=== PATIENT | female | born 1945 | race Caucasian/White ===

== ENCOUNTER 2016-04-01 09:59 | Outpatient (RCR) | payer MEDICARE ==
[~2016-04-01 09:59] MED LIST: ACHD5005 PO; ALBU17AE3 IH; ALLO300T2 PO; ALPR.5T; AMIT50TA3 PO; AMLO10TA82 PO; ANAS1TAB7 PO; ASP325T PO; ASP81TEC; ASP81TEC PO; ASPI-983 PO; ATOR40TA70 PO; Atorvastatin Calcium PO; BSP10T PO; CARV12.53 PO; CARV6.252 PO; CHOL5000 PO; CTLP20T PO; CYCL10TA9 PO; ESCI20TA38 PO; ESCT10T; FAMO-119 PO; FURO20TA4 PO; GLIM1TAB PO; HYDR-2858 PO; HYDR-3714 PO; KCL10CCR; KCL20TCR PO; LVT.1T PO; MELO7.5T; NRT10C; OXYC-309 PO; POTA-51 PO; PRAV40TA PO; PRD10T PO; PRV20T PO; RT-ALBUINH IH; SKELAXIN; TICA90TA PO; TRAM100T2 PO; TRIA1TAB42 PO
--- OUTSIDE RECORDS SUMMARY | 2016-04-01 10:02 | XMS REPORT | Continuity of Care Document ---
Author Author [facility] Organization [facility] Address Unknown Phone Unavailable Care Team Providers Care Data Warehouse Manager Name Role Phone Chidi Saul PCP [phone] Source Comments Some departments are not documenting in the electronic medical record. If you do not see the information that you expected, contact Release of Information in the Health Information Management department at [phone] for further assistance in locating additional records.[facility] Active Allergies and Adverse Reactions No Known Allergies Current Medications Prescription Sig. Disp. Refills Start End Date Status Date triamterene/hydrochloroth Take 1 Tab by mouth Active iazide (MAXZIDE) 75/50 mg daily. tablet ALBUTEROL IN Inhale by mouth as Active Needed. amLODIPine (NORVASC) 10 Take 10 mg by mouth Active mg tablet daily. aspirin 325 mg tablet Take 325 mg by mouth Active daily. busPIRone (BUSPAR) 10 mg Take 10 mg by mouth three Active tablet times daily. carvedilol (COREG) 12.5 Take 12.5 mg by mouth Active mg tablet twice daily with meals. CYCLOBENZAPRINE HCL Take by mouth. Active (CYCLOBENZAPRINE PO) citalopram (CELEXA) 10 mg Take 10 mg by mouth Active tablet daily. furosemide (LASIX) 20 mg Take 20 mg by mouth Active tablet daily. levothyroxine (SYNTHROID) Take 100 mcg by mouth Active 100 mcg tablet daily. oxyCODone/acetaminophen Take by mouth once. Active (PERCOCET) 2.5/325 mg tablet potassium chloride SR Take 10 mEq by mouth Active (K-DUR) 10 mEq tablet daily. ATORVASTATIN CALCIUM Take by mouth. Active (LIPITOR PO) ticagrelor (BRILINTA) 90 Take 90 mg by mouth twice Active mg daily. Active Problems Problem Noted Date 6Th nerve palsy 07/08/2013 Diplopia 07/08/2013 Pseudophakia of both eyes 07/08/2013 Dermatochalasis of eyelid 07/08/2013 Social History Tobacco Use Types Packs/Day Years Used Date Former Smoker Cigarettes 1 30 Quit: 04/27/2003 Alcohol Use Drinks/Week oz/Week Comments Yes 1 Standard 0.5 drinks or equivalent Last Filed Vital Signs Vital Sign Reading Time Taken Blood Pressure 131/69 10/18/2013 1:03 PM CDT Pulse 73 10/18/2013 1:03 PM CDT Temperature - - Respiratory Rate - - Height 1.499 m (4' 11") 10/18/2013 1:03 PM CDT Weight 100.699 kg (222 lb) 10/18/2013 1:03 PM CDT Body Mass Index 44.81 10/18/2013 1:03 PM CDT Oxygen Saturation - - Plan of Care Health Maintenance Due Date Last Done Comments Physical (Comprehensive) 1953 Exam Pertussis Vaccine 1957 Tetanus Vaccine 12/07/1963 Breast Cancer Screening 1986 Colorectal Cancer 1996 Screening Shingles Vaccine 2006 Osteoporosis Screening 12/07/2011 Prevnar/Pneumovax (#1) 12/07/2011 Influenza Vaccine 12/27/2015 Results from Last 3 Months Not on file
[2016-04-01 10:26] LABS: BASOPHILS % (AUTO) 0 % (0-10); EOSINOPHILS # (AUTO) 0.3 10^3/uL (0.0-0.3); EOSINOPHILS % (AUTO) 3 % (0-10); LYMPHOCYTES # (AUTO) 2.3 X 10^3 (1.0-4.0); LYMPHOCYTES % (AUTO) 24 % (12-44); MEAN CORPUSCULAR HEMOGLOBIN 28 PG (25-34); MEAN CORPUSCULAR HGB CONC 33 G/DL (32-36); MEAN CORPUSCULAR VOLUME 84 FL (80-99); MEAN PLATELET VOLUME 9.6 FL (7.4-10.4); MONOCYTES # (AUTO) 0.7 X 10^3 (0.0-1.0); MONOCYTES % (AUTO) 7 % (0-12); NEUTROPHILS # (AUTO) 6.3 X 10^3 (1.8-7.8); NEUTROPHILS % (AUTO) 66 % (42-75); PLATELET COUNT 301 10^3/uL (130-400); RED BLOOD COUNT 4.77 10^6/uL (4.35-5.85); RED CELL DISTRIBUTION WIDTH 15.1 % (10.0-14.5); WHITE BLOOD COUNT 9.5 10^3/uL (4.3-11.0)
[2016-04-01 10:58] LABS: ALBUMIN 3.9 G/DL (3.2-4.5); BILIRUBIN,TOTAL 0.6 MG/DL (0.1-1.0); CALCIUM 9.4 MG/DL (8.5-10.1); CREATININE SERUM 1.21 MG/DL (0.60-1.30); POTASSIUM 3.4 MMOL/L (3.6-5.0); TOTAL PROTEIN 7.1 G/DL (6.4-8.2)
== END 2016-06-30 | disposition home or self-care (01) ==
LOC: ONC 09:59
PROVIDERS: ATTEND Internal Medicine Hematology & Oncology
DX: C50.411 Malignant neoplasm of upper-outer quadrant of right female breast (principal); I25.10 Atherosclerotic heart disease of native coronary artery without angina pectoris; I10 Essential (primary) hypertension; E11.9 Type 2 diabetes mellitus without complications; E78.5 Hyperlipidemia, unspecified; F32.9 Major depressive disorder, single episode, unspecified; M19.90 Unspecified osteoarthritis, unspecified site; E66.01 Morbid (severe) obesity due to excess calories; Z68.44 Body mass index [BMI] 60.0-69.9, adult; Z79.899 Other long term (current) drug therapy
CPT/HCPCS: 36415; 80053; 85025; 99213

== ENCOUNTER 2016-07-01 09:55 | Outpatient (RCR) | payer MEDICARE ==
--- OUTSIDE RECORDS SUMMARY | 2016-07-01 10:00 | XMS REPORT | Continuity of Care Document ---
Author Author [facility] Organization [facility] Address Unknown Phone Unavailable Care Team Providers Care Automobile Club Membership Sales Agent Name Role Phone Chidi Saul PCP [phone] Source Comments Some departments are not documenting in the electronic medical record. If you do not see the information that you expected, contact Release of Information in the Health Information Management department at [phone] for further assistance in locating additional records.[facility] Active Allergies and Adverse Reactions No Known [...] mg daily. Active Problems Problem Noted Date 6th nerve palsy 07/08/2013 Diplopia 07/08/2013 Pseudophakia of [...]
[2016-07-01 11:11] LABS: BASOPHILS # (AUTO) 0.1 10^3/uL (0.0-0.1); BASOPHILS % (AUTO) 1 % (0-10); EOSINOPHILS # (AUTO) 0.4 10^3/uL (0.0-0.3); EOSINOPHILS % (AUTO) 4 % (0-10); LYMPHOCYTES # (AUTO) 2.2 X 10^3 (1.0-4.0); LYMPHOCYTES % (AUTO) 25 % (12-44); MEAN CORPUSCULAR HEMOGLOBIN 27 PG (25-34); MEAN CORPUSCULAR HGB CONC 32 G/DL (32-36); MEAN CORPUSCULAR VOLUME 84 FL (80-99); MEAN PLATELET VOLUME 9.5 FL (7.4-10.4); MONOCYTES # (AUTO) 0.8 X 10^3 (0.0-1.0); MONOCYTES % (AUTO) 9 % (0-12); NEUTROPHILS # (AUTO) 5.2 X 10^3 (1.8-7.8); NEUTROPHILS % (AUTO) 61 % (42-75); PLATELET COUNT 304 10^3/uL (130-400); RED BLOOD COUNT 4.94 10^6/uL (4.35-5.85); RED CELL DISTRIBUTION WIDTH 15.7 % (10.0-14.5); WHITE BLOOD COUNT 8.6 10^3/uL (4.3-11.0)
[2016-07-01 12:24] LABS: BILIRUBIN,TOTAL 0.5 MG/DL (0.1-1.0); CALCIUM 9.6 MG/DL (8.5-10.1); CREATININE SERUM 1.17 MG/DL (0.60-1.30); POTASSIUM 3.4 MMOL/L (3.6-5.0); TOTAL PROTEIN 7.5 G/DL (6.4-8.2)
[2016-07-01 12:49] LABS: THYROID STIMULATING HORMONE 1.55 UIU/ML (0.35-4.94)
[2016-07-10] MEDS ORDERED: ceFAZolin 2 GM/50 ML NS 50 ML IV ONE (06:24)
== END 2016-09-29 | disposition home or self-care (01) ==
LOC: ONC 09:55
PROVIDERS: ATTEND Internal Medicine Hematology & Oncology
DX: C50.411 Malignant neoplasm of upper-outer quadrant of right female breast (principal); I25.10 Atherosclerotic heart disease of native coronary artery without angina pectoris; I10 Essential (primary) hypertension; E11.9 Type 2 diabetes mellitus without complications; E78.5 Hyperlipidemia, unspecified; F32.9 Major depressive disorder, single episode, unspecified; M19.90 Unspecified osteoarthritis, unspecified site; E66.01 Morbid (severe) obesity due to excess calories; Z68.42 Body mass index [BMI] 45.0-49.9, adult; Z79.811 Long term (current) use of aromatase inhibitors; Z79.899 Other long term (current) drug therapy
CPT/HCPCS: 36415; 80053; 84439; 84443; 85025; 99213

== ENCOUNTER 2016-07-09 09:33 | Outpatient (CLI) | payer MEDICARE ==
[~2016-07-09] VITALS: Ht 149.9 cm; Wt 103.7 kg
--- OUTSIDE RECORDS SUMMARY | 2016-07-09 09:40 | XMS REPORT | Continuity of Care Document ---
Author Author [facility] Organization [facility] Address Unknown Phone Unavailable Care Team Providers Care Wind Turbine Service Technician Name Role Phone Chidi Saul PCP [phone] Source Comments Some departments are not documenting in the electronic medical record. If you do not see the information that you expected, contact Release of Information in the Health Information Management department at [phone] for further assistance in locating additional records.[facility] Active Allergies and Adverse Reactions No [...]
[2016-07-09 09:51] VITALS: BP 141/76
== END 2016-07-09 10:25 | disposition home or self-care (01) ==
LOC: PREOP 09:33
PROVIDERS: ATTEND Surgery
DX: Z01.818 Encounter for other preprocedural examination (principal); Z11.2 Encounter for screening for other bacterial diseases; N63 Unspecified lump in breast
CPT/HCPCS: 87081

== ENCOUNTER 2016-07-10 06:05 | Day surgery (SDC) | payer MEDICARE ==
[~2016-07-10] VITALS: Ht 149.9 cm; Wt 103.7 kg
[2016-07-10 06:20] VITALS: BP 156/83
[2016-07-10] MEDS: LACTATED RINGERS 1,000 ML IV PRN ×2 (06:20→08:54)
--- OUTSIDE RECORDS SUMMARY | 2016-07-10 06:36 | XMS REPORT | Continuity of Care Document ---
Author Author [facility] Organization [facility] Address Unknown Phone Unavailable Care Team Providers Care Superintendent Service Name Role Phone Chidi Saul PCP [phone] Source Comments Some departments are not documenting in the electronic medical record. If you do not see the information that you expected, contact Release of Information in the Health Information Management department at [phone] for further assistance in locating additional records.[facility] Active Allergies and Adverse Reactions No Known [...]
--- OUTSIDE RECORDS SUMMARY | 2016-07-10 06:37 | XMS REPORT | Continuity of Care Document ---
Author Author [facility] Organization [facility] Address Unknown Phone Unavailable Care Team Providers Care Aircraft Machinist Name Role Phone Chidi Saul PCP [phone] Source Comments Some departments are not documenting in the electronic medical record. If you do not see the information that you expected, contact Release of Information in the Health Information Management department at [phone] for further assistance in locating additional records.[facility] Active Allergies and Adverse Reactions No [...]
[2016-07-10] MEDS ORDERED: SEVOFLURANE (ULTANE) 15 ML INHAL SOLN ONE ×4 (06:51→09:06)
[2016-07-10] MEDS ORDERED: MIDAZOLAM 2 MG/2 ML (VERSED) VIAL ONE (06:51)
[2016-07-10] MEDS ORDERED: ONDANSETRON 4 MG/2 ML (SDV) Z0FRAN ONE (06:51)
[2016-07-10] MEDS ORDERED: fentaNYL INJECTION 100 MCG/2 ML AMP ONE (06:51)
[2016-07-10] MEDS ORDERED: proPOfol 200 MG/20 ML (DIPRIVAN) VIAL IV ONE (06:51)
[2016-07-10] MEDS ORDERED: LIDOCAINE PF 2% 10 ML (XYLOCAINE) AMP ONE (06:51)
[2016-07-10] MEDS ORDERED: FAMOTIDINE 20MG/2ML IV (PEPCID) IV ONE (07:00)
[2016-07-10] MEDS ORDERED: ceFAZolin 2 GM/NS 50 ML IV ONE (07:15)
[2016-07-10] MEDS ORDERED: BUPIVACAINE 0.5% 30 ML (SENSORCAINE) VIAL ONE (07:16)
[2016-07-10] MEDS ORDERED: LIDOCAINE 1% INJ 20 ML (XYLOCAINE) VIAL ONE (07:16)
--- NOTE | 2016-07-10 07:44 | Progress Note-Pre Operative ---
Pre-Operative Progress Note H&P Reviewed The H&P was reviewed, patient examined and no changes noted. Date H&P Reviewed: Jul 10, 2016 Time H&P Reviewed: 07:43 Pre-Operative Diagnosis: right breast mass, skin lesion right shoulder/left thigh, skin tags L neck KAMALJIT MARROQUIN DO Jul 10, 2016 7:44 am
[2016-07-10] MEDS ORDERED: NEO/POLY/BAC (NEOSPORIN) OINT 15 GM TUBE ONE (09:00)
[2016-07-10] MEDS ORDERED: LACTATED RINGERS 1,000 ML IV ONE (09:06)
--- NOTE | 2016-07-10 09:09 | Progress Note-Post Operative ---
Post-Operative Progess Note Pre-Operative Diagnosis right breast mass, skin lesion right shoulder/left thigh, skin tags L neck Post-Operative Diagnosis same Post-Op Procedure Note Date of Procedure: Jul 10, 2016 Name of Procedure: excision right breast mass 3x6x4 cm, right shoulder skin lesion 3x1cm left thigh 2x0.8 cm and excision skin tags left neck x 8 Procedure Note/Findings see note Anesthesia Type general Estimated blood loss (mL): minimal Specimen(s) collected right breast mass, skin lesions KAMALJIT MARROQUIN DO Jul 10, 2016 9:08 am
--- NOTE | 2016-07-10 09:13 | Discharge Inst-Simple/Standard ---
Discharge Inst-Standard Discharge Medications New, Converted or Re-Newed RX: RX on Chart Patient Instructions/Follow Up Plan of Care/Instructions/FU: 10-14 days Mick Activity as Tolerated: No Discharge Diet: Regular Diet Other Inst to Patient Follow up Appt: Make appointment for 10-14 days ( suture removal) Instructions: No lifting greater than 10 pounds. No strenuous activity. May shower in 24 hours, no tub bath or soaking. Use incentive spirometer at home as directed. No Smoking Skin/Wound Care: May remove bandages in 24 hours. You need to leave the white strips over incision on they will fall off on their own. Symptoms to Report: Appetite Changes, Extremity Discoloration, Numbness/Tingling, Swelling Increased , Bleeding Excessive, Eyesight Changes, Pain Increased, Urine Color Change, Constipation(Persistent), Fever over 101 degree F, Pain/Pressure in chest, Urinating Difficulty, Cough Up/Vomit Blood, Heart Beat Irreg/Pounding, Pain/ Pressure in jaw, Vaginal Bleeding Increase, Cramps in feet or legs, Lightheadedness, Pain/Pressure in shoulder, Diarrhea(Persistent), Memory Changes Suddenly, Questions/Concerns, Weight gain consecutive days, Dizziness/ Fainting, Nausea/Vomiting, Shortness of Breath, Weight gain over 2 pounds If questions or concerns contact your physician Or seek help at emergency department. KAMALJIT MARROQUIN DO Jul 10, 2016 9:12 am
[2016-07-10] MEDS ORDERED: ONDANSETRON 4 MG/2 ML (SDV) Z0FRAN IVP PRN (09:30)
[2016-07-10] MEDS ORDERED: MEPERIDINE (DEMEROL) INJ 50 MG/ML IVP PRN (09:30)
[2016-07-10] MEDS ORDERED: morphine INJ 10 MG/ML 1ML (SYR OR VIAL) IVP PRN (09:30)
[2016-07-10 10:15] VITALS: BP 115/58
[2016-07-10 10:45] VITALS: BP 113/65
--- NOTE | 2016-07-10 12:18 | OPERATIVE REPORT ---
PROCEDURE PHYSICIAN: KAMALJIT MARROQUIN DATE OF PROCEDURE: 07/10/2016 PREOPERATIVE DIAGNOSIS: 1. Right breast mass. 2. Skin lesion right shoulder, left thigh, skin tag left neck. POSTOPERATIVE DIAGNOSIS: 1. Right breast mass. 2. Skin lesion right shoulder, left thigh, skin tag left neck. PROCEDURE: Excision right breast mass 3 x 6 x 4 cm, right shoulder skin lesion 3 x 1 cm, left thigh 2 x 0.8 cm. Excision of skin tag left neck x 8. ANESTHESIA: General. ESTIMATED BLOOD LOSS: Minimal. COMPLICATIONS: None. INDICATIONS: The patient is a 70-year-old female who had previous mastectomy. She has a palpable mass within the incision line on the lateral aspect. She also has multiples skin lesions that cause her a little bit of discomfort that she wishes to have removed. She understands risks and benefits of procedure and wished to proceed with procedure. Consent was signed on the chart. PROCEDURE: The patient was taken to the operative suite. She was prepped in sterile fashion. A surgical pause was performed. Over the palpable mass incision was made and dissection was taken down around the palpable mass. The mass was approximately 1.5 cm in diameter in diameter. In doing so there was a cystic area that was punctured and began to be dissected around as well. It was more of a clear serous fluid that was present. Cautery dissection was used to dissect around this, which then opened up where this was into the previous mastectomy scar. It appears to be epithelialized. This was retracted all the way medial. The epithelialized tissue was removed but no other palpable abnormality is noted. The overall area removed was 3 x 6 x 4 cm of skin, subcutaneous tissue, which was dissected down to the pectoralis muscle. A layered closure was performed. The deep tissues were reapproximated using 3-0 Vicryl. The subcutaneous tissues were then approximated using 3-0 Vicryl and the skin was then closed using 4-0 Vicryl in a running subcuticular fashion. 0.5% Marcaine 1% lidocaine 50:50 ratio was used to anesthetize the area. Sterile bandage was applied. The right shoulder then had local anesthetic infiltrated with new instruments. An elliptical incision measuring 3 x 1 cm was made around the lesion and cautery was used to remove the skin and subcutaneous tissues. This was then closed using 3-0 nylon in a simple interrupted fashion. The patient had multiple skin tags on the left neck which were prepped and draped and these were amputated with a number 15 blade scalpel at the base and cautery was used to achieve hemostasis. After these were performed the area was then washed and dried and triple antibiotic ointment was placed over them. The left thigh had a local anesthetic infiltrated into the area. An elliptical incision measuring 2 x 0.8 cm was used to make around the skin lesions. Another 15 blade scalpel was used to remove skin and subcutaneous tissues. 3-0 nylon was placed in a simple running fashion to close the wound. The area was washed and dried. Sterile bandage was applied. The patient tolerated the procedures well without complication. She was taken to recovery in stable condition. Job ID: [id number] Dictated Date: 07/10/2016 09:18:09 Air Crew Supervisor Date: 07/10/2016 12:01:20 / kimberly HDZ
== END 2016-07-10 11:00 | disposition home or self-care (01) ==
LOC: SDC 06:05
PROVIDERS: ATTEND Surgery
DX: N60.01 Solitary cyst of right breast (principal); L82.1 Other seborrheic keratosis; B07.9 Viral wart, unspecified; L91.8 Other hypertrophic disorders of the skin; E11.9 Type 2 diabetes mellitus without complications
CPT/HCPCS: 82962; 88304; 88305

== ENCOUNTER 2016-10-03 10:55 | Outpatient (RCR) | payer MEDICARE ==
[2016-10-15] MEDS ORDERED: CHOL500061 PO (10:13)
[2016-10-22] MEDS ORDERED: OXYC-197 PO (09:49)
[2016-10-22] MEDS ORDERED: CHOL5000 PO (13:27)
[2016-10-22] MEDS ORDERED: HYDR-3816 PO (13:27)
[2016-10-22] MEDS ORDERED: POTA20TA15 PO (13:38)
[2016-11-29] MEDS ORDERED: CEPH-507 PO (17:15)
== END 2016-12-22 10:07 | disposition home or self-care (01) ==
LOC: ONC 10:55
PROVIDERS: ATTEND Internal Medicine Hematology & Oncology
DX: C50.411 Malignant neoplasm of upper-outer quadrant of right female breast (principal); I25.10 Atherosclerotic heart disease of native coronary artery without angina pectoris; I10 Essential (primary) hypertension; E11.9 Type 2 diabetes mellitus without complications; E78.5 Hyperlipidemia, unspecified; F32.9 Major depressive disorder, single episode, unspecified; M19.90 Unspecified osteoarthritis, unspecified site; E66.01 Morbid (severe) obesity due to excess calories; Z68.42 Body mass index [BMI] 45.0-49.9, adult; Z79.811 Long term (current) use of aromatase inhibitors; Z79.899 Other long term (current) drug therapy
CPT/HCPCS: 99213

== ENCOUNTER 2016-10-15 09:57 | Outpatient (CLI) | payer MEDICARE ==
--- NOTE | 2016-10-14 14:23 | HISTORY AND PHYSICAL ---
DATE OF SERVICE: This is will be for inpatient admission on 10/22/2016 REASON FOR ADMISSION: Right total knee arthroplasty. HISTORY OF PRESENT ILLNESS: The patient is a 70-year-old female with the complaints of progressively worsening right knee pain. She reports functional impairment. She reports progressive pain and decreased activity because of the knee. She ambulates with the cane. Due to progressive symptoms, she is elected to proceed with total knee arthroplasty. Radiographs reveal complete loss of medial and patellofemoral joint spaces with osteophyte formation noted throughout all three compartments. REVIEW OF SYSTEMS: No chest pain, no shortness of breath, no dysuria. PAST MEDICAL HISTORY: Kidney disease, coronary artery disease, hyperthyroidism, hypertension and breast cancer. PAST SURGICAL HISTORY: Coronary stent placement, hysterectomy, left total knee arthroplasty and right mastectomy. FAMILY HISTORY: Cardiovascular disease. PRIMARY CARE PROVIDER: [facility]. MEDICATIONS: Celexa, ProAir, furosemide, cyclobenzaprine, glimepiride, potassium, amlodipine, levothyroxine, hydrocodone, triamterene, hydrochlorothiazide, carvedilol, anastrozole, Lipitor, aspirin, vitamin D. . ALLERGIES: ALLOPURINOL. SOCIAL HISTORY: The patient is a former smoker, denies alcohol use. PHYSICAL EXAMINATION: GENERAL: The patient is well-developed, well-nourished, in no acute distress. HEENT: Normocephalic, atraumatic. Pupils are equal, round and reactive to light. Oropharynx is clear. NECK: Supple. No lymphadenopathy. LUNGS: Clear to auscultation bilaterally. HEART: Regular rate and rhythm. ABDOMEN: Soft, nontender, nondistended. EXTREMITIES: Right knee demonstrates varus alignment. No skin lesions are noted. She has intact sensation throughout. Negative straight legs. She ambulates with an antalgic gait. There is no gross varus to valgus laxity. Negative anterior and posterior drawer. Range of motion is 0/4/125. IMPRESSION: Severe left knee osteoarthritis, unresponsive to conservative measures. Severe right knee primary osteoarthritis PLAN: Right total knee arthroplasty. The risks, benefits, options, ramifications and recovery have been discussed at length with the patient. She understands and wishes to proceed. Job ID: [id number] DocumentID: [id number] Dictated Date: 10/14/2016 09:31:16 Veneer Production Machine Operator Date: 10/14/2016 10:43:45 Dictated By: COBY CRESPO MD
[~2016-10-15] VITALS: Ht 149.9 cm; Wt 105.8 kg
[2016-10-15] MEDS ORDERED: CHOL500061 PO (10:13)
[2016-10-15 10:19] VITALS: BP 120/65
[2016-10-15 10:57] LABS: BASOPHILS # (AUTO) 0.1 10^3/uL (0.0-0.1); BASOPHILS % (AUTO) 1 % (0-10); EOSINOPHILS # (AUTO) 0.5 10^3/uL (0.0-0.3); EOSINOPHILS % (AUTO) 6 % (0-10); LYMPHOCYTES # (AUTO) 2.2 X 10^3 (1.0-4.0); LYMPHOCYTES % (AUTO) 25 % (12-44); MEAN CORPUSCULAR HEMOGLOBIN 27 PG (25-34); MEAN CORPUSCULAR HGB CONC 32 G/DL (32-36); MEAN CORPUSCULAR VOLUME 83 FL (80-99); MEAN PLATELET VOLUME 10.2 FL (7.4-10.4); MONOCYTES # (AUTO) 0.8 X 10^3 (0.0-1.0); MONOCYTES % (AUTO) 9 % (0-12); NEUTROPHILS # (AUTO) 5.3 X 10^3 (1.8-7.8); NEUTROPHILS % (AUTO) 60 % (42-75); PLATELET COUNT 275 10^3/uL (130-400); RED BLOOD COUNT 5.13 10^6/uL (4.35-5.85)
[2016-10-15 11:01] LABS: BILIRUBIN,URINE NEGATIVE (NEGATIVE); KETONES,URINE NEGATIVE (NEGATIVE); LEUKOCYTE ESTERASE ,URINE 1+ (NEGATIVE); NITRITE,URINE NEGATIVE (NEGATIVE); PH,URINE 6.5 (5-9); PROTEIN,URINE NEGATIVE (NEGATIVE); UROBILINOGEN,URINE NORMAL (NORMAL)
[2016-10-15 11:12] LABS: INR 1.1 (0.8-1.4); PROTHROMBIN TIME PATIENT 14.1 SEC (12.2-14.7)
--- NOTE | 2016-10-15 11:16 | Diagnostic Imaging Report ---
PA and lateral views of the chest. INDICATION: Mild COPD. FINDINGS: The lungs are hyperinflated with no focal infiltrate. There is cardiomegaly. No overt failure. No effusion or pneumothorax. Mediastinum and lilliana appear unremarkable. IMPRESSION: COPD. Cardiomegaly. Dictated by: Dictated on workstation # [id number]
[2016-10-15 11:21] LABS: ALBUMIN 4.1 GM/DL (3.2-4.5); BILIRUBIN,TOTAL 0.6 MG/DL (0.1-1.0); CALCIUM 9.6 MG/DL (8.5-10.1); CREATININE SERUM 1.13 MG/DL (0.60-1.30); ICTERUS 0.5 (-100-1.9); POTASSIUM 3.4 MMOL/L (3.6-5.0); TOTAL PROTEIN 7.5 GM/DL (6.4-8.2)
[2016-10-15 11:22] LABS: SQUAMOUS EPITHELIAL CELL,UR RARE /HPF; WBC,URINE RARE /HPF
[2016-10-15 12:27] LABS: ERYTHROCYTE SEDIMENTATION RATE 23 MM/HR (0-30)
== END 2016-10-15 14:03 | disposition home or self-care (01) ==
LOC: PREOP 09:57
PROVIDERS: ATTEND Orthopaedic Surgery
DX: Z01.810 Encounter for preprocedural cardiovascular examination (principal); Z01.811 Encounter for preprocedural respiratory examination; Z01.812 Encounter for preprocedural laboratory examination; Z11.2 Encounter for screening for other bacterial diseases; M17.11 Unilateral primary osteoarthritis, right knee; R53.83 Other fatigue
CPT/HCPCS: 36415; 71020; 80053; 81000; 85025; 85610; 85652; 86850; 86900; 86901; 87081; 93005

== ENCOUNTER 2016-10-22 05:57 | Inpatient (IN) | payer MEDICARE ==
--- NOTE | 2016-10-17 02:11 | HISTORY AND PHYSICAL ---
DATE OF SERVICE: 10/22/2016 This is will be for inpatient admission on 10/22/2016 REASON FOR ADMISSION: Right total knee arthroplasty. HISTORY OF PRESENT ILLNESS: The patient is a 70-year-old female with the complaints of progressively worsening right knee pain. She reports functional impairment. She reports progressive pain and decreased activity because of the knee. She ambulates with the cane. Due to progressive symptoms, she is elected to proceed with total knee arthroplasty. Radiographs reveal complete loss of medial and patellofemoral joint spaces with osteophyte formation noted throughout all three compartments. REVIEW OF SYSTEMS: No chest pain, no shortness of breath, no dysuria. PAST MEDICAL HISTORY: Kidney disease, coronary artery disease, hyperthyroidism, hypertension and breast cancer. PAST SURGICAL HISTORY: Coronary stent placement, hysterectomy, left total knee arthroplasty and right mastectomy. FAMILY HISTORY: Cardiovascular disease. PRIMARY CARE PROVIDER: [facility]. MEDICATIONS: Celexa, ProAir, furosemide, cyclobenzaprine, glimepiride, potassium, amlodipine, levothyroxine, hydrocodone, triamterene, hydrochlorothiazide, carvedilol, anastrozole, Lipitor, aspirin, vitamin D. . ALLERGIES: ALLOPURINOL. SOCIAL HISTORY: The patient is a former smoker, denies alcohol use. PHYSICAL EXAMINATION: GENERAL: The patient is well-developed, well-nourished, in no acute distress. HEENT: Normocephalic, atraumatic. Pupils are equal, round and reactive to light. Oropharynx is clear. NECK: Supple. No lymphadenopathy. LUNGS: Clear to auscultation bilaterally. HEART: Regular rate and rhythm. ABDOMEN: Soft, nontender, nondistended. EXTREMITIES: Right knee demonstrates varus alignment. No skin lesions are noted. She has intact sensation throughout. Negative straight legs. She ambulates with an antalgic gait. There is no gross varus to valgus laxity. Negative anterior and posterior drawer. Range of motion is 0/4/125. IMPRESSION: Severe left knee osteoarthritis, unresponsive to conservative measures. Severe right knee primary osteoarthritis PLAN: Right total knee arthroplasty. The risks, benefits, options, ramifications and recovery have been discussed at length with the patient. She understands and wishes to proceed. Job ID: [id number] DocumentID: [id number] Dictated Date: 10/14/2016 09:31:16 Poultry Dressing Worker Date: 10/14/2016 10:43:45 Dictated By: COBY CRESPO MD <Dictated by COBY CRESPO MD> <Electronically signed by COBY CRESPO MD> 10/15/16 0545
[~2016-10-22] VITALS: Ht 149.9 cm; Wt 105.8 kg
[~2016-10-22 05:57] MED LIST changes: +CHOL500061 PO
--- OUTSIDE RECORDS SUMMARY | 2016-10-22 06:03 | XMS REPORT ---
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 Problem Abnormal mammogram R92.8 Active Problem Abnormal urinalysis R82.90 Active Problem Gout M10.9 Active Problem CAD (coronary artery disease) I25.10 Active Problem Pure hypercholesterolemia E78.0 Active Problem Anxiety F41.9 Active Problem Hypercholesteremia 272.0 Active Problem Breast mass in female N63 Active Problem Chronic kidney disease (CKD) stage G3a/A2, moderately decreased glomerular filtration rate (GFR) between 45-59 mL/min/1.73 square meter and albuminuria creatinine ratio between 30-299 mg/g N18.3 Active Assessment Abnormal urinalysis R82.90 Active Problem Hypothyroid E03.9 Active Medications No Known Medications Results No Known Results Summary Purpose eClinicalWorks Submission
--- OUTSIDE RECORDS SUMMARY | 2016-10-22 06:03 | XMS REPORT | Continuity of Care Document ---
Author Author [facility] Organization [facility] Address Unknown Phone Unavailable Care Team Providers Care Party Plan Sales Host/Hostess Name Role Phone Chidi Saul PCP [phone] Source Comments Some departments are not documenting in the electronic medical record. If you do not see the information that you expected, contact Release of Information in the Health Information Management department at [phone] for further assistance in locating additional records.[facility] Active Allergies and Adverse Reactions No [...] Health Maintenance Due Date Last Done Comments Hepatitis C Screening 1945 Physical (Comprehensive) 1953 Exam Pertussis Vaccine 1957 Tetanus Vaccine 12/07/1963 Breast Cancer Screening 1986 Colorectal Cancer 1996 Screening Shingles Vaccine 2006 Osteoporosis Screening 12/07/2011 Prevnar/Pneumovax (#1) 12/07/2011 Influenza Vaccine 12/26/2016 Results from Last 3 Months Not on file
--- OUTSIDE RECORDS SUMMARY | 2016-10-22 06:03 | XMS REPORT ---
Author ORVILLE [facility] [employer] Address Unknown Phone Unavailable Care Team Providers Care Reel Slitter Name Role Phone ORVILLE RAMIREZ Unavailable Allergies, Adverse Reactions, Alerts Substance Reaction Event Type N.K.D.A. Info Not Available Non Drug Allergy Problems Problem Type Condition Code Onset Dates Condition Status Assessment Gout M10.9 Active Problem Breast mass in female N63 Active Problem Hypercholesteremia 272.0 Active Problem CAD (coronary artery disease) I25.10 Active Problem Sleep apnea, obstructive G47.33 Active Problem Gout M10.9 Active Problem Hypothyroid E03.9 Active Problem Chronic kidney disease (CKD) stage G3a/A2, moderately decreased glomerular filtration rate (GFR) between 45-59 mL/min/1.73 square meter and albuminuria creatinine ratio between 30-299 mg/g N18.3 Active Problem Diabetes E11.9 Active Problem Pain of lower leg M79.669 Active Assessment Hypercholesteremia 272.0 Active Assessment Diabetes E11.9 Active Assessment Hypothyroid E03.9 Active Assessment Chronic kidney disease (CKD) stage G3a/A2, moderately decreased glomerular filtration rate (GFR) between 45-59 mL/min/1.73 square meter and albuminuria creatinine ratio between 30-299 mg/g N18.3 Active Medications Medication Code System Code Instructions Start Date End Date Status Dosage Allopurinol [facility] [address]-16 300 MG Orally Once a day Jan 30, 2015Apr 1 tablet amlodipine [facility] [address]-38 10 mg Apr 24, 2014 1 tablet by Oral route 1 time per day Lipitor [facility] [address]-74 20 mg September 05, 2013 take 1 tablet (20 mg ) by oral route once daily levothyroxine [facility] 0 100 mcg Apr 24, 2014 1 tablet by Oral route 1 time per day Hydrocodone-Acetaminophen [facility] [address]-91 5-325 MG Orally 3 times a day Jan 24, 2015 Feb 23, 2015 1 tablet as needed Triamterene-HCTZ [facility] [address]-99 75-50 MG Orally Once a day 1 tablet in the morning Coreg [facility] [address]-77 12.5 mg Apr 24, 2014 1 tablet by Oral route 2 times per day Lasix [facility] [address]-46 20 MG Orally Once a day 1 tablet Aspirin Adult Low Strength [facility] [address]-11 81 MG Orally Once a day 1 tablet Albuterol Sulfate [facility] [address]-41 90 mcg/actuation Mar 15, 2013 2 puffs by Inhalation route every 4-6 hours as needed PRN cough or wheezing Celexa [facility] [address]-46 20 MG Orally Once a day 1 tablet Cyclobenzaprine HCl [facility] 58738715690 10 MG TAKE ONE TABLET BY MOUTH THREE TIMES DAILY NEEDED MUSCLE SPASM Potassium Chloride Pricilla ER [facility] [address]-06 20 MEQ Orally Three times a day 1 tablet Lancets [facility] 0 - Dec 29, 2013 1 time per day ONE TOUCH DELICA LANCETS Procedures Procedure Coding System Code Date GLYCATED HEMOGLOBIN TEST CPT-4 97923 Feb 12, 2015 VENIPUNCT, ROUTINE* CPT-4 95713 Feb 12, 2015 LAB NOT BILL[facility] CPT-4 NOBLL Feb 12, 2015 Office Visit, Est Pt., Level 3 CPT-4 32956 Feb 12, 2015 [facility] VISIT ESTABLISHED PATIENT CPT-4 G0467 Feb 12, 2015 Vital Signs Date/Time: Feb 12, 2015 Temperature 98.7 F Weight 224.1 lbs Height 59 in BMI 45.26 Index Blood Pressure Diastolic 82 mmHg Blood Pressure Systolic 124 mmHg Cardiac Monitoring Heart Rate 70 bpm Results No Known Results Summary Purpose eClinicalWorks Submission
--- OUTSIDE RECORDS SUMMARY | 2016-10-22 06:03 | XMS REPORT ---
Author PATRICIA Brambila [facility] eClinicalWorks Address Unknown Phone Unavailable Care Team Providers Care Job Setter Name Role Phone PATRICIA LIMON CP Unavailable Allergies, Adverse Reactions, Alerts Substance Reaction Event Type N.K.D.A. Info Not Available Non Drug Allergy Problems Problem Type Condition Code Onset Dates Condition Status Assessment Joint pain 719.40 Active Problem Hypercholesteremia 272.0 Active Assessment Kidney disease, chronic, stage III (GFR 30-59 ml/min) 585.3 Active Problem Sleep apnea, obstructive G47.33 Active Problem Diabetes E11.9 Active Problem CAD (coronary artery disease) I25.10 Active Problem Chronic kidney disease (CKD) stage G3a/A2, moderately decreased glomerular filtration rate (GFR) between 45-59 mL/min/1.73 square meter and albuminuria creatinine ratio between 30-299 mg/g N18.3 Active Problem Breast mass in female N63 Active Problem Pain of lower leg M79.669 Active Problem Hypothyroid E03.9 Active Medications Medication Code System Code Instructions Start Date End Date Status Dosage levothyroxine ND 0 100 mcg Apr 24, 2014 1 tablet by Oral route 1 time per day amlodipine [facility] [address]-29 10 mg Apr 24, 2014 1 tablet by Oral route 1 time per day Triamterene-HCTZ [facility] [address]-70 75-50 MG Orally Once a day 1 tablet in the morning Potassium Chloride Pricilla ER [facility] [address]-06 20 MEQ Orally Three times a day 1 tablet Hydrocodone-Acetaminophen [facility] [address]-68 5-325 MG Orally 3 times a day Jan 24, 2015 Feb 23, 2015 1 tablet as needed Coreg [facility] [address]-08 12.5 mg Apr 24, 2014 1 tablet by Oral route 2 times per day Lipitor [facility] [address]-18 20 mg September 05, 2013 take 1 tablet (20 mg ) by oral route once daily Cyclobenzaprine HCl [facility] 97002389547 10 MG TAKE ONE TABLET BY MOUTH THREE TIMES DAILY NEEDED MUSCLE SPASM Lasix [facility] [address]-50 20 MG Orally Once a day 1 tablet Aspirin Adult Low Strength [facility] [address]-85 81 MG Orally Once a day 1 tablet Albuterol Sulfate [facility] [address]-45 90 mcg/actuation Mar 15, 2013 2 puffs by Inhalation route every 4-6 hours as needed PRN cough or wheezing Lancets [facility] 0 - Dec 29, 2013 1 time per day ONE TOUCH DELICA LANCETS Procedures Procedure Coding System Code Date X-RAY EXAM OF FOOT CPT-4 91150 Jan 24, 2015 [facility] VISIT ESTABLISHED PATIENT CPT-4 G0467 Jan 24, 2015 [facility] C[facility] NOBLL Jan 24, 2015 VENIPUNCT, ROUTINE* CPT-4 73717 Jan 24, 2015 Office Visit, Est Pt., Level 4 CPT-4 18756 Jan 24, 2015 Vital Signs Date/Time: Jan 24, 2015 Temperature 98.1 F Weight 226.2 lbs Height 59 in BMI 45.68 Index Blood Pressure Diastolic 80 mmHg Blood Pressure Systolic 120 mmHg Cardiac Monitoring Heart Rate 90 bpm Results Name Result Date Reference Range Unit Abnormality Flag ROUTINE VENIPUNCTURE URIC ACID, SERUM Summary Purpose eClinicalWorks Submission
--- OUTSIDE RECORDS SUMMARY | 2016-10-22 06:03 | XMS REPORT ---
Author Author PATRICIA LIMON [facility] eClinicalWorks Address Unknown Phone Unavailable Care Team Providers Care Phlebotomy Lab Assistant Name Role Phone PATRICIA LIMON CP Unavailable Allergies No Known Allergies Problems [...] ratio between 30-299 mg/g N18.3 Active Assessment Unspecified lump in breast N63 Active Problem Hypothyroid E03.9 Active Medications No Known Medications Results No Known Results Summary Purpose eClinicalWorks Submission
--- OUTSIDE RECORDS SUMMARY | 2016-10-22 06:03 | XMS REPORT ---
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 Problem Abnormal finding on mammography R92.8 Active Problem Anxiety F41.9 Active Problem Gout M10.9 Active Problem Abnormal mammogram R92.8 Active Problem Pure hypercholesterolemia E78.0 Active Problem Breast mass in female N63 Active Problem Chronic kidney disease (CKD) stage G3a/A2, moderately decreased glomerular filtration rate (GFR) between 45-59 mL/min/1.73 square meter and albuminuria creatinine ratio between 30-299 mg/g N18.3 Active Problem Hypothyroid E03.9 Active Problem Hypercholesteremia 272.0 Active Problem Pain of lower leg M79.669 Active Medications Medication Code System Code Instructions Start Date End Date Status Dosage Hydrocodone-Acetaminophen [facility] [address]-37 5-325 MG Orally every 6 hrs May 31, 2015 1 tablet as needed Results No Known Results Summary Purpose eClinicalWorks Submission
--- OUTSIDE RECORDS SUMMARY | 2016-10-22 06:03 | XMS REPORT ---
Author Author PATRICIA LIMON [facility] eClinicalWorks Address Unknown Phone Unavailable Care Team Providers Care Director Sales Support Name Role Phone PATRICIA LIMON Unavailable Allergies [...] Pain of lower leg M79.669 Active Medications No Known Medications Results No Known Results Summary Purpose eClinicalWorks Submission
--- OUTSIDE RECORDS SUMMARY | 2016-10-22 06:04 | XMS REPORT ---
Author Author PATRICIA LIMON [facility] eClinicalWorks Address Unknown Phone Unavailable Care Team Providers Care Book Editor Name Role Phone PATRICIA LIMON CP Unavailable [...]
--- OUTSIDE RECORDS SUMMARY | 2016-10-22 06:04 | XMS REPORT ---
Author PATRICIA Brambila [facility] eClinicalWorks Address Unknown Phone Unavailable Care Team Providers Care Property Preservation Specialist Name Role Phone PATRICIA LIMON Unavailable Allergies [...] Start Date End Date Status Dosage Hydrocodone-Acetaminophen [facility] [address]-78 5-325 MG Orally every 6 hrs May 31, 2015 1 tablet as needed Results No Known Results Summary Purpose eClinicalWorks Submission
--- OUTSIDE RECORDS SUMMARY | 2016-10-22 06:04 | XMS REPORT ---
Author ORVILLE Saini [facility] eClinicalWorks Address Unknown Phone Unavailable Care Team Providers Care Ergonomics Technician Name Role Phone ORVILLE RAMIREZ CP Unavailable Allergies No Known Allergies Problems Problem Type Condition Code Onset Dates Condition Status Problem Breast mass in female N63 Active [...]
--- OUTSIDE RECORDS SUMMARY | 2016-10-22 06:04 | XMS REPORT ---
Author PATRICIA Brambila [facility] eClinicalWorks Address Unknown Phone Unavailable Care Team Providers Care Stunt Driver Name Role Phone PATRICIA LIMON Unavailable Allergies, Adverse Reactions, Alerts Substance Reaction Event Type N.K.D.A. 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 Problem Hypercholesteremia 272.0 Active Problem Breast mass in female N63 Active Assessment Gout M10.9 Active Problem Chronic kidney disease (CKD) stage G3a/A2, moderately decreased glomerular filtration rate (GFR) between 45-59 mL/min/1.73 square meter and albuminuria creatinine ratio between 30-299 mg/g N18.3 Active Medications Medication Code System Code Instructions Start Date End Date Status Dosage Citalopram Hydrobromide [facility] [address]-84 20 MG Orally Once a day Feb 14, 2015 1 tablet BusPIRone HCl [facility] [address]-59 10 MG Orally Twice a day Feb 14, 2015 1 tablet Cyclobenzaprine HCl [facility] 67552433236 10 MG TAKE ONE TABLET BY MOUTH THREE TIMES DAILY NEEDED MUSCLE SPASM Albuterol Sulfate [facility] [address]-99 90 mcg/actuation Mar 15, 2013 2 puffs by Inhalation route every 4-6 hours as needed PRN cough or wheezing PredniSONE NDC 0 10 MG Orally Twice a day 1 tablet with food or milk Lancets [facility] 0 - Dec 29, 2013 1 time per day ONE TOUCH DELICA LANCETS Levothyroxine Sodium [facility] [address]-14 100 MCG Orally Once a day Feb 14, 2015 1 tablet Pepcid [facility] [address]-86 20 MG Orally Once a day 1 tablet at bedtime Triamterene-HCTZ [facility] [address]-10 75-50 MG Orally Once a day 1 tablet in the morning PredniSONE [facility] [address]-00 20 MG Orally Twice a day Feb 26, 2015Feb 1 tablet with food or milk Lipitor [facility] [address]-72 40 MG Orally Once a day Feb 15, 2015 1 tablet Potassium Chloride Pricilla ER [facility] [address]-11 20 MEQ Orally Three times a day 1 tablet Coreg [facility] [address]-60 12.5 mg Apr 24, 2014 1 tablet by Oral route 2 times per day Lasix [facility] [address]-87 20 MG Orally Once a day 1 tablet Aspirin Adult Low Strength [facility] [address]-60 81 MG Orally Once a day 1 tablet amlodipine [facility] [address]-31 10 mg Apr 24, 2014 1 tablet by Oral route 1 time per day Procedures Procedure Coding System Code Date Office Visit, Est Pt., Level 4 CPT-4 20780 Feb 26, 2015 [facility] VISIT ESTABLISHED PATIENT CPT-4 G0467 Feb 26, 2015 Vital Signs Date/Time: Feb 26, 2015 Temperature 97.8 F Weight 228 lbs Height 59 in BMI 46.05 Index Blood Pressure Diastolic 74 mmHg Blood Pressure Systolic 150 mmHg Cardiac Monitoring Heart Rate 104 bpm Results No Known Results Summary Purpose eClinicalWorks Submission
--- OUTSIDE RECORDS SUMMARY | 2016-10-22 06:05 | XMS REPORT ---
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 Assessment Pain of lower leg M79.669 Active Problem Sleep apnea, obstructive G47.33 Active Assessment Malignant neoplasm of female breast, unspecified laterality, unspecified site of breast C50.919 Active Problem CAD (coronary artery disease) I25.10 Active Assessment Anxiety F41.9 Active Problem Gout M10.9 Active Problem Pure hypercholesterolemia E78.0 Active Problem Anxiety F41.9 Active Problem 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 Assessment Chronic kidney disease (CKD) stage G3a/A2, moderately decreased glomerular filtration rate (GFR) between 45-59 mL/min/1.73 square meter and albuminuria creatinine ratio between 30-299 mg/g N18.3 Active Assessment Breast mass in female N63 Active Problem Malignant neoplasm of female breast, unspecified laterality, unspecified site of breast C50.919 Active Assessment Pure hypercholesterolemia E78.0 Active Problem 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 Problem Abnormal mammogram R92.8 Active Problem Abnormal finding on mammography R92.8 Active Problem Abnormal urinalysis R82.90 Active Problem Hypercholesteremia 272.0 Active Problem Breast mass in female N63 Active Assessment Hypothyroid E03.9 Active Assessment CAD (coronary artery disease) I25.10 Active Problem Pain of lower leg M79.669 Active Problem Diabetes E11.9 Active Problem Chronic kidney disease (CKD) stage G3a/A2, moderately decreased glomerular filtration rate (GFR) between 45-59 mL/min/1.73 square meter and albuminuria creatinine ratio between 30-299 mg/g N18.3 Active Problem Hypothyroid E03.9 Active Medications Medication Code System Code Instructions Start Date End Date Status Dosage amlodipine [facility] [address]-53 10 mg Apr 24, 2014 1 tablet by Oral route 1 time per day Citalopram Hydrobromide [facility] 49741347900 20 MG TAKE 1 TABLET EVERY DAY Triamterene-HCTZ [facility] [address]-91 75-50 MG Orally Once a day 1 tablet in the morning Albuterol Sulfate [facility] [address]-33 90 mcg/actuation Mar 15, 2013 2 puffs by Inhalation route every 4-6 hours as needed PRN cough or wheezing Hydrocodone-Acetaminophen [facility] [address]-98 7.5-325 MG Orally every 6 hrs Mar 06, 2016 1 tablet as needed Potassium Chloride Pricilla ER [facility] 07526809153 20 MEQ TAKE 1 TABLET THREE TIMES DAILY Levothyroxine Sodium [facility] 96840227404 100 MCG TAKE 1 TABLET ONE TIME DAILY (APPOINTMENT REQUIRED PRIOR TO REFILL) BusPIRone HCl [facility] [address]-00 10 MG Orally Twice a day Feb 14, 2015 1 tablet Furosemide [facility] [address]-56 20 MG Orally 2 times a day May 31, 2015 1 tablet Lancets [facility] 0 - Dec 29, 2013 1 time per day ONE TOUCH DELICA LANCETS Glimepiride [facility] 05407923289 1 MG TAKE 1 TABLET WITH BREAKFAST OR THE FIRST MAIN MEAL OF THE DAY Lipitor [facility] 41145246160 40 MG TAKE 1 TABLET ONE TIME DAILY Cyclobenzaprine HCl [facility] [address]-10 10 MG Orally Three times a day 1 tablet Coreg [facility] [address]-03 12.5 mg Apr 24, 2014 1 tablet by Oral route 2 times per day Procedures Procedure Coding System Code Date Office Visit, Est Pt., Level 4 CPT-4 30454 Mar 06, 2016 FLUZONE HIGH DOSE 65 AND UP 2015 CPT-4 76522 Mar 06, 2016 [facility] VISIT ESTABLISHED PATIENT CPT-4 G0467 Mar 06, 2016 SINGLE IMMUNIZATION ADMIN CPT-4 35391 Mar 06, 2016 Vital Signs Date/Time: Mar 06, 2016 Cardiac Monitoring Heart Rate 76 bpm Weight 231.9 lbs Height 59 in BMI 46.83 Index Blood Pressure Diastolic 70 mmHg Blood Pressure Systolic 136 mmHg Results No Known Results Immunizations Vaccine Administration Date FLUZONE HIGH DOSE 65 AND UP 2015Mar 06, 2016 Summary Purpose eClinicalWorks Submission
--- OUTSIDE RECORDS SUMMARY | 2016-10-22 06:05 | XMS REPORT ---
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 Problem Malignant neoplasm of female breast, unspecified laterality, unspecified site of breast C50.919 Active Problem 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 Problem [...] ratio between 30-299 mg/g N18.3 Active Problem Sleep apnea, obstructive G47.33 Active Problem Hypothyroid E03.9 Active Problem CAD (coronary artery disease) I25.10 Active Medications No Known Medications Procedures Procedure Coding System Code Date VENIPUNCT, ROUTINE* CPT-4 41633 Mar 17, 2016 LAB NOT BILLED BY [facility] CPT-4 NOBLL Mar 17, 2016 Results Name Result Date Reference Range Unit Abnormality Flag CBC ----Lymphs 27 93738390 % ----Neutrophils 60 13612119 % ----Baso (Absolute) 0.0 [id number] 0.0-0.2 x10E3/uL ----Hemoglobin 12.9 20160317 11.1-15.9 g/dL ----Eos (Absolute) 0.3 55262899 0.0-0.4 x10E3/uL ----Hematocrit 39.8 35409855 34.0-46.6 % ----Monocytes(Absolute) 0.7 02855434 0.1-0.9 x10E3/uL ----MCV 84 95149767 79-97 fL ----Lymphs (Absolute) 2.6 47175694 0.7-3.1 x10E3/uL ----MCH 27.2 81498636 26.6-33.0 pg ----Neutrophils (Absolute) 5.9 78019901 1.4-7.0 x10E3/uL ----MCHC 32.4 21001541 31.5-35.7 g/dL ----Immature Granulocytes 1 71751126 % ----Basos 0 70201471 % ----RDW 15.1 60170974 12.3-15.4 % ----Immature Grans (Abs) 0.1 49148466 0.0-0.1 x10E3/uL ----WBC 9.7 71060353 3.4-10.8 x10E3/uL ----Platelets 266 97466381 150-379 x10E3/uL ----Eos 4 36251700 % ----RBC 4.75 79689660 3.77-5.28 x10E6/uL ----Monocytes 8 61867077 % LIPID PANEL ----LDL Cholesterol Calc 72 20160317 0-99 mg/dL ----VLDL Cholesterol Pantera 20 20160317 5-40 mg/dL ----Cholesterol, Total 154 20160317 100-199 mg/dL ----HDL Cholesterol 62 28423737 >39 mg/dL ----Triglycerides 99 94598568 0-149 mg/dL ROUTINE VENIPUNCTURE TSH ----TSH 3.180 68474900 0.450-4.500 uIU/mL CMP ----Potassium, Serum 3.7 20160317 3.5-5.2 mmol/L ----Sodium, Serum 138 20160317 136-144 mmol/L ----BUN/Creatinine Ratio 21 20160317 ----eGFR If Africn Am 59 20160317 >59 mL/min/1.73 L ----eGFR If NonAfricn Am 51 20160317 >59 mL/min/1.73 L ----Creatinine, Serum 1.10 20160317 0.57-1.00 mg/dL H ----BUN 23 20160317 8-27 mg/dL ----Glucose, Serum 138 20160317 65-99 mg/dL H ----AST (SGOT) 17 20160317 0-40 IU/L ----Globulin, Total 2.6 20160317 1.5-4.5 g/dL ----ALT (SGPT) 14 20160317 0-32 IU/L ----A/G Ratio 1.5 20160317 1.1-2.5 ----Bilirubin, Total 0.4 20160317 0.0-1.2 mg/dL ----Alkaline Phosphatase, S 101 20160317 39-117 IU/L ----Carbon Dioxide, Total 27 20160317 18-29 mmol/L ----Calcium, Serum 9.4 20160317 8.7-10.3 mg/dL ----Protein, Total, Serum 6.6 20160317 6.0-8.5 g/dL ----Albumin, Serum 4.0 20160317 3.6-4.8 g/dL ----Chloride, Serum 92 20160317 97-106 mmol/L L Summary Purpose eClinicalWorks Submission
--- OUTSIDE RECORDS SUMMARY | 2016-10-22 06:11 | XMS REPORT ---
Author Author ORVILLE RAMIREZ [facility] eClinicalWorks Address Unknown Phone Unavailable Care Team Providers Care Ferryboat Ticket Taker Name Role Phone ORVILLE RAMIREZ CP Unavailable Allergies No Known Allergies Problems Problem Type Condition Code Onset Dates Condition Status Problem Breast mass in female N63 Active Problem Hypothyroid E03.9 Active Problem Chronic kidney disease (CKD) stage G3a/A2, moderately decreased glomerular filtration rate (GFR) between 45-59 mL/min/1.73 square meter and albuminuria creatinine ratio between 30-299 mg/g N18.3 Active Assessment Pure hypercholesterolemia E78.0 Active Problem Hypercholesteremia 272.0 Active Problem Anxiety F41.9 Active Problem Gout M10.9 Active Problem Pure hypercholesterolemia E78.0 Active Problem Diabetes E11.9 Active Problem Pain of lower leg M79.669 Active Problem CAD (coronary artery disease) I25.10 Active Problem Sleep apnea, obstructive G47.33 Active Medications Medication Code System Code Instructions Start Date End Date Status Dosage Lipitor [facility] [address]-09 40 MG Orally Once a day Feb 15, 2015 1 tablet Results No Known Results Summary Purpose eClinicalWorks Submission
--- OUTSIDE RECORDS SUMMARY | 2016-10-22 06:11 | XMS REPORT | Continuity of Care Document ---
Author Author [facility] Address Unknown Phone Unavailable Allergies Active Description Code Type Severity Reaction Onset Reported/Identified Relationship to Patient Clinical Status Yes No Known Drug Allergies [id number] Drug Allergy Unknown N/ A 10/13/2007 Yes pravastatin Drug Allergy 10/25/2008 Yes allopurinol [id number] Drug Allergy Unknown N/A 07/10/2016 Yes allopurinol [id number] Drug Allergy Moderate RASH 10/15/2016 Medications Problems Date Dx Coded Attending Type Code Diagnosis Diagnosed By 12/21/2007 QUINONES DO, SUNG K 414.01 CAD 12/21/2007 414.01 CAD 12/21/2007 QUINONES DO, SUNG K 414.01 CAD 12/21/2007 QUINONES DO, SUNG K 414.01 CAD 12/21/2007 QUINONES DO, SUNG K 414.01 CAD 12/21/2007 QUINONES DO, SUNG K 414.01 CAD 12/21/2007 414.01 CAD 12/21/2007 414.01 CAD 12/21/2007 414.01 CAD 12/21/2007 QUINONES DO, SUNG K 414.01 CAD 12/21/2007 QUINONES DO, SUNG K 414.01 CAD 12/21/2007 QUINONES DO, SUNG K 414.01 CAD 12/21/2007 QUINONES DO, SUNG K 414.01 CAD 12/21/2007 QUINONES DO, SUNG K 414.01 CAD 12/21/2007 QUINONES DO, SUNG K 414.01 CAD 12/21/2007 QUINONES DO, SUNG K 414.01 CAD 12/21/2007 QUINONES DO, SUNG K 414.01 CAD 12/21/2007 QUINONES DO, SUNG K 414.01 CAD 12/21/2007 QUINONES DO, SUNG K 414.01 CAD 01/18/2008 QUINONES DO, SUNG K 782.3 soft tissue swelling (non-joint) [Sx] 01/18/2008 QUINONES DO, SUNG K 790.29 PREDIABETES 01/18/2008 QUINONES DO, SUNG K V72.31 PARKS RECREATION DIRECTOR EXAM, ROUTINE 01/18/2008 782.3 soft tissue swelling (non-joint) [Sx] 01/18/2008 790.29 PREDIABETES 01/18/2008 V72.31 PARKS RECREATION DIRECTOR EXAM, ROUTINE 01/18/2008 QUINONES ISABELLA CRYSTALA K 782.3 soft tissue swelling (non-joint) [Sx] 01/18/2008 ISABELLA QUINONES DOA K 790.29 PREDIABETES 01/18/2008 ISABELLA QUINONES DOA K V72.31 PARKS RECREATION DIRECTOR EXAM, ROUTINE 01/18/2008 ISABELLA QUINONES DOA K 782.3 Soft Tissue Swelling (non-joint) [sx] 01/18/2008 ISABELLA QUINONES DOA K 790.29 PREDIABETES 01/18/2008 ISABELLA QUINONES DOA K V72.31 Director Utilization Management Exam, Routine 01/18/2008 QUINONES ISABELLA CRYSTALA K 782.3 Soft Tissue Swelling (non-joint) [sx] 01/18/2008 ISABELLA QUINONES DOA K 790.29 PREDIABETES 01/18/2008 ISABELLA QUINONES DOA K V72.31 Director Utilization Management Exam, Routine 01/18/2008 ISABELLA QUINONES DOA K 782.3 Soft Tissue Swelling (non-joint) [sx] 01/18/2008 ISABELLA QUINONES DOA K 790.29 PREDIABETES 01/18/2008 ISABELLA QUINONES DOA K V72.31 Director Utilization Management Exam, Routine 01/18/2008 782.3 Soft Tissue Swelling (non-joint) [sx] 01/18/2008 790.29 PREDIABETES 01/18/2008 V72.31 Director Utilization Management Exam, Routine 01/18/2008 782.3 Soft Tissue Swelling (non-joint) [sx] 01/18/2008 790.29 PREDIABETES 01/18/2008 V72.31 Director Utilization Management Exam, Routine 01/18/2008 782.3 Soft Tissue Swelling (non-joint) [sx] 01/18/2008 790.29 PREDIABETES 01/18/2008 V72.31 Director Utilization Management Exam, Routine 01/18/2008 QUINONES ISABELLA CRYSTALA K 782.3 Soft Tissue Swelling (non-joint) [sx] 01/18/2008 SUNG QUINONES DO K 790.29 PREDIABETES 01/18/2008 QUINONES DO, SUNG K V72.31 Director Utilization Management Exam, Routine 01/18/2008 QUINONES DO, SUNG K 782.3 Soft Tissue Swelling (non-joint) [sx] 01/18/2008 QUINONES DO, SUNG K 790.29 PREDIABETES 01/18/2008 QUINONES DO, SUNG K V72.31 Director Utilization Management Exam, Routine 01/18/2008 QUINONES DO SUNG K 782.3 Soft Tissue Swelling (non-joint) [sx] 01/18/2008 QUINONES DO, SUNG K 790.29 PREDIABETES 01/18/2008 QUINONES DO, SUNG K V72.31 Director Utilization Management Exam, Routine 01/18/2008 QUINONES DO, SUNG K 782.3 Soft Tissue Swelling (non-joint) [sx] 01/18/2008 QUINONES DO, SUNG K 790.29 PREDIABETES 01/18/2008 QUINONES DO, SUNG K V72.31 Director Utilization Management Exam, Routine 01/18/2008 QUINONES DO, SUNG K 782.3 Soft Tissue Swelling (non-joint) [sx] 01/18/2008 QUINONES DO, SUNG K 790.29 PREDIABETES 01/18/2008 QUINONES DO, SUNG K V72.31 Director Utilization Management Exam, Routine 01/18/2008 QUINONES DO, SUNG K 782.3 Soft Tissue Swelling (non-joint) [sx] 01/18/2008 QUINONES DO, SUNG K 790.29 PREDIABETES 01/18/2008 QUINONES DO, SUNG K V72.31 Director Utilization Management Exam, Routine 01/18/2008 QUINONES DO SUNG K 782.3 Soft Tissue Swelling (non-joint) [sx] 01/18/2008 QUINONES DO, SUNG K 790.29 PREDIABETES 01/18/2008 QUINONES DO, SUNG K V72.31 Director Utilization Management Exam, Routine 01/18/2008 QUINONES DO, SUNG K 782.3 Soft Tissue Swelling (non-joint) [sx] 01/18/2008 QUINONES DO, SUNG K 790.29 PREDIABETES 01/18/2008 QUINONES DO, SUNG K V72.31 Director Utilization Management Exam, Routine 01/18/2008 QUINONES DO SUNG K 782.3 Soft Tissue Swelling (non-joint) [sx] 01/18/2008 QUINONES DO, SUNG K 790.29 PREDIABETES 01/18/2008 QUINONES DO, SUNG K V72.31 Director Utilization Management Exam, Routine 01/18/2008 QUINONES DO, SUNG K 782.3 Soft Tissue Swelling (non-joint) [sx] 01/18/2008 QUINONES DO, SUNG K 790.29 PREDIABETES 01/18/2008 QUINONES DO, SUNG K V72.31 Director Utilization Management Exam, Routine 04/17/2008 QUINONES DO, SUNG K 270.7 Hyperglycemia 04/17/2008 QUINONES DO, SUNG K 401.1 HYPERTENSION, BENIGN ESSENTIAL 04/17/2008 270.7 Hyperglycemia 04/17/2008 401.1 HYPERTENSION, BENIGN ESSENTIAL 04/17/2008 QUINONES DO, SUNG K 270.7 Hyperglycemia 04/17/2008 QUINONES DO, SUNG K 401.1 HYPERTENSION, BENIGN ESSENTIAL 04/17/2008 QUINONES DO, SUNG K 270.7 Hyperglycemia 04/17/2008 QUINONES DO, SUNG K 401.1 HYPERTENSION, BENIGN ESSENTIAL 04/17/2008 QUINONES DO, SUNG K 270.7 Hyperglycemia 04/17/2008 QUINONES DO, SUNG K 401.1 HYPERTENSION, BENIGN ESSENTIAL 04/17/2008 QUINONES DO, SUNG K 270.7 Hyperglycemia 04/17/2008 QUINONES DO, SUNG K 401.1 HYPERTENSION, BENIGN ESSENTIAL 04/17/2008 270.7 Hyperglycemia 04/17/2008 401.1 HYPERTENSION, BENIGN ESSENTIAL 04/17/2008 270.7 Hyperglycemia 04/17/2008 401.1 HYPERTENSION, BENIGN ESSENTIAL 04/17/2008 270.7 Hyperglycemia 04/17/2008 401.1 HYPERTENSION, BENIGN ESSENTIAL 04/17/2008 QUINONES DO, SUNG K 270.7 Hyperglycemia 04/17/2008 QUINONES DO, SUNG K 401.1 HYPERTENSION, BENIGN ESSENTIAL 04/17/2008 QUINONES DO, SUNG K 270.7 Hyperglycemia 04/17/2008 QUINONES DO, SUNG K 401.1 HYPERTENSION, BENIGN ESSENTIAL 04/17/2008 QUINONES DO, SUNG K 270.7 Hyperglycemia 04/17/2008 QUINONES DO, SUNG K 401.1 HYPERTENSION, BENIGN ESSENTIAL 04/17/2008 QUINONES DO, SUNG K 270.7 Hyperglycemia 04/17/2008 QUINONES DO, SUNG K 401.1 HYPERTENSION, BENIGN ESSENTIAL 04/17/2008 QUINONES DO, SUNG K 270.7 Hyperglycemia 04/17/2008 QUINONES DO, SUNG K 401.1 HYPERTENSION, BENIGN ESSENTIAL 04/17/2008 QUINONES DO, SUNG K 270.7 Hyperglycemia 04/17/2008 QUINONES DO, SUNG K 401.1 HYPERTENSION, BENIGN ESSENTIAL 04/17/2008 QUINONES DO, SUNG K 270.7 Hyperglycemia 04/17/2008 QUINONES DO, SUNG K 401.1 HYPERTENSION, BENIGN ESSENTIAL 04/17/2008 QUINONES DO, SUNG K 270.7 Hyperglycemia 04/17/2008 QUINONES DO, SUNG K 401.1 HYPERTENSION, BENIGN ESSENTIAL 04/17/2008 QUINONES DO, SUNG K 270.7 Hyperglycemia 04/17/2008 QUINONES DO, SUNG K 401.1 HYPERTENSION, BENIGN ESSENTIAL 04/17/2008 QUINONES DO, SUNG K 270.7 Hyperglycemia 04/17/2008 QUINONES DO, SUNG K 401.1 HYPERTENSION, BENIGN ESSENTIAL 05/03/2008 QUINONES DO, SUNG K 110.5 Tinea Corporis 05/03/2008 110.5 Tinea Corporis 05/03/2008 QUINONES DO, SUNG K 110.5 Tinea Corporis 05/03/2008 QUINONES DO, SUNG K 110.5 Tinea Corporis 05/03/2008 QUINONES DO, SUNG K 110.5 Tinea Corporis 05/03/2008 QUINONES DO, SUNG K 110.5 Tinea Corporis 05/03/2008 110.5 Tinea Corporis 05/03/2008 110.5 Tinea Corporis 05/03/2008 110.5 Tinea Corporis 05/03/2008 QUINONES DO, SUNG K 110.5 Tinea Corporis 05/03/2008 QUINONES DO, SUNG K 110.5 Tinea Corporis 05/03/2008 QUINONES DO, SUNG K 110.5 Tinea Corporis 05/03/2008 QUINONES DO, SUNG K 110.5 Tinea Corporis 05/03/2008 QUINONES DO, SUNG K 110.5 Tinea Corporis 05/03/2008 QUINONES DO, SUNG K 110.5 Tinea Corporis 05/03/2008 QUINONES DO, SUNG K 110.5 Tinea Corporis 05/03/2008 QUINONES DO, SUNG K 110.5 Tinea Corporis 05/03/2008 QUINONES DO, SUNG K 110.5 Tinea Corporis 05/03/2008 QUINONES DO, SUNG K 110.5 Tinea Corporis 05/19/2008 QUINONES DO, SUNG K 709.9 Dermatology - Non-infectious 05/19/2008 709.9 Dermatology - Non-infectious 05/19/2008 QUINONES DO, SUNG K 709.9 Dermatology - Non-infectious 05/19/2008 QUINONES DO, SUNG K 709.9 Dermatology - Non-infectious 05/19/2008 QUINONES DO, SUNG K 709.9 Dermatology - Non-infectious 05/19/2008 QUINONES DO, SUNG K 709.9 Dermatology - Non-infectious 05/19/2008 709.9 Dermatology - Non-infectious 05/19/2008 709.9 Dermatology - Non-infectious 05/19/2008 709.9 Dermatology - Non-infectious 05/19/2008 QUINONES DO, SUNG K 709.9 Dermatology - Non-infectious 05/19/2008 QUINONES DO, SUNG K 709.9 Dermatology - Non-infectious 05/19/2008 QUINONES DO, SUNG K 709.9 Dermatology - Non-infectious 05/19/2008 QUINONES DO, SUNG K 709.9 Dermatology - Non-infectious 05/19/2008 QUINONES DO, SUNG K 709.9 Dermatology - Non-infectious 05/19/2008 QUINONES DO, SUNG K 709.9 Dermatology - Non-infectious 05/19/2008 QUINONES DO, SUNG K 709.9 Dermatology - Non-infectious 05/19/2008 QUINONES DO, SUNG K 709.9 Dermatology - Non-infectious 05/19/2008 QUINONES DO, SUNG K 709.9 Dermatology - Non-infectious 05/19/2008 QUINONES DO, SUNG K 709.9 Dermatology - Non-infectious 06/23/2008 QUINONES DO SUNG K 691.8 OTHER ATOPIC DERMATITIS AND RELATED CONDITIONS 06/23/2008 QUINONES DO, SUNG K 719.46 PAIN IN JOINT INVOLVING LOWER LEG 06/23/2008 691.8 OTHER ATOPIC DERMATITIS AND RELATED CONDITIONS 06/23/2008 719.46 PAIN IN JOINT INVOLVING LOWER LEG 06/23/2008 QUINONES DO, SUNG K 691.8 OTHER ATOPIC DERMATITIS AND RELATED CONDITIONS 06/23/2008 QUINONES DO, SUNG K 719.46 PAIN IN JOINT INVOLVING LOWER LEG 06/23/2008 QUINONES DO, SUNG K 691.8 Other Atopic Dermatitis And Related Conditions 06/23/2008 QUINONES DO SUNG K 719.46 Pain In Joint Involving Lower Leg 06/23/2008 QUINONES DO, SUNG K 691.8 Other Atopic Dermatitis And Related Conditions 06/23/2008 QUINONES DO, SUNG K 719.46 Pain In Joint Involving Lower Leg 06/23/2008 QUINONES DO, SUNG K 691.8 Other Atopic Dermatitis And Related Conditions 06/23/2008 QUINONES DO, SUNG K 719.46 Pain In Joint Involving Lower Leg 06/23/2008 691.8 Other Atopic Dermatitis And Related Conditions 06/23/2008 719.46 Pain In Joint Involving Lower Leg 06/23/2008 691.8 Other Atopic Dermatitis And Related Conditions 06/23/2008 719.46 Pain In Joint Involving Lower Leg 06/23/2008 691.8 Other Atopic Dermatitis And Related Conditions 06/23/2008 719.46 Pain In Joint Involving Lower Leg 06/23/2008 QUINONES DO, SUNG K 691.8 Other Atopic Dermatitis And Related Conditions 06/23/2008 QUINONES DO, SUNG K 719.46 Pain In Joint Involving Lower Leg 06/23/2008 QUINONES DO, SUNG K 691.8 Other Atopic Dermatitis And Related Conditions 06/23/2008 QUINONES DO, SUNG K 719.46 Pain In Joint Involving Lower Leg 06/23/2008 QUINONES DO, SUNG K 691.8 Other Atopic Dermatitis And Related Conditions 06/23/2008 QUINONES DO, SUNG K 719.46 Pain In Joint Involving Lower Leg 06/23/2008 QUINONES DO, SUNG K 691.8 Other Atopic Dermatitis And Related Conditions 06/23/2008 QUINONES DO, SUNG K 719.46 Pain In Joint Involving Lower Leg 06/23/2008 QUINONES DO, SUNG K 691.8 Other Atopic Dermatitis And Related Conditions 06/23/2008 QUINONES DO, SUNG K 719.46 Pain In Joint Involving Lower Leg 06/23/2008 QUINONES DO, SUNG K 691.8 Other Atopic Dermatitis And Related Conditions 06/23/2008 QUINONES DO, SUNG K 719.46 Pain In Joint Involving Lower Leg 06/23/2008 QUINONES DO, SUNG K 691.8 Other Atopic Dermatitis And Related Conditions 06/23/2008 QUINONES DO, SUNG K 719.46 Pain In Joint Involving Lower Leg 06/23/2008 QUINONES DO, SUNG K 691.8 Other Atopic Dermatitis And Related Conditions 06/23/2008 QUINONES DO, SUNG K 719.46 Pain In Joint Involving Lower Leg 06/23/2008 QUINONES DO, SUNG K 691.8 Other Atopic Dermatitis And Related Conditions 06/23/2008 QUINONES DO, SUNG K 719.46 Pain In Joint Involving Lower Leg 06/23/2008 QUINONES DO, SUNG K 691.8 Other Atopic Dermatitis And Related Conditions 06/23/2008 QUINONES DO, SUNG K 719.46 Pain In Joint Involving Lower Leg 10/12/2008 QUINONES DO, SUNG K 715.90 OSTEOARTHRITIS 10/12/2008 QUINONES DO, SUNG K 717.7 CHONDROMALACIA OF PATELLA 10/12/2008 QUINONES DO, SUNG K 739.3 NONALLOPATHIC LESIONS OF LUMBAR REGION NOT ELSEWHERE CLASSIFIED 10/12/2008 QUINONES DO, SUNG K 739.4 NONALLOPATHIC LESIONS OF SACRAL REGION NOT ELSEWHERE CLASSIFIED 10/12/2008 715.90 OSTEOARTHRITIS 10/12/2008 717.7 CHONDROMALACIA OF PATELLA 10/12/2008 739.3 NONALLOPATHIC LESIONS OF LUMBAR REGION NOT ELSEWHERE CLASSIFIED 10/12/2008 739.4 NONALLOPATHIC LESIONS OF SACRAL REGION NOT ELSEWHERE CLASSIFIED 10/12/2008 QUINONES DO, SUNG K 715.90 OSTEOARTHRITIS 10/12/2008 QUINONES DO, SUNG K 717.7 CHONDROMALACIA OF PATELLA 10/12/2008 QUINONES DO, SUNG K 739.3 NONALLOPATHIC LESIONS OF LUMBAR REGION NOT ELSEWHERE CLASSIFIED 10/12/2008 QUINONES DO, SUNG K 739.4 NONALLOPATHIC LESIONS OF SACRAL REGION NOT ELSEWHERE CLASSIFIED 10/12/2008 QUINONES DO, SUNG K 715.90 OSTEOARTHRITIS 10/12/2008 QUINONES DO, SUNG K 717.7 CHONDROMALACIA OF PATELLA 10/12/2008 QUINONES DO, SUNG K 739.3 Nonallopathic Lesions Of Lumbar Region Not Elsewhere Classified 10/12/2008 QUINONES DO, SUNG K 739.4 Nonallopathic Lesions Of Sacral Region Not Elsewhere Classified 10/12/2008 QUINONES DO, SUNG K 715.90 OSTEOARTHRITIS 10/12/2008 QUINONES DO, SUNG K 717.7 CHONDROMALACIA OF PATELLA 10/12/2008 QUINONES DO, SUNG K 739.3 Nonallopathic Lesions Of Lumbar Region Not Elsewhere Classified 10/12/2008 QUINONES DO, SUNG K 739.4 Nonallopathic Lesions Of Sacral Region Not Elsewhere Classified 10/12/2008 QUINONES DO, SUNG K 715.90 OSTEOARTHRITIS 10/12/2008 QUINONES DO, SUNG K 717.7 CHONDROMALACIA OF PATELLA 10/12/2008 QUINONES DO, SUNG K 739.3 Nonallopathic Lesions Of Lumbar Region Not Elsewhere Classified 10/12/2008 QUINONES DO, SUNG K 739.4 Nonallopathic Lesions Of Sacral Region Not Elsewhere Classified 10/12/2008 715.90 OSTEOARTHRITIS 10/12/2008 717.7 CHONDROMALACIA OF PATELLA 10/12/2008 739.3 Nonallopathic Lesions Of Lumbar Region Not Elsewhere Classified 10/12/2008 739.4 Nonallopathic Lesions Of Sacral Region Not Elsewhere Classified 10/12/2008 715.90 OSTEOARTHRITIS 10/12/2008 717.7 CHONDROMALACIA OF PATELLA 10/12/2008 739.3 Nonallopathic Lesions Of Lumbar Region Not Elsewhere Classified 10/12/2008 739.4 Nonallopathic Lesions Of Sacral Region Not Elsewhere Classified 10/12/2008 715.90 OSTEOARTHRITIS 10/12/2008 717.7 CHONDROMALACIA OF PATELLA 10/12/2008 739.3 Nonallopathic Lesions Of Lumbar Region Not Elsewhere Classified 10/12/2008 739.4 Nonallopathic Lesions Of Sacral Region Not Elsewhere Classified 10/12/2008 QUINONES DO, SUNG K 715.90 OSTEOARTHRITIS 10/12/2008 QUINONES DO, SUNG K 717.7 CHONDROMALACIA OF PATELLA 10/12/2008 QUINONES DO, SUNG K 739.3 Nonallopathic Lesions Of Lumbar Region Not Elsewhere Classified 10/12/2008 QUINONES DO, SUNG K 739.4 Nonallopathic Lesions Of Sacral Region Not Elsewhere Classified 10/12/2008 QUINONES DO, SUNG K 715.90 OSTEOARTHRITIS 10/12/2008 QUINONES DO, SUNG K 717.7 CHONDROMALACIA OF PATELLA 10/12/2008 QUINONES DO, SUNG K 739.3 Nonallopathic Lesions Of Lumbar Region Not Elsewhere Classified 10/12/2008 QUINONES DO, SUNG K 739.4 Nonallopathic Lesions Of Sacral Region Not Elsewhere Classified 10/12/2008 QUINONES DO, SUNG K 715.90 OSTEOARTHRITIS 10/12/2008 QUINONES DO, SUNG K 717.7 CHONDROMALACIA OF PATELLA 10/12/2008 QUINONES DO, SUNG K 739.3 Nonallopathic Lesions Of Lumbar Region Not Elsewhere Classified 10/12/2008 QUINONES DO, SUNG K 739.4 Nonallopathic Lesions Of Sacral Region Not Elsewhere Classified 10/12/2008 QUINONES DO, SUNG K 715.90 OSTEOARTHRITIS 10/12/2008 QUINONES DO, SUNG K 717.7 CHONDROMALACIA OF PATELLA 10/12/2008 QUINONES DO, SUNG K 739.3 Nonallopathic Lesions Of Lumbar Region Not Elsewhere Classified 10/12/2008 QUINONES DO, SUNG K 739.4 Nonallopathic Lesions Of Sacral Region Not Elsewhere Classified 10/12/2008 QUINONES DO, SUNG K 715.90 OSTEOARTHRITIS 10/12/2008 QUINONES DO, SUNG K 717.7 CHONDROMALACIA OF PATELLA 10/12/2008 QUINONES DO, SUNG K 739.3 Nonallopathic Lesions Of Lumbar Region Not Elsewhere Classified 10/12/2008 QUINONES DO, SUNG K 739.4 Nonallopathic Lesions Of Sacral Region Not Elsewhere Classified 10/12/2008 QUINONES DO, SUNG K 715.90 OSTEOARTHRITIS 10/12/2008 QUINONES DO, SUNG K 717.7 CHONDROMALACIA OF PATELLA 10/12/2008 QUINONES DO, SUNG K 739.3 Nonallopathic Lesions Of Lumbar Region Not Elsewhere Classified 10/12/2008 QUINONES DO, SUNG K 739.4 Nonallopathic Lesions Of Sacral Region Not Elsewhere Classified 10/12/2008 QUINONES DO, SUNG K 715.90 OSTEOARTHRITIS 10/12/2008 QUINONES DO, SUNG K 717.7 CHONDROMALACIA OF PATELLA 10/12/2008 QUINONES DO, SUNG K 739.3 Nonallopathic Lesions Of Lumbar Region Not Elsewhere Classified 10/12/2008 QUINONES DO, SUNG K 739.4 Nonallopathic Lesions Of Sacral Region Not Elsewhere Classified 10/12/2008 QUINONES DO, SUNG K 715.90 OSTEOARTHRITIS 10/12/2008 QUINONES DO, SUNG K 717.7 CHONDROMALACIA OF PATELLA 10/12/2008 QUINONES DO, SUNG K 739.3 Nonallopathic Lesions Of Lumbar Region Not Elsewhere Classified 10/12/2008 QUINONES DO, SUNG K 739.4 Nonallopathic Lesions Of Sacral Region Not Elsewhere Classified 10/12/2008 QUINONES DO, SUNG K 715.90 OSTEOARTHRITIS 10/12/2008 QUINONES DO, SUNG K 717.7 CHONDROMALACIA OF PATELLA 10/12/2008 QUINONES DO, SUNG K 739.3 Nonallopathic Lesions Of Lumbar Region Not Elsewhere Classified 10/12/2008 QUINONES DO, SNUG K 739.4 Nonallopathic Lesions Of Sacral Region Not Elsewhere Classified 10/12/2008 QUINONES DO, SUNG K 715.90 OSTEOARTHRITIS 10/12/2008 QUINONES DO, SUNG K 717.7 CHONDROMALACIA OF PATELLA 10/12/2008 QUINONES DO, SUNG K 739.3 Nonallopathic Lesions Of Lumbar Region Not Elsewhere Classified 10/12/2008 QUINONES DO, SUNG K 739.4 Nonallopathic Lesions Of Sacral Region Not Elsewhere Classified 10/25/2008 QUINONES DO, SUNG K 724.2 LUMBAGO 10/25/2008 724.2 LUMBAGO 10/25/2008 QUINONES DO, SUNG K 724.2 LUMBAGO 10/25/2008 QUINONES DO, SUNG K 724.2 Lumbago 10/25/2008 QUINONES DO, SUNG K 724.2 Lumbago 10/25/2008 QUINONES DO, SUNG K 724.2 Lumbago 10/25/2008 724.2 Lumbago 10/25/2008 724.2 Lumbago 10/25/2008 724.2 Lumbago 10/25/2008 QUINONES DO, SUNG K 724.2 Lumbago 10/25/2008 QUINONES DO, SUNG K 724.2 Lumbago 10/25/2008 QUINONES DO, SUNG K 724.2 Lumbago 10/25/2008 QUINONES DO, SUNG K 724.2 Lumbago 10/25/2008 QUINONES DO, SUNG K 724.2 Lumbago 10/25/2008 QUINONES DO, SUNG K 724.2 Lumbago 10/25/2008 QUINONES DO, SUNG K 724.2 Lumbago 10/25/2008 QUINONES DO, SUNG K 724.2 Lumbago 10/25/2008 QUINONES DO, SUNG K 724.2 Lumbago 10/25/2008 QUINONES DO, SUNG K 724.2 Lumbago 11/12/2009 QUINONES DO, SUNG K 242.90 HYPERTHYROIDISM NOS 11/12/2009 242.90 HYPERTHYROIDISM NOS 11/12/2009 QUINONES DO, SUNG K 242.90 HYPERTHYROIDISM NOS 11/12/2009 QUINONES DO, SUNG K 242.90 Hyperthyroidism Nos 11/12/2009 QUINONES DO, SUNG K 242.90 Hyperthyroidism Nos 11/12/2009 QUINONES DO, SUNG K 242.90 Hyperthyroidism Nos 11/12/2009 242.90 Hyperthyroidism Nos 11/12/2009 242.90 Hyperthyroidism Nos 11/12/2009 242.90 Hyperthyroidism Nos 11/12/2009 QUINONES DO, SUNG K 242.90 Hyperthyroidism Nos 11/12/2009 QUINONES DO, SUNG K 242.90 Hyperthyroidism Nos 11/12/2009 QUINONES DO, SUNG K 242.90 Hyperthyroidism Nos 11/12/2009 QUINONES DO, SUNG K 242.90 Hyperthyroidism Nos 11/12/2009 QUINONES DO, SUNG K 242.90 Hyperthyroidism Nos 11/12/2009 QUINONES DO, SUNG K 242.90 Hyperthyroidism Nos 11/12/2009 QUINONES DO, SUNG K 242.90 Hyperthyroidism Nos 11/12/2009 QUINONES DO, SUNG K 242.90 Hyperthyroidism Nos 11/12/2009 QUINONES DO, SUNG K 242.90 Hyperthyroidism Nos 11/12/2009 QUINONES DO, SUNG K 242.90 Hyperthyroidism Nos 08/13/2010 QIUNONES DO, SUNG K 593.9 RENAL INSUFFICIENCY 08/13/2010 593.9 RENAL INSUFFICIENCY 08/13/2010 QUINONES DO, SUNG K 593.9 RENAL INSUFFICIENCY 08/13/2010 QUINONES DO, SUNG K 593.9 Renal Insufficiency 08/13/2010 QUINONES DO, SUNG K 593.9 Renal Insufficiency 08/13/2010 QUINONES DO, SUNG K 593.9 Renal Insufficiency 08/13/2010 593.9 Renal Insufficiency 08/13/2010 593.9 Renal Insufficiency 08/13/2010 593.9 Renal Insufficiency 08/13/2010 QUINONES DO, SUNG K 593.9 Renal Insufficiency 08/13/2010 QUINONES DO, SUNG K 593.9 Renal Insufficiency 08/13/2010 QUINONES DO, SUNG K 593.9 Renal Insufficiency 08/13/2010 QUINONES DO, SUNG K 593.9 Renal Insufficiency 08/13/2010 QUINONES DO, SUNG K 593.9 Renal Insufficiency 08/13/2010 QUINONES DO, SUNG K 593.9 Renal Insufficiency 08/13/2010 QUINONES DO, SUNG K 593.9 Renal Insufficiency 08/13/2010 QUINONES DO, SUNG K 593.9 Renal Insufficiency 08/13/2010 QUINONES DO, SUNG K 593.9 Renal Insufficiency 08/13/2010 QUINONES DO, SUNG K 593.9 Renal Insufficiency 11/15/2010 Ot 327.23 OBSTRUCTIVE SLEEP APNEA (ADULT) (PEDIATR 11/15/2010 Ot 401.9 HYPERTENSION NOS 11/26/2010 QUINONES DO, SUNG K 585.9 KIDNEY DISEASE CHRONIC 11/26/2010 585.9 KIDNEY DISEASE CHRONIC 11/26/2010 QUINONES DO, SUNG K 585.9 KIDNEY DISEASE CHRONIC 11/26/2010 QUINONES DO, SUNG K 585.9 Kidney Disease Chronic 11/26/2010 QUINONES DO, SUNG K 585.9 Kidney Disease Chronic 11/26/2010 QUINONES DO, SUNG K 585.9 Kidney Disease Chronic 11/26/2010 585.9 Kidney Disease Chronic 11/26/2010 585.9 Kidney Disease Chronic 11/26/2010 585.9 Kidney Disease Chronic 11/26/2010 QUINONES DO, SUNG K 585.9 Kidney Disease Chronic 11/26/2010 QUINONES DO, SUNG K 585.9 Kidney Disease Chronic 11/26/2010 QUINONES DO, SUNG K 585.9 Kidney Disease Chronic 11/26/2010 QUINONES DO, SUNG K 585.9 Kidney Disease Chronic 11/26/2010 QUINONES DO, SUNG K 585.9 Kidney Disease Chronic 11/26/2010 QUINONES DO, SUNG K 585.9 Kidney Disease Chronic 11/26/2010 QUINONES DO, SUNG K 585.9 Kidney Disease Chronic 11/26/2010 QUINONES DO, SUNG K 585.9 Kidney Disease Chronic 11/26/2010 QUINONES DO, SUNG K 585.9 Kidney Disease Chronic 11/26/2010 QUINONES DO, SUNG K 585.9 Kidney Disease Chronic 12/20/2010 QUINONES DO, SUNG K 300.00 anxiety 12/20/2010 300.00 anxiety 12/20/2010 QUINONES DO, SUNG K 300.00 anxiety 12/20/2010 QUINONES DO, SUNG K 300.00 anxiety 12/20/2010 QUINONES DO, SUNG K 300.00 anxiety 12/20/2010 QUINONES DO, SUNG K 300.00 anxiety 12/20/2010 300.00 anxiety 12/20/2010 300.00 anxiety 12/20/2010 300.00 anxiety 12/20/2010 QUINONES DO, SUNG K 300.00 anxiety 12/20/2010 QUINONES DO, SUNG K 300.00 anxiety 12/20/2010 QUINONES DO, SUNG K 300.00 anxiety 12/20/2010 QUINONES DO, SUNG K 300.00 anxiety 12/20/2010 QUINONES DO, SUNG K 300.00 anxiety 12/20/2010 QUINONES DO, SUNG K 300.00 anxiety 12/20/2010 QUINONES DO, SUNG K 300.00 anxiety 12/20/2010 QUINONES DO, SUNG K 300.00 anxiety 12/20/2010 QUINONES DO, SUNG K 300.00 anxiety 12/20/2010 QUINONES DO, SUNG K 300.00 anxiety 04/15/2011 QUINONES DO, SUNG K 311 DEPRESSION 04/15/2011 QUINONES DO, SUNG K 723.1 CERVICALGIA 04/15/2011 QUINONES DO, SUNG K V58.69 taking high-risk medication 04/15/2011 311 DEPRESSION 04/15/2011 723.1 CERVICALGIA 04/15/2011 V58.69 taking high-risk medication 04/15/2011 QUINONES DO, SUNG K 311 DEPRESSION 04/15/2011 QUINONES DO, SUNG K 723.1 CERVICALGIA 04/15/2011 QUINONES DO, SUNG K V58.69 taking high-risk medication 04/15/2011 QUINONES DO, SUGN K 311 DEPRESSION 04/15/2011 QUINONES DO, SUNG K 723.1 CERVICALGIA 04/15/2011 QUINONES DO, SUNG K V58.69 taking high-risk medication 04/15/2011 QUINONES DO, SUNG K 311 DEPRESSION 04/15/2011 QUINONES DO, SUNG K 723.1 CERVICALGIA 04/15/2011 QUINONES DO, SUNG K V58.69 taking high-risk medication 04/15/2011 QUINONES DO, SUNG K 311 DEPRESSION 04/15/2011 QUINONES DO, SUNG K 723.1 CERVICALGIA 04/15/2011 QUINONES DO, SUNG K V58.69 taking high-risk medication 04/15/2011 311 DEPRESSION 04/15/2011 723.1 CERVICALGIA 04/15/2011 V58.69 taking high-risk medication 04/15/2011 311 DEPRESSION 04/15/2011 723.1 CERVICALGIA 04/15/2011 V58.69 taking high-risk medication 04/15/2011 311 DEPRESSION 04/15/2011 723.1 CERVICALGIA 04/15/2011 V58.69 taking high-risk medication 04/15/2011 QUINONES DO, SUNG K 311 DEPRESSION 04/15/2011 QUINONES DO, SUNG K 723.1 CERVICALGIA 04/15/2011 QUINONES DO, SUNG K V58.69 taking high-risk medication 04/15/2011 QUINONES DO, SUNG K 311 DEPRESSION 04/15/2011 QUINONES DO, SUNG K 723.1 CERVICALGIA 04/15/2011 QUINONES DO, SUNG K V58.69 taking high-risk medication 04/15/2011 QUINONES DO, SUNG K 311 DEPRESSION 04/15/2011 QUINONES DO, SUNG K 723.1 CERVICALGIA 04/15/2011 QUINONES DO, SUNG K V58.69 taking high-risk medication 04/15/2011 QUINONES DO, SUNG K 311 DEPRESSION 04/15/2011 QUINONES DO, SUNG K 723.1 CERVICALGIA 04/15/2011 QUINONES DO, SUNG K V58.69 taking high-risk medication 04/15/2011 QUINONES DO, SUNG K 311 DEPRESSION 04/15/2011 QUINONES DO, SUNG K 723.1 CERVICALGIA 04/15/2011 QUINONES DO, SUNG K V58.69 taking high-risk medication 04/15/2011 QUINONES DO, SUNG K 311 DEPRESSION 04/15/2011 QUINONES DO, SUNG K 723.1 CERVICALGIA 04/15/2011 QUINONES DO, SUNG K V58.69 taking high-risk medication 04/15/2011 QUINONES DO, SUNG K 311 DEPRESSION 04/15/2011 QUINONES DO, SUNG K 723.1 CERVICALGIA 04/15/2011 QUINONES DO, SUNG K V58.69 taking high-risk medication 04/15/2011 QUINONES DO, SUNG K 311 DEPRESSION 04/15/2011 QUINONES DO, SUNG K 723.1 CERVICALGIA 04/15/2011 QUINONES DO, SUNG K V58.69 taking high-risk medication 04/15/2011 QUINONES DO, SUNG K 311 DEPRESSION 04/15/2011 QUINONES DO, SUNG K 723.1 CERVICALGIA 04/15/2011 QUINONES DO, SUNG K V58.69 taking high-risk medication 04/15/2011 QUINONES DO, SUNG K 311 DEPRESSION 04/15/2011 QUINONES DO, SUNG K 723.1 CERVICALGIA 04/15/2011 QUINONES DO, SUNG K V58.69 taking high-risk medication 06/04/2011 SUNG QUINONES DO K NODX No Diagnosis 06/04/2011 NODX No Diagnosis 06/04/2011 QUINONES SUNG CRYSTAL K NODX No Diagnosis 06/04/2011 QUINONES DOSUNG K NODX No Diagnosis 06/04/2011 QUINONES SUNG CRYSTAL K NODX No Diagnosis 06/04/2011 QUINONES DOSUNG K NODX No Diagnosis 06/04/2011 NODX No Diagnosis 06/04/2011 NODX No Diagnosis 06/04/2011 NODX No Diagnosis 06/04/2011 QUINONES DOSUNG K NODX No Diagnosis 06/04/2011 QUINONES DO, SUNG K NODX No Diagnosis 06/04/2011 QUINONES DO, SNUG K NODX No Diagnosis 06/04/2011 QUINONES DOSUNG K NODX No Diagnosis 06/04/2011 QUINONES SUNG CRYSTAL K NODX No Diagnosis 06/04/2011 QUINONES SUNG CRYSTAL K NODX No Diagnosis 06/04/2011 QUINONES DOSUNG K NODX No Diagnosis 06/04/2011 QUINONES DOSUNG K NODX No Diagnosis 06/04/2011 QUINONES DOSUNG K NODX No Diagnosis 06/04/2011 QUINONES SUNG CRYSTAL K NODX No Diagnosis 06/05/2011 Ot 715.90 OSTEOARTHROS NOS-UNSPEC 06/05/2011 Ot 717.7 CHONDROMALACIA PATELLAE 06/05/2011 Ot 719.46 JOINT PAIN-L/LEG 06/05/2011 Ot V57.1 PHYSICAL THERAPY NEC 06/23/2011 SUNG QUINONES DO 268.9 VITAMIN D DEFICIENCY 06/23/2011 SUNG QUINONES DO 585.3 CHRONIC KIDNEY DISEASE STAGE III (MODERATE) 06/23/2011 SUNG QUINONES DO 588.0 RENAL OSTEODYSTROPHY 06/23/2011 SUNG QUINONES DO V81.1 HYPERTENSION SCREENING 06/23/2011 268.9 VITAMIN D DEFICIENCY 06/23/2011 585.3 CHRONIC KIDNEY DISEASE STAGE III (MODERATE) 06/23/2011 588.0 RENAL OSTEODYSTROPHY 06/23/2011 V81.1 HYPERTENSION SCREENING 06/23/2011 SUNG QUINONES DO 268.9 VITAMIN D DEFICIENCY 06/23/2011 QUINONES DO, SUNG K 585.3 CHRONIC KIDNEY DISEASE STAGE III (MODERATE) 06/23/2011 QUINONES DO, SUNG K 588.0 RENAL OSTEODYSTROPHY 06/23/2011 QUINONES DO, SUNG K V81.1 HYPERTENSION SCREENING 06/23/2011 QUINONES DO, SUNG K 268.9 VITAMIN D DEFICIENCY 06/23/2011 QUINONES DO, SUNG K 585.3 CHRONIC KIDNEY DISEASE STAGE III (MODERATE) 06/23/2011 QUINONES DO, SUNG K 588.0 RENAL OSTEODYSTROPHY 06/23/2011 QUINONES DO, SUNG K V81.1 Hypertension Screening 06/23/2011 QUINONES DO, SUNG K 268.9 VITAMIN D DEFICIENCY 06/23/2011 QUINONES DO, SUNG K 585.3 CHRONIC KIDNEY DISEASE STAGE III (MODERATE) 06/23/2011 QUINONES DO, SUNG K 588.0 RENAL OSTEODYSTROPHY 06/23/2011 QUINONES DO, SUNG K V81.1 Hypertension Screening 06/23/2011 QUINONES DO, SUNG K 268.9 VITAMIN D DEFICIENCY 06/23/2011 QUINONES DO, SUNG K 585.3 CHRONIC KIDNEY DISEASE STAGE III (MODERATE) 06/23/2011 QUINONES DO, SUNG K 588.0 RENAL OSTEODYSTROPHY 06/23/2011 QUINONES DO, SUNG K V81.1 Hypertension Screening 06/23/2011 268.9 VITAMIN D DEFICIENCY 06/23/2011 585.3 CHRONIC KIDNEY DISEASE STAGE III (MODERATE) 06/23/2011 588.0 RENAL OSTEODYSTROPHY 06/23/2011 V81.1 Hypertension Screening 06/23/2011 268.9 VITAMIN D DEFICIENCY 06/23/2011 585.3 CHRONIC KIDNEY DISEASE STAGE III (MODERATE) 06/23/2011 588.0 RENAL OSTEODYSTROPHY 06/23/2011 V81.1 Hypertension Screening 06/23/2011 268.9 VITAMIN D DEFICIENCY 06/23/2011 585.3 CHRONIC KIDNEY DISEASE STAGE III (MODERATE) 06/23/2011 588.0 RENAL OSTEODYSTROPHY 06/23/2011 V81.1 Hypertension Screening 06/23/2011 QUINONES DO, SUNG K 268.9 VITAMIN D DEFICIENCY 06/23/2011 QUINONES DO, SUNG K 585.3 CHRONIC KIDNEY DISEASE STAGE III (MODERATE) 06/23/2011 QUINONES DO, SUNG K 588.0 RENAL OSTEODYSTROPHY 06/23/2011 QUINONES DO, SUNG K V81.1 Hypertension Screening 06/23/2011 QUINONES DO, SUNG K 268.9 VITAMIN D DEFICIENCY 06/23/2011 QUINONES DO, SUNG K 585.3 CHRONIC KIDNEY DISEASE STAGE III (MODERATE) 06/23/2011 QUINONES DO, SUNG K 588.0 RENAL OSTEODYSTROPHY 06/23/2011 QUINONES DO, SUNG K V81.1 Hypertension Screening 06/23/2011 QUINONES DO, SUNG K 268.9 VITAMIN D DEFICIENCY 06/23/2011 QUINONES DO, SUNG K 585.3 CHRONIC KIDNEY DISEASE STAGE III (MODERATE) 06/23/2011 QUINONES DO, SUNG K 588.0 RENAL OSTEODYSTROPHY 06/23/2011 QUINONES DO, SUNG K V81.1 Hypertension Screening 06/23/2011 QUINONES DO, SUNG K 268.9 VITAMIN D DEFICIENCY 06/23/2011 QUINONES DO, SUNG K 585.3 CHRONIC KIDNEY DISEASE STAGE III (MODERATE) 06/23/2011 QUINONES DO, SUNG K 588.0 RENAL OSTEODYSTROPHY 06/23/2011 QUINONES DO, SUNG K V81.1 Hypertension Screening 06/23/2011 QUINONES DO, SUNG K 268.9 VITAMIN D DEFICIENCY 06/23/2011 QUINONES DO, SUNG K 585.3 CHRONIC KIDNEY DISEASE STAGE III (MODERATE) 06/23/2011 QUINONES DO, SUNG K 588.0 RENAL OSTEODYSTROPHY 06/23/2011 QUINONES DO, SUNG K V81.1 Hypertension Screening 06/23/2011 QUINONES DO, SUNG K 268.9 VITAMIN D DEFICIENCY 06/23/2011 QUINONES DO, SUNG K 585.3 CHRONIC KIDNEY DISEASE STAGE III (MODERATE) 06/23/2011 QUINONES DO, SUNG K 588.0 RENAL OSTEODYSTROPHY 06/23/2011 QUINONES DO, SUNG K V81.1 Hypertension Screening 06/23/2011 QUINONES DO, SUNG K 268.9 VITAMIN D DEFICIENCY 06/23/2011 QUINONES DO, SUNG K 585.3 CHRONIC KIDNEY DISEASE STAGE III (MODERATE) 06/23/2011 QUINONES DO, SUNG K 588.0 RENAL OSTEODYSTROPHY 06/23/2011 QUINONES DO, SUNG K V81.1 Hypertension Screening 06/23/2011 QUINONES DO, SUNG K 268.9 VITAMIN D DEFICIENCY 06/23/2011 QUINONES DO, SUNG K 585.3 CHRONIC KIDNEY DISEASE STAGE III (MODERATE) 06/23/2011 QUINONES DO, SUNG K 588.0 RENAL OSTEODYSTROPHY 06/23/2011 QUINONES DO, SUNG K V81.1 Hypertension Screening 06/23/2011 QUINONES DO, SUNG K 268.9 VITAMIN D DEFICIENCY 06/23/2011 QUINONES DO, SUNG K 585.3 CHRONIC KIDNEY DISEASE STAGE III (MODERATE) 06/23/2011 QUINONES DO, SUNG K 588.0 RENAL OSTEODYSTROPHY 06/23/2011 QUINONES DO, SUNG K V81.1 Hypertension Screening 06/23/2011 QUINONES DO, SUNG K 268.9 VITAMIN D DEFICIENCY 06/23/2011 QUINONES DO, SUNG K 585.3 CHRONIC KIDNEY DISEASE STAGE III (MODERATE) 06/23/2011 QUINONES DO, SUNG K 588.0 RENAL OSTEODYSTROPHY 06/23/2011 QUINONES DO, SUNG K V81.1 Hypertension Screening 07/15/2011 QUINONES DO, SUNG K 349.9 UNSPECIFIED DISORDERS OF NERVOUS SYSTEM 07/15/2011 QUINONES DO, SUNG K 388.30 TINNITUS UNSPECIFIED 07/15/2011 QUINONES DO, SUNG K V70.0 ROUTINE GENERAL MEDICAL EXAMINATION AT A HEALTH CARE FACILITY 07/15/2011 349.9 UNSPECIFIED DISORDERS OF NERVOUS SYSTEM 07/15/2011 388.30 TINNITUS UNSPECIFIED 07/15/2011 V70.0 ROUTINE GENERAL MEDICAL EXAMINATION AT A HEALTH CARE FACILITY 07/15/2011 QUINONES DO, SUNG K 349.9 UNSPECIFIED DISORDERS OF NERVOUS SYSTEM 07/15/2011 QUINONES DO, SUNG K 388.30 TINNITUS UNSPECIFIED 07/15/2011 QUINONES DO, SUNG K V70.0 ROUTINE GENERAL MEDICAL EXAMINATION AT A HEALTH CARE FACILITY 07/15/2011 QUINONES DO, SUNG K 349.9 UNSPECIFIED DISORDERS OF NERVOUS SYSTEM 07/15/2011 QUINONES DO, SUNG K 388.30 Tinnitus Unspecified 07/15/2011 QUINONES DO, SUNG K V70.0 ROUTINE GENERAL MEDICAL EXAMINATION AT A HEALTH CARE FACILITY 07/15/2011 QUINONES DO, SUNG K 349.9 UNSPECIFIED DISORDERS OF NERVOUS SYSTEM 07/15/2011 QUINONES DO, SUNG K 388.30 Tinnitus Unspecified 07/15/2011 QUINONES DO, SUNG K V70.0 ROUTINE GENERAL MEDICAL EXAMINATION AT A HEALTH CARE FACILITY 07/15/2011 QUINONES DO SUNG K 349.9 UNSPECIFIED DISORDERS OF NERVOUS SYSTEM 07/15/2011 QUINONES DO SUNG K 388.30 Tinnitus Unspecified 07/15/2011 QUINONES DO, SUNG K V70.0 ROUTINE GENERAL MEDICAL EXAMINATION AT A HEALTH CARE FACILITY 07/15/2011 349.9 UNSPECIFIED DISORDERS OF NERVOUS SYSTEM 07/15/2011 388.30 Tinnitus Unspecified 07/15/2011 V70.0 ROUTINE GENERAL MEDICAL EXAMINATION AT A HEALTH CARE FACILITY 07/15/2011 349.9 UNSPECIFIED DISORDERS OF NERVOUS SYSTEM 07/15/2011 388.30 Tinnitus Unspecified 07/15/2011 V70.0 ROUTINE GENERAL MEDICAL EXAMINATION AT A HEALTH CARE FACILITY 07/15/2011 349.9 UNSPECIFIED DISORDERS OF NERVOUS SYSTEM 07/15/2011 388.30 Tinnitus Unspecified 07/15/2011 V70.0 ROUTINE GENERAL MEDICAL EXAMINATION AT A HEALTH CARE FACILITY 07/15/2011 QUINONES DO SUNG K 349.9 UNSPECIFIED DISORDERS OF NERVOUS SYSTEM 07/15/2011 QUINONES DO SUNG K 388.30 Tinnitus Unspecified 07/15/2011 QUINONES DO, SUNG K V70.0 ROUTINE GENERAL MEDICAL EXAMINATION AT A HEALTH CARE FACILITY 07/15/2011 QUINONES DO SUNG K 349.9 UNSPECIFIED DISORDERS OF NERVOUS SYSTEM 07/15/2011 QUINONES DO, SUNG K 388.30 Tinnitus Unspecified 07/15/2011 QUINONES DO, SUNG K V70.0 ROUTINE GENERAL MEDICAL EXAMINATION AT A HEALTH CARE FACILITY 07/15/2011 QUINONES DO SUNG K 349.9 UNSPECIFIED DISORDERS OF NERVOUS SYSTEM 07/15/2011 QUINONES DO SUNG K 388.30 Tinnitus Unspecified 07/15/2011 QUINONES DO, SUNG K V70.0 ROUTINE GENERAL MEDICAL EXAMINATION AT A HEALTH CARE FACILITY 07/15/2011 QUINONES DO SUNG K 349.9 UNSPECIFIED DISORDERS OF NERVOUS SYSTEM 07/15/2011 QUINONES DO, SUNG K 388.30 Tinnitus Unspecified 07/15/2011 QUINONES DO, SUNG K V70.0 ROUTINE GENERAL MEDICAL EXAMINATION AT A HEALTH CARE FACILITY 07/15/2011 QUINONES DO SUNG K 349.9 UNSPECIFIED DISORDERS OF NERVOUS SYSTEM 07/15/2011 QUINONES DO SUNG K 388.30 Tinnitus Unspecified 07/15/2011 QUINONES DO, SUNG K V70.0 ROUTINE GENERAL MEDICAL EXAMINATION AT A HEALTH CARE FACILITY 07/15/2011 QUINONSE DO, SUNG K 349.9 UNSPECIFIED DISORDERS OF NERVOUS SYSTEM 07/15/2011 QUINONES DO, SUNG K 388.30 Tinnitus Unspecified 07/15/2011 QUINONES DO, SUNG K V70.0 ROUTINE GENERAL MEDICAL EXAMINATION AT A HEALTH CARE FACILITY 07/15/2011 QUINONES DO, SUNG K 349.9 UNSPECIFIED DISORDERS OF NERVOUS SYSTEM 07/15/2011 QUINONES DO, SUNG K 388.30 Tinnitus Unspecified 07/15/2011 QUINONES DO, SUNG K V70.0 ROUTINE GENERAL MEDICAL EXAMINATION AT A HEALTH CARE FACILITY 07/15/2011 QUINONES DO, SUNG K 349.9 UNSPECIFIED DISORDERS OF NERVOUS SYSTEM 07/15/2011 QUINONES DO, SUNG K 388.30 Tinnitus Unspecified 07/15/2011 QUINONES DO, SUNG K V70.0 ROUTINE GENERAL MEDICAL EXAMINATION AT A HEALTH CARE FACILITY 07/15/2011 QUINONES DO, SUNG K 349.9 UNSPECIFIED DISORDERS OF NERVOUS SYSTEM 07/15/2011 QUINONES DO, SUNG K 388.30 Tinnitus Unspecified 07/15/2011 QUINONES DO, SUNG K V70.0 ROUTINE GENERAL MEDICAL EXAMINATION AT A HEALTH CARE FACILITY 07/15/2011 QUINONES DO, SUNG K 349.9 UNSPECIFIED DISORDERS OF NERVOUS SYSTEM 07/15/2011 QUINONES DO, SUNG K 388.30 Tinnitus Unspecified 07/15/2011 QUINONES DO, SUNG K V70.0 ROUTINE GENERAL MEDICAL EXAMINATION AT A HEALTH CARE FACILITY 09/13/2011 QUINONES DO, SUNG K 244.9 HYPOTHYROIDISM 09/13/2011 244.9 HYPOTHYROIDISM 09/13/2011 QUINONES DO, SUNG K 244.9 HYPOTHYROIDISM 09/13/2011 QUINONES DO, SUNG K 244.9 HYPOTHYROIDISM 09/13/2011 QUINONES DO, SUNG K 244.9 HYPOTHYROIDISM 09/13/2011 QUINONES DO, SUNG K 244.9 HYPOTHYROIDISM 09/13/2011 244.9 HYPOTHYROIDISM 09/13/2011 244.9 HYPOTHYROIDISM 09/13/2011 244.9 HYPOTHYROIDISM 09/13/2011 QUINONES DO, SUNG K 244.9 HYPOTHYROIDISM 09/13/2011 QUINONES DO, SUNG K 244.9 HYPOTHYROIDISM 09/13/2011 QUINONES DO, SUNG K 244.9 HYPOTHYROIDISM 09/13/2011 QUINONES DO, SUNG K 244.9 HYPOTHYROIDISM 09/13/2011 QUINONES DO, SUNG K 244.9 HYPOTHYROIDISM 09/13/2011 QUINONES DO, SUNG K 244.9 HYPOTHYROIDISM 09/13/2011 QUINONES DO, SUNG K 244.9 HYPOTHYROIDISM 09/13/2011 QUINONES DO, SUNG K 244.9 HYPOTHYROIDISM 09/13/2011 QUINONES DO, SUNG K 244.9 HYPOTHYROIDISM 09/13/2011 QUINONES DO, SUNG K 244.9 HYPOTHYROIDISM 04/14/2012 QUINONES DO, SUNG K 272.4 HYPERLIPIDEMIA 04/14/2012 QUINONES DO, SUNG K 401.9 HYPERTENSION, UNSPECIFIED ESSENTIAL 04/14/2012 QUINONES DO, SUNG K 272.4 HYPERLIPIDEMIA 04/14/2012 QUINONES DO, SUNG K 401.9 Hypertension, Unspecified Essential 04/14/2012 QUINONES DO, SUNG K 272.4 HYPERLIPIDEMIA 04/14/2012 QUINONES DO, SUNG K 401.9 Hypertension, Unspecified Essential 04/14/2012 QUINONES DO, SUNG K 272.4 HYPERLIPIDEMIA 04/14/2012 QUINONES DO, SUNG K 401.9 Hypertension, Unspecified Essential 04/14/2012 272.4 HYPERLIPIDEMIA 04/14/2012 401.9 Hypertension, Unspecified Essential 04/14/2012 272.4 HYPERLIPIDEMIA 04/14/2012 401.9 Hypertension, Unspecified Essential 04/14/2012 272.4 HYPERLIPIDEMIA 04/14/2012 401.9 Hypertension, Unspecified Essential 04/14/2012 QUINONES DO, SUNG K 272.4 HYPERLIPIDEMIA 04/14/2012 QUINONES DO, SUNG K 401.9 Hypertension, Unspecified Essential 04/14/2012 QUINONES DO, SUNG K 272.4 HYPERLIPIDEMIA 04/14/2012 QUINONES DO, SUNG K 401.9 Hypertension, Unspecified Essential 04/14/2012 QUINONES DO, SUNG K 272.4 HYPERLIPIDEMIA 04/14/2012 QUINONES DO, SUNG K 401.9 Hypertension, Unspecified Essential 04/14/2012 QUINONES DO, SUNG K 272.4 HYPERLIPIDEMIA 04/14/2012 QUINONES DO, SUNG K 401.9 Hypertension, Unspecified Essential 04/14/2012 QUINONES DO, SUNG K 272.4 HYPERLIPIDEMIA 04/14/2012 QUINONES DO, USNG K 401.9 Hypertension, Unspecified Essential 04/14/2012 QUINONES DO, SUNG K 272.4 HYPERLIPIDEMIA 04/14/2012 QUINONES DO, SUNG K 401.9 Hypertension, Unspecified Essential 04/14/2012 QUINONES DO, SUNG K 272.4 HYPERLIPIDEMIA 04/14/2012 QUINONES DO, SUNG K 401.9 Hypertension, Unspecified Essential 04/14/2012 QUINONES DO, SUNG K 272.4 HYPERLIPIDEMIA 04/14/2012 QUINONES DO, SUNG K 401.9 Hypertension, Unspecified Essential 04/14/2012 QUINONES DO, SUNG K 272.4 HYPERLIPIDEMIA 04/14/2012 QUINONES DO, SUNG K 401.9 Hypertension, Unspecified Essential 04/14/2012 QUINONES DO, SUNG K 272.4 HYPERLIPIDEMIA 04/14/2012 QUINONES DO, SUNG K 401.9 Hypertension, Unspecified Essential 05/18/2012 QUINONES DO, SUNG K 786.05 SHORTNESS OF BREATH 05/18/2012 QUINONES DO, SUNG K 786.50 CHEST PAIN 05/18/2012 QUINONES DO, SUNG K 786.05 Shortness Of Breath 05/18/2012 QUINONES DO, SUNG K 786.50 Chest Pain 05/18/2012 QUINONES DO, SUNG K 786.05 Shortness Of Breath 05/18/2012 QUINONES DO, SUNG K 786.50 Chest Pain 05/18/2012 786.05 Shortness Of Breath 05/18/2012 786.50 Chest Pain 05/18/2012 786.05 Shortness Of Breath 05/18/2012 786.50 Chest Pain 05/18/2012 786.05 Shortness Of Breath 05/18/2012 786.50 Chest Pain 05/18/2012 QUINONES DO, SUNG K 786.05 Shortness Of Breath 05/18/2012 QUINONES DO, SUNG K 786.50 Chest Pain 05/18/2012 QUINONES DO, SUNG K 786.05 Shortness Of Breath 05/18/2012 QUINONES DO, SUNG K 786.50 Chest Pain 05/18/2012 QUINONES DO, SUNG K 786.05 Shortness Of Breath 05/18/2012 QUINONES DO, SUNG K 786.50 Chest Pain 05/18/2012 QUINONES DO, SUNG K 786.05 Shortness Of Breath 05/18/2012 QUINONES DO, SUNG K 786.50 Chest Pain 05/18/2012 QUINONES DO, SUNG K 786.05 Shortness Of Breath 05/18/2012 QUINONES DO, SUNG K 786.50 Chest Pain 05/18/2012 QUINONES DO, SUNG K 786.05 Shortness Of Breath 05/18/2012 QUINONES DO, SUNG K 786.50 Chest Pain 05/18/2012 QUINONES DO, SUNG K 786.05 Shortness Of Breath 05/18/2012 QUINONES DO, SUNG K 786.50 Chest Pain 05/18/2012 QUINONES DO, SUNG K 786.05 Shortness Of Breath 05/18/2012 QUINONES DO, SUNG K 786.50 Chest Pain 05/18/2012 QUINONES DO, SUNG K 786.05 Shortness Of Breath 05/18/2012 QUINONES DO, SUNG K 786.50 Chest Pain 05/18/2012 QUINONES DO, SUNG K 786.05 Shortness Of Breath 05/18/2012 QUINONES DO, SUNG K 786.50 Chest Pain 05/27/2012 QUINONES DO, SUNG K 782.3 EDEMA 05/27/2012 QUINONES DO, SUNG K 782.3 EDEMA 05/27/2012 782.3 EDEMA 05/27/2012 782.3 EDEMA 05/27/2012 782.3 EDEMA 05/27/2012 QUINONES DO, SUNG K 782.3 EDEMA 05/27/2012 QUINONES DO, SUNG K 782.3 EDEMA 05/27/2012 QUINONES DO, SUNG K 782.3 EDEMA 05/27/2012 QUINONES DO, SUNG K 782.3 EDEMA 05/27/2012 QUINONES DO, SUNG K 782.3 EDEMA 05/27/2012 QUINONES DO, SUNG K 782.3 EDEMA 05/27/2012 QUINONES DO, SUNG K 782.3 EDEMA 05/27/2012 QUINONES DO, SUNG K 782.3 EDEMA 05/27/2012 QUINONES DO, SUNG K 782.3 EDEMA 05/27/2012 QUINONES DO, SUNG K 782.3 EDEMA 08/03/2012 Ot 244.9 HYPOTHYROIDISM NOS 08/03/2012 Ot 276.8 HYPOPOTASSEMIA 08/03/2012 Ot 278.00 OBESITY, NOS 08/03/2012 Ot 311 DEPRESSIVE DISORDER NEC 08/03/2012 Ot 327.23 OBSTRUCTIVE SLEEP APNEA (ADULT) (PEDIATR 08/03/2012 Ot 403.90 HYPTNSV CHR KID DIS, UNSPEC, W CHR KD ST 08/03/2012 Ot 414.01 CORONARY ATHEROSCLEROSIS OF [place] CORON 08/03/2012 Ot 486 PNEUMONIA, ORGANISM NOS 08/03/2012 Ot 496 CHR AIRWAY OBSTRUCT NEC 08/03/2012 Ot 585.9 CHRONIC KIDNEY DISEASE, UNSPECIFIED 08/03/2012 Ot 593.9 RENAL URETERAL DIS NOS 08/03/2012 Ot 715.36 LOC OSTEOARTH NOS-L/LEG 08/03/2012 Ot 799.02 HYPOXEMIA 08/03/2012 Ot V03.82 PROPHYLACTIC VACC AGAINST STREPTOCOCCUS 08/03/2012 Ot V15.82 HISTORY OF TOBACCO USE 08/03/2012 Ot V85.42 BODY MASS INDEX 45.0-49.9, ADULT 08/10/2012 276.8 HYPOPOTASSEMIA 08/10/2012 719.45 PAIN IN JOINT INVOLVING PELVIC REGION AND THIGH 08/10/2012 276.8 HYPOPOTASSEMIA 08/10/2012 719.45 PAIN IN JOINT INVOLVING PELVIC REGION AND THIGH 08/10/2012 276.8 HYPOPOTASSEMIA 08/10/2012 719.45 PAIN IN JOINT INVOLVING PELVIC REGION AND THIGH 08/10/2012 QUINONES DO, SUNG K 276.8 HYPOPOTASSEMIA 08/10/2012 QUINONES DO, SUGN K 719.45 PAIN IN JOINT INVOLVING PELVIC REGION AND THIGH 08/10/2012 QUINONES DO, SUNG K 276.8 HYPOPOTASSEMIA 08/10/2012 QUINONES DO, SUNG K 719.45 PAIN IN JOINT INVOLVING PELVIC REGION AND THIGH 08/10/2012 QUINONES DO, SUNG K 276.8 HYPOPOTASSEMIA 08/10/2012 QUINONES DO, SUNG K 719.45 PAIN IN JOINT INVOLVING PELVIC REGION AND THIGH 08/10/2012 QUINONES DO, SUNG K 276.8 HYPOPOTASSEMIA 08/10/2012 QUINONES DO, SUNG K 719.45 PAIN IN JOINT INVOLVING PELVIC REGION AND THIGH 08/10/2012 QUINONES DO, SUNG K 276.8 HYPOPOTASSEMIA 08/10/2012 QUINONES DO, SUNG K 719.45 PAIN IN JOINT INVOLVING PELVIC REGION AND THIGH 08/10/2012 QUINONES DO, SUNG K 276.8 HYPOPOTASSEMIA 08/10/2012 QUINONES DO, SUNG K 719.45 PAIN IN JOINT INVOLVING PELVIC REGION AND THIGH 08/10/2012 QUINONES DO, SUNG K 276.8 HYPOPOTASSEMIA 08/10/2012 QUINONES DO, SUNG K 719.45 PAIN IN JOINT INVOLVING PELVIC REGION AND THIGH 08/10/2012 QUINONES DO, SUNG K 276.8 HYPOPOTASSEMIA 08/10/2012 QUINONES DO, SUNG K 719.45 PAIN IN JOINT INVOLVING PELVIC REGION AND THIGH 08/10/2012 QUINONES DO, SUNG K 276.8 HYPOPOTASSEMIA 08/10/2012 QUINONES DO, SUNG K 719.45 PAIN IN JOINT INVOLVING PELVIC REGION AND THIGH 08/10/2012 QUINONES DO, SUNG K 276.8 HYPOPOTASSEMIA 08/10/2012 QUINONES DO, SUNG K 719.45 PAIN IN JOINT INVOLVING PELVIC REGION AND THIGH 03/15/2013 QUINONES DO, SUNG K 692.9 CONTACT DERMATITIS AND OTHER ECZ[place] UNSPECIFIED CAUSE 03/15/2013 QUINONES DO, SUNG K 692.9 CONTACT DERMATITIS AND OTHER ECZEMA UNSPECIFIED CAUSE 03/15/2013 QUINONES DO, SUNG K 692.9 CONTACT DERMATITIS AND OTHER ECZEMA UNSPECIFIED CAUSE 03/15/2013 QUINONES DO, SUNG K 692.9 CONTACT DERMATITIS AND OTHER ECZEMA UNSPECIFIED CAUSE 03/15/2013 QUINONES DO, SUNG K 692.9 CONTACT DERMATITIS AND OTHER ECZ[place] UNSPECIFIED CAUSE 03/15/2013 QUINONES DO, SUNG K 692.9 CONTACT DERMATITIS AND OTHER ECZ[place] UNSPECIFIED CAUSE 03/15/2013 QUINONES DO, SUNG K 692.9 CONTACT DERMATITIS AND OTHER ECZ[place] UNSPECIFIED CAUSE 03/15/2013 QUINONES DO, SUNG K 692.9 CONTACT DERMATITIS AND OTHER ECZ[place] UNSPECIFIED CAUSE 03/15/2013 QUINONES DO, SUNG K 692.9 CONTACT DERMATITIS AND OTHER ECZ[place] UNSPECIFIED CAUSE 09/01/2013 BETHANY BALLARD MD Ot 272.4 HYPERLIPIDEMIA NEC/NOS 09/01/2013 BETHANY BALLARD MD Ot 278.00 OBESITY, NOS 09/01/2013 BETHANY BALLARD MD Ot 403.90 HYPTNSV CHR KID DIS, UNSPEC, W CHR KD ST 09/01/2013 BETHANY BALLARD MD Ot 411.1 INTERMED CORONARY SYND 09/01/2013 BETHANY BALLARD MD Ot 414.01 CORONARY ATHEROSCLEROSIS OF [place] CORON 09/01/2013 BETHANY BALLARD MD Ot 585.3 CHRONIC KIDNEY DISEASE, STAGE III (MODER 09/01/2013 BETHANY BALLARD MD Ot 786.09 RESPIRATORY ABNORM NEC 09/01/2013 BETHANY BALLARD MD Ot V15.82 HISTORY OF TOBACCO USE 09/01/2013 BETHANY BALLARD MD Ot V45.82 PERCUTANEOUS TRANSLUM CORON ANGIOPLASTY 09/01/2013 BETHANY BALLARD MD, Ot V58.69 OT MED,LT,CURRENT USE 09/01/2013 ELIO PALOMINO, BETHANY Garcia Ot V85.42 BODY MASS INDEX 45.0-49.9, ADULT 09/05/2013 QUINONES DOISABELLAA K 327.23 OBSTRUCTIVE SLEEP APNEA (ADULT) (PEDIATRIC) 09/05/2013 QUINONES DO SUNG K 709.9 UNSPECIFIED DISORDER OF SKIN AND SUBCUTANEOUS TISSUE 09/05/2013 QUINONES DO SUNG K 327.23 OBSTRUCTIVE SLEEP APNEA (ADULT) (PEDIATRIC) 09/05/2013 QUINONES DO SUNG K 709.9 UNSPECIFIED DISORDER OF SKIN AND SUBCUTANEOUS TISSUE 09/05/2013 QUINONES DO SUNG K 327.23 OBSTRUCTIVE SLEEP APNEA (ADULT) (PEDIATRIC) 09/05/2013 QUINONES DO SUNG K 709.9 UNSPECIFIED DISORDER OF SKIN AND SUBCUTANEOUS TISSUE 09/05/2013 QUINONES DO SUNG K 327.23 OBSTRUCTIVE SLEEP APNEA (ADULT) (PEDIATRIC) 09/05/2013 QUINONES DO SUNG K 709.9 UNSPECIFIED DISORDER OF SKIN AND SUBCUTANEOUS TISSUE 09/05/2013 QUINONES DO SUNG K 327.23 OBSTRUCTIVE SLEEP APNEA (ADULT) (PEDIATRIC) 09/05/2013 QUINONES DO SUNG K 709.9 UNSPECIFIED DISORDER OF SKIN AND SUBCUTANEOUS TISSUE 09/05/2013 QUINONES DO SUNG K 327.23 OBSTRUCTIVE SLEEP APNEA (ADULT) (PEDIATRIC) 09/05/2013 QUINONES DO SUNG K 709.9 UNSPECIFIED DISORDER OF SKIN AND SUBCUTANEOUS TISSUE 12/09/2013 ISABELLA QUINONES DOA K 719.46 PAIN- KNEE 12/09/2013 ISABELLA QUINONES DOA K 719.46 PAIN- KNEE 12/09/2013 QUINONES ISABELLA CRYSTALA K 719.46 PAIN- KNEE 12/09/2013 QUINONES DO SUNG K 719.46 PAIN- KNEE 12/15/2013 ELIO PALOMINO, BETHANY Garcia Ot V45.82 PERCUTANEOUS TRANSLUM CORON ANGIOPLASTY 12/15/2013 ELIO PALOMINO, BETHANY Garcia Ot V57.89 REHABILITATION PROC NEC 05/30/2014 SUNG QUINONES DO V76.19 OTHER SCREENING BREAST EXAMINATION 11/23/2014 ORVILLE RAMIREZ APRN Ot 627.4 11/23/2014 ORVILLE RAMIREZ APRN Ot V76.12 12/04/2014 ORVILLE RAMIREZ PNEUMATIC PRESS HAND Ot 611.72 02/19/2015 Ot 397.0 02/19/2015 Ot 414.00 02/19/2015 Ot 424.0 02/19/2015 Ot 403.90 02/19/2015 Ot 585.3 02/19/2015 Ot 388.30 02/19/2015 Ot 780.4 02/19/2015 Ot 397.0 02/19/2015 Ot 401.9 02/19/2015 Ot 414.00 02/19/2015 Ot 424.0 02/19/2015 Ot 401.9 02/19/2015 Ot 414.00 02/19/2015 Ot 715.36 02/19/2015 Ot V72.63 02/19/2015 Ot V72.83 02/19/2015 Ot V74.8 02/19/2015 COBY CRESPO MD Ot 729.2 02/19/2015 RICH POST OD Ot 368.2 02/19/2015 ELIO PALOMINO, BETHANY Garcia Ot 272.4 02/19/2015 ELIO PALOMINO, BETHANY Garcia Ot 278.00 02/19/2015 ELIO PALOMINO, BETHANY Garcia Ot 397.0 02/19/2015 ELIO PALOMINO, BETHANY Garcia Ot 401.9 02/19/2015 ELIO PALOMINO, BETHANY Garcia Ot 414.00 02/19/2015 ELIO PALOMINO, BETHANY Garcia Ot 424.1 02/19/2015 BETHANY BALLARD MD Ot 272.4 02/19/2015 ELIO PALOMINO, BETHANY Garcia Ot 278.00 02/19/2015 ELIO PALOMINO, BETHANY Garcia Ot 401.9 02/19/2015 ELIO PALOMINO, BETHANY Garcia Ot 414.00 02/19/2015 BETHANY BALLARD MD Ot 433.10 02/19/2015 ELIO PALOMINO, BETHANY Garcia Ot V85.42 02/19/2015 MARTA JOHANSEN MD Ot 368.9 02/19/2015 Ot V45.82 02/19/2015 Ot V57.89 02/19/2015 BETHANY BALLARD MD Ot E78.5 02/19/2015 BETHANY BALLARD MD Ot I10 02/19/2015 BETHANY BALLARD MD Ot I25.9 02/19/2015 BETHANY BALLARD MD Ot I65.29 02/19/2015 ORVILLE RAMIREZ APRN Ot 627.4 02/19/2015 ORVILLE RAMIREZ PNEUMATIC PRESS HAND Ot V76.12 02/19/2015 ORVILLE RAMIREZ PNEUMATIC PRESS HAND Ot 611.72 02/21/2015 BETHANY BALLARD MD Ot E11.9 TYPE 2 DIABETES MELLITUS WITHOUT COMPLIC 02/21/2015 BETHANY BALLARD MD Ot E78.5 HYPERLIPIDEMIA, UNSPECIFIED 02/21/2015 BETHANY BALLARD MD Ot I12.9 HYPERTENSIVE CHRONIC KIDNEY DISEASE W ST 02/21/2015 BETHANY BALLARD MD Ot I25.10 ATHSCL HEART DISEASE OF [place] CORONARY 02/21/2015 BETHANY BALLARD MD Ot N18.3 CHRONIC KIDNEY DISEASE, STAGE 3 (MODERAT 02/21/2015 BETHANY BALLARD MD Ot R06.09 OTHER FORMS OF DYSPNEA 02/21/2015 BETHANY BALLARD MD Ot R94.39 ABNORMAL RESULT OF OTHER CARDIOVASCULAR 02/21/2015 BETHANY BALLARD MD Ot Z79.899 OTHER EQUITY DIRECTOR (CURRENT) DRUG THERAPY 02/21/2015 BETHANY BALLARD MD Ot Z87.891 PERSONAL HISTORY OF NICOTINE DEPENDENCE 02/21/2015 BETHANY BALLARD MD Ot Z98.61 CORONARY ANGIOPLASTY STATUS 02/23/2015 Ot 397.0 02/23/2015 Ot 414.00 02/23/2015 Ot 424.0 02/23/2015 Ot 403.90 02/23/2015 Ot 585.3 02/23/2015 Ot 388.30 02/23/2015 Ot 780.4 02/23/2015 Ot 397.0 02/23/2015 Ot 401.9 02/23/2015 Ot 414.00 02/23/2015 Ot 424.0 02/23/2015 Ot 401.9 02/23/2015 Ot 414.00 02/23/2015 Ot 715.36 02/23/2015 Ot V72.63 02/23/2015 Ot V72.83 02/23/2015 Ot V74.8 02/23/2015 COBY CRESPO MD Ot 729.2 02/23/2015 RICH POST OD Ot 368.2 02/23/2015 BETHANY BALLARD MD Ot 272.4 02/23/2015 BETHANY BALLARD MD Ot 278.00 02/23/2015 ELIO PALOMINO, BETHANY Garcia Ot 397.0 02/23/2015 ELIO PALOMINO, BETHANY J Ot 401.9 02/23/2015 ELIO PALOMINO, BETHANY J Ot 414.00 02/23/2015 ELIO PALOMINO, BETHANY J Ot 424.1 02/23/2015 ELIO PALOMINO, BETHANY Garcia Ot 272.4 02/23/2015 ELIO PALOMINO, BETHANY Garcia Ot 278.00 02/23/2015 ELIO PALOMINO, BETHANY J Ot 401.9 02/23/2015 ELIO PALOMINO, BETHANY J Ot 414.00 02/23/2015 ELIO PALOMINO, BETHANY Garcia Ot 433.10 02/23/2015 ELIO PALOMINO, BETHANY Garcia Ot V85.42 02/23/2015 MARTA JOHANSEN MD Ot 368.9 02/23/2015 Ot V45.82 02/23/2015 Ot V57.89 02/23/2015 BETHANY BALLARD MD Ot E78.5 02/23/2015 BETHANY BALLARD MD Ot I10 02/23/2015 BETHANY BALLARD MD Ot I25.9 02/23/2015 BETHANY ABLLARD MD Ot I65.29 02/23/2015 ORVILLE RAMIREZ PNEUMATIC PRESS HAND Ot 627.4 02/23/2015 ORVILLE RAMIREZ PNEUMATIC PRESS HAND Ot V76.12 02/23/2015 ORVILLE RAMIREZ PNEUMATIC PRESS HAND Ot 611.72 02/23/2015 BETHANY BALLARD MD Ot E78.5 02/23/2015 BETHANY BALLARD MD Ot I10 02/23/2015 BETHANY BALLARD MD Ot I25.10 02/23/2015 BETHANY BALLARD MD Ot I65.29 02/23/2015 MIGUEL ÁNGEL WELLER Ot N63 02/23/2015 GHULAM SHAH MD Ot L27.0 GEN SKIN ERUPTION DUE TO DRUGS AND MEDS 02/23/2015 GHULAM SHAH MD Ot L29.9 PRURITUS, UNSPECIFIED 02/27/2015 BETHANY BALLARD MD Ot E78.5 02/27/2015 BETHANY BALLARD MD Ot I10 02/27/2015 BETHANY BALLARD MD Ot I25.10 02/27/2015 ELIO PALOMINO, BETHANY Garcia Ot I65.29 02/28/2015 ELIO PALOMINO, BETHANY Garcia Ot E78.5 02/28/2015 ELIO PALOMINO, BETHANY Garcia Ot I10 02/28/2015 ELIO PALOMINO, BETHANY Garcia Ot I25.9 02/28/2015 ELIO PALOMINO, BETHANY Garcia Ot I65.29 03/09/2015 MIGUEL ÁNGEL WELLER Ot N63 03/19/2015 ELIO PALOMINO, BETHANY Garcia Ot E78.5 03/19/2015 ELIO PALOMINO, BETHANY Garcia Ot I10 03/19/2015 ELIO PALOMINO, BETHANY Garcia Ot I25.10 03/19/2015 ELIO PALOMINO, BETHANY Garcia Ot I65.29 03/26/2015 ORVILLE RAMIREZ APRN Ot R92.8 03/31/2015 MARI WALTER DO Ot G47.33 OBSTRUCTIVE SLEEP APNEA (ADULT) (PEDIATR 03/31/2015 MARI WALTER DO Ot G47.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 04/06/2015 MARI WALTER DO Ot E66.9 04/06/2015 MARI WALTER DO Ot G47.33 04/06/2015 MARI WALTER DO Ot I10 04/06/2015 MARI WALTER DO Ot I25.10 04/06/2015 MARI WALTER DO Ot I27.0 04/06/2015 MARI WALTER DO Ot I51.9 04/06/2015 MARI WALTER DO Ot J44.9 04/06/2015 MARI WALTER DO Ot R06.09 04/19/2015 CHIKA VALDEZ APRN Ot G47.33 OBSTRUCTIVE SLEEP APNEA (ADULT) ( PEDIATR 04/19/2015 CHIKA VALDEZ APRN Ot G47.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 05/01/2015 CHIKA VALDEZ APRN Ot E66.9 05/01/2015 CHIKA VALDEZ APRN Ot G47.33 05/01/2015 CHIKA VALDEZ APRN Ot J44.9 05/01/2015 CHIKA VALDEZ APRN Ot R06.09 05/08/2015 CHIKA VALDEZ PNEUMATIC PRESS HAND Ot E66.9 05/08/2015 COURTNEYMOHAMUD MALDONADOINE E PNEUMATIC PRESS HAND Ot G47.33 05/08/2015 COURTNEYMOHAMUD MALDONADOINE E PNEUMATIC PRESS HAND Ot J44.9 05/08/2015 COURTNEYMOHAMUD MALDONADOINE E PNEUMATIC PRESS HAND Ot R06.09 05/08/2015 COURTNEYMOHAMUD MALDONADOINE E PNEUMATIC PRESS HAND Ot E66.9 05/08/2015 MOHAMUD VALDEZINE E PNEUMATIC PRESS HAND Ot G47.33 05/08/2015 MOHAMUD VALDEZINE E PNEUMATIC PRESS HAND Ot J44.9 05/08/2015 CHIKA VALDEZ PNEUMATIC PRESS HAND Ot R06.09 05/08/2015 JOSE ANGEL DO, MARI M Ot E66.9 05/08/2015 JOSE ANGEL DO, MARI M Ot G47.33 05/08/2015 JOSE ANGEL DO, MARI M Ot I10 05/08/2015 JOSE ANGEL DO, MARI M Ot I25.10 05/08/2015 JOSE ANGEL DO, MARI M Ot I27.0 05/08/2015 JOSE ANGEL DO, MARI M Ot I51.9 05/08/2015 JOSE ANGEL DO, MARI M Ot J44.9 05/08/2015 JOSE ANGEL DO, MARI M Ot R06.09 05/08/2015 ORVILLE RAMIREZ PNEUMATIC PRESS HAND Ot R92.8 05/08/2015 JOSE ANGEL DO, MARI M Ot E66.9 05/08/2015 JOSE ANGEL DO, MARI M Ot G47.33 05/08/2015 JOSE ANGEL DO, MARI M Ot I10 05/08/2015 JOSE ANGEL DO, MARI M Ot I25.10 05/08/2015 JOSE ANGEL DO, MARI M Ot I27.0 05/08/2015 JOSE ANGEL DO, MARI M Ot I51.9 05/08/2015 JOSE ANGEL DO, MARI M Ot J44.9 05/08/2015 JOSE ANGEL DO, MARI M Ot R06.09 05/08/2015 ELIO PALOMINO, BETHANY Garcia Ot E78.5 05/08/2015 ELIO PALOMINO, BETHANY Garcia Ot I10 05/08/2015 ELIO PALOMINO, BETHANY Garcia Ot I25.10 05/08/2015 ELIO PALOMINO, BETHANY Garcia Ot I65.29 05/08/2015 ELIO PALOMINO, BETHANY Garcia Ot E78.5 05/08/2015 ELIO PALOMINO, BETHANY Garcia Ot I10 05/08/2015 ELIO PALOMINO, BETHANY Garcia Ot I25.10 05/08/2015 ELIO PALOMINO, BETHANY Garcia Ot I65.29 05/08/2015 MIGUEL ÁNGEL WELELR BRUSH POLISHER Ot N63 05/08/2015 ELIO PALOMINO, BETHANY Garcia Ot E78.5 05/08/2015 ELIO PALOMINO, BETHANY Garcia Ot I10 05/08/2015 ELIO PALOMINO, BETHANY Garcia Ot I25.9 05/08/2015 ELIO PALOMINO, BETHANY Garcia Ot I65.29 05/08/2015 MIGUEL ÁNGEL WELLERP Ot N63 05/08/2015 ELIO PALOMINO, BETHANY Garcia Ot E78.5 05/08/2015 ELIO PALOMINO, BETHANY Garcia Ot I10 05/08/2015 ELIO PALOMINO, BETHANY Garcia Ot I25.9 05/08/2015 ELIO PALOMINO, BETHANY Garcia Ot I65.29 06/21/2015 CHIKA VALDEZ APRN Ot E66.9 06/21/2015 CHIKA VALDEZ APRN Ot G47.33 06/21/2015 CHIKA VALDEZ APRN Ot J44.9 06/21/2015 CHIKA VALDEZ APRN Ot R06.09 07/29/2015 CHIKA VALDEZ PNEUMATIC PRESS HAND Ot E66.9 OBESITY, UNSPECIFIED 07/29/2015 CHIKA VALDEZ APRN Ot G47.33 OBSTRUCTIVE SLEEP APNEA (ADULT) ( PEDIATR 07/29/2015 CHIKA VALDEZ APRN Ot J44.9 CHRONIC OBSTRUCTIVE PULMONARY DISEASE , U 07/29/2015 CHIKA VALDEZ APRN Ot R06.09 OTHER FORMS OF DYSPNEA 07/31/2015 CHIKA VALDEZ APRN Ot E66.9 07/31/2015 CHIKA VALDEZ PNEUMATIC PRESS HAND Ot G47.33 07/31/2015 CHIKA VALDEZ PNEUMATIC PRESS HAND Ot J44.9 07/31/2015 CHIKA VALDEZ APRN Ot R06.09 08/02/2015 Ot 403.90 08/02/2015 Ot 585.3 08/02/2015 Ot 388.30 08/02/2015 Ot 780.4 08/02/2015 Ot 397.0 08/02/2015 Ot 401.9 08/02/2015 Ot 414.00 08/02/2015 Ot 424.0 08/02/2015 Ot 401.9 08/02/2015 Ot 414.00 08/02/2015 Ot 715.36 08/02/2015 Ot V72.63 08/02/2015 Ot V72.83 08/02/2015 Ot V74.8 08/02/2015 CHERIE PALOMINO, COBY Corona Ot 729.2 08/02/2015 RICH POST OD Ot 368.2 08/02/2015 ELIO PALOMINO, BETHANY Garcia Ot 272.4 08/02/2015 ELIO PALOMINO, BETHANY Garcia Ot 278.00 08/02/2015 ELIO PALOMINO, BETHANY J Ot 397.0 08/02/2015 ELIO PALOMINO, BETHANY J Ot 401.9 08/02/2015 ELIO PALOMINO, BETHANY J Ot 414.00 08/02/2015 ELIO PALOMINO, BETHANY Garcia Ot 424.1 08/02/2015 ELIO PALOMINO, BETHANY Garcia Ot 272.4 08/02/2015 ELIO PALOMINO, BETHANY Garcia Ot 278.00 08/02/2015 ELIO PALOMINO, BETHANY Garcia Ot 401.9 08/02/2015 ELIO PALOMINO, BETHANY Garcia Ot 414.00 08/02/2015 ELIO PALOMINO, BETHANY Garcia Ot 433.10 08/02/2015 ELIO PALOMINO, BETHANY Garcia Ot V85.42 08/02/2015 MARTA JOHANSEN MD Ot 368.9 08/02/2015 Ot V45.82 08/02/2015 Ot V57.89 08/02/2015 ELIO PALOMINO, BETHANY Garcia Ot E78.5 08/02/2015 ELIO PALOMINO, BETHANY Garcia Ot I10 08/02/2015 ELIO PALOMINO, BETHANY Garcia Ot I25.9 08/02/2015 ELIO PALOMINO, BETHANY Garcia Ot I65.29 08/02/2015 ORVILLE RAMIREZ PNEUMATIC PRESS HAND Ot 627.4 08/02/2015 ORVILLE RAMIREZ PNEUMATIC PRESS HAND Ot V76.12 08/02/2015 ORVILLE RAMIREZ PNEUMATIC PRESS HAND Ot 611.72 08/02/2015 ELIO PALOMINO, BETHANY Garcia Ot E78.5 08/02/2015 ELIO PALOMINO, BETHANY Garcia Ot I10 08/02/2015 ELIO PALOMINO, BETHANY Garcia Ot I25.10 08/02/2015 ELIO PALOMINO, BETHANY Garcia Ot I65.29 08/02/2015 NITHINMIGUEL ÁNGEL ALIZA Ot N63 08/02/2015 ORVILLE RAMIREZ APRN Ot R92.8 08/02/2015 JOSE ANGEL CRYSTAL MARI Arteaga Ot E66.9 08/02/2015 JOSE ANGEL CRYSTAL MARI Arteaga Ot G47.33 08/02/2015 JOSE ANGEL DOMARI Ot I10 08/02/2015 JOSE ANGEL MARI CRYSTAL Ot I25.10 08/02/2015 JOSE ANGEL CRYSTALMARI Ot I27.0 08/02/2015 JOSE ANGEL MARI Arteaga Ot I51.9 08/02/2015 JOSE ANGEL CRYSTAL MARI Arteaga Ot J44.9 08/02/2015 JOSE ANGEL CRYSTAL MARI Arteaga Ot R06.09 08/02/2015 JOSE ANGEL CRYSTAL MARI Arteaga Ot E66.9 08/02/2015 JOSE ANGEL CRYSTAL MARI Arteaga Ot G47.33 08/02/2015 JOSE ANGEL CRYSTALMARI Ot I10 08/02/2015 JOSE ANGEL CRYSTAL MARI Arteaga Ot I25.10 08/02/2015 JOSE ANGEL CRYSTAL MARI Arteaga Ot I27.0 08/02/2015 JOSE ANGEL CRYSTAL MARI Arteaga Ot I51.9 08/02/2015 JOSE ANGEL CRYSTAL MARI Arteaga Ot J44.9 08/02/2015 JOSE ANGEL CRYSTAL MARI Arteaga Ot R06.09 08/02/2015 CHIKA VALDEZ PNEUMATIC PRESS HAND Ot E66.9 08/02/2015 CHIKA VALDEZ PNEUMATIC PRESS HAND Ot G47.33 08/02/2015 CHIKA VALDEZ PNEUMATIC PRESS HAND Ot J44.9 08/02/2015 CHIKA VALDEZ PNEUMATIC PRESS HAND Ot R06.09 08/02/2015 CHIKA VALDEZ PNEUMATIC PRESS HAND Ot E66.9 08/02/2015 CHIKA VALDEZ PNEUMATIC PRESS HAND Ot G47.33 08/02/2015 CHIKA VALDEZ PNEUMATIC PRESS HAND Ot J44.9 08/02/2015 CHIKA VALDEZ PNEUMATIC PRESS HAND Ot R06.09 08/03/2015 CHIKA VALDEZ APRN Ot E66.9 08/03/2015 CHIKA VALDEZ APRN Ot G47.33 08/03/2015 CHIKA VALDEZ APRN Ot J44.9 08/03/2015 CHIKA VALDEZ APRN Ot R06.09 08/13/2015 Ot V45.82 PERCUTANEOUS TRANSLUM CORON ANGIOPLASTY 08/13/2015 Ot V57.89 REHABILITATION PROC NEC 08/13/2015 SYDNI CLOUD MD Ot E87.6 HYPOKALEMIA 08/13/2015 SYDNI CLOUD MD Ot R60.0 LOCALIZED EDEMA 08/13/2015 SYDNI CLOUD MD Ot Z87.891 PERSONAL HISTORY OF NICOTINE DEPENDENCE 09/03/2015 ASHLY PATRICIA A BRUSH POLISHER Ot N63 UNSPECIFIED LUMP IN BREAST 09/04/2015 CASTILLO LIMONE A BRUSH POLISHER Ot N63 UNSPECIFIED LUMP IN BREAST 09/05/2015 ASHLY PATRICIA A BRUSH POLISHER Ot N63 UNSPECIFIED LUMP IN BREAST 09/12/2015 ASHLY PATRICIA A BRUSH POLISHER Ot N63 UNSPECIFIED LUMP IN BREAST 09/13/2015 LIMON, PATRICIA A BRUSH POLISHER Ot N63 UNSPECIFIED LUMP IN BREAST 09/13/2015 LIMON, PATRICIA A BRUSH POLISHER Ot N63 UNSPECIFIED LUMP IN BREAST 10/02/2015 LIMON, PATRICIA A BRUSH POLISHER Ot N63 UNSPECIFIED LUMP IN BREAST 10/12/2015 LIMON, PATRICIA A BRUSH POLISHER Ot N63 UNSPECIFIED LUMP IN BREAST 10/31/2015 CHIKA VALDEZ APRN Ot E66.9 OBESITY, UNSPECIFIED 10/31/2015 CHIKA VALDEZ APRN Ot G47.33 OBSTRUCTIVE SLEEP APNEA (ADULT) ( PEDIATR 10/31/2015 CHIKA VALDEZ APRN Ot J44.9 CHRONIC OBSTRUCTIVE PULMONARY DISEASE , U 10/31/2015 CHIKA VALDEZ APRN Ot R06.09 OTHER FORMS OF DYSPNEA 02/07/2016 Ot V45.82 PERCUTANEOUS TRANSLUM CORON ANGIOPLASTY 02/07/2016 Ot V57.89 REHABILITATION PROC NEC 02/07/2016 CHIKA VALDEZ APRN Ot E66.9 OBESITY, UNSPECIFIED 02/07/2016 CHIKA VALDEZ APRN Ot G47.33 OBSTRUCTIVE SLEEP APNEA (ADULT) ( PEDIATR 02/07/2016 CHIKA VALDEZ APRN Ot J44.9 CHRONIC OBSTRUCTIVE PULMONARY DISEASE , U 02/07/2016 CHIKA VALDEZ APRN Ot R06.09 OTHER FORMS OF DYSPNEA 02/07/2016 ROMAN MARROQUIN DOTT D Ot Z01.818 ENCOUNTER FOR OTHER PREPROCEDURAL EXAMIN 02/07/2016 KAMALJIT MARROQUIN DO D Ot Z12.11 ENCOUNTER FOR SCREENING FOR MALIGNANT NE 02/08/2016 ROMAN MARROQUIN DOTT D Ot Z01.818 ENCOUNTER FOR OTHER PREPROCEDURAL EXAMIN 02/08/2016 ROMAN MARROQUIN DOTT D Ot Z12.11 ENCOUNTER FOR SCREENING FOR MALIGNANT NE 02/11/2016 KAMALJIT MARROQUIN DO D Ot E11.9 TYPE 2 DIABETES MELLITUS WITHOUT COMPLIC 02/11/2016 LOPEZ CRYSTAL KAMALJIT D Ot E78.5 HYPERLIPIDEMIA, UNSPECIFIED 02/11/2016 LOPEZ CRYSTAL KAMALJIT D Ot I10 ESSENTIAL (PRIMARY) HYPERTENSION 02/11/2016 ROMAN MARROQUIN DOTT D Ot Z12.11 ENCOUNTER FOR SCREENING FOR MALIGNANT NE 02/11/2016 LOPEZ CRYSTAL KAMALJIT D Ot Z85.3 PERSONAL HISTORY OF MALIGNANT NEOPLASM O 02/12/2016 KAMALJIT MARROQUIN DO Ot E11.9 TYPE 2 DIABETES MELLITUS WITHOUT COMPLIC 02/12/2016 ROMAN MARROQUIN DOTT D Ot E78.5 HYPERLIPIDEMIA, UNSPECIFIED 02/12/2016 LOPEZ CRYSTAL KAMALJIT D Ot I10 ESSENTIAL (PRIMARY) HYPERTENSION 02/12/2016 ROMAN MARROQUIN DOTT D Ot Z12.11 ENCOUNTER FOR SCREENING FOR MALIGNANT NE 02/12/2016 LOPEZ CRYSTAL KAMALJIT D Ot Z85.3 PERSONAL HISTORY OF MALIGNANT NEOPLASM O 02/13/2016 LOPEZ CRYSTAL KAMALJIT D Ot E11.9 TYPE 2 DIABETES MELLITUS WITHOUT COMPLIC 02/13/2016 LOPEZ CRYSTAL KAMALJIT D Ot E78.5 HYPERLIPIDEMIA, UNSPECIFIED 02/13/2016 LOPEZ CRYSTAL KAMALJIT D Ot I10 ESSENTIAL (PRIMARY) HYPERTENSION 02/13/2016 LOPEZ CRYSTAL KAMALJIT D Ot Z12.11 ENCOUNTER FOR SCREENING FOR MALIGNANT NE 02/13/2016 KAMALJIT MARROQUIN DO D Ot Z85.3 PERSONAL HISTORY OF MALIGNANT NEOPLASM O 02/17/2016 KAMALJIT MARROQUIN DO Ot E11.9 TYPE 2 DIABETES MELLITUS WITHOUT COMPLIC 02/17/2016 KAMALJIT MARROQUIN DO Ot E78.5 HYPERLIPIDEMIA, UNSPECIFIED 02/17/2016 MARROQUINKAMALJIT SZYMANSKI DO Ot I10 ESSENTIAL (PRIMARY) HYPERTENSION 02/17/2016 KAMALJIT MARROQUIN DO Ot Z12.11 ENCOUNTER FOR SCREENING FOR MALIGNANT NE 02/17/2016 KAMALJIT MARROQUIN DO Ot Z85.3 PERSONAL HISTORY OF MALIGNANT NEOPLASM O 02/18/2016 VIVI PALOMINO, MARLY Zamora Ot C50.411 MALIG NEOPLM OF UPPER-OUTER QUADRANT OF 02/18/2016 MARLY TRINIDAD MD Ot E11.9 TYPE 2 DIABETES MELLITUS WITHOUT COMPLIC 02/18/2016 MARLY TRINIDAD MD Ot E66.01 MORBID (SEVERE) OBESITY DUE TO EXCESS CA 02/18/2016 MARLY TRINIDAD MD Ot E78.5 HYPERLIPIDEMIA, UNSPECIFIED 02/18/2016 MARLY TRINIDAD MD Ot F32.9 MAJOR DEPRESSIVE DISORDER, SINGLE EPISOD 02/18/2016 MARLY TRINIDAD MD Ot I10 ESSENTIAL (PRIMARY) HYPERTENSION 02/18/2016 MARLY TRINIDAD MD Ot I25.10 ATHSCL HEART DISEASE OF [place] CORONARY 02/18/2016 VIVI PALOMINO, MARLY Zamora Ot M19.90 UNSPECIFIED OSTEOARTHRITIS, UNSPECIFIED 02/18/2016 MARLY TRINIDAD MD Ot Z68.44 BODY MASS INDEX (BMI) 60.0-69.9, ADULT 02/18/2016 MARLY TRINIDAD MD Ot Z79.899 OTHER USP (CURRENT) DRUG THERAPY 02/18/2016 Ot 388.30 TINNITUS NOS 02/18/2016 Ot 780.4 DIZZINESS AND GIDDINESS 02/18/2016 Ot 397.0 TRICUSPID VALVE DISEASE 02/18/2016 Ot 401.9 HYPERTENSION NOS 02/18/2016 Ot 414.00 CORON ATHEROSCLER NOS TYPE VESSEL, NATIV 02/18/2016 Ot 424.0 MITRAL VALVE DISORDER 02/18/2016 Ot 401.9 HYPERTENSION NOS 02/18/2016 Ot 414.00 CORON ATHEROSCLER NOS TYPE VESSEL, NATIV 02/18/2016 Ot 715.36 LOC OSTEOARTH NOS-L/LEG 02/18/2016 Ot V72.63 PRE-PROCEDURAL LABORATORY EXAMINATION 02/18/2016 Ot V72.83 EXAM PRE-OPERATIVE NEC 02/18/2016 Ot V74.8 SCREEN-BACTERIAL DIS NEC 02/18/2016 CHERIE PALOMINO, COBY Corona Ot 729.2 NEURALGIA/NEURITIS NOS 02/18/2016 RICH POST OD Ot 368.2 DIPLOPIA 02/18/2016 BETHANY BALLARD MD Ot 272.4 HYPERLIPIDEMIA NEC/NOS 02/18/2016 BETHANY BALLARD MD Ot 278.00 OBESITY, NOS 02/18/2016 BETHANY BALLARD MD Ot 397.0 TRICUSPID VALVE DISEASE 02/18/2016 BETHANY BALLARD MD Ot 401.9 HYPERTENSION NOS 02/18/2016 BETHANY BALLARD MD Ot 414.00 CORON ATHEROSCLER NOS TYPE VESSEL, NATIV 02/18/2016 BETHANY BALLARD MD Ot 424.1 AORTIC VALVE DISORDER 02/18/2016 BETHANY BALLARD MD Ot 272.4 HYPERLIPIDEMIA NEC/NOS 02/18/2016 BETHANY BALLARD MD Ot 278.00 OBESITY, NOS 02/18/2016 BETHANY BALLARD MD Ot 401.9 HYPERTENSION NOS 02/18/2016 BETHANY BALLARD MD Ot 414.00 CORON ATHEROSCLER NOS TYPE VESSEL, NATIV 02/18/2016 BETHANY BALLARD MD Ot 433.10 CAROTID ARTERY OCCLUSION W O CEREBRAL IN 02/18/2016 BETHANY BALLARD MD Ot V85.42 BODY MASS INDEX 45.0-49.9, ADULT 02/18/2016 HAILY PALOMINO, MARTA J Ot 368.9 VISUAL DISTURBANCE NOS 02/18/2016 Ot V45.82 PERCUTANEOUS TRANSLUM CORON ANGIOPLASTY 02/18/2016 Ot V57.89 REHABILITATION PROC NEC 02/18/2016 BETHANY BALLARD MD Ot E78.5 HYPERLIPIDEMIA, UNSPECIFIED 02/18/2016 BETHANY BALLARD MD Ot I10 ESSENTIAL (PRIMARY) HYPERTENSION 02/18/2016 BETHAYN BALLARD MD Ot I25.9 CHRONIC ISCHEMIC HEART DISEASE, UNSPECIF 02/18/2016 BETHANY BALLARD MD Ot I65.29 OCCLUSION AND STENOSIS OF UNSPECIFIED CA 02/18/2016 ORVILLE RAMIREZ APRN Ot 627.4 SYMPT STATES ASSOC W ARTIFIC MENOPAUSE 02/18/2016 ORVILLE RAMIREZ APRN Ot V76.12 OTH SCREEN MAMMO-MALIGN NEOPLASM OF [place] 02/18/2016 ORVILLE RAMIREZ APRN Ot 611.72 LUMP OR MASS IN BREAST 02/18/2016 BETHANY BALLARD MD Ot E78.5 HYPERLIPIDEMIA, UNSPECIFIED 02/18/2016 BETHANY BALLARD MD Ot I10 ESSENTIAL (PRIMARY) HYPERTENSION 02/18/2016 BETHANY BALLARD MD Ot I25.10 ATHSCL HEART DISEASE OF [place] CORONARY 02/18/2016 BETHANY BALLARD MD Ot I65.29 OCCLUSION AND STENOSIS OF UNSPECIFIED CA 02/18/2016 MIGUEL ÁNGEL WELLER BRUSH POLISHER Ot N63 UNSPECIFIED LUMP IN BREAST 02/18/2016 ORVILLE RAMIREZ PNEUMATIC PRESS HAND Ot R92.8 OTH ABN AND INCONCLUSIVE FINDINGS ON DX 02/18/2016 MARI WALTER DO Ot E66.9 OBESITY, UNSPECIFIED 02/18/2016 MARI WALTER DO Ot G47.33 OBSTRUCTIVE SLEEP APNEA (ADULT) (PEDIATR 02/18/2016 MARI WALTER DO Ot I10 ESSENTIAL (PRIMARY) HYPERTENSION 02/18/2016 MARI WALTER DO Ot I25.10 ATHSCL HEART DISEASE OF [place] CORONARY 02/18/2016 MARI WALTER DO Ot I27.0 PRIMARY PULMONARY HYPERTENSION 02/18/2016 MARI WALTER DO Ot I51.9 HEART DISEASE, UNSPECIFIED 02/18/2016 MARI WALTER DO Ot J44.9 CHRONIC OBSTRUCTIVE PULMONARY DISEASE, U 02/18/2016 MARI WALTER DO Ot R06.09 OTHER FORMS OF DYSPNEA 02/18/2016 MARI WALTER DO Ot E66.9 OBESITY, UNSPECIFIED 02/18/2016 MARI WALTER DO Ot G47.33 OBSTRUCTIVE SLEEP APNEA (ADULT) (PEDIATR 02/18/2016 MARI WALTER DO Ot I10 ESSENTIAL (PRIMARY) HYPERTENSION 02/18/2016 MARI WALTER DO Ot I25.10 ATHSCL HEART DISEASE OF [place] CORONARY 02/18/2016 MARI WALTER DO Ot I27.0 PRIMARY PULMONARY HYPERTENSION 02/18/2016 MARI WALTER DO Ot I51.9 HEART DISEASE, UNSPECIFIED 02/18/2016 MARI WALTER DO Ot J44.9 CHRONIC OBSTRUCTIVE PULMONARY DISEASE, U 02/18/2016 MARI WALTER DO Ot R06.09 OTHER FORMS OF DYSPNEA 02/18/2016 PATRICIA LIMON BRUSH POLISHER Ot N63 UNSPECIFIED LUMP IN BREAST 02/18/2016 PATRICIA LIMON A BRUSH POLISHER Ot N63 UNSPECIFIED LUMP IN BREAST 02/18/2016 PATRICIA LIMON BRUSH POLISHER Ot N63 UNSPECIFIED LUMP IN BREAST 02/18/2016 CHIKA VALDEZ APRN Ot E66.9 OBESITY, UNSPECIFIED 02/18/2016 CHIKA VALDEZ PNEUMATIC PRESS HAND Ot G47.33 OBSTRUCTIVE SLEEP APNEA (ADULT) ( PEDIATR 02/18/2016 CHIKA VALDEZ APRN Ot J44.9 CHRONIC OBSTRUCTIVE PULMONARY DISEASE , U 02/18/2016 CHIKA VALDEZ APRN Ot R06.09 OTHER FORMS OF DYSPNEA 02/18/2016 VIVI PALOMINO, MARLY Zamora Ot C50.411 MALIG NEOPLM OF UPPER-OUTER QUADRANT OF 02/18/2016 MARLY TRINIDAD MD Ot E11.9 TYPE 2 DIABETES MELLITUS WITHOUT COMPLIC 02/18/2016 MARLY TRINIDAD MD Ot E66.01 MORBID (SEVERE) OBESITY DUE TO EXCESS CA 02/18/2016 MARLY TRINIDAD MD Ot E78.5 HYPERLIPIDEMIA, UNSPECIFIED 02/18/2016 MARLY TRINIDAD MD Ot F32.9 MAJOR DEPRESSIVE DISORDER, SINGLE EPISOD 02/18/2016 MARLY TRINIDAD MD Ot I10 ESSENTIAL (PRIMARY) HYPERTENSION 02/18/2016 MARLY TRINIDAD MD Ot I25.10 ATHSCL HEART DISEASE OF [place] CORONARY 02/18/2016 MARLY TRINIDAD MD Ot M19.90 UNSPECIFIED OSTEOARTHRITIS, UNSPECIFIED 02/18/2016 MARLY TRINIDAD MD Ot Z68.44 BODY MASS INDEX (BMI) 60.0-69.9, ADULT 02/18/2016 MARLY TRINIDAD MD Ot Z79.899 OTHER EQUITY DIRECTOR (CURRENT) DRUG THERAPY 02/18/2016 Ot 388.30 TINNITUS NOS 02/18/2016 Ot 780.4 DIZZINESS AND GIDDINESS 02/18/2016 Ot 397.0 TRICUSPID VALVE DISEASE 02/18/2016 Ot 401.9 HYPERTENSION NOS 02/18/2016 Ot 414.00 CORON ATHEROSCLER NOS TYPE VESSEL, NATIV 02/18/2016 Ot 424.0 MITRAL VALVE DISORDER 02/18/2016 Ot 401.9 HYPERTENSION NOS 02/18/2016 Ot 414.00 CORON ATHEROSCLER NOS TYPE VESSEL, NATIV 02/18/2016 Ot 715.36 LOC OSTEOARTH NOS-L/LEG 02/18/2016 Ot V72.63 PRE-PROCEDURAL LABORATORY EXAMINATION 02/18/2016 Ot V72.83 EXAM PRE-OPERATIVE NEC 02/18/2016 Ot V74.8 SCREEN-BACTERIAL DIS NEC 02/18/2016 CHERIE PALOMINO, COBY Corona Ot 729.2 NEURALGIA/NEURITIS NOS 02/18/2016 RICH POST OD Ot 368.2 DIPLOPIA 02/18/2016 BETHANY BALLARD MD Ot 272.4 HYPERLIPIDEMIA NEC/NOS 02/18/2016 BETHANY BALLARD MD Ot 278.00 OBESITY, NOS 02/18/2016 BETHANY BALLARD MD Ot 397.0 TRICUSPID VALVE DISEASE 02/18/2016 BETHANY BALLARD MD Ot 401.9 HYPERTENSION NOS 02/18/2016 BETHANY BALLARD MD Ot 414.00 CORON ATHEROSCLER NOS TYPE VESSEL, NATIV 02/18/2016 BETHANY BALLARD MD Ot 424.1 AORTIC VALVE DISORDER 02/18/2016 BETHANY BALLARD MD Ot 272.4 HYPERLIPIDEMIA NEC/NOS 02/18/2016 BETHANY BALLARD MD Ot 278.00 OBESITY, NOS 02/18/2016 BETHANY BALLARD MD Ot 401.9 HYPERTENSION NOS 02/18/2016 BETHANY BALLARD MD Ot 414.00 CORON ATHEROSCLER NOS TYPE VESSEL, NATIV 02/18/2016 BETHANY BALLARD MD Ot 433.10 CAROTID ARTERY OCCLUSION W O CEREBRAL IN 02/18/2016 BETHANY BALLARD MD Ot V85.42 BODY MASS INDEX 45.0-49.9, ADULT 02/18/2016 MARTA JOHANSEN MD Ot 368.9 VISUAL DISTURBANCE NOS 02/18/2016 Ot V45.82 PERCUTANEOUS TRANSLUM CORON ANGIOPLASTY 02/18/2016 Ot V57.89 REHABILITATION PROC NEC 02/18/2016 BETHANY BALLARD MD Ot E78.5 HYPERLIPIDEMIA, UNSPECIFIED 02/18/2016 BETHANY BALLARD MD Ot I10 ESSENTIAL (PRIMARY) HYPERTENSION 02/18/2016 BETHANY BALLARD MD Ot I25.9 CHRONIC ISCHEMIC HEART DISEASE, UNSPECIF 02/18/2016 BETHANY BALLARD MD Ot I65.29 OCCLUSION AND STENOSIS OF UNSPECIFIED CA 02/18/2016 ORVILLE RAMIREZ PNEUMATIC PRESS HAND Ot 627.4 SYMPT STATES ASSOC W ARTIFIC MENOPAUSE 02/18/2016 ORVILLE RAMIREZ PNEUMATIC PRESS HAND Ot V76.12 OTH SCREEN MAMMO-MALIGN NEOPLASM OF [place] 02/18/2016 ORVILLE RAMIREZ PNEUMATIC PRESS HAND Ot 611.72 LUMP OR MASS IN BREAST 02/18/2016 ELIO PALOMINO, BETHANY Garcia Ot E78.5 HYPERLIPIDEMIA, UNSPECIFIED 02/18/2016 BETHANY BALLARD MD Ot I10 ESSENTIAL (PRIMARY) HYPERTENSION 02/18/2016 BETHANY BALLARD MD Ot I25.10 ATHSCL HEART DISEASE OF [place] CORONARY 02/18/2016 BETHANY BALLARD MD Ot I65.29 OCCLUSION AND STENOSIS OF UNSPECIFIED CA 02/18/2016 MIGUEL ÁNGEL WELLER BRUSH POLISHER Ot N63 UNSPECIFIED LUMP IN BREAST 02/18/2016 ORVILLE RAMIREZ PNEUMATIC PRESS HAND Ot R92.8 OTH ABN AND INCONCLUSIVE FINDINGS ON DX 02/18/2016 MARI WALTER DO Ot E66.9 OBESITY, UNSPECIFIED 02/18/2016 MARI WALTER DO Ot G47.33 OBSTRUCTIVE SLEEP APNEA (ADULT) (PEDIATR 02/18/2016 MARI WALTER DO Ot I10 ESSENTIAL (PRIMARY) HYPERTENSION 02/18/2016 MARI WALTER DO Ot I25.10 ATHSCL HEART DISEASE OF [place] CORONARY 02/18/2016 MARI WALTER DO Ot I27.0 PRIMARY PULMONARY HYPERTENSION 02/18/2016 MARI WALTER DO Ot I51.9 HEART DISEASE, UNSPECIFIED 02/18/2016 MARI WALTER DO Ot J44.9 CHRONIC OBSTRUCTIVE PULMONARY DISEASE, U 02/18/2016 MARI WALTER DO Ot R06.09 OTHER FORMS OF DYSPNEA 02/18/2016 MARI WALTER DO Ot E66.9 OBESITY, UNSPECIFIED 02/18/2016 MARI WALTER DO Ot G47.33 OBSTRUCTIVE SLEEP APNEA (ADULT) (PEDIATR 02/18/2016 MARI WALTER DO Ot I10 ESSENTIAL (PRIMARY) HYPERTENSION 02/18/2016 MARI WALTER DO Ot I25.10 ATHSCL HEART DISEASE OF [place] CORONARY 02/18/2016 MARI WALTER DO, Ot I27.0 PRIMARY PULMONARY HYPERTENSION 02/18/2016 MARI WALTER DO Ot I51.9 HEART DISEASE, UNSPECIFIED 02/18/2016 MARI WALTER DO Ot J44.9 CHRONIC OBSTRUCTIVE PULMONARY DISEASE, U 02/18/2016 MARI WALTER DO Ot R06.09 OTHER FORMS OF DYSPNEA 02/18/2016 LIMONPATRICIA Gurpreet BRUSH POLISHER Ot N63 UNSPECIFIED LUMP IN BREAST 02/18/2016 LIMONCASTILLOE A BRUSH POLISHER Ot N63 UNSPECIFIED LU[place] IN BREAST 02/18/2016 LIMONCASTILLOE Gurpreet BRUSH POLISHER Ot N63 UNSPECIFIED [place] IN BREAST 02/18/2016 CHIKA VALDEZ APRN Ot E66.9 OBESITY, UNSPECIFIED 02/18/2016 CHIKA VALDEZ APRN Ot G47.33 OBSTRUCTIVE SLEEP APNEA (ADULT) ( PEDIATR 02/18/2016 CHIKA VALDEZ APRN Ot J44.9 CHRONIC OBSTRUCTIVE PULMONARY DISEASE , U 02/18/2016 CHIKA VALDEZ APRN Ot R06.09 OTHER FORMS OF DYSPNEA 02/18/2016 MARLY TRINIDAD MD Ot C50.411 MALIG NEOPLM OF UPPER-OUTER QUADRANT OF 02/18/2016 MARLY TRINIDAD MD Ot E11.9 TYPE 2 DIABETES MELLITUS WITHOUT COMPLIC 02/18/2016 MARLY TRINIDAD MD Ot E66.01 MORBID (SEVERE) OBESITY DUE TO EXCESS CA 02/18/2016 MARLY TRINIDAD MD Ot E78.5 HYPERLIPIDEMIA, UNSPECIFIED 02/18/2016 MARLY TRINIDAD MD Ot F32.9 MAJOR DEPRESSIVE DISORDER, SINGLE EPISOD 02/18/2016 MARLY TRINIDAD MD Ot I10 ESSENTIAL (PRIMARY) HYPERTENSION 02/18/2016 MARLY TRINIDAD MD Ot I25.10 ATHSCL HEART DISEASE OF [place] CORONARY 02/18/2016 MARLY TRINIDAD MD Ot M19.90 UNSPECIFIED OSTEOARTHRITIS, UNSPECIFIED 02/18/2016 MALRY TRINIDAD MD Ot Z68.44 BODY MASS INDEX (BMI) 60.0-69.9, ADULT 02/18/2016 MARLY TRINIDAD MD Ot Z79.899 OTHER USP (CURRENT) DRUG THERAPY 02/18/2016 MARI WALTER DO Ot E66.9 OBESITY, UNSPECIFIED 02/18/2016 MARI WALTER DO Ot G47.33 OBSTRUCTIVE SLEEP APNEA (ADULT) (PEDIATR 02/18/2016 MARI WALTER DO Ot I10 ESSENTIAL (PRIMARY) HYPERTENSION 02/18/2016 MARI WALTER DO Ot I25.10 ATHSCL HEART DISEASE OF [place] CORONARY 02/18/2016 MARI WALTER DO Ot I27.0 PRIMARY PULMONARY HYPERTENSION 02/18/2016 MARI WALTER DO Ot I51.9 HEART DISEASE, UNSPECIFIED 02/18/2016 MARI WALTER DO Ot J44.9 CHRONIC OBSTRUCTIVE PULMONARY DISEASE, U 02/18/2016 MARI WALTER DO Ot R06.09 OTHER FORMS OF DYSPNEA 02/18/2016 ORVILLE RAMIREZ PNEUMATIC PRESS HAND Ot R92.8 OTH ABN AND INCONCLUSIVE FINDINGS ON DX 02/18/2016 BETHANY BALLARD MD Ot E78.5 HYPERLIPIDEMIA, UNSPECIFIED 02/18/2016 BETHANY BALLARD MD Ot I10 ESSENTIAL (PRIMARY) HYPERTENSION 02/18/2016 BETHANY BALLARD MD Ot I25.10 ATHSCL HEART DISEASE OF [place] CORONARY 02/18/2016 BETHANY BALLARD MD Ot I65.29 OCCLUSION AND STENOSIS OF UNSPECIFIED CA 02/18/2016 MIGUEL ÁNGEL WELLER BRUSH POLISHER Ot N63 UNSPECIFIED LUMP IN BREAST 02/18/2016 BETHANY BALLARD MD Ot E78.5 HYPERLIPIDEMIA, UNSPECIFIED 02/18/2016 BETHANY BALLARD MD Ot I10 ESSENTIAL (PRIMARY) HYPERTENSION 02/18/2016 BETHANY BALLARD MD Ot I25.9 CHRONIC ISCHEMIC HEART DISEASE, UNSPECIF 02/18/2016 EBTHANY BALLARD MD Ot I65.29 OCCLUSION AND STENOSIS OF UNSPECIFIED CA 02/18/2016 ORVILLE RAMIREZ PNEUMATIC PRESS HAND Ot 611.72 LUMP OR MASS IN BREAST 02/18/2016 BETHANY BALLARD MD Ot 272.4 HYPERLIPIDEMIA NEC/NOS 02/18/2016 BETHANY BALLARD MD Ot 278.00 OBESITY, NOS 02/18/2016 BETHANY BALLARD MD Ot 401.9 HYPERTENSION NOS 02/18/2016 BETHANY BALLARD MD Ot 414.00 CORON ATHEROSCLER NOS TYPE VESSEL, NATIV 02/18/2016 BETHANY BALLARD MD Ot 433.10 CAROTID ARTERY OCCLUSION W O CEREBRAL IN 02/18/2016 BETHANY BALLARD MD Ot V85.42 BODY MASS INDEX 45.0-49.9, ADULT 02/18/2016 BETHANY BALLARD MD Ot 272.4 HYPERLIPIDEMIA NEC/NOS 02/18/2016 BETHANY BALLARD MD Ot 278.00 OBESITY, NOS 02/18/2016 BETHANY BALLARD MD Ot 397.0 TRICUSPID VALVE DISEASE 02/18/2016 BETHANY BALLARD MD Ot 401.9 HYPERTENSION NOS 02/18/2016 BETHANY BALLARD MD Ot 414.00 CORON ATHEROSCLER NOS TYPE VESSEL, NATIV 02/18/2016 BETHANY BALLARD MD Ot 424.1 AORTIC VALVE DISORDER 02/18/2016 MARTA JOHANSEN MD Ot 368.9 VISUAL DISTURBANCE NOS 02/18/2016 RICH POST OD Ot 368.2 DIPLOPIA 02/18/2016 CHERIE PALOMINO, COBY Corona Ot 729.2 NEURALGIA/NEURITIS NOS 02/18/2016 Ot 715.36 LOC OSTEOARTH NOS-L/LEG 02/18/2016 Ot V72.63 PRE-PROCEDURAL LABORATORY EXAMINATION 02/18/2016 Ot V72.83 EXAM PRE-OPERATIVE NEC 02/18/2016 Ot V74.8 SCREEN-BACTERIAL DIS NEC 03/14/2016 Ot 388.30 TINNITUS NOS 03/14/2016 Ot 780.4 DIZZINESS AND GIDDINESS 03/14/2016 Ot 397.0 TRICUSPID VALVE DISEASE 03/14/2016 Ot 401.9 HYPERTENSION NOS 03/14/2016 Ot 414.00 CORON ATHEROSCLER NOS TYPE VESSEL, NATIV 03/14/2016 Ot 424.0 MITRAL VALVE DISORDER 03/14/2016 Ot 401.9 HYPERTENSION NOS 03/14/2016 Ot 414.00 CORON ATHEROSCLER NOS TYPE VESSEL, NATIV 03/14/2016 Ot 715.36 LOC OSTEOARTH NOS-L/LEG 03/14/2016 Ot V72.63 PRE-PROCEDURAL LABORATORY EXAMINATION 03/14/2016 Ot V72.83 EXAM PRE-OPERATIVE NEC 03/14/2016 Ot V74.8 SCREEN-BACTERIAL DIS NEC 03/14/2016 COBY CRESPO MD Ot 729.2 NEURALGIA/NEURITIS NOS 03/14/2016 RICH POST OD Ot 368.2 DIPLOPIA 03/14/2016 BETHANY BALLARD MD Ot 272.4 HYPERLIPIDEMIA NEC/NOS 03/14/2016 BETHANY BALLARD MD Ot 278.00 OBESITY, NOS 03/14/2016 BETHANY BALLARD MD Ot 397.0 TRICUSPID VALVE DISEASE 03/14/2016 BETHANY BALLARD MD Ot 401.9 HYPERTENSION NOS 03/14/2016 BETHANY BALLARD MD Ot 414.00 CORON ATHEROSCLER NOS TYPE VESSEL, NATIV 03/14/2016 BETHANY BALLARD MD Ot 424.1 AORTIC VALVE DISORDER 03/14/2016 BETHANY BALLARD MD Ot 272.4 HYPERLIPIDEMIA NEC/NOS 03/14/2016 BETHANY BALLARD MD Ot 278.00 OBESITY, NOS 03/14/2016 BETHANY BALLARD MD Ot 401.9 HYPERTENSION NOS 03/14/2016 BETHANY BALLARD MD Ot 414.00 CORON ATHEROSCLER NOS TYPE VESSEL, NATIV 03/14/2016 BETHANY BALLARD MD Ot 433.10 CAROTID ARTERY OCCLUSION W O CEREBRAL IN 03/14/2016 BETHANY BALLARD MD Ot V85.42 BODY MASS INDEX 45.0-49.9, ADULT 03/14/2016 MARTA JOHANSEN MD Ot 368.9 VISUAL DISTURBANCE NOS 03/14/2016 Ot V45.82 PERCUTANEOUS TRANSLUM CORON ANGIOPLASTY 03/14/2016 Ot V57.89 REHABILITATION PROC NEC 03/14/2016 BETHANY BALLARD MD Ot E78.5 HYPERLIPIDEMIA, UNSPECIFIED 03/14/2016 BETHANY BALLARD MD Ot I10 ESSENTIAL (PRIMARY) HYPERTENSION 03/14/2016 BETHANY BALLARD MD Ot I25.9 CHRONIC ISCHEMIC HEART DISEASE, UNSPECIF 03/14/2016 BETHANY BALLARD MD Ot I65.29 OCCLUSION AND STENOSIS OF UNSPECIFIED CA 03/14/2016 ORVILLE RAMIREZ PNEUMATIC PRESS HAND Ot 627.4 SYMPT STATES ASSOC W ARTIFIC MENOPAUSE 03/14/2016 ORVILLE RAMIREZ PNEUMATIC PRESS HAND Ot V76.12 OTH SCREEN MAMMO-MALIGN NEOPLASM OF [place] 03/14/2016 ORVILLE RAMIREZ PNEUMATIC PRESS HAND Ot 611.72 LUMP OR MASS IN BREAST 03/14/2016 BETHANY BALLARD MD Ot E78.5 HYPERLIPIDEMIA, UNSPECIFIED 03/14/2016 BETHANY BALLARD MD Ot I10 ESSENTIAL (PRIMARY) HYPERTENSION 03/14/2016 ELIO PALOMINO, BETHANY Garcia Ot I25.10 ATHSCL HEART DISEASE OF [place] CORONARY 03/14/2016 ELIO PALOMINO, BETHANY Garcia Ot I65.29 OCCLUSION AND STENOSIS OF UNSPECIFIED CA 03/14/2016 MIGUEL ÁNGEL WELLER BRUSH POLISHER Ot N63 UNSPECIFIED LUMP IN BREAST 03/14/2016 ORVILLE RAMIREZ PNEUMATIC PRESS HAND Ot R92.8 OTH ABN AND INCONCLUSIVE FINDINGS ON DX 03/14/2016 MARI WALTER DO Ot E66.9 OBESITY, UNSPECIFIED 03/14/2016 MARI WALTER DO Ot G47.33 OBSTRUCTIVE SLEEP APNEA (ADULT) (PEDIATR 03/14/2016 MARI WALTER DO Ot I10 ESSENTIAL (PRIMARY) HYPERTENSION 03/14/2016 MARI WALTER DO Ot I25.10 ATHSCL HEART DISEASE OF [place] CORONARY 03/14/2016 MARI WALTER DO Ot I27.0 PRIMARY PULMONARY HYPERTENSION 03/14/2016 MARI WALTER DO Ot I51.9 HEART DISEASE, UNSPECIFIED 03/14/2016 MARI WALTER DO Ot J44.9 CHRONIC OBSTRUCTIVE PULMONARY DISEASE, U 03/14/2016 MARI WALTER DO Ot R06.09 OTHER FORMS OF DYSPNEA 03/14/2016 MARI WALTER DO Ot E66.9 OBESITY, UNSPECIFIED 03/14/2016 MARI WALTER DO Ot G47.33 OBSTRUCTIVE SLEEP APNEA (ADULT) (PEDIATR 03/14/2016 MARI WALTER DO Ot I10 ESSENTIAL (PRIMARY) HYPERTENSION 03/14/2016 MARI WALTER DO Ot I25.10 ATHSCL HEART DISEASE OF [place] CORONARY 03/14/2016 MARI WALTER DO Ot I27.0 PRIMARY PULMONARY HYPERTENSION 03/14/2016 MARI WALTER DO Ot I51.9 HEART DISEASE, UNSPECIFIED 03/14/2016 MARI WALTER DO Ot J44.9 CHRONIC OBSTRUCTIVE PULMONARY DISEASE, U 03/14/2016 KAITLIN WALTER DOSON M Ot R06.09 OTHER FORMS OF DYSPNEA 03/14/2016 PATRICIA LIMON BRUSH POLISHER Ot N63 UNSPECIFIED LUMP IN BREAST 03/14/2016 LIMON, PATRICIA A BRUSH POLISHER Ot N63 UNSPECIFIED LUMP IN BREAST 03/14/2016 PATRICIA LIMON A BRUSH POLISHER Ot N63 UNSPECIFIED LUMP IN BREAST 03/14/2016 CHIKA VALDEZ APRN Ot E66.9 OBESITY, UNSPECIFIED 03/14/2016 CHIKA VALDEZ PNEUMATIC PRESS HAND Ot G47.33 OBSTRUCTIVE SLEEP APNEA (ADULT) ( PEDIATR 03/14/2016 CHIKA VALDEZ APRN Ot J44.9 CHRONIC OBSTRUCTIVE PULMONARY DISEASE , U 03/14/2016 CHIKA VALDEZ APRN Ot R06.09 OTHER FORMS OF DYSPNEA 03/14/2016 MARLY TRINIDAD MD Ot C50.411 MALIG NEOPLM OF UPPER-OUTER QUADRANT OF 03/14/2016 MARLY TRINIDAD MD Ot E11.9 TYPE 2 DIABETES MELLITUS WITHOUT COMPLIC 03/14/2016 MARLY TRINIDAD MD Ot E66.01 MORBID (SEVERE) OBESITY DUE TO EXCESS CA 03/14/2016 MARLY TRINIDAD MD Ot E78.5 HYPERLIPIDEMIA, UNSPECIFIED 03/14/2016 MARLY TRINIDAD MD Ot F32.9 MAJOR DEPRESSIVE DISORDER, SINGLE EPISOD 03/14/2016 MARLY TRINIDAD MD Ot I10 ESSENTIAL (PRIMARY) HYPERTENSION 03/14/2016 MARLY TRINIDAD MD Ot I25.10 ATHSCL HEART DISEASE OF [place] CORONARY 03/14/2016 MARLY TRINIDAD MD Ot M19.90 UNSPECIFIED OSTEOARTHRITIS, UNSPECIFIED 03/14/2016 MARLY TRINIDAD MD Ot Z68.44 BODY MASS INDEX (BMI) 60.0-69.9, ADULT 03/14/2016 MARLY TRINIDAD MD Ot Z79.899 OTHER EQUITY DIRECTOR (CURRENT) DRUG THERAPY 03/17/2016 BETHANY BALLARD MD Ot E78.2 MIXED HYPERLIPIDEMIA 03/17/2016 BETHANY BALLARD MD Ot I10 ESSENTIAL (PRIMARY) HYPERTENSION 03/17/2016 BETHANY BALLARD MD Ot I25.10 ATHSCL HEART DISEASE OF [place] CORONARY 03/17/2016 BETHANY BALLARD MD Ot I65.23 OCCLUSION AND STENOSIS OF BILATERAL OTERO 03/17/2016 BETHANY BALLARD MD Ot R06.09 OTHER FORMS OF DYSPNEA 03/31/2016 MARLY TRINIDAD MD Ot C50.411 MALIG NEOPLM OF UPPER-OUTER QUADRANT OF 03/31/2016 MARLY TRINIDAD MD Ot E11.9 TYPE 2 DIABETES MELLITUS WITHOUT COMPLIC 03/31/2016 MARLY TRINIDAD MD Ot E66.01 MORBID (SEVERE) OBESITY DUE TO EXCESS CA 03/31/2016 MARLY TRINIDAD MD, Ot E78.5 HYPERLIPIDEMIA, UNSPECIFIED 03/31/2016 MARLY TRINIDAD MD Ot F32.9 MAJOR DEPRESSIVE DISORDER, SINGLE EPISOD 03/31/2016 MARLY TRINIDAD MD Ot I10 ESSENTIAL (PRIMARY) HYPERTENSION 03/31/2016 MARLY TRINIDAD MD Ot I25.10 ATHSCL HEART DISEASE OF [place] CORONARY 03/31/2016 MARLY TRINIDAD MD Ot M19.90 UNSPECIFIED OSTEOARTHRITIS, UNSPECIFIED 03/31/2016 MARLY TRINIDAD MD Ot Z68.44 BODY MASS INDEX (BMI) 60.0-69.9, ADULT 03/31/2016 MARLY TRINIDAD MD Ot Z79.899 OTHER EQUITY DIRECTOR (CURRENT) DRUG THERAPY 04/01/2016 MARLY TRINIDAD MD Ot C50.411 MALIG NEOPLM OF UPPER-OUTER QUADRANT OF 04/01/2016 MARLY TRINIDAD MD Ot E11.9 TYPE 2 DIABETES MELLITUS WITHOUT COMPLIC 04/01/2016 MARLY TRINIDAD MD, Ot E66.01 MORBID (SEVERE) OBESITY DUE TO EXCESS CA 04/01/2016 MARLY TRINIDAD MD Ot E78.5 HYPERLIPIDEMIA, UNSPECIFIED 04/01/2016 MARLY TRINIDAD MD, Ot F32.9 MAJOR DEPRESSIVE DISORDER, SINGLE EPISOD 04/01/2016 MARLY TRINIDAD MD Ot I10 ESSENTIAL (PRIMARY) HYPERTENSION 04/01/2016 MARLY TRINIDAD MD Ot I25.10 ATHSCL HEART DISEASE OF [place] CORONARY 04/01/2016 MARLY TRINIDAD MD, Ot M19.90 UNSPECIFIED OSTEOARTHRITIS, UNSPECIFIED 04/01/2016 MARLY TRINIDAD MD, Ot Z68.44 BODY MASS INDEX (BMI) 60.0-69.9, ADULT 04/01/2016 MARLY TRINIDAD MD Ot Z79.899 OTHER USP (CURRENT) DRUG THERAPY 04/02/2016 MARLY TRINIDAD MD Ot C50.411 MALIG NEOPLM OF UPPER-OUTER QUADRANT OF 04/02/2016 MARLY TRINIDAD MD Ot E11.9 TYPE 2 DIABETES MELLITUS WITHOUT COMPLIC 04/02/2016 MARLY TRINIDAD MD Ot E66.01 MORBID (SEVERE) OBESITY DUE TO EXCESS CA 04/02/2016 MARLY TRINIDAD MD Ot E78.5 HYPERLIPIDEMIA, UNSPECIFIED 04/02/2016 MARLY TRINIDAD MD Ot F32.9 MAJOR DEPRESSIVE DISORDER, SINGLE EPISOD 04/02/2016 MARLY TRINIDAD MD Ot I10 ESSENTIAL (PRIMARY) HYPERTENSION 04/02/2016 MARLY TRINIDAD MD Ot I25.10 ATHSCL HEART DISEASE OF [place] CORONARY 04/02/2016 MARLY TRINIDAD MD Ot M19.90 UNSPECIFIED OSTEOARTHRITIS, UNSPECIFIED 04/02/2016 MARLY TRINIDAD MD Ot Z68.44 BODY MASS INDEX (BMI) 60.0-69.9, ADULT 04/02/2016 MARLY TRINIDAD MD Ot Z79.899 OTHER USP (CURRENT) DRUG THERAPY 04/09/2016 BETHANY BALLARD MD Ot E78.2 MIXED HYPERLIPIDEMIA 04/09/2016 BETHANY BALLARD MD Ot I10 ESSENTIAL (PRIMARY) HYPERTENSION 04/09/2016 BETHANY BALLARD MD Ot I25.10 ATHSCL HEART DISEASE OF [place] CORONARY 04/09/2016 BETHANY BALLARD MD Ot I65.23 OCCLUSION AND STENOSIS OF BILATERAL OTERO 04/09/2016 BETHANY BALLARD MD Ot R06.09 OTHER FORMS OF DYSPNEA 05/20/2016 MARLY TRINIDAD MD Ot C50.411 MALIG NEOPLM OF UPPER-OUTER QUADRANT OF 05/20/2016 MARLY TRINIDAD MD Ot E11.9 TYPE 2 DIABETES MELLITUS WITHOUT COMPLIC 05/20/2016 MARLY TRINIDAD MD Ot E66.01 MORBID (SEVERE) OBESITY DUE TO EXCESS CA 05/20/2016 MARLY TRINIDAD MD Ot E78.5 HYPERLIPIDEMIA, UNSPECIFIED 05/20/2016 MARLY TRINIDAD MD Ot F32.9 MAJOR DEPRESSIVE DISORDER, SINGLE EPISOD 05/20/2016 MARLY TRINIDAD MD Ot I10 ESSENTIAL (PRIMARY) HYPERTENSION 05/20/2016 MARLY TRINIDAD MD Ot I25.10 ATHSCL HEART DISEASE OF [place] CORONARY 05/20/2016 MARLY TRINIDAD MD Ot M19.90 UNSPECIFIED OSTEOARTHRITIS, UNSPECIFIED 05/20/2016 MARLY TRINIDAD MD Ot Z68.44 BODY MASS INDEX (BMI) 60.0-69.9, ADULT 05/20/2016 MARLY TRINIDAD MD Ot Z79.899 OTHER EQUITY DIRECTOR (CURRENT) DRUG THERAPY 06/30/2016 MARLY TRINIDAD MD Ot C50.411 MALIG NEOPLM OF UPPER-OUTER QUADRANT OF 06/30/2016 MARLY TRINIDAD MD Ot E11.9 TYPE 2 DIABETES MELLITUS WITHOUT COMPLIC 06/30/2016 MARLY TRINIDAD MD Ot E66.01 MORBID (SEVERE) OBESITY DUE TO EXCESS CA 06/30/2016 MARLY TRINIDAD MD Ot E78.5 HYPERLIPIDEMIA, UNSPECIFIED 06/30/2016 MARLY TRINIDAD MD Ot F32.9 MAJOR DEPRESSIVE DISORDER, SINGLE EPISOD 06/30/2016 MARLY TRINIDAD MD Ot I10 ESSENTIAL (PRIMARY) HYPERTENSION 06/30/2016 MARLY TRINIDAD MD Ot I25.10 ATHSCL HEART DISEASE OF [place] CORONARY 06/30/2016 MARLY TRINIDAD MD Ot M19.90 UNSPECIFIED OSTEOARTHRITIS, UNSPECIFIED 06/30/2016 MARLY TRINIDAD MD Ot Z68.44 BODY MASS INDEX (BMI) 60.0-69.9, ADULT 06/30/2016 MARLY TRINIDAD MD Ot Z79.899 OTHER EQUITY DIRECTOR (CURRENT) DRUG THERAPY 07/01/2016 MARLY TRINIDAD MD Ot C50.411 MALIG NEOPLM OF UPPER-OUTER QUADRANT OF 07/01/2016 MARLY TRINIDAD MD Ot E11.9 TYPE 2 DIABETES MELLITUS WITHOUT COMPLIC 07/01/2016 MARLY TRINIDAD MD Ot E66.01 MORBID (SEVERE) OBESITY DUE TO EXCESS CA 07/01/2016 MARLY TRINIDAD MD Ot E78.5 HYPERLIPIDEMIA, UNSPECIFIED 07/01/2016 MARLY TRINIDAD MD Ot F32.9 MAJOR DEPRESSIVE DISORDER, SINGLE EPISOD 07/01/2016 MARLY TRINIDAD MD Ot I10 ESSENTIAL (PRIMARY) HYPERTENSION 07/01/2016 MARLY TRINIDAD MD Ot I25.10 ATHSCL HEART DISEASE OF [place] CORONARY 07/01/2016 MARLY TRINIDAD MD Ot M19.90 UNSPECIFIED OSTEOARTHRITIS, UNSPECIFIED 07/01/2016 MARLY TRINIDAD MD Ot Z68.44 BODY MASS INDEX (BMI) 60.0-69.9, ADULT 07/01/2016 MARLY TRINIDAD MD Ot Z79.899 OTHER EQUITY DIRECTOR (CURRENT) DRUG THERAPY 07/02/2016 MARLY TRINIDAD MD Ot C50.411 MALIG NEOPLM OF UPPER-OUTER QUADRANT OF 07/02/2016 MARLY TRINIDAD MD Ot E11.9 TYPE 2 DIABETES MELLITUS WITHOUT COMPLIC 07/02/2016 MARLY TRINIDAD MD Ot E66.01 MORBID (SEVERE) OBESITY DUE TO EXCESS CA 07/02/2016 MARLY TRINIDAD MD Ot E78.5 HYPERLIPIDEMIA, UNSPECIFIED 07/02/2016 MARLY TRINIDAD MD Ot F32.9 MAJOR DEPRESSIVE DISORDER, SINGLE EPISOD 07/02/2016 MARLY TRINIDAD MD Ot I10 ESSENTIAL (PRIMARY) HYPERTENSION 07/02/2016 MARLY TRINIDAD MD Ot I25.10 ATHSCL HEART DISEASE OF [place] CORONARY 07/02/2016 MARLY TRINIDAD MD Ot M19.90 UNSPECIFIED OSTEOARTHRITIS, UNSPECIFIED 07/02/2016 MARLY TRINIDAD MD Ot Z68.44 BODY MASS INDEX (BMI) 60.0-69.9, ADULT 07/02/2016 MARLY TRINIDAD MD, Ot Z79.899 OTHER USP (CURRENT) DRUG THERAPY 07/09/2016 Ot V45.82 PERCUTANEOUS TRANSLUM CORON ANGIOPLASTY 07/09/2016 Ot V57.89 REHABILITATION PROC NEC 07/09/2016 CHIKA VALDEZ APRN Ot E66.9 OBESITY, UNSPECIFIED 07/09/2016 CHIKA VALDEZ APRN Ot G47.33 OBSTRUCTIVE SLEEP APNEA (ADULT) ( PEDIATR 07/09/2016 CHIKA VALDEZ APRN Ot J44.9 CHRONIC OBSTRUCTIVE PULMONARY DISEASE , U 07/09/2016 CHIKA VALDEZ APRN Ot R06.09 OTHER FORMS OF DYSPNEA 07/10/2016 KAMALJIT MARROQUIN DO Ot B07.9 VIRAL WART, UNSPECIFIED 07/10/2016 KAMALJIT MARROQUIN DO Ot E11.9 TYPE 2 DIABETES MELLITUS WITHOUT COMPLIC 07/10/2016 KAMALJIT MARROQUIN DO Ot L82.1 OTHER SEBORRHEIC KERATOSIS 07/10/2016 KAMALJIT MARROQUIN DO Ot L91.8 OTHER HYPERTROPHIC DISORDERS OF THE SKIN 07/10/2016 KAMALJIT MARROQUIN DO Ot N60.01 SOLITARY CYST OF RIGHT BREAST 07/14/2016 KAMALJIT MARROQUIN DO Ot B07.9 VIRAL WART, UNSPECIFIED 07/14/2016 KAMALJIT MARROQUIN DO Ot E11.9 TYPE 2 DIABETES MELLITUS WITHOUT COMPLIC 07/14/2016 KAMALJIT MARROQUIN DO Ot L82.1 OTHER SEBORRHEIC KERATOSIS 07/14/2016 KAMALJIT MARROQUIN DO Ot L91.8 OTHER HYPERTROPHIC DISORDERS OF THE SKIN 07/14/2016 KAMALJIT MARROQUIN DO Ot N60.01 SOLITARY CYST OF RIGHT BREAST 07/15/2016 KAMALJIT MARROQUIN DO Ot N63 UNSPECIFIED LUMP IN BREAST 07/15/2016 KAMALJIT MARROQUIN DO Ot Z01.818 ENCOUNTER FOR OTHER PREPROCEDURAL EXAMIN 07/15/2016 KAMALJIT MARROQUIN DO, Ot Z11.2 ENCOUNTER FOR SCREENING FOR OTHER BACTER 09/29/2016 MARLY TRINIDAD MD, Ot C50.411 MALIG NEOPLM OF UPPER-OUTER QUADRANT OF 09/29/2016 MARLY TRINIDAD MD Ot E11.9 TYPE 2 DIABETES MELLITUS WITHOUT COMPLIC 09/29/2016 MARLY TRINIDAD MD, Ot E66.01 MORBID (SEVERE) OBESITY DUE TO EXCESS CA 09/29/2016 MARLY TRINIDAD MD, Ot E78.5 HYPERLIPIDEMIA, UNSPECIFIED 09/29/2016 MARLY TRINIDAD MD, Ot F32.9 MAJOR DEPRESSIVE DISORDER, SINGLE EPISOD 09/29/2016 MARLY TRINIDAD MD Ot I10 ESSENTIAL (PRIMARY) HYPERTENSION 09/29/2016 MARLY TRINIDAD MD, Ot I25.10 ATHSCL HEART DISEASE OF [place] CORONARY 09/29/2016 MARLY TRINIDAD MD, Ot M19.90 UNSPECIFIED OSTEOARTHRITIS, UNSPECIFIED 09/29/2016 MARLY TRINIDAD MD, Ot Z68.42 BODY MASS INDEX (BMI) 45.0-49.9, ADULT 09/29/2016 MARLY TRINIDAD MD, Ot Z79.811 EQUITY DIRECTOR (CURRENT) USE OF AROMATASE INH 09/29/2016 MARLY TRINIDAD MD, Ot Z79.899 OTHER EQUITY DIRECTOR (CURRENT) DRUG THERAPY 09/30/2016 MARLY TRINIDAD MD, Ot C50.411 MALIG NEOPLM OF UPPER-OUTER QUADRANT OF 09/30/2016 MARLY TRINIDAD MD, Ot E11.9 TYPE 2 DIABETES MELLITUS WITHOUT COMPLIC 09/30/2016 MARLY TRINIDAD MD, Ot E66.01 MORBID (SEVERE) OBESITY DUE TO EXCESS CA 09/30/2016 MARLY TRINIDAD MD, Ot E78.5 HYPERLIPIDEMIA, UNSPECIFIED 09/30/2016 MARLY TRINIDAD MD, Ot F32.9 MAJOR DEPRESSIVE DISORDER, SINGLE EPISOD 09/30/2016 MARLY TRINIDAD MD Ot I10 ESSENTIAL (PRIMARY) HYPERTENSION 09/30/2016 MARLY TRINIDAD MD, Ot I25.10 ATHSCL HEART DISEASE OF [place] CORONARY 09/30/2016 MARLY TRINIDAD MD, Ot M19.90 UNSPECIFIED OSTEOARTHRITIS, UNSPECIFIED 09/30/2016 MARLY TRINIDAD MD Ot Z68.42 BODY MASS INDEX (BMI) 45.0-49.9, ADULT 09/30/2016 MARLY TRINIDAD MD, Ot Z79.811 USP (CURRENT) USE OF AROMATASE INH 09/30/2016 MARLY TRINIDAD MD, Ot Z79.899 OTHER USP (CURRENT) DRUG THERAPY 10/02/2016 MARLY TRINIDAD MD, Ot C50.411 MALIG NEOPLM OF UPPER-OUTER QUADRANT OF 10/02/2016 MARLY TRINIDAD MD Ot E11.9 TYPE 2 DIABETES MELLITUS WITHOUT COMPLIC 10/02/2016 MRALY TRINIDAD MD Ot E66.01 MORBID (SEVERE) OBESITY DUE TO EXCESS CA 10/02/2016 MARLY TRINIDAD MD, Ot E78.5 HYPERLIPIDEMIA, UNSPECIFIED 10/02/2016 MARLY TRINIDAD MD, Ot F32.9 MAJOR DEPRESSIVE DISORDER, SINGLE EPISOD 10/02/2016 MARLY TRINIDAD MD Ot I10 ESSENTIAL (PRIMARY) HYPERTENSION 10/02/2016 MARLY TRINIDAD MD, Ot I25.10 ATHSCL HEART DISEASE OF [place] CORONARY 10/02/2016 MARLY TRINIDAD MD, Ot M19.90 UNSPECIFIED OSTEOARTHRITIS, UNSPECIFIED 10/02/2016 MARLY TRINIDAD MD, Ot Z68.42 BODY MASS INDEX (BMI) 45.0-49.9, ADULT 10/02/2016 MARLY TRINIDAD MD, Ot Z79.811 EQUITY DIRECTOR (CURRENT) USE OF AROMATASE INH 10/02/2016 MARLY TRINIDAD MD, Ot Z79.899 OTHER EQUITY DIRECTOR (CURRENT) DRUG THERAPY 10/06/2016 MARLY TRINIDAD MD, Ot C50.411 MALIG NEOPLM OF UPPER-OUTER QUADRANT OF 10/06/2016 MARLY TRINIDAD MD Ot E11.9 TYPE 2 DIABETES MELLITUS WITHOUT COMPLIC 10/06/2016 MARLY TRINIDAD MD Ot E66.01 MORBID (SEVERE) OBESITY DUE TO EXCESS CA 10/06/2016 MARLY TRINIDAD MD, Ot E78.5 HYPERLIPIDEMIA, UNSPECIFIED 10/06/2016 MARLY TRINIDAD MD, Ot F32.9 MAJOR DEPRESSIVE DISORDER, SINGLE EPISOD 10/06/2016 MARLY TRINIDAD MD Ot I10 ESSENTIAL (PRIMARY) HYPERTENSION 10/06/2016 MARLY TRINIDAD MD Ot I25.10 ATHSCL HEART DISEASE OF [place] CORONARY 10/06/2016 MARLY TRINIDAD MD Ot M19.90 UNSPECIFIED OSTEOARTHRITIS, UNSPECIFIED 10/06/2016 MARLY TRINIDAD MD Ot Z68.42 BODY MASS INDEX (BMI) 45.0-49.9, ADULT 10/06/2016 MARLY TRINIDAD MD Ot Z79.811 USP (CURRENT) USE OF AROMATASE INH 10/06/2016 MARLY TRINIDAD MD Ot Z79.899 OTHER EQUITY DIRECTOR (CURRENT) DRUG THERAPY 10/13/2016 MARLY TRINIDAD MD Ot Z12.31 ENCNTR SCREEN MAMMOGRAM FOR MALIGNANT NE 10/15/2016 Ot V45.82 PERCUTANEOUS TRANSLUM CORON ANGIOPLASTY 10/15/2016 Ot V57.89 REHABILITATION PROC NEC 10/15/2016 CHIKA VALDEZ APRN Ot E66.9 OBESITY, UNSPECIFIED 10/15/2016 CHIKA VALDEZ APRN Ot G47.33 OBSTRUCTIVE SLEEP APNEA (ADULT) ( PEDIATR 10/15/2016 CHIKA VALDEZ APRN Ot J44.9 CHRONIC OBSTRUCTIVE PULMONARY DISEASE , U 10/15/2016 CHIKA VALDEZ APRN Ot R06.09 OTHER FORMS OF DYSPNEA 10/15/2016 MARLY TRINIDAD MD Ot Z12.31 ENCNTR SCREEN MAMMOGRAM FOR MALIGNANT NE 10/15/2016 CHERIE PALOMINO, COBY Corona Ot Z01.812 ENCOUNTER FOR PREPROCEDURAL LABORATORY E Procedures Code [place] [address] OSTEOPATHIC MANIPULATION 05/15/2009 42957 URINE DRUG SCREEN (IN-HOUSE) 03/23/2012 01830 URINE DRUG SCREEN (IN-HOUSE) 03/23/2012 47458 JOINT INJECTION- LARGE JOINT (SPECIFY MEDCIN DESCRIPTION) 03/25/2012 BLOOD PRESSURE CHECK 03/26/2012 17402 ROUTINE VENIPUNCTURE 04/14/2012 90986 CMP 04/14/2012 34593 LIPID PANEL 04/14 [id number] GFR CALC (RESULT ONLY) 04/14/2012 BLOOD PRESSURE CHECK 04/15/2012 43329 TSH 04/15/2012 29373 T4 04/15/2012 36552 EKG, TRACING (IN-HOUSE) 05/18/2012 38351 A1C (IN-HOUSE) 74207 ROUTINE VENIPUNCTURE 06/14/2012 67918 PTH (intact) 47115 MAGNESIUM 2012 01150 CBC 06/14/2012 6386966 GFR CALC (RESULT ONLY) 06/14/2012 45279 RENAL PROFILE 88296 VITAMIN D 25-HYDROXY (D2,D3, TOTAL) 06/14/2012 PRO/CRE URINE PROTEIN TO CREATNINE RATIO 06/14/2012 7503069 CALCIUM (RESULT ONLY) 06/14/2012 3644816 PTH INTACT KELLY (RESULT ONLY) 06/14/2012 81.54 TOTAL KNEE REPLACEMENT 07/28/2012 55316 ROUTINE VENIPUNCTURE 08/10/2012 48458 CMP 08/10/2012 7831696 GFR CALC (RESULT ONLY) 08/10/2012 64524 TSH 08/11/2012 PHYSI VINNY CHRISTIAN 08/19/2012 37864 ROUTINE VENIPUNCTURE 01/07/2013 54980 CBC 01/07/2013 86631 RENAL PROFILE [id number] GFR CALC (RESULT ONLY) 01/07/2013 5467160 CALCIUM (RESULT ONLY) 01/07/2013 9350952 PTH INTACT KELLY (RESULT ONLY) 01/07/2013 PRO/CRE URINE PROTEIN TO CREATNINE RATIO 01/07/2013 72746 VITAMIN D 25-HYDROXY (D2,D3, TOTAL) 01/07/2013 01013 PTH (intact) (ORDER ONLY) 01/09/2013 25013 ROUTINE VENIPUNCTURE 03/15/2013 10983 MAMMOGRAM, SCREENING 03/15/2013 94673 URINE DRUG SCREEN (IN-HOUSE) 03/15/2013 6688435 GFR CALC (RESULT ONLY) 03/15/2013 39710 CMP 03/15/2013 74209 TSH 03/15/2013 71421 ROUTINE VENIPUNCTURE 08/11/2013 85716 A1C (IN-HOUSE) 76350 CBC 08/11/2013 3926515 GFR CALC (RESULT ONLY) 08/11/2013 12340 CMP 08/11/2013 83501 LIPID PANEL 08/11 PRO/CRE URINE PROTEIN TO CREATNINE RATIO 08/11/2013 40338 TSH 08/11/2013 37826 A1C (IN-HOUSE) 89352 ROUTINE VENIPUNCTURE 12/09/2013 00590 JOINT INJECTION- LARGE JOINT (SPECIFY MEDCIN DESCRIPTION) 12/09/2013 09081 CMP 12/09/2013 02163 TSH 12/09/2013 86463 ROUTINE VENIPUNCTURE 03/28/2014 08696 A1C (IN-HOUSE) 64731 CMP 03/28/2014 37304 LIPID PANEL 03/28 80245 UA W/MICROSCOPY 03/28/2014 80888 VITAMIN D 25-HYDROXY (D2,D3, TOTAL) 03/28/2014 00413 MAGNESIUM 2013 55548 PTH (intact) (ORDER ONLY) 03/28/2014 73156 TSH 03/28/2014 67437 CBC 03/28/2014 PRO/CRE URINE PROTEIN TO CREATNINE RATIO 03/28/2014 Nephrolog [facility] 04/04/2014 Results Test Result Range Capillary blood glucose measurement by glucometer (mass/volume) - 02/11/16 07: 26 Capillary blood glucose measurement by glucometer (mass/volume) 152 mg/dL 70-110 Methicillin resistant Staphylococcus aureus (MRSA) screening culture - 10:20 Methicillin resistant Staphylococcus aureus (MRSA) screening culture NEG NRG Capillary blood glucose measurement by glucometer (mass/volume) - 07/10/16 06: 13 Capillary blood glucose measurement by glucometer (mass/volume) 137 mg/dL 70-110 Complete urinalysis with reflex to culture - 10/15/16 10:30 Urine color determination YELLOW NRG Urine clarity determination CLEAR NRG Urine pH measurement by test strip 6.5 5 -9 Specific gravity of urine by test strip 1.010 1.016-1.022 Urine protein assay by test strip, semi-quantitative NEGATIVE NEGATIVE Urine glucose detection by automated test strip NEGATIVE NEGATIVE Erythrocytes detection in urine sediment by light microscopy NEGATIVE NEGATIVE Urine ketones detection by automated test strip NEGATIVE NEGATIVE Urine nitrite detection by test strip NEGATIVE NEGATIVE Urine total bilirubin detection by test strip NEGATIVE NEGATIVE Urine urobilinogen measurement by automated test strip (mass/volume) NORMAL NORMAL Urine leukocyte esterase detection by dipstick 1+ NEGATIVE Automated urine sediment erythrocyte count by microscopy (number/high power field) NONE NRG Automated urine sediment leukocyte count by microscopy (number/high power field ) RARE NRG Bacteria detection in urine sediment by light microscopy TRACE NRG Squamous epithelial cells detection in urine sediment by light microscopy RARE NRG Crystals detection in urine sediment by light microscopy NONE NRG Casts detection in urine sediment by light microscopy NONE NRG Mucus detection in urine sediment by light microscopy NEGATIVE NRG Complete urinalysis with reflex to culture NO NRG Complete blood count (CBC) with automated white blood cell (WBC) differential - 10/15/16 10:45 Blood leukocytes automated count (number/volume) 9.0 10*3/ uL 4.3-11.0 Blood erythrocytes automated count (number/volume) 5.13 10*6 /uL 4.35-5.85 Venous blood hemoglobin measurement (mass/volume) 13.7 g/dL 11.5-16.0 Blood hematocrit (volume fraction) 43 % 35-52 Automated erythrocyte mean corpuscular volume 83 [foz_us] 80-99 Automated erythrocyte mean corpuscular hemoglobin (mass per erythrocyte) 27 pg 25-34 Automated erythrocyte mean corpuscular hemoglobin concentration measurement ( mass/volume) 32 g/dL 32-36 Automated erythrocyte distribution width ratio 15.0 % 10.0-14.5 Automated blood platelet count (count/volume) 275 10*3/uL 130-400 Automated blood platelet mean volume measurement 10.2 [foz_ us] 7.4-10.4 Automated blood neutrophils/100 leukocytes 60 % 42-75 Automated blood lymphocytes/100 leukocytes 25 % 12-44 Blood monocytes/100 leukocytes 9 % 0-12 Automated blood eosinophils/100 leukocytes 6 % 0-10 Automated blood basophils/100 leukocytes 1 % 0-10 Blood neutrophils automated count (number/volume) 5.3 10*3 1.8-7.8 Blood lymphocytes automated count (number/volume) 2.2 10*3 1.0-4.0 Blood monocytes automated count (number/volume) 0.8 10*3 0.0-1.0 Automated eosinophil count 0.5 10*3/uL 0.0-0.3 Automated blood basophil count (count/volume) 0.1 10*3/uL 0.0-0.1 PT panel in platelet poor plasma by coagulation assay - 10/15/16 10:45 Prothrombin time (PT) in platelet poor plasma by coagulation assay 14.1 s 12.2-14.7 INR in platelet poor plasma or blood by coagulation assay 1.1 0.8-1.4 Comprehensive metabolic panel - 10/15/16 10:45 Serum or plasma sodium measurement (moles/volume) 140 mmol/ L 135-145 Serum or plasma potassium measurement (moles/volume) 3.4 mmol/L 3.6-5.0 Serum or plasma chloride measurement (moles/volume) 99 mmol/ L 98-107 Carbon dioxide 30 mmol/L 21-32 Serum or plasma anion gap determination (moles/volume) 11 mmol/L 5-14 Serum or plasma urea nitrogen measurement (mass/volume) 24 mg/dL 7-18 Serum or plasma creatinine measurement (mass/volume) 1.13 mg /dL 0.60-1.30 Serum or plasma urea nitrogen/creatinine mass ratio 21 0-20 Serum or plasma creatinine measurement with calculation of estimated glomerular filtration rate 48 NRG Serum or plasma glucose measurement (mass/volume) 180 mg/dL 70-105 Serum or plasma calcium measurement (mass/volume) 9.6 mg/dL 8.5-10.1 Serum or plasma total bilirubin measurement (mass/volume) 0.6 mg/dL 0.1-1.0 Serum or plasma alkaline phosphatase measurement (enzymatic activity/volume) 95 U/L 40-136 Serum or plasma aspartate aminotransferase measurement (enzymatic activity/ volume) 17 U/L 5-34 Serum or plasma alanine aminotransferase measurement (enzymatic activity/volume ) 17 U/L 0-55 Serum or plasma protein measurement (mass/volume) 7.5 g/dL 6.4-8.2 Serum or plasma albumin measurement (mass/volume) 4.1 g/dL 3.2-4.5 Blood type T Indirect antibody screen panel - 10/15/16 10:45 ABO+Rh group OP NRG Blood group antibody screen NEGATIVE NRG Erythrocyte sedimentation rate by westergren method - 10/15/16 10:45 Erythrocyte sedimentation rate by westergren method 23 mm 0-30 Methicillin resistant Staphylococcus aureus (MRSA) screening culture - 10:50 Methicillin resistant Staphylococcus aureus (MRSA) screening culture NEG NRG Encounters ACCT No. Visit Date/Time Discharge Status Pt. Type Provider Facility Loc./Unit Complaint [id number] 05/30/2014 10:12:00 05/30/2014 23: 59:59 [facility] Outpatient SUNG QUINONES DO [id number] 03/28/2014 08:28:00 03/28/2014 23: 59:59 [facility] Outpatient SUNG QUINONES DO [id number] 12/09/2013 15:27:00 12/09/2013 23: 59:59 [facility] Outpatient SUNG QUINONES DO [id number] 12/09/2013 15:27:00 12/09/2013 23: 59:59 [facility] Outpatient QUINONES DOSUNG [id number] 09/05/2013 09:57:00 09/05/2013 23: 59:59 [facility] Outpatient QUINONES DO, SUNG Zamora [id number] 09/05/2013 09:57:00 09/05/2013 23: 59:59 [facility] Outpatient QUINONES DOSUNG [id number] 08/11/2013 08:52:00 08/11/2013 23: 59:59 [facility] Outpatient QUINONES DO, SUNG Zamora [id number] 03/15/2013 10:40:00 03/15/2013 23: 59:59 [facility] Outpatient QUINONES DO, SUNG Zamora [id number] 03/15/2013 10:40:00 03/15/2013 23: 59:59 [facility] Outpatient QUINONES DO, SUNG Zamora [id number] 01/07/2013 10:40:00 01/07/2013 23: 59:59 [facility] Outpatient QUINONES DOSUNG [id number] 06/14/2012 13:29:00 06/14/2012 23: 59:59 [facility] Outpatient QUINONES DO, SUNG Zamora [id number] 05/27/2012 08:29:00 05/27/2012 23: 59:59 [facility] Outpatient QUINONES DO, SUNG Zamora [id number] 05/18/2012 08:27:00 05/18/2012 23: 59:59 [facility] Outpatient QUINONES DO, SUNG Zamora [id number] 04/14/2012 08:51:00 04/14/2012 23: 59:59 [facility] Outpatient QUINONES DOSUNG [id number] 03/25/2012 12:17:00 03/25/2012 23: 59:59 [facility] Outpatient [id number] 02/02/2012 10:11:00 02/02/2012 23:59 :59 [facility] Outpatient QUINONES DO, SUNG Zamora [id number] 08/17/2012 11:18:00 Document Registration [id number] 08/10/2012 09:44:00 Document Registration [id number] 08/10/2012 09:44:00 Document Registration
--- OUTSIDE RECORDS SUMMARY | 2016-10-22 06:11 | XMS REPORT ---
Author PATRICIA Brambila [facility] eClinicalWorks Address Unknown Phone Unavailable Care Team Providers Care Coach Name Role Phone PATRICIA LIMON Unavailable Allergies [...] ratio between 30-299 mg/g N18.3 Active Assessment Hypokalemia E87.6 Active Problem Hypothyroid E03.9 Active Problem Hypercholesteremia 272.0 Active Problem Pain of lower leg M79.669 Active Medications Medication Code System Code Instructions Start Date End Date Status Dosage Potassium Chloride Pricilla [facility] 35166065427 20 MEQ Orally 3 times a day 1 tablet with food Results No Known Results Summary Purpose eClinicalWorks Submission
--- OUTSIDE RECORDS SUMMARY | 2016-10-22 06:12 | XMS REPORT ---
Author ORVILLE Saini [facility] eClinicalWorks Address Unknown Phone Unavailable Care Team Providers Care Supervisor Metal Furniture Fabrication Name Role Phone ORVILLE RAMIREZ CP Unavailable Allergies No Known Allergies Problems Problem Type Condition Code Onset Dates Condition Status Problem Hypercholesteremia 272.0 Active Problem Chronic kidney disease (CKD) stage G3a/A2, moderately decreased glomerular filtration rate (GFR) between 45-59 mL/min/1.73 square meter and albuminuria creatinine ratio between 30-299 mg/g N18.3 Active Problem Breast mass in female N63 Active Problem Gout M10.9 Active Problem CAD (coronary artery disease) I25.10 Active Problem Anxiety F41.9 Active Problem Pain of lower leg M79.669 Active Problem Hypothyroid E03.9 Active Problem Sleep apnea, obstructive G47.33 Active Problem Diabetes E11.9 Active Assessment Hypothyroid E03.9 Active Assessment Anxiety F41.9 Active Assessment Diabetes E11.9 Active Medications Medication Code System Code Instructions Start Date End Date Status Dosage Levothyroxine Sodium [facility] [address]-72 100 MCG Orally Once a day Feb 14, 2015 1 tablet Citalopram Hydrobromide [facility] [address]-72 20 MG Orally Once a day Feb 14, 2015 1 tablet Glimepiride [facility] [address]-94 1 MG Orally Once a day Feb 14, 2015 1 tablet with breakfast or the first main meal of the day BusPIRone HCl [facility] [address]-66 10 MG Orally Twice a day Feb 14, 2015 1 tablet Results No Known Results Summary Purpose eClinicalWorks Submission
--- OUTSIDE RECORDS SUMMARY | 2016-10-22 06:12 | XMS REPORT ---
Author Author SUNG QUINONES [facility] eClinicalWorks Address Unknown Phone Unavailable Care Team Providers Care Paper Box Cutter Name Role Phone SUNG QUINONES CP Unavailable Allergies No Known Allergies Problems [...] Breast mass in female N63 Active Assessment Abnormal mammogram R92.8 Active Problem Chronic kidney disease (CKD) stage G3a/A2, moderately decreased glomerular filtration rate (GFR) between 45-59 mL/min/1.73 square meter and albuminuria creatinine ratio between 30-299 mg/g N18.3 Active Assessment Breast mass in female N63 Active Problem Hypothyroid E03.9 Active Medications No Known Medications Results No Known Results Summary Purpose eClinicalWorks Submission
--- OUTSIDE RECORDS SUMMARY | 2016-10-22 06:12 | XMS REPORT ---
Author PATRICIA Brambila [facility] eClinicalWorks Address Unknown Phone Unavailable Care Team Providers Care Internet Specialist Name Role Phone PATRICIA LIMON Unavailable Allergies, Adverse Reactions, Alerts Substance Reaction Event Type Allopurinol rash Drug Allergy Problems Problem Type Condition Code Onset Dates Condition Status Problem Chronic kidney disease (CKD) stage G3a/A2, moderately decreased glomerular filtration rate (GFR) between 45-59 mL/min/1.73 square meter and albuminuria creatinine ratio between 30-299 mg/g N18.3 Active Assessment Pain in unspecified knee M25.569 Active Problem Hypothyroid E03.9 Active Assessment Pure hypercholesterolemia E78.0 Active Problem Pain of lower leg M79.669 Active Problem Sleep apnea, obstructive G47.33 Active Problem Diabetes E11.9 Active Problem 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 Problem Abnormal mammogram R92.8 Active Assessment Hypercholesteremia 272.0 Active Assessment Gout M10.9 Active Problem Abnormal urinalysis R82.90 Active Assessment Anxiety F41.9 Active Problem Gout M10.9 Active Problem CAD (coronary artery disease) I25.10 Active Problem Pure hypercholesterolemia E78.0 Active Problem Anxiety F41.9 Active Assessment Hypothyroid E03.9 Active Assessment Sleep apnea, obstructive G47.33 Active Assessment Breast mass in female N63 Active Assessment Chronic kidney disease (CKD) stage G3a/A2, moderately decreased glomerular filtration rate (GFR) between 45-59 mL/min/1.73 square meter and albuminuria creatinine ratio between 30-299 mg/g N18.3 Active Problem Hypercholesteremia 272.0 Active Problem Breast mass in female N63 Active Assessment Diabetes E11.9 Active Assessment CAD (coronary artery disease) I25.10 Active Medications Medication Code System Code Instructions Start Date End Date Status Dosage Potassium Chloride Pricilla [facility] [address]-83 20 MEQ Orally Three times a day Feb 25, 2016 1 tablet Furosemide [facility] [address]-60 20 MG Orally 2 times a day May 31, 2015 1 tablet Cyclobenzaprine HCl [facility] [address]-34 10 MG Orally Three times a day 1 tablet Hydrocodone-Acetaminophen [facility] [address]-12 5-325 MG Orally every 6 hrs May 31, 2015 1 tablet as needed Triamterene-HCTZ [facility] [address]-64 75-50 MG Orally Once a day 1 tablet in the morning Citalopram Hydrobromide [facility] [address]-80 20 MG Orally Once a day Feb 14, 2015 1 tablet amlodipine [facility] [address]-87 10 mg Apr 24, 2014 1 tablet by Oral route 1 time per day Hydrocodone-Acetaminophen [facility] [address]-22 5-325 MG Orally 3 times a day Mar 14, 2015 May 23, 2015 1 tablet as needed BusPIRone HCl [facility] [address]-12 10 MG Orally Twice a day Feb 14, 2015 1 tablet Albuterol Sulfate [facility] [address]-30 90 mcg/actuation Mar 15, 2013 2 puffs by Inhalation route every 4-6 hours as needed PRN cough or wheezing Lipitor [facility] [address]-78 40 MG Orally Once a day Feb 15, 2015 1 tablet Levothyroxine Sodium [facility] [address]-04 100 MCG Orally Once a day Feb 14, 2015 1 tablet Aspirin Adult Low Strength [facility] [address]-44 81 MG Orally Once a day 1 tablet Coreg [facility] [address]-63 12.5 mg Apr 24, 2014 1 tablet by Oral route 2 times per day Glimepiride [facility] [address]-33 1 MG Orally Once a day Feb 14, 2015 1 tablet with breakfast or the first main meal of the day Lancets [facility] 0 - Dec 29, 2013 1 time per day ONE TOUCH DELICA LANCETS Procedures Procedure Coding System Code Date URINALYSIS, AUTO, W/O SCOPE CPT-4 64947 May 31, 2015 VENIPUNCT, ROUTINE* CPT-4 46898 May 31, 2015 GLYCATED HEMOGLOBIN TEST CPT-4 93039 May 31, 2015 [facility] VISIT ESTABLISHED PATIENT CPT-4 G0467 May 31, 2015 LAB NOT BILLED BY [facility] CPT-4 NOBLL May 31, 2015 Office Visit, Est Pt., Level 4 CPT-4 52136 May 31, 2015 Vital Signs Date/Time: May 31, 2015 Temperature 98.0 F Weight 233 lbs Height 59 in BMI 47.06 Index Blood Pressure Diastolic 78 mmHg Blood Pressure Systolic 134 mmHg Cardiac Monitoring Heart Rate 76 bpm Results Name Result Date Reference Range Unit Abnormality Flag ROUTINE VENIPUNCTURE TSH W/ FREE T4 ----TSH 2.520 20150531 0.450-4.500 uIU/mL ----T4,Free(Direct) 1.79 20150531 0.82-1.77 ng/dL H A1C (IN HOUSE) ----A1C IN HOUSE 6.2 70788790 4.3 - 5.6 % ----Previous A1c 7.1 20150531 ----Lot 0530 20150531 ----Exp date 20150531 UA LONG DIP (IN HOUSE) ----CASH negative 20150531 ----GLU negative 20150531 ----SG 1.020 20150531 ----KET negative 20150531 ----pH 7.0 20150531 ----Protein negative 20150531 ----BLO trace-intact 20150531 ----VIRGEN 3+ 20150531 ----Color yellow 20150531 ----Lot # [id number] 20150531 ----Odor none 20150531 ----Exp date 20150531 ----URO 0.2 E.U. /dL 20150531 ----NIT negative 20150531 ----Clarity clear 20150531 ----Lot # [id number] 20150531 ----Exp date 02/10/1620150531 CMP ----Potassium, Serum 3.5 20150531 3.5-5.2 mmol/L ----Sodium, Serum 144 20150531 134-144 mmol/L ----BUN/Creatinine Ratio 20150531-26 ----eGFR If Africn Am 53 [id number] >59 mL/min/1.73 L ----eGFR If NonAfricn Am 46 [id number] >59 mL/min/1.73 L ----Creatinine, Serum 1.21 20150531 0.57-1.00 mg/dL H ----BUN 25 20150531 8-27 mg/dL ----Glucose, Serum 134 65917252 65-99 mg/dL H ----AST (SGOT) 16 20150531 0-40 IU/L ----Globulin, Total 3.1 20150531 1.5-4.5 g/dL ----ALT (SGPT) 17 20150531 0-32 IU/L ----A/G Ratio 1.4 20150531 1.1-2.5 ----Bilirubin, Total 0.4 20150531 0.0-1.2 mg/dL ----Alkaline Phosphatase, S 97 20150531 39-117 IU/L ----Carbon Dioxide, Total 31 20150531 18-29 mmol/L H ----Calcium, Serum 9.7 20150531 8.7-10.3 mg/dL ----Protein, Total, Serum 7.4 20150531 6.0-8.5 g/dL ----Albumin, Serum 4.3 20150531 3.6-4.8 g/dL ----Chloride, Serum 95 90145612 97-108 mmol/L L Summary Purpose eClinicalWorks Submission
--- OUTSIDE RECORDS SUMMARY | 2016-10-22 06:12 | XMS REPORT ---
Author Author PATRICIA LIMON [facility] eClinicalWorks Address Unknown Phone Unavailable Care Team Providers Care Underground Electrician Name Role Phone PATRICIA LIMON Unavailable Allergies [...]
--- OUTSIDE RECORDS SUMMARY | 2016-10-22 06:12 | XMS REPORT ---
Author Author ORVILLE RAMIREZ [facility] eClinicalWorks Address Unknown Phone Unavailable Care Team Providers Care Custodial Aide Name Role Phone ORVILLE RAMIREZ CP Unavailable Allergies No Known Allergies Problems Problem Type Condition Code Onset Dates Condition Status Problem Breast mass in female N63 Active Problem Hypothyroid E03.9 Active Problem Chronic kidney disease (CKD) stage G3a/A2, moderately decreased glomerular filtration rate (GFR) between 45-59 mL/min/1.73 square meter and albuminuria creatinine ratio between 30-299 mg/g N18.3 Active Assessment Encounter for immunization Z23 Active Problem Hypercholesteremia 272.0 Active Problem Anxiety F41.9 Active Problem Gout M10.9 Active Problem Pure hypercholesterolemia E78.0 Active Problem Diabetes E11.9 Active Problem Pain of lower leg M79.669 Active Problem CAD (coronary artery disease) I25.10 Active Problem Sleep apnea, obstructive G47.33 Active Medications No Known Medications Procedures Procedure Coding System Code Date SINGLE IMMUNIZATION ADMIN CPT-4 17802 Feb 16, 2015 ADMN FLU VAC NO FEE SCHED SAME DAY CPT-4 G0008 Feb 16, 2015 FLUARIX QUAD (3 & UP)-GSK-2014 CPT-4 31681 Feb 16, 2015 Results No Known Results Immunizations Vaccine Administration Date FLUARIX QUAD (3 & UP)-GSK-2014Feb 16, 2015 Summary Purpose eClinicalWorks Submission
--- OUTSIDE RECORDS SUMMARY | 2016-10-22 06:12 | XMS REPORT ---
Author Author ORVILLE RAMIREZ [facility] eClinicalWorks Address Unknown Phone Unavailable Care Team Providers Care Journalist Name Role Phone ORVILLE RAMIREZ CP Unavailable [...] F41.9 Active Problem Gout M10.9 Active Assessment Abnormal mammogram R92.8 Active Problem Hypercholesteremia 272.0 Active Problem Breast mass in female N63 Active Problem Chronic kidney disease (CKD) stage G3a/A2, moderately decreased glomerular filtration rate (GFR) between 45-59 mL/min/1.73 square meter and albuminuria creatinine ratio between 30-299 mg/g N18.3 Active Medications No Known Medications Results No Known Results Summary Purpose eClinicalWorks Submission
--- OUTSIDE RECORDS SUMMARY | 2016-10-22 06:12 | XMS REPORT ---
Author Author ORVILLE RAMIREZ [facility] eClinicalWorks Address Unknown Phone Unavailable Care Team Providers Care Workforce Management Analyst Name Role Phone ORVILLE RAMIREZ CP Unavailable [...] between 30-299 mg/g N18.3 Active Assessment Breast mass, right N63 Active Problem Hypothyroid E03.9 Active Medications No Known Medications Results No Known Results Summary Purpose eClinicalWorks Submission
--- OUTSIDE RECORDS SUMMARY | 2016-10-22 06:13 | XMS REPORT ---
Author Author PATRICIA LIMON [facility] eClinicalWorks Address Unknown Phone Unavailable Care Team Providers Care Pit Operator Name Role Phone PATRICIA LIMON Unavailable Allergies [...] mg/g N18.3 Active Assessment Pain in unspecified joint M25.50 Active Problem Hypothyroid E03.9 Active Medications Medication Code System Code Instructions Start Date End Date Status Dosage Hydrocodone-Acetaminophen [facility] [address]-11 5-325 MG Orally every 6 hrs May 31, 2015 1 tablet as needed Results No Known Results Summary Purpose eClinicalWorks Submission
--- OUTSIDE RECORDS SUMMARY | 2016-10-22 06:13 | XMS REPORT ---
Author ORVILLE Saini [facility] eClinicalWorks Address Unknown Phone Unavailable Care Team Providers Care Engineering Design Supervisor Name Role Phone ORVILLE RAMIREZ CP Unavailable [...]
--- OUTSIDE RECORDS SUMMARY | 2016-10-22 06:13 | XMS REPORT ---
Author Author ORVILLE RAMIREZ [facility] eClinicalWorks Address Unknown Phone Unavailable Care Team Providers Care Medical Records Coordinator Name Role Phone ORVILLE RAMIREZ CP Unavailable [...] F41.9 Active Problem Gout M10.9 Active Problem Hypercholesteremia 272.0 Active Problem Breast mass in female N63 Active Problem Chronic kidney disease (CKD) stage G3a/A2, moderately decreased glomerular filtration rate (GFR) between 45-59 mL/min/1.73 square meter and albuminuria creatinine ratio between 30-299 mg/g N18.3 Active Medications No Known Medications Results No Known Results Summary Purpose eClinicalWorks Submission
--- OUTSIDE RECORDS SUMMARY | 2016-10-22 06:13 | XMS REPORT ---
Author Author YUSEF DEAN Organization eClinicalWorks Address Unknown Phone Unavailable Care Team Providers Care Change Management Analyst Name Role Phone YUSEF DEAN CP Unavailable Allergies No Known Allergies Problems [...] between 30-299 mg/g N18.3 Active Assessment Pain of lower leg M79.669 Active Problem Hypothyroid E03.9 Active Medications Medication Code System Code Instructions Start Date End Date Status Dosage Cyclobenzaprine HCl [facility] [address]-77 10 MG Orally 3 times a day Apr 1 tablet Hydrocodone-Acetaminophen [facility] [address]-59 5-325 MG Orally 3 times a day Mar 14, 2015 May 23, 2015 1 tablet as needed Results No Known Results Summary Purpose eClinicalWorks Submission
--- OUTSIDE RECORDS SUMMARY | 2016-10-22 06:13 | XMS REPORT ---
Author Author PATRICIA LIMON [facility] Address [address] [place] [address] Care Team Providers Care Beck Tender Name Role Phone MARGARET LIMONNETTE Unavailable PROBLEMS Type Condition ICD9-CM Code ERX22-QH Code Onset Dates Condition Status SNOMED Code Problem Sleep apnea, obstructive G47.33 Active 10256492 Problem Gout M10.9 Active 32193457 Problem CAD (coronary artery disease) I25.10 Active 09078641 Problem Abnormal finding on mammography R92.8 Active 537319335 Problem Abnormal urinalysis R82.90 Active 694911458 Problem Pure hypercholesterolemia E78.0 Active 126151954 Problem Anxiety F41.9 Active 53174634 Problem 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 95408822 Problem Abnormal mammogram R92.8 Active 328128172 Problem Chronic kidney disease (CKD) stage G3a/A2, moderately decreased glomerular filtration rate (GFR) between 45-59 mL/min/1.73 square meter and albuminuria creatinine ratio between 30-299 mg/g N18.3 Active 048750580 Problem Hypothyroid E03.9 Active 05495274 Problem Hypercholesteremia 272.0 Active 78308104 Problem Pain of lower leg M79.669 Active 01086411 Problem Breast mass in female N63 Active 18533078 Problem Diabetes E11.9 Active 73671453 ALLERGIES Unknown Allergies SOCIAL HISTORY No smoking Hx information available PLAN OF CARE VITAL SIGNS MEDICATIONS Medication Instructions Dosage Frequency Start Date End Date Duration Status Hydrocodone-Acetaminophen 5-325 MG Orally every 6 hrs 1 tablet as needed 6h May, Active RESULTS No Results PROCEDURES No Known procedures IMMUNIZATIONS No Known Immunizations
--- OUTSIDE RECORDS SUMMARY | 2016-10-22 06:13 | XMS REPORT ---
Author Author ORVILLE RAMIREZ [facility] eClinicalWorks Address Unknown Phone Unavailable Care Team Providers Care Oracle Business Intelligence Developer Name Role Phone ORVILLE RAMIREZ CP Unavailable [...] Start Date End Date Status Dosage Hydrocodone-Acetaminophen [facility] [address]-13 5-325 MG Orally 3 times a day as needed for pain. Must last 30 days. Mar 14, 2015 1 tablet Results No Known Results Summary Purpose eClinicalWorks Submission
--- OUTSIDE RECORDS SUMMARY | 2016-10-22 06:13 | XMS REPORT ---
Author ORVILLE Saini [facility] eClinicalWorks Address Unknown Phone Unavailable Care Team Providers Care Furniture Painter Name Role Phone ORVILLE RAMIREZ CP Unavailable [...]
--- OUTSIDE RECORDS SUMMARY | 2016-10-22 06:13 | XMS REPORT ---
Author PATRICIA Brambila [facility] eClinicalWorks Address Unknown Phone Unavailable Care Team Providers Care Founder And President Name Role Phone PATRICIA LIMON Unavailable Allergies [...] Start Date End Date Status Dosage Hydrocodone-Acetaminophen [facility] [address]-98 5-325 MG Orally every 6 hrs May 31, 2015 1 tablet as needed Results No Known Results Summary Purpose eClinicalWorks Submission
--- OUTSIDE RECORDS SUMMARY | 2016-10-22 06:13 | XMS REPORT ---
Author ORVILLE Saini [facility] eClinicalWorks Address Unknown Phone Unavailable Care Team Providers Care Hospital Cleaner Name Role Phone ORVILLE RAMIREZ CP Unavailable [...] Start Date End Date Status Dosage Allopurinol [facility] [address]-85 300 MG Orally Once a day Jan 30, 2015Apr 1 tablet Results No Known Results Summary Purpose eClinicalWorks Submission
--- OUTSIDE RECORDS SUMMARY | 2016-10-22 06:13 | XMS REPORT ---
Author Author ORVILLE RAMIREZ [facility] eClinicalWorks Address Unknown Phone Unavailable Care Team Providers Care Boat Crew Deck Hand Name Role Phone ORVILLE RAMIREZ CP Unavailable [...] ratio between 30-299 mg/g N18.3 Active Assessment Obstructive sleep apnea G47.33 Active Problem Hypothyroid E03.9 Active Medications No Known Medications Results No Known Results Summary Purpose eClinicalWorks Submission
--- OUTSIDE RECORDS SUMMARY | 2016-10-22 06:13 | XMS REPORT ---
Author Author ORVILLE RAMIREZ [facility] eClinicalWorks Address Unknown Phone Unavailable Care Team Providers Care Mediator Name Role Phone ORVILLE RAMIREZ CP Unavailable [...] N18.3 Active Problem Hypothyroid E03.9 Active Medications No Known Medications Results No Known Results Summary Purpose eClinicalWorks Submission
[2016-10-22] MEDS ORDERED: ROCURONIUM 50 MG/5 ML (ZEMURON) VIAL IV ONE (06:20)
[2016-10-22] MEDS ORDERED: fentaNYL INJECTION 100 MCG/2 ML AMP ONE (06:20)
[2016-10-22] MEDS ORDERED: MIDAZOLAM 2 MG/2 ML (VERSED) VIAL ONE ×2 (06:20→07:45)
[2016-10-22] MEDS ORDERED: SEVOFLURANE (ULTANE) 15 ML INHAL SOLN ONE ×6 (06:20→08:58)
[2016-10-22] MEDS ORDERED: DEXAMETHASONE PF 10 MG/ML (DECADRON) VIAL ONE (06:20)
[2016-10-22] MEDS ORDERED: ONDANSETRON 4 MG/2 ML (SDV) Z0FRAN ONE (06:20)
[2016-10-22] MEDS ORDERED: LIDOCAINE PF 2% 5 ML (XYLOCAINE) VIAL ONE (06:20)
[2016-10-22] MEDS ORDERED: proPOfol 200 MG/20 ML (DIPRIVAN) VIAL IV ONE ×3 (06:20→08:58)
[2016-10-22] MEDS ORDERED: CEFUROXIME 1.5 GM (ZINACEF) VIAL ONE (06:24)
[2016-10-22] MEDS ORDERED: NS (IVPB) 50 ML ONE (06:25)
[2016-10-22] MEDS ORDERED: LACTATED RINGERS 1,000 ML IV PRN (06:35)
[2016-10-22 06:48] VITALS: BP 146/71
[2016-10-22] MEDS ORDERED: morphine PF (DURAMORPH) 10 MG/10 ML AMP ONE (06:59)
[2016-10-22] MEDS ORDERED: oxyCODONE/APAP 5/325MG (PERCOCET 5) TABLET PO PRN (07:15)
[2016-10-22] MEDS ORDERED: diphenhydrAMINE 50 MG/ML INJ (BENADRYL) IVP PRN (07:15)
[2016-10-22] MEDS ORDERED: CEFUROXIME 1.5 GM/NS 50 ML IVPB IV ONE ×2 (07:15)
[2016-10-22] MEDS ORDERED: ACETAMINOPHEN 325 MG TABLET/CAPLET (TYLENOL) PO PRN (07:15)
[2016-10-22] MEDS ORDERED: ONDANSETRON 4 MG/2 ML (SDV) Z0FRAN IVP PRN (07:15)
--- NOTE | 2016-10-22 07:23 | Progress Note-Pre Operative ---
Pre-Operative Progress Note H&P Reviewed The H&P was reviewed, patient examined and no changes noted. Date Seen by Provider: Oct 22, 2016 Time Seen by Provider: 07:11 Date H&P Reviewed: Oct 22, 2016 Time H&P Reviewed: 07:11 Pre-Operative Diagnosis: right knee primary osteoarthritis COBY CRESPO MD Oct 22, 2016 07:23
--- NOTE | 2016-10-22 07:24 | Progress Note-Post Operative ---
Post-Operative Progess Note Surgeon (s)/Clinical Cytopathologist (s) Surgeon COBY CRESPO MD Clinical Cytopathologist: Peterson Bergman Pre-Operative Diagnosis right knee primary osteoarthritis Post-Operative Diagnosis right knee primary osteoarthritis Procedure & Operative Findings Date of Procedure 10/22/16 Procedure Performed/Findings right total knee arthroplasty After risks and benefits were discussed and questions answered, an informed consent was signed and placed on the chart. The patient was then transported to the operating room. After adequate levels of regional anesthetic were obtained, a time out was called confirming the operative site. The right lower extremity was then prepped and draped in the usual sterile fashion. With the leg elevated and the knee flexed, the tourniquet was infiltrated to 300 mm of mercury. A standard anterior approach was used. Hemostasis was obtained with cautery. A medial para patellar arthrotomy was performed. A subperiosteal release was performed with a curved osteotome on the proximal, medial tibia. The ACL was resected. The IM guide was passed into the femur. The distal cutting block was placed and the cut was made. The femur was sized to a size 4 using the Microport system. The cutting block was placed and the rotation was felt to be well aligned. The cuts were made. A subperiosteal posterior release was performed with a curved osteotome, being careful to stay on the bony surface. The IM guide was passed into the tibia. The drop clay transected the intermalleolar axis. The Cut was made. The 4 baseplate was placed and the drop clay revealed excellent position. The tibial was prepared with the drill and keel punch. The trochlear cut was made on the femur. The patella was prepared by resecting 10 mm off the undersurface. A size 29 button was used. The pegged guide was placed and the holes were prepared. The trials were inserted. A 12 mm insert was used. Full extension was easily obtained. Flexion of 120 degrees with gravity was obtained. The patella tracked well. There was no varus/ valgus or anterior/posterior laxity in flexion or extension. The trials were removed and the joint was copiously irrigated. A total of 6 liters was used throughout the procedure. The periarticular block was placed throughout the posterior capsule, retinaculum, extensor mechanism and soft tissues. The bone ends were irrigated and dried the components were each placed removing excessive cement from each. The knee was held in full extension until the cement had cured. Once the cment had cured, the knee was taken through a range of motion with similar motion and stability findings as when trialed. The joint was further irrigated and the arthrotomy was closed with number 2 Tevdec in figure of 8 interrupted fashion. The patella tracked well and the repair was intact. The soft tissues were irrigated and closed usin 0 vicryl in the deep layer and 2.0 vicryl on the superficial layer. The skin was closed with yony, a soft dressing was applied , the tourniquet was deflated for a total time of approximately 70 minutes and the patient was transported to the recovery room awake and in stable condition. Anesthesia Type SPINAL Estimated Blood Loss Estimated blood loss (mL): minimal Specimens/Packing Specimens Removed none Packing: none COBY CRESPO MD Oct 22, 2016 07:24
[2016-10-22] MEDS ORDERED: INTRA-ARTICULAR INJ ONE ×5 (07:45)
[2016-10-22] MEDS ORDERED: LACTATED RINGERS 1,000 ML IV ONE (08:52)
[2016-10-22] MEDS ORDERED: morphine PF (DURAMORPH) 10 MG/10 ML AMP INJ ONE (09:15)
[2016-10-22] MEDS ORDERED: ONDANSETRON 4 MG/2 ML (SDV) Z0FRAN IV PRN (09:15)
[2016-10-22] MEDS ORDERED: NALOXONE 0.4 MG/ML 1 ML (NARCAN) VIAL IV PRN (09:15)
--- NOTE | 2016-10-22 09:46 | Progress Note-Standard ---
Standard Progress Note Progress Notes/Assess & Plan Date Seen by Provider: Oct 22, 2016 Time Seen by Provider: 09:45 Progress/Assessment & Plan Post op check Patient comfortable spinal in effect radiographs--HW well positioned without fracture RLE-2 plus DP pulse with brisk cap refill flicker toe df s/p RTKA doing well mobilize when able COBY CRESPO MD Oct 22, 2016 09:46
--- NOTE | 2016-10-22 09:47 | Diagnostic Imaging Report ---
2 views of the right knee. Indication: post total knee arthroplasty Findings: There is femoral and tibial prosthesis with patellar resurfacing and prosthesis seen. Anterior soft tissue post-operative changes are noted with anterior skin yony seen. Impression: Baseline post right total knee arthroplasty in good alignment. Dictated by: Dictated on workstation # [id number]
[2016-10-22] MEDS ORDERED: OXYC-197 PO (09:49)
[2016-10-22 10:00] VITALS: BP 99/61
[2016-10-22] MEDS: NS IV 1000 ML 1,000 ML IV SCH ×2 (10:42→21:09)
[2016-10-22] MEDS: morphine PCA 30 MG/30 ML VIAL IV PRN (10:48)
[2016-10-22] MEDS: SENNA W/DOCUSATE (SENOKOT S) TABLET PO SCH ×2 (10:54→20:24)
[2016-10-22 12:00] VITALS: BP 123/76
--- NOTE | 2016-10-22 12:33 | Physical Therapy Evaluation ---
PT Evaluation-General Medical Diagnosis Admission Date Oct 22, 2016 at 05:57 Medical Diagnosis: Right knee DJD Onset Date: Oct 22, 2016 Therapy Diagnosis Therapy Diagnosis: weakness;abn gait Height/Weight Height (Feet): 4 Height (Inches): 11.00 Weight (Pounds): 233 Weight (Ounces): 4.0 Precautions Precautions/Isolations: Standard Precautions Weight Bear Status Weight Bearing Restriction: Weight Bearing/Tolerated Referral Physician: Joaquin Reason for Referral: Evaluation/Treatment Medical History Current History Elective right TKR Social History Home: Single Level Current Living Status: Spouse Entry Into Home: Stairs With Railing (3) Prior/Core FIM Prior Level of Function Functional [place] Measure 0=Not Assessed/NA 4=Minimal Assistance 1=Total Assistance 5=Supervision or Setup 2=Maximal Assistance 6=Modified [place] 3=Moderate Assistance 7=Complete [place] Bed Mobility: 7 Transfers (B,C,W/C) (FIM): 7 Gait: 6 (used a cane for ambulation at times. ) Indep with self care at home; community ambulator; still drives. PT Evaluation-Current Subjective Pt agreeable to PT. Wants to get up to walk. Pain Numeric Pain Scale: 2 Location: Right Location Body Site: Knee Pain Description: Ache, Dull Pt/Family Goals Her goal is to discharge home on Thursday Objective Patient Orientation: Person, Place, Time, Situation Problem Solving: Good Attachments: Oxygen, IV ROM/Strength ROM Lower Extremities Left LE rom is WFL Right LE ROM is 0-90 degrees Strenght Lower Extremities LEft LE strength 5/5 Right LE strength is grossly 4-/5; except quad which is 2/5. Integumentary/Posture Integumentary Intact Bowel Incontinence: No Bladder Incontinence: No Posture Normal and symmetrical Neuromuscular (Tone, Coordination, Reflexes) Intact and functional Sensory Vision: Wears Glasses Hearing: Functional Hand Dominance: Right Sensation Right Lower Extremit: Intact Sensation Left Lower Extremity: Intact Transfers Functional [place] Measure 0=Not Assessed/NA 4=Minimal Assistance 1=Total Assistance 5=Supervision or Setup 2=Maximal Assistance 6=Modified [place] 3=Moderate Assistance 7=Complete [place] Transfers (B, C, W/C) (FIM): 5 Supine to/from Sit: 5 Sit to/from Stand: 5 Gait Mode of Locomotion: Walk Anticipated Mode of Locomotion: Walk Gait (FIM): 4 Distance (FIM): 3=150 ft Gait Assistive Device: FWW Comments/Gait Description sTep through gait pattern, steady and safe. Balance Sitting Static: Good Sitting Dynamic: Good Standing Static: Fair Standing Dynamic: Fair Treatment Gait training with FWW with focus on heel strike and toe off. Applied CPM 0-60 degrees. Assessment/Needs Post elective right TKR and would benefit from skilled PT intervnetion to address ROM and functional gait/transfers to allow her to return home as before. Rehab Potential: Good PT Fdc Goals Fdc Goals PT Fdc Goals Time Frame: Oct 27, 2016 Transfers (B,C,W/C) (FIM): 6 Gait (FIM): 6 Gait distance (FIM): 3=150 ft Gait Assistive Device: FWW Stairs (FIM): 2 # of Steps: 4 PT Plan Problem List Problem List: Activity Tolerance, Functional Strength, Safety, Balance, Gait, Transfer, Bed Mobility, ROM Treatment/Plan Treatment Plan: Continue Plan of Care Treatment Plan: Bed Mobility, Education, Functional Activity Anurag, Functional Strength, Gait, Safety, Therapeutic Exercise, Transfers Treatment Duration: Oct 27, 2016 Visits Per Week: 11 Pt/Family Agrees w/Plan: Yes Safety Risks/Education Patient Education: Gait Training, Safety Issues Teaching Recipient: Patient Teaching Methods: Demonstration, Discussion Response to Teaching: Reinforcement Needed Discharge Recommendations Therapy D/C Recommendations: Physical Therapy Home Care Time/GCodes Time In: 1145 Time Out: 1220 Total Billed Treatment Time: 35 Total Billed Treatment visit EVM 15 GT 20 CPM and pads RAUL KNOTT PT Oct 22, 2016 12:32
[2016-10-22] MEDS ORDERED: HYDR-3816 PO (13:27)
[2016-10-22] MEDS ORDERED: CHOL5000 PO (13:27)
[2016-10-22] MEDS ORDERED: POTA20TA15 PO (13:38)
[2016-10-22] MEDS ORDERED: RT-ALBUTEROL SULF 2.5 MG/3 ML PRE-MIX VIAL IH PRN (14:27)
[2016-10-22] MEDS: CEFUROXIME INJECTION 750 MG in NS (IVPB) 50 ML IV SCH ×2 (15:10→22:22)
[2016-10-22] MEDS: FUROSEMIDE 20 MG (LASIX) TAB PO SCH (15:10)
[2016-10-22] MEDS: TRIAMTERENE/HCTZ 75-50 (MAXZIDE,DYAZIDE) TABLET PO SCH (15:19)
[2016-10-22] MEDS: HYDROcodone/APAP 7.5 MG/325 MG (LORTAB, LORCET PLUS) TABLET PO PRN ×2 (15:24→22:40)
--- NOTE | 2016-10-22 16:13 | Physical Therapy Daily Note ---
PT Daily Note-Current Subjective Pt sitting at EOB visiting with family upon arrival. Pt agreed to walk with PT. Pain Location: No Pain Reported Mental Status Patient Orientation: Person, Place, Time, Situation Attachments: Oxygen, Polar Pack, Other-See Comments (CPM), IV Transfers Functional [place] Measure 0=Not Assessed/NA 4=Minimal Assistance 1=Total Assistance 5=Supervision or Setup 2=Maximal Assistance 6=Modified [place] 3=Moderate Assistance 7=Complete IndependenceIRFPAI Quality Coding Scale 6 Independent with activity with or without an assistive device 5 Patient requires set up or clean up by helper. Patient completes activity by themselves 4 Supervision or touching assist (CGA). [place] provide cues , steadying assist 3 The helper provides less than half the effort to complete the activity 2 The helper provides more than half the effort to complete the activity 1 Dependent. The helper does all the effort to complete an activity 7 Patient refused to complete or attempt activity 9 The patient did not perform the activity before the current illness or injury 88 Not attempted due to Medical conditions or safety concerns Scootin Rollin Supine to/from Sit: 5 Sit to/from Stand: 5 Weight Bearing Weight Bearing Restriction: Full Weight Bearing Location Restriction: LE Bilateral Gait Training Distance (FIM): 3=150 ft Distance: 150' Gait Level of Assist: 5 Gait Persons Needed: 1 Gait Assistive Device: FWW Pt was SBA with ambulation, PT used to manage IV pole. Treatments Pt transferred from EOB to Standing using FWW at A. Pt ambulated using FWW at SBA, PT managed IV pole. Pt returned to room to rest Supine in bed. Pt transferred to EOB and to Supine in bed at A. Pt able to scoot/reposition self in bed to position for CPM placement. Pt is left with CPM on, laying Supine in bed with all needs met at end of tx. Nursing notified of CPM placement. Assessment Pt is mobile and reports no pain current with pain meds. PT will recheck tomorrow for progress. PT Senior Living Goals Senior Living Goals PT Senior Living Goals Time Frame: Oct 27, 2016 Transfers (B,C,W/C) (FIM): 6 Gait (FIM): 6 Gait distance (FIM): 3=150 ft Gait Assistive Device: FWW Stairs (FIM): 2 # of Steps: 4 PT Plan Problem List Problem List: Activity Tolerance, Functional Strength, Balance, Gait Treatment/Plan Treatment Plan: Continue Plan of Care Treatment Plan: Bed Mobility, Education, Functional Activity Anurag, Functional Strength, Gait, Safety, Therapeutic Exercise, Transfers Treatment Duration: Oct 27, 2016 Visits Per Week: 11 Safety Risks/Education Patient Education: Gait Training, Transfer Techniques, Reviewed Use of Ice, Correct Positioning, Safety Issues Teaching Recipient: Patient Teaching Methods: Discussion Response to Teaching: Verbalize Understanding Time/GCodes Time In: 1530 Time Out: 1600 Total Billed Treatment Time: 30 Total Billed Treatment visit, GT (15m) & FA (15m) DANIEL HUBER LOCOMOTIVE OPERATOR Oct 22, 2016 16:13
[2016-10-22 16:35] VITALS: BP 138/75
[2016-10-22 20:20] VITALS: BP 131/84
[2016-10-22] MEDS: VITAMIN D3 5,000 UNITS (CHOLECALCIFEROL ) CAPSULE PO SCH (20:24)
[2016-10-22] MEDS: ATORVASTATIN 40 MG (LIPITOR) TABLET PO SCH (20:24)
[2016-10-22] MEDS: busPIRone 10 MG (BUSPAR) TAB PO SCH (20:24)
[2016-10-22] MEDS: CARVEDILOL 12.5 MG (COREG) TABLET PO SCH (20:24)
[2016-10-22] MEDS: KCL 20 MEQ TAB (K-DUR) PO SCH (20:24)
[2016-10-23] VITALS (7 sets, daily range): BP systolic 118–165; BP diastolic 53–82
[2016-10-23] MEDS: NS IV 1000 ML 1,000 ML IV SCH ×2 (01:03→18:12)
[2016-10-23] MEDS: HYDROcodone/APAP 7.5 MG/325 MG (LORTAB, LORCET PLUS) TABLET PO PRN ×3 (06:11→18:12)
[2016-10-23] MEDS: MULTIVIT W/MINERALS TAB (THERAGRAN M) PO SCH (06:11)
[2016-10-23] MEDS: morphine PCA 30 MG/30 ML VIAL IV PRN ×2 (06:57→15:34)
--- NOTE | 2016-10-23 07:44 | Progress Note-Standard ---
Standard Progress Note Progress Notes/Assess & Plan Date Seen by Provider: Oct 23, 2016 Time Seen by Provider: 07:42 Progress/Assessment & Plan Post op check Patient comfortable spinal in effect radiographs--HW well positioned without fracture RLE-2 plus DP pulse with brisk cap refill flicker toe df s/p RTKA doing well mobilize when able Final Diagnosis No complaints Ambulated twice yesterday Vital Signs Date Time Temp Pulse Resp B/P (MAP) Pulse Ox O2 Delivery O2 Flow Rate FiO2 10/23/16 06:57 20 10/23/16 06:48 94 Nasal Cannula 3.00 10/23/16 06:48 20 10/23/16 04:04 98.2 82 19 118/53 92 Nasal Cannula 3.00 10/23/16 00:47 98.0 88 20 137/74 93 Nasal Cannula 3.00 10/22/16 20:25 Nasal Cannula 3.00 10/22/16 20:20 97.6 93 17 131/84 95 Nasal Cannula 3.00 10/22/16 18:50 94 Nasal Cannula 3.00 10/22/16 18:38 20 10/22/16 16:35 97.0 82 26 138/75 93 Nasal Cannula 3.00 10/22/16 15:13 92 Nasal Cannula 2.00 10/22/16 12:00 96.7 80 20 123/76 94 Nasal Cannula 2.00 10/22/16 11:30 93 Nasal Cannula 2.00 10/22/16 10:05 93 Nasal Cannula 3.00 10/22/16 10:00 96.1 74 20 99/61 92 Nasal Cannula 2.00 I & O 10/23/16 07:00 Intake Total 3300 ml Output Total 1025 ml Balance 2275 ml Laboratory Tests Test 10/23/16 05:57 Range/Units Hemoglobin 11.0 L 11.5-16.0 G/DL Hematocrit 34 L 35-52 % RLE--Pos SLR. Dressing intact. No calf tenderness. Intact DF and PF of toes and ankle with grossly intact sensation throughout s/p RTKA doing well PT/OT COBY CRESPO MD Oct 23, 2016 07:44
[2016-10-23] MEDS: amLODIPine 10 MG (NORVASC) TAB PO SCH (08:42)
[2016-10-23] MEDS: TRIAMTERENE/HCTZ 75-50 (MAXZIDE,DYAZIDE) TABLET PO SCH (08:42)
[2016-10-23] MEDS: ENOXAPARIN 30 MG/0.3 ML (LOVENOX) SYR SC SCH ×2 (08:42→20:14)
[2016-10-23] MEDS: LEVOTHYROXINE 100 MCG (LEVOTHROID) TAB PO SCH (08:42)
[2016-10-23] MEDS: FUROSEMIDE 20 MG (LASIX) TAB PO SCH (08:42)
[2016-10-23] MEDS: GLIMEPIRIDE 1 MG (AMARYL) TAB PO SCH (08:42)
[2016-10-23] MEDS: ANASTROZOLE 1 MG TAB (ARIMIDEX) PO SCH (08:42)
[2016-10-23] MEDS: SENNA W/DOCUSATE (SENOKOT S) TABLET PO SCH ×2 (08:43→20:14)
[2016-10-23] MEDS: busPIRone 10 MG (BUSPAR) TAB PO SCH ×2 (08:43→20:16)
[2016-10-23] MEDS: ASPIRIN E.C. 81 MG (ECOTRIN) TAB PO SCH ×2 (08:43→08:50)
[2016-10-23] MEDS: CARVEDILOL 12.5 MG (COREG) TABLET PO SCH ×2 (08:43→20:13)
[2016-10-23] MEDS: KCL 20 MEQ TAB (K-DUR) PO SCH ×2 (08:44→20:13)
--- NOTE | 2016-10-23 09:15 | Physical Therapy Daily Note ---
PT Daily Note-Current Subjective Agrees to PT. Reports she slept fairly well. Pain Numeric Pain Scale: 2 Location: Right Location Body Site: Knee Pain Description: Ache Mental Status Patient Orientation: Person, Place, Time, Situation Transfers Functional [place] Measure 0=Not Assessed/NA 4=Minimal Assistance 1=Total Assistance 5=Supervision or Setup 2=Maximal Assistance 6=Modified [place] 3=Moderate Assistance 7=Complete IndependenceIRFPAI Quality Coding Scale 6 Independent with activity with or without an assistive device 5 Patient requires set up or clean up by helper. Patient completes activity by themselves 4 Supervision or touching assist (CGA). [place] provide cues , steadying assist 3 The helper provides less than half the effort to complete the activity 2 The helper provides more than half the effort to complete the activity 1 Dependent. The helper does all the effort to complete an activity 7 Patient refused to complete or attempt activity 9 The patient did not perform the activity before the current illness or injury 88 Not attempted due to Medical conditions or safety concerns Transfers (B, C, W/C) (FIM): 4 SBA with bed mobility with HOB elevated and useing bed rail. CGA with sit to stand. Weight Bearing Weight Bearing Restriction: Weight Bearing/Tolerated Location Restriction: R LE Gait Training Gait (FIM): 4 Distance (FIM): 3=150 ft Distance: 200 ft Gait Assistive Device: FWW steps through with heel toe pattern noted. Needs skilled cues for sequencing to initiate. Exercises Supine Ex: Ankle pumps, Quad Set, Heel Slides, Short Arc Quads Supine Reps: 15 (To increase quad strength for gait and transfers and promote ROM for normalized gait. ) Seated Therapy Exercises: Ankle pumps, Long arc quads Seated Reps: 15 Assessment Current Status: Good Progress Very little pain. Mobilizing well. RoM is progressing. PT Security Services Manager Goals Care Home Goals PT Security Services Manager Goals Time Frame: Oct 27, 2016 Transfers (B,C,W/C) (FIM): 6 Gait (FIM): 6 Gait distance (FIM): 3=150 ft Gait Assistive Device: FWW Stairs (FIM): 2 # of Steps: 4 PT Plan Problem List Problem List: Activity Tolerance, Functional Strength, Safety Treatment/Plan Treatment Plan: Continue Plan of Care Treatment Plan: Bed Mobility, Education, Functional Activity Anurag, Functional Strength, Gait, Safety, Therapeutic Exercise, Transfers Treatment Duration: Oct 27, 2016 Visits Per Week: 11 Safety Risks/Education Patient Education: Gait Training, Transfer Techniques, Safety Issues Teaching Recipient: Patient Teaching Methods: Demonstration, Discussion Response to Teaching: Reinforcement Needed Discharge Recommendations Therapy D/C Recommendations: Physical Therapy Home Care Time/GCodes Time In: 720 Time Out: 808 Total Billed Treatment Time: 38 Total Billed Treatment visit gt 15 EX 23 RAUL KNOTT PT Oct 23, 2016 09:15
[2016-10-23] MEDS ORDERED: LACTULOSE SYRUP 10GM/15ML (ENULOSE) 30ML UDC PO PRN (10:00)
[2016-10-23] MEDS ORDERED: FUROSEMIDE 40 MG/4 ML INJ (LASIX) IVP NR (10:05)
[2016-10-23 10:34] LABS: BASOPHILS % (AUTO) 0 % (0-10); EOSINOPHILS % (AUTO) 0 % (0-10); LYMPHOCYTES # (AUTO) 1.3 X 10^3 (1.0-4.0); LYMPHOCYTES % (AUTO) 10 % (12-44); MEAN CORPUSCULAR HEMOGLOBIN 27 PG (25-34); MEAN CORPUSCULAR HGB CONC 33 G/DL (32-36); MEAN CORPUSCULAR VOLUME 83 FL (80-99); MEAN PLATELET VOLUME 10.2 FL (7.4-10.4); MONOCYTES % (AUTO) 8 % (0-12); NEUTROPHILS # (AUTO) 10.4 X 10^3 (1.8-7.8); NEUTROPHILS % (AUTO) 82 % (42-75); PLATELET COUNT 244 10^3/uL (130-400); RED BLOOD COUNT 4.08 10^6/uL (4.35-5.85); RED CELL DISTRIBUTION WIDTH 14.7 % (10.0-14.5); WHITE BLOOD COUNT 12.8 10^3/uL (4.3-11.0)
[2016-10-23 10:41] LABS: ALBUMIN 3.6 GM/DL (3.2-4.5); BILIRUBIN,TOTAL 0.5 MG/DL (0.1-1.0); CALCIUM 8.5 MG/DL (8.5-10.1); CREATININE SERUM 1.2 MG/DL (0.60-1.30); POTASSIUM 3.7 MMOL/L (3.6-5.0); TOTAL PROTEIN 6.4 GM/DL (6.4-8.2)
--- NOTE | 2016-10-23 10:56 | Consultation-Hospitalist ---
HPI History of Present Illness: HPI/Chief Complaint CC: Right total knee replacement uncomplicated POD #1 Dr. Nuñez HPI: This is a 70 yoWF who had an uncomplicated right total knee replacement performed by Dr. Nuñez yesterday Medical Student Review: Pt states she was well until 0900 when she started experienced pain Pt is eating and drinking Pt confirms ambulation with a walker Pt confirms flatus but not BMs Pt states that she would like to DC Thursday Patient Interview: Confirms PCP as Arabella Zamora. Pt confirms seeing Dr. Lao and Dr. Boyer previously. Pt confirms sleeping with biPAP, but denies O2 use at home Pt states her last knee surgery was 4 years ago and she had fluid on her lungs that delayed her recovery so she wanted me to know that so I will decrease NS at 30cc/hr for COMBATANT SWIMMER and give one dose of Lasix and consult Dr Lao Physical exam stable. Scribed by Venus Mendes under the direct supervision of Dr. Hilliard. Source: patient Exam Limitations: no limitations Date Seen 10/23/16 Attending Physician Drew Nuñez MD PCP Valarie Santacruz DO Referring Physician Date of Admission Oct 22, 2016 at 05:57 Home Medications & Allergies Home Medications Reviewed patient Home Medication Reconciliation Form Allergies Allergies Coded Allergies allopurinol (Verified Allergy, Intermediate, RASH, 10/15/16) Past Gzuvutt-Alsaqp-Inxjho Hx Patient Social History Marrital Status: single Alcohol Use: Rarely Uses Recreational Drug Use: No Smoking Status: Former Smoker Former smoker/When Quit: Feb 22, 2000 Type Used: Cigarettes Physical Abuse Screen: No Sexual Abuse: No Recent Foreign Travel: No Contact w/other who traveled: No Recent Hopitalizations: No Recent Infectious Disease Expo: No Immunizations Up To Date Tetanus Booster (TDap): Unknown Date of Pneumonia Vaccine: Oct 15, 2012 Date of Influenza Vaccine: Feb 04, 2016 Seasonal Allergies Seasonal Allergies: No Surgeries HX Surgeries: Yes (CARDIAC STENTS, L TKR) Surgeries: Appendectomy, Bladder Surgery, Breast, Cardiac, Eye Surgery, Hysterectomy, Orthopedic (knee replaced 2012) Respiratory Hx Respiratory Disorders: Yes (MILD) Respiratory Disorders: COPD Cardiovascular Hx Cardiovascular Disorders: Yes (STENTS X2) Cardiac Disorders: Chronic Edema/Swelling, Coronary Artery Disease, High Cholesterol, Hypertension Neurological Hx Neurological Disorders: No Reproductive System Hx Reproductive Disorders: No Sexually Transmitted Disease: No HIV/AIDS: No Genitourinary Hx Genitourinary Disorders: Yes (STAGE 3) Genitourinary Disorders: Bladder Infection, Renal Failure Gastrointestinal Hx Gastrointestinal Disorders: Yes Gastrointestinal Disorders: Chronic Constipation Musculoskeletal Hx Musculoskeletal Disorders: Yes Musculoskeletal Disorders: Degenerate Disk Disease, Osteoporosis, Arthritis, Chronic Back Pain Endocrine Hx Endocrine Disorders: Yes Endocrine Disorders: Hypothyroidsim, Diabetes, Non-Insulin dep HEENT HX ENT Disorders: No (GLASSES) Loss of Vision: Bilateral Hearing Impairment: Denies Cancer Hx Cancer: Yes Cancer: Breast Psychosocial Hx Psychiatric Problems: Yes Behavioral Health Disorders: Anxiety, Depression Integumentary HX Skin/Integumentary Disorder: No Blood Transfusions Hx Blood Disorders: No Adverse Reaction to a Blood Tr: No (N/A) Family Medical History Significant Family History: No Pertinent Family Hx Review of Systems Date Seen by Provider: Oct 23, 2016 Time Seen by Provider: 10:00 Constitutional: see HPI EENTM: no symptoms reported Respiratory: no symptoms reported Cardiovascular: no symptoms reported Gastrointestinal: no symptoms reported Genitourinary: no symptoms reported Musculoskeletal: joint pain Skin: no symptoms reported Psychiatric/Neurological: No Symptoms Reported All Other Systems Reviewed Negative Unless Noted: Yes Physical Exam Physical Exam Vital Signs Vital Sign - Last 12Hours 10/22/16 10/22/16 06:48 10:00 Temp 97.9 Pulse 85 Resp 16 B/P (MAP) 146/71 Pulse Ox 94 O2 Delivery Room Air O2 Flow Rate 2.00 Capillary Refill : General Appearance: No Apparent Distress, WD/WN, Chronically ill, Obese Eyes: Bilateral Eye Normal Inspection, Bilateral Eye PERRL HEENT: PERRL/EOMI, Normal ENT Inspection, Pharynx Normal Neck: Full Range of Motion, Normal Inspection, Non Tender, Supple, Carotid Bruit Respiratory: Chest Non Tender, Lungs Clear, No Accessory Muscle Use, No Respiratory Distress, Decreased Breath Sounds Cardiovascular: Regular Rate, Rhythm, No Edema, No Gallop, No JVD, No Murmur, Normal Peripheral Pulses Gastrointestinal: Normal Bowel Sounds, No Organomegaly, No Pulsatile Mass, Non Tender, Soft Back: Normal Inspection, No CVA Tenderness, No Vertebral Tenderness Extremity: Normal Capillary Refill, Normal Inspection, Normal Range of Motion, Non Tender, No Calf Tenderness, No Pedal Edema Neurologic/Psychiatric: Alert, Oriented x3, No Motor/Sensory Deficits, Normal Mood/Affect Skin: Normal Color, Warm/Dry Lymphatic: No Adenopathy Results Results/Procedures Lab Laboratory Tests 10/23/16 05:57 Assessment/Plan Admission Diagnosis Assessment: Status post right total knee replacement uncomplicated by Dr. Nuñez POD # 1 History of volume overload so we will slow fluids down and give Lasix and consult Dr. Lao Postop leukocytosis COPD Hypertension Chronic edema Diabetes mellitus Hyperlipidemia Chronic renal insufficiency Assessment and Plan Plan: Check CMP and CBC Lactulose Reduce fluids to 30 cc/hr Will initiate Lasix IV [address] Lao consultation Continue all home meds Clinical Quality Measures DVT/VTE Risk/Contraindication: Risk Factor Score Per Nursin RFS Level Per Nursing on Admit: 4+=Very High ROSENDO HILLIARD DO Oct 23, 2016 10:56
--- NOTE | 2016-10-23 14:09 | Anesthesia-Regional Post-Op ---
Regional Patient Condition Mental Status: Alert, Oriented x3 Circulation: Same as Pre-Op Headache: Absent Sensation: Full Recovery Motor Block: Absent Post Op Complications Complications None Follow Up Care/Instructions Patient Instructions None needed. Anesthesia/Patient Condition Patient is doing well, no complaints, stable vital signs, no apparent adverse anesthesia problems. No complications reported per nursing. NIKKIE LEI CRNA Oct 23, 2016 14:09
--- NOTE | 2016-10-23 14:23 | Physical Therapy Daily Note ---
PT Daily Note-Current Subjective Reports she began having pain earlier this date which she attributes to the "block" wearing off. Pain Numeric Pain Scale: 5-Moderate Pain Location: Right Location Body Site: Knee Pain Description: Ache Comment: using PO meds and PAPER TWISTER Mental Status Patient Orientation: Person, Place, Time, Situation Transfers Functional [place] Measure 0=Not Assessed/NA 4=Minimal Assistance 1=Total Assistance 5=Supervision or Setup 2=Maximal Assistance 6=Modified [place] 3=Moderate Assistance 7=Complete IndependenceIRFPAI Quality Coding Scale 6 Independent with activity with or without an assistive device 5 Patient requires set up or clean up by helper. Patient completes activity by themselves 4 Supervision or touching assist (CGA). [place] provide cues , steadying assist 3 The helper provides less than half the effort to complete the activity 2 The helper provides more than half the effort to complete the activity 1 Dependent. The helper does all the effort to complete an activity 7 Patient refused to complete or attempt activity 9 The patient did not perform the activity before the current illness or injury 88 Not attempted due to Medical conditions or safety concerns Transfers (B, C, W/C) (FIM): 4 Supine to/from Sit: 4 (HOB elevated and uses bedrail ) Sit to/from Stand: 4 Gait Training Gait (FIM): 5 Distance (FIM): 3=150 ft Distance: 220 ft Gait Assistive Device: FWW Initially, gait was stiff and step to with the left but as she warmed up, her pattern improved to heel toe with step through. Exercises Supine Ex: Ankle pumps, Quad Set, Heel Slides, Short Arc Quads Supine Reps: 12 (To promote strength and ROM for normalized gait and transfers. ) Treatments Pt toileted with SBA for transfers and able to perfrom reynold care. CPM applied 0 -65 degrees. Assessment Current Status: Good Progress Increased pain this pm but it seems controlled . Pt progressing with functional transfers and gait. Good progress towards goals. PT Collector Of Internal Revenue Goals Collector Of Internal Revenue Goals PT Mcc Goals Time Frame: Oct 27, 2016 Transfers (B,C,W/C) (FIM): 6 Gait (FIM): 6 Gait distance (FIM): 3=150 ft Gait Assistive Device: FWW Stairs (FIM): 2 # of Steps: 4 PT Plan Problem List Problem List: Activity Tolerance, Functional Strength, Safety, Gait, Transfer, Bed Mobility, ROM Treatment/Plan Treatment Plan: Continue Plan of Care Treatment Plan: Bed Mobility, Education, Functional Activity Anurag, Functional Strength, Gait, Safety, Therapeutic Exercise, Transfers Treatment Duration: Oct 27, 2016 Visits Per Week: 11 Safety Risks/Education Patient Education: Gait Training, Transfer Techniques Teaching Recipient: Patient Teaching Methods: Demonstration, Discussion Response to Teaching: Reinforcement Needed Time/GCodes Time In: 1250 Time Out: 1343 Total Billed Treatment Time: 53 Total Billed Treatment visit EX 23 GT 15 FA 15 RAUL KNOTT PT Oct 23, 2016 14:23
--- NOTE | 2016-10-23 16:03 | Consultation-Cardiology ---
HPI-Cardiology Cardiology Consultation Date of Consultation 10/23/16 Date of Admission Time Seen by Provider: 15:58 Indication: hypertension, peripheral edema HPI 70 years old lady with history of hypertension, peripheral edema, underwent knee surgery, was having worsening shortness of breath and pedal edema. Denied any chest pain, no palpitation, no syncope or near syncopal episodes. Upon my evaluation she had mild wheezing, she was slightly hypoxemic on nasal cannula Home Medications & Allergies Allergies: Coded Allergies: allopurinol (Verified Allergy, Intermediate, RASH, 10/15/16) Home Medication List Reviewed: Yes [id number]-Snddiq Hx Patient Social History Marital Status: single Alcohol Use: Rarely Uses Recreational Drug Use: No Smoking Status: Former Smoker Former smoker/When Quit: Feb 22, 2000 Type Used: Cigarettes Recent Foreign Travel: No Recent Infectious Disease Expo: No Recent Hopitalizations: No Physical Abuse Screen: No Sexual Abuse: No Immunizations Up To Date Tetanus Booster (TDap): Unknown Date of Pneumonia Vaccine: Oct 15, 2012 Date of Influenza Vaccine: Feb 04, 2016 Past Medical History past medical history as discussed below Family Medical History Significant Family History: No Pertinent Family Hx Family Medical Hx noncontributory to her current condition Constitutional: no symptoms reported, see HPI EENTM: no symptoms reported, see HPI Respiratory: see HPI, dyspnea on exertion, wheezing Cardiovascular: see HPI, No chest pain, edema, No Hx of Intervention, No palpitations, No syncope, No vascular heart diseas, No other Gastrointestinal: no symptoms reported, see HPI Genitourinary: no symptoms reported, see HPI Musculoskeletal: see HPI, back pain, joint pain, muscle pain Skin: no symptoms reported, see HPI Psychiatric/Neurological: No Symptoms Reported, See HPI Reviewed Test Results Reviewed Test Results Lab Laboratory Tests Test 10/23/16 05:57 Range/Units White Blood Count 12.8 H 4.3-11.0 10^3/uL Red Blood Count 4.08 L 4.35-5.85 10^6/uL Hemoglobin 11.0 L 11.5-16.0 G/DL Hematocrit 34 L 35-52 % Mean Corpuscular Volume 83 80-99 FL Mean Corpuscular Hemoglobin 27 25-34 PG Mean Corpuscular Hemoglobin Concent 33 32-36 G/DL Red Cell Distribution Width 14.7 H 10.0-14.5 % Platelet Count 244 130-400 10^3/uL Mean Platelet Volume 10.2 7.4-10.4 FL Neutrophils (%) (Auto) 82 H 42-75 % Lymphocytes (%) (Auto) 10 L 12-44 % Monocytes (%) (Auto) 8 0-12 % Eosinophils (%) (Auto) 0 0-10 % Basophils (%) (Auto) 0 0-10 % Neutrophils # (Auto) 10.4 H 1.8-7.8 X 10^3 Lymphocytes # (Auto) 1.3 1.0-4.0 X 10^3 Monocytes # (Auto) 1.0 0.0-1.0 X 10^3 Eosinophils # (Auto) 0.0 0.0-0.3 10^3/uL Basophils # (Auto) 0.0 0.0-0.1 10^3/uL Sodium Level 137 135-145 MMOL/L Potassium Level 3.7 3.6-5.0 MMOL/L Chloride Level 100 98-107 MMOL/L Carbon Dioxide Level 23 21-32 MMOL/L Anion Gap 14 5-14 MMOL/L Blood Urea Nitrogen 37 H 7-18 MG/DL Creatinine 1.20 0.60-1.30 MG/DL Estimat Glomerular Filtration Rate 45 BUN/Creatinine Ratio 31 Glucose Level 180 H 70-105 MG/DL Calcium Level 8.5 8.5-10.1 MG/DL Total Bilirubin 0.5 0.1-1.0 MG/DL Aspartate Amino Transf (AST/SGOT) 17 5-34 U/L Alanine Aminotransferase (ALT/SGPT) 15 0-55 U/L Alkaline Phosphatase 73 40-136 U/L Total Protein 6.4 6.4-8.2 GM/DL Albumin 3.6 3.2-4.5 GM/DL Physical Exam Vital Signs Vital Sign - Last 12Hours 10/22/16 10/22/16 06:48 10:00 Temp 97.9 Pulse 85 Resp 16 B/P (MAP) 146/71 Pulse Ox 94 O2 Delivery Room Air O2 Flow Rate 2.00 Capillary Refill : General Appearance: WD/WN Eyes: Bilateral Eye EOMI, Bilateral Eye Normal Inspection, Bilateral Eye PERRL HEENT: PERRL/EOMI, TMs Normal, Normal ENT Inspection, Pharynx Normal Neck: Full Range of Motion, Normal Inspection, Non Tender, Supple, Carotid Bruit Respiratory: Chest Non Tender, Normal Breath Sounds, No Accessory Muscle Use, No Respiratory Distress, Wheezing Cardiovascular: Regular Rate, Rhythm, No Edema, No Gallop, No JVD, No Murmur, Normal Peripheral Pulses Gastrointestinal: Normal Bowel Sounds, No Organomegaly, No Pulsatile Mass, Non Tender, Soft Back: Normal Inspection, No CVA Tenderness, No Vertebral Tenderness Extremity: Normal Capillary Refill, Normal Inspection, Normal Range of Motion, Non Tender, No Calf Tenderness, Pedal Edema Neurologic/Psychiatric: Alert, Oriented x3, No Motor/Sensory Deficits, Normal Mood/Affect Skin: Normal Color, Warm/Dry Lymphatic: No Adenopathy A/P-Cardiology Admission Diagnosis right knee replacement Shortness of breath COPD Hypertension Coronary artery disease Assessment/Plan Right knee replacement postoperative day number 1, history of left knee replacement done 4 months ago, recovering well. Coronary artery disease, history of Taxus 2.5 x 12 mm drug-eluting stent to the LAD in 2007, and then a 2.75 x 12 mm Promus Premier stent with no overlap with the old stent in August 2013. Most recent cardiac catheterization done January revealed patent stents in the proximal mid LAD, nonobstructive disease. Mild disease beyond stent. Mild to moderate disease in the mid right coronary artery, normal ejection fraction. Continue to monitor no changes were recommended Dyspnea on exertion, history of COPD, I will add MAT protocol, has been having mild wheezing. Hypertension, restart home medication monitor blood pressure Hyperlipidemia, continue to monitor lipids Mild peripheral edema, receiving IV fluid, agree with Dr. Lima on cutting down on her fluid and monitor renal function closely. Monitor edema closely. Chronic renal insufficiency, stage III. Followed by Dr. Ewing. Mild carotid stenosis bilaterally, last ultrasound was done in February 2016. Continue to monitor. History of obstructive sleep apnea, managed by Dr. Boyer. Right breast cancer stage IA, status post right mastectomy, followed and managed by Dr. Amaya Espinoza Right upper lobe pulmonary nodule on CT scan in July 2012, followed and monitored by [facility]. Obesity, patient was consulted on weight loss. Clinical Quality Measures DVT/VTE Risk/Contraindication: Risk Factor Score Per Nursin RFS Level Per Nursing on Admit: 4+=Very High BETHANY BALLARD MD Oct 23, 2016 16:03
--- NOTE | 2016-10-23 16:45 | Occupational Therapy Eval ---
OT Evaluation-General/PLF Medical Diagnosis Admission Date Oct 22, 2016 at 05:57 Medical Diagnosis: Right knee DJD Onset Date: Oct 22, 2016 Therapy Diagnosis Therapy Diagnosis: decreased self care Height/Weight Height (Feet): 4 Height (Inches): 11.00 Weight (Pounds): 233 Weight (Ounces): 4.0 Precautions Precautions/Isolations: Fall Prevention, Standard Precautions Safety Interventions: Bed Exit Alarm Weight Bear Status Weight Bearing Restriction: Weight Bearing/Tolerated Location Restriction: R LE Referral Physician: Joaquin Referral Reason: Evaluation/Treatment Medical History Pertinent Medical History: Arthritis, CAD, DM, HTN, OA Additional Medical History Kidney disease, breast CA, R mastectomy, L total knee, renal failure, chronic constipation, DJD, osteoporosis, chronic back pain, anxiety, depression Current History Elective R TKA 10-22-16. Pt anticipates discharge to home on Thursday Reviewed History: Yes Social History Home: Single Level Current Living Status: Spouse Entry Into Home: Stairs With Railing (3) ADL-Prior Level of Function ADL PLOF Comments Pt reported that she was able to manage all of her basic ADLs prior to surgery. 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 She has walked with a cane just recently and still drives. 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 Drive Self: Yes OT Current Status Subjective Pt seen in room, up at EOB, agreeable to OT. Pain reported 1/10 and in her knee Appearance Alert, cooperative Mental Status/Objective Attachments: Central Line, Oxygen Current Glasses/Contacts: Yes Hand Dominance: Right Upper Extremity ROM Grossly WFL. L forearm in soft brace due to IV site so not tested Upper Extremity Strength grossly 4/5 bilat ADL-Treatment ADL-Current Pt reported that staff had transferred her to [facility] [place] bed but she put herself back to EOB (able to wipe herself). Pt was able to stand with SBA, FWW and sidestep a couple feet toward head of bed. She needed a little help to get R leg into bed but was otherwise able to reposition herself. Her O2 sat monitor was reconnected and her sats were 80%. She had taken O2 off during toileting prior to OT but, once O2 was in place, her sats rapidly increased to 95%. Sat info shared with respiratory therapy and her nurse. Pt left up in bed, all needs met. Interested in ADLs tomorrow and possibly a shower. Functional [place] Measure 0=Not Assessed/NA 4=Minimal Assistance 1=Total Assistance 5=Supervision or Setup 2=Maximal Assistance 6=Modified [place] 3=Moderate Assistance 7=Complete IndependenceIRFPAI Quality Coding Scale 6 Independent with activity with or without an assistive device 5 Patient requires set up or clean up by helper. Patient completes activity by themselves 4 Supervision or touching assist (CGA). [place] provide cues , steadying assist 3 The helper provides less than half the effort to complete the activity 2 The helper provides more than half the effort to complete the activity 1 Dependent. The helper does all the effort to complete an activity 7 Patient refused to complete or attempt activity 9 The patient did not perform the activity before the current illness or injury 88 Not attempted due to Medical conditions or safety concerns Transfers (B, C, W/C) (FIM): 4 Education OT Patient Education: Purpose of tx/functional activities, Rehab process, Transfer techniques, Use of adapted equipment Teaching Recipient: Patient Teaching Methods: Demonstration, Discussion Response to Teaching: Verbalize Understanding, Return Demonstration OT Airline Counter Agent Goals Correction Goals Time Frame: Oct 25, 2016 Bathing(FIM): 5 Upper Body Dressing(FIM): 5 Lower Body Dressing(FIM): 5 Toileting(FIM): 5 Toilet/Commode Transfer(FIM): 5 Shower Transfer(FIM): 5 Additional Goals: 2-Verbalize Understanding, 3-ImproveStrength/Anurag 1=Demonstrate adherence to instructed precautions during ADL tasks. 2=Patient will verbalize/demonstrate understanding of assistive devices/ modifications for ADL. 3=Patient will improve strength/tolerance for activity to enable patient to perform ADL's. OT Education/Plan Problem List/Assessment Assessment: Decreased UE Strength, Dependent Transfers, Impaired Self-Care Skills Pt would benefit from skileld OT to increase her independence in basic self care to allow her to safely return home to love with her and to decrease caregiver burden. Discharge Recommendations Plan/Recommendations: Continue POC Treatment Plan/Plan of Care Treatment,Training & Education: Yes Patient would benefit from OT for education, treatment and training to promote independence in ADL's, mobility, safety and/or upper extremity function for ADL' s. Plan of Care: ADL Retraining, UE Funct Exercise/Act Treatment Duration: Oct 25, 2016 # of days/week 3 Visits Per Week: 3 Agreement: Yes Rehab Potential: Good Time/GCodes Start Time: 11:00 Stop Time: 11:20 Total Time Billed (hr/min): 20 Billed Treatment Time visit, 20 minutes evaluation low intensity LUCINA SINCLAIR OT Oct 23, 2016 16:45
[2016-10-23] MEDS: RT-ALBUTEROL SULF 2.5 MG/3 ML PRE-MIX VIAL IH SCH (18:50)
[2016-10-23] MEDS: ATORVASTATIN 40 MG (LIPITOR) TABLET PO SCH (20:13)
[2016-10-23] MEDS: VITAMIN D3 5,000 UNITS (CHOLECALCIFEROL ) CAPSULE PO SCH (20:13)
[2016-10-24] MEDS: HYDROcodone/APAP 7.5 MG/325 MG (LORTAB, LORCET PLUS) TABLET PO PRN ×4 (03:32→21:22)
[2016-10-24 04:10] VITALS: BP 144/65
[2016-10-24] MEDS: MULTIVIT W/MINERALS TAB (THERAGRAN M) PO SCH (06:10)
[2016-10-24] MEDS ORDERED: morphine INJ 4 MG/ML 1 ML (VIAL/SYRINGE) IVP PRN (07:00)
--- NOTE | 2016-10-24 07:02 | Progress Note-Standard ---
Standard Progress Note Progress Notes/Assess & Plan Date Seen by Provider: Oct 24, 2016 Time Seen by Provider: 07:01 Progress/Assessment & Plan Post op check Patient comfortable spinal in effect radiographs--HW well positioned without fracture RLE-2 plus DP pulse with brisk cap refill flicker toe df s/p RTKA doing well mobilize when able Final Diagnosis No complaints Vital Signs Date Time Temp Pulse Resp B/P (MAP) Pulse Ox O2 Delivery O2 Flow Rate FiO2 10/24/16 06:57 99.6 10/24/16 06:11 22 10/24/16 04:10 98.8 88 22 144/65 95 NIV CPAP 10/23/16 23:45 100.5 95 22 146/78 90 Nasal Cannula 3.00 10/23/16 22:12 94 Nasal Cannula 3.00 10/23/16 20:00 Nasal Cannula 2.00 10/23/16 19:50 99.6 94 22 160/81 92 Nasal Cannula 3.00 10/23/16 18:51 91 Nasal Cannula 3.00 10/23/16 18:15 20 10/23/16 16:35 99.2 87 26 165/82 91 Nasal Cannula 2.00 10/23/16 16:29 94 10/23/16 16:22 94 Nasal Cannula 3.00 10/23/16 15:34 20 10/23/16 13:00 94 Nasal Cannula 2.00 10/23/16 12:30 97.9 89 20 133/75 91 Nasal Cannula 3.00 10/23/16 11:15 94 Nasal Cannula 3.00 10/23/16 08:41 Nasal Cannula 2.00 10/23/16 08:30 98.0 89 20 149/77 95 Nasal Cannula 3.00 I & O 10/24/16 07:00 Intake Total 3080 ml Output Total 2425 ml Balance 655 ml Laboratory Tests Test 10/24/16 05:20 Range/Units Hemoglobin 10.8 L 11.5-16.0 G/DL Hematocrit 33 L 35-52 % RLE--no calf tenderness. Neg Taylor's. Incision clean and dry. s/p RTKA PT/OT likely DC tomorrow COBY CRESPO MD Oct 24, 2016 07:02
[2016-10-24] MEDS: RT-ALBUTEROL SULF 2.5 MG/3 ML PRE-MIX VIAL IH SCH ×4 (07:19→19:03)
[2016-10-24 07:59] VITALS: BP 141/64
--- NOTE | 2016-10-24 09:32 | Cardiology Progress Note ---
Subjective Date Seen by Provider: Oct 24, 2016 Time Seen by Provider: 09:24 Subjective/Events-last exam patient is feeling better, breathing better, denied any chest pain, edema is better. Objective-Cardiology Exam Last Set of Vital Signs Vital Signs 10/24/16 07:59 Temp 99.2 Pulse 90 Resp 22 B/P (MAP) 141/64 Pulse Ox 94 O2 Delivery Nasal Cannula O2 Flow Rate 3.00 Capillary Refill : I&O Intake and Output 10/24/16 00:00 Intake Total 4430 ml Output Total 2225 ml Balance 2205 ml Intake Oral 2440 ml IV Total 1990 ml Output Urine Total 2225 ml General: Alert, Oriented X3, Cooperative HEENT: Atraumatic, PERRLA Neck: Supple, No JVD, No Thyromegaly Lungs: Clear to Auscultation, Normal Air Movement Heart: Regular Rate, Normal S1, Normal S2, No Murmurs Abdomen: Normal Bowel Sounds, Soft, No Tenderness, No Hepatosplenomegaly, No Masses Extremities: No Clubbing, No Cyanosis, No Edema, Normal Pulses, No Tenderness/ Swelling Skin: No Rashes, No Breakdown, No Significant Lesion Neuro: Normal Speech, Normal Tone, Sensation Intact Psych/Mental Status: Mental Status NL, Mood NL Results Lab Laboratory Tests 10/24/16 05:20 A/P-Cardiology Admission Diagnosis right knee replacement Shortness of breath COPD Hypertension Coronary artery disease Assessment/Plan Right knee replacement postoperative day number 2, history of left knee replacement done 4 months ago, feeling better today, recovering well. Continue current medications and monitor. Coronary artery disease, history of Taxus 2.5 x 12 mm drug-eluting stent to the LAD in 2007, and then a 2.75 x 12 mm Promus Premier stent with no overlap with the old stent in August 2013. Most recent cardiac catheterization done January revealed patent stents in the proximal mid LAD, nonobstructive disease. Mild disease beyond stent. Mild to moderate disease in the mid right coronary artery, normal ejection fraction. Continue to monitor no changes were recommended Dyspnea on exertion, history of COPD, reporting improvement. Continue to monitor, continue current medications Hypertension, Monitor blood pressure Hyperlipidemia, continue to monitor lipids Mild peripheral edema, reporting improvement. Continue to monitor Chronic renal insufficiency, stage III. Followed by Dr. Ewing. Mild carotid stenosis bilaterally, last ultrasound was done in February 2016. Continue to monitor. History of obstructive sleep apnea, managed by Dr. Boyer. Right breast cancer stage IA, status post right mastectomy, followed and managed by Dr. Amaya Espinoza Right upper lobe pulmonary nodule on CT scan in July 2012, followed and monitored by [facility]. Obesity, patient was consulted on weight loss. Clinical Quality Measures DVT/VTE Risk/Contraindication: Risk Factor Score Per Nursin RFS Level Per Nursing on Admit: 4+=Very High BETHANY BALLARD MD Oct 24, 2016 09:32
--- NOTE | 2016-10-24 09:35 | Physical Therapy Daily Note ---
PT Daily Note-Current Subjective Pt in bed, agreeable. Pain rating not provided; "It's not bad". Mental Status Patient Orientation: Person, Place, Time, Situation Attachments: SCD's, Oxygen, Polar Pack Transfers Functional [place] Measure 0=Not Assessed/NA 4=Minimal Assistance 1=Total Assistance 5=Supervision or Setup 2=Maximal Assistance 6=Modified [place] 3=Moderate Assistance 7=Complete IndependenceIRFPAI Quality Coding Scale 6 Independent with activity with or without an assistive device 5 Patient requires set up or clean up by helper. Patient completes activity by themselves 4 Supervision or touching assist (CGA). [place] provide cues , steadying assist 3 The helper provides less than half the effort to complete the activity 2 The helper provides more than half the effort to complete the activity 1 Dependent. The helper does all the effort to complete an activity 7 Patient refused to complete or attempt activity 9 The patient did not perform the activity before the current illness or injury 88 Not attempted due to Medical conditions or safety concerns Supine to/from Sit: 4 (HOB elevated; min A x 1 to assist (R) LE, trunk ) Sit to/from Stand: 4 (skilled VCS to sequence) Mod (I) toilet TFR, reynold-care Weight Bearing Weight Bearing Restriction: Weight Bearing/Tolerated Location Restriction: R LE Gait Training Gait (FIM): 5 Distance (FIM): 8=374-33 ft Distance: 100 Gait Level of Assist: 5 Gait Persons Needed: 1 Gait Assistive Device: FWW Pt ambulated with slow, mildly antalgic step-through gait. Stair Training Stair Training: Handrails/: uses walker Stairs (FIM): 1 #of Steps: 1 Stairs: Pattern: Step to Level of Assist: 4 CGA x 1 and VCS for sequencing curb step Exercises Supine Ex: Quad Set Supine Reps: 20 Treatments Gait/transfer training on level surface and on steps. On 3L O2 throughout treatment with sats > 91%. Pt up to chair for breakfast with O2 in situ, needs met. Assessment Current Status: Good Progress Pt tolerated well. Functional mobility improving steadily. PT Linux Kernel Engineer Goals Linux Kernel Engineer Goals PT Linux Kernel Engineer Goals Time Frame: Oct 27, 2016 Transfers (B,C,W/C) (FIM): 6 Gait (FIM): 6 Gait distance (FIM): 3=150 ft Gait Assistive Device: FWW Stairs (FIM): 2 # of Steps: 4 PT Plan Problem List Problem List: Activity Tolerance, Functional Strength, Safety, Balance, Gait, Transfer, Bed Mobility, ROM Treatment/Plan Treatment Plan: Continue Plan of Care Treatment Plan: Bed Mobility, Education, Functional Activity Anurag, Functional Strength, Gait, Safety, Therapeutic Exercise, Transfers Treatment Duration: Oct 27, 2016 Visits Per Week: 11 Pt/Family Agrees w/Plan: Yes Safety Risks/Education Patient Education: Steps Teaching Recipient: Patient Teaching Methods: Demonstration, Discussion Response to Teaching: Verbalize Understanding, Return Demonstration, Reinforcement Needed Discharge Recommendations Therapy D/C Recommendations: Home w/ Family Support, Physical Therapy Home Care Barriers to Progress O2 dependency Time/GCodes Time In: 0850 Time Out: 0925 Total Billed Treatment Time: 35 Total Billed Treatment 1, Gt x 30' (Ex, FA x 5') G Codes Necessary: RONDA Webb DPAmerico Oct 24, 2016 09:35
[2016-10-24] MEDS: FUROSEMIDE 20 MG (LASIX) TAB PO SCH (09:39)
[2016-10-24] MEDS: ANASTROZOLE 1 MG TAB (ARIMIDEX) PO SCH (09:40)
[2016-10-24] MEDS: ASPIRIN E.C. 81 MG (ECOTRIN) TAB PO SCH (09:40)
[2016-10-24] MEDS: ENOXAPARIN 30 MG/0.3 ML (LOVENOX) SYR SC SCH ×2 (09:40→20:30)
[2016-10-24] MEDS: KCL 20 MEQ TAB (K-DUR) PO SCH ×2 (09:40→20:30)
[2016-10-24] MEDS: LEVOTHYROXINE 100 MCG (LEVOTHROID) TAB PO SCH (09:40)
[2016-10-24] MEDS: SENNA W/DOCUSATE (SENOKOT S) TABLET PO SCH ×2 (09:40→20:31)
[2016-10-24] MEDS: GLIMEPIRIDE 1 MG (AMARYL) TAB PO SCH (09:40)
[2016-10-24] MEDS: TRIAMTERENE/HCTZ 75-50 (MAXZIDE,DYAZIDE) TABLET PO SCH (09:40)
[2016-10-24] MEDS: amLODIPine 10 MG (NORVASC) TAB PO SCH (09:40)
[2016-10-24] MEDS: CARVEDILOL 12.5 MG (COREG) TABLET PO SCH ×2 (09:40→20:30)
[2016-10-24] MEDS: busPIRone 10 MG (BUSPAR) TAB PO SCH ×2 (09:40→20:30)
[2016-10-24 09:53] LABS: BASOPHILS % (AUTO) 1 % (0-10); EOSINOPHILS # (AUTO) 0.1 10^3/uL (0.0-0.3); EOSINOPHILS % (AUTO) 1 % (0-10); LYMPHOCYTES # (AUTO) 0.4 X 10^3 (1.0-4.0); LYMPHOCYTES % (AUTO) 6 % (12-44); MEAN CORPUSCULAR HEMOGLOBIN 27 PG (25-34); MEAN CORPUSCULAR HGB CONC 33 G/DL (32-36); MEAN CORPUSCULAR VOLUME 84 FL (80-99); MEAN PLATELET VOLUME 10.7 FL (7.4-10.4); MONOCYTES # (AUTO) 0.9 X 10^3 (0.0-1.0); MONOCYTES % (AUTO) 11 % (0-12); NEUTROPHILS # (AUTO) 6.3 X 10^3 (1.8-7.8); NEUTROPHILS % (AUTO) 82 % (42-75); PLATELET COUNT 207 10^3/uL (130-400); RED BLOOD COUNT 3.94 10^6/uL (4.35-5.85); RED CELL DISTRIBUTION WIDTH 14.9 % (10.0-14.5); WHITE BLOOD COUNT 7.7 10^3/uL (4.3-11.0)
[2016-10-24 10:03] LABS: ALBUMIN 3.7 GM/DL (3.2-4.5); BILIRUBIN,TOTAL 0.7 MG/DL (0.1-1.0); CALCIUM 8.7 MG/DL (8.5-10.1); CREATININE SERUM 1.43 MG/DL (0.60-1.30); POTASSIUM 3.5 MMOL/L (3.6-5.0)
[2016-10-24 10:12] LABS: BAND NEUTROPHILS 0 %; BASOPHILS % (MANUAL) 0 %; EOSINOPHILS % (MANUAL) 1 %; LYMPHOCYTES % (MANUAL) 6 %; NEUTROPHILS % (MANUAL) 84 %
--- NOTE | 2016-10-24 11:06 | Progress Note-Hospitalist ---
Progress Note HPI/CC on Admission CC: Right total knee replacement uncomplicated POD #1 Dr. Nuñez HPI: This is a 70 yoWF who had an uncomplicated right total knee replacement performed by Dr. Nuñez yesterday Medical Student Review: Pt states she was well until 0900 when she started experienced pain Pt is eating and drinking Pt confirms ambulation with a walker Pt confirms flatus but not BMs Pt states that she would like to DC Thursday Patient Interview: Confirms PCP as Arabella Zamora. Pt confirms seeing Dr. Lao and Dr. Boyer previously. 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 Scribed by Venus Mendes under the direct supervision of Dr. Hilliard. Progress Notes/Assess & Plan Date Seen 10/24/16 Time Seen by Provider: 10:00 Admission Dx/Process Assessment: Status post right total knee replacement uncomplicated by Dr. Nuñez POD # 1 History of volume overload so we will slow fluids down and give Lasix and consult Dr. Lao Postop leukocytosis COPD Hypertension Chronic edema Diabetes mellitus Hyperlipidemia Chronic renal insufficiency Diagonsis/Assessment & Plan Medical Student Review: Pt states that she is not hungry and this is abnormal. Pt had toast last night and was ordering breakfast Pt confirms flatus not BMs Pt confirms urinating Pt was febrile last night Patient Interview: Labs discussed with pt Pt confirms possible DC tomorrow Pt admits to having help at home Pt states that she has meds at home to help BMs Physical exam stable. Pt denies home O2. Pt states that last time she DC from [facility] she was on O2, but not at home Afebrile vital signs stable, pleasant, up in chair Regular rate and rhythm, clear to all sedation bilaterally No edema Assessment: Status post right total knee replacement uncomplicated by Dr. Nuñez POD # 2 History of volume overload so gave Lasix and consulted Dr. Lao Postop leukocytosis COPD Hypertension Chronic edema Diabetes mellitus Hyperlipidemia Chronic renal insufficiency Plan: Dr Lao consultation Continue all home meds Home O2 evaluation Scribed by Venus Mendes under the direct supervision of Dr. Hilliard. ROSENDO HILLIARD DO Oct 24, 2016 11:06
[2016-10-24 12:34] VITALS: BP 142/67
--- NOTE | 2016-10-24 15:06 | Occ Therapy Progress Note ---
Therapy Progress Note 1438 - 1440 Pt seen in room, just finished PT. Pt didn't feel well and said she hasn't eaten much since yesterday and just didn't feel well. She did not want to get up to dress or do other ADLs. Will follow up tomorrow. visit LUCINA SINCLAIR OT Oct 24, 2016 15:06
--- NOTE | 2016-10-24 15:08 | Physical Therapy Daily Note ---
PT Daily Note-Current Subjective Pt up in BR. Initially agreeable but then states, "I feel like my blood sugar is dropping". Nursing notified, food presented to Pt. Pt ate a couple bites then stated "I can't". Nursing reports Pt had already eaten lunch prior to PT arrival. c/o increased (R) knee pain but not rated. Pt initially agreeable to gait train on stairs in gym but then stated, "I just don't feel right". Nursing notified of additional c/o. Mental Status Patient Orientation: Person, Place, Time, Situation Attachments: SCD's, Oxygen, Polar Pack Transfers Functional [place] Measure 0=Not Assessed/NA 4=Minimal Assistance 1=Total Assistance 5=Supervision or Setup 2=Maximal Assistance 6=Modified [place] 3=Moderate Assistance 7=Complete IndependenceIRFPAI Quality Coding Scale 6 Independent with activity with or without an assistive device 5 Patient requires set up or clean up by helper. Patient completes activity by themselves 4 Supervision or touching assist (CGA). [place] provide cues , steadying assist 3 The helper provides less than half the effort to complete the activity 2 The helper provides more than half the effort to complete the activity 1 Dependent. The helper does all the effort to complete an activity 7 Patient refused to complete or attempt activity 9 The patient did not perform the activity before the current illness or injury 88 Not attempted due to Medical conditions or safety concerns Transfers (B, C, W/C) (FIM): 4 Supine to/from Sit: 4 Sit to/from Stand: 4 VCS to sequence sit<->stand Weight Bearing Weight Bearing Restriction: Weight Bearing/Tolerated Location Restriction: R LE Gait Training Gait (FIM): 5 Distance (FIM): 1=up to 49 ft Distance: 20 Gait Level of Assist: 5 Gait Persons Needed: 1 Gait Assistive Device: FWW Step-through from BR->EOB Exercises Supine Ex: Ankle pumps, Quad Set, Heel Slides, Short Arc Quads, Straight leg raise Supine Reps: 12 Treatments Transfer training, TKR ex. In bed with O2 in situ, hand-off to OT. Assessment Current Status: Poor Progress Pt self-limiting activity this date. (R) knee ROM grossly +2-70 degrees PT Senior Care Goals Senior Care Goals PT Senior Care Goals Time Frame: Oct 27, 2016 Transfers (B,C,W/C) (FIM): 6 Gait (FIM): 6 Gait distance (FIM): 3=150 ft Gait Assistive Device: FWW Stairs (FIM): 2 # of Steps: 4 PT Plan Problem List Problem List: Activity Tolerance, Functional Strength, Safety, Balance, Gait, Transfer, Bed Mobility, ROM Treatment/Plan Treatment Plan: Continue Plan of Care Treatment Plan: Bed Mobility, Education, Functional Activity Anurag, Functional Strength, Gait, Safety, Therapeutic Exercise, Transfers Treatment Duration: Oct 27, 2016 Visits Per Week: 11 Pt/Family Agrees w/Plan: Yes Discharge Recommendations Therapy D/C Recommendations: Home w/ Family Support, Physical Therapy Home Care Barriers to Progress pain, SOB Time/GCodes Time In: 1414 Time Out: 1438 Total Billed Treatment Time: 24 Total Billed Treatment 1, FA x 14', Ex x 10' G Codes Necessary: RONDA Webb DPT Oct 24, 2016 15:08
[2016-10-24 16:55] VITALS: BP 128/84
[2016-10-24] MEDS: ATORVASTATIN 40 MG (LIPITOR) TABLET PO SCH (20:29)
[2016-10-24] MEDS: VITAMIN D3 5,000 UNITS (CHOLECALCIFEROL ) CAPSULE PO SCH (20:30)
[2016-10-24 23:45] VITALS: BP 146/79
[2016-10-25] MEDS: MULTIVIT W/MINERALS TAB (THERAGRAN M) PO SCH (06:03)
[2016-10-25] MEDS: HYDROcodone/APAP 7.5 MG/325 MG (LORTAB, LORCET PLUS) TABLET PO PRN (06:53)
[2016-10-25] MEDS: RT-ALBUTEROL SULF 2.5 MG/3 ML PRE-MIX VIAL IH SCH (07:21)
[2016-10-25 07:43] VITALS: BP 134/71
[2016-10-25] MEDS: FUROSEMIDE 20 MG (LASIX) TAB PO SCH (09:14)
[2016-10-25] MEDS: GLIMEPIRIDE 1 MG (AMARYL) TAB PO SCH (09:14)
[2016-10-25] MEDS: ANASTROZOLE 1 MG TAB (ARIMIDEX) PO SCH (09:14)
[2016-10-25] MEDS: SENNA W/DOCUSATE (SENOKOT S) TABLET PO SCH (09:14)
[2016-10-25] MEDS: CARVEDILOL 12.5 MG (COREG) TABLET PO SCH (09:14)
[2016-10-25] MEDS: ASPIRIN E.C. 81 MG (ECOTRIN) TAB PO SCH (09:14)
[2016-10-25] MEDS: KCL 20 MEQ TAB (K-DUR) PO SCH (09:14)
[2016-10-25] MEDS: TRIAMTERENE/HCTZ 75-50 (MAXZIDE,DYAZIDE) TABLET PO SCH (09:14)
[2016-10-25] MEDS: amLODIPine 10 MG (NORVASC) TAB PO SCH (09:14)
[2016-10-25] MEDS: LEVOTHYROXINE 100 MCG (LEVOTHROID) TAB PO SCH (09:15)
[2016-10-25] MEDS: ENOXAPARIN 30 MG/0.3 ML (LOVENOX) SYR SC SCH (09:15)
[2016-10-25] MEDS: busPIRone 10 MG (BUSPAR) TAB PO SCH (09:15)
--- NOTE | 2016-10-25 09:39 | Progress Note-Standard ---
Standard Progress Note Progress Notes/Assess & Plan Date Seen by Provider: Oct 25, 2016 Time Seen by Provider: 09:38 Progress/Assessment & Plan Post op check Patient comfortable spinal in effect radiographs--HW well positioned without fracture RLE-2 plus DP pulse with brisk cap refill flicker toe df s/p RTKA doing well mobilize when able Final Diagnosis Feeling better Vital Signs Date Time Temp Pulse Resp B/P (MAP) Pulse Ox O2 Delivery O2 Flow Rate FiO2 10/25/16 07:43 99.9 88 18 134/71 94 Nasal Cannula 3.00 10/25/16 07:24 96 Nasal Cannula 3.00 10/24/16 23:45 100.0 79 18 146/79 95 NIV CPAP 10/24/16 20:30 Nasal Cannula 3.00 10/24/16 19:03 93 Nasal Cannula 3.00 10/24/16 16:55 99.5 87 20 128/84 94 Nasal Cannula 3.00 10/24/16 14:45 94 Nasal Cannula 3.00 10/24/16 13:03 95 3.00 10/24/16 12:34 96.2 75 20 142/67 91 Nasal Cannula 3.00 10/24/16 10:56 78 93 Nasal Cannula 3.00 10/24/16 10:18 86 96 Nasal Cannula 3.00 10/24/16 09:53 Nasal Cannula 3.00 10/24/16 09:39 83 95 Nasal Cannula 3.00 I & O 10/25/16 07:00 Intake Total 2270 ml Output Total 2475 ml Balance -205 ml Laboratory Tests Test 10/25/16 05:25 Range/Units Hemoglobin 11.6 11.5-16.0 G/DL Hematocrit 35 35-52 % RLE--pos SLR. No calf tenderness. Neg Taylor's. flexion to 80 incision clean and dry s/p RTKA doing well DC after PT today COBY CRESPO MD Oct 25, 2016 09:39
--- NOTE | 2016-10-25 10:01 | Physical Therapy Daily Note ---
PT Daily Note-Current Subjective The patient states that Dr. Nuñez is going to let her go home today. Transfers Functional [place] Measure 0=Not Assessed/NA 4=Minimal Assistance 1=Total Assistance 5=Supervision or Setup 2=Maximal Assistance 6=Modified [place] 3=Moderate Assistance 7=Complete IndependenceIRFPAI Quality Coding Scale 6 Independent with activity with or without an assistive device 5 Patient requires set up or clean up by helper. Patient completes activity by themselves 4 Supervision or touching assist (CGA). [place] provide cues , steadying assist 3 The helper provides less than half the effort to complete the activity 2 The helper provides more than half the effort to complete the activity 1 Dependent. The helper does all the effort to complete an activity 7 Patient refused to complete or attempt activity 9 The patient did not perform the activity before the current illness or injury 88 Not attempted due to Medical conditions or safety concerns Weight Bearing Weight Bearing Restriction: Weight Bearing/Tolerated Gait Training Gait (FIM): 5 Distance (FIM): 3=150 ft Distance: 400' Gait Level of Assist: 5 Gait Persons Needed: 1 Gait Assistive Device: FWW Exercises Seated Therapy Exercises: Long arc quads, Hamstring Curls Seated Reps: 20 Assessment Current Status: Excellent Progress Patient did well with gait and should do well at home. PT Bacteriologist [place] Goals Snf Goals PT Snf Goals Time Frame: Oct 27, 2016 Transfers (B,C,W/C) (FIM): 6 Gait (FIM): 6 Gait distance (FIM): 3=150 ft Gait Assistive Device: FWW Stairs (FIM): 2 # of Steps: 4 PT Plan Treatment/Plan Treatment Plan: Continue Plan of Care Treatment Plan: Bed Mobility, Education, Functional Activity Anurag, Functional Strength, Gait, Safety, Therapeutic Exercise, Transfers Treatment Duration: Oct 27, 2016 Visits Per Week: 11 Time/GCodes Time In: 940 Time Out: 955 Total Billed Treatment Time: 15' Total Billed Treatment 1, GT x 15' DARRYN REED PT Oct 25, 2016 10:01
--- NOTE | 2016-10-25 11:24 | Occupational Ther Daily Note ---
OT Current Status-Daily Note Subjective Pt alert, sitting in recliner. Pt agreed to therapy. No c/o pain. Mental Status/Objective Patient Orientation: Person, Place, Time, Situation Functional [place] Measure 0=Not Assessed/NA 4=Minimal Assistance 1=Total Assistance 5=Supervision or Setup 2=Maximal Assistance 6=Modified [place] 3=Moderate Assistance 7=Complete [place] Attachments: IV, Oxygen ADL-Treatment Using FWW pt ambulated to bathroom with SBA and transferred into shower with CGA. Pt then was able to take shower with supervision using grabbar, hand held shower and shower bench. Pt then ambulated to toilet and transferred with SBA using FWW and grabbars. Pt donned gown, underwear by self after set up and socks required assistance. Pt ambulated to sink with FWW and stood at sink to complete grooming with SBA. Pt then ambulated back to recliner with SBA using FWW. Pt did need assistance to manipulate O2 tubing that was caught around FWW legs. After therapy, pt sitting in recliner with call light/phone in reach. All needs met in room. Grooming (FIM): 5 Bathing (FIM): 5 Bathing Location: L Arm, R Arm, L Upper Leg, R Upper Leg, L Lower Leg ( including foot), R Lower Leg (including foot), Chest, Abdomen, Buttocks, Perineal Area Upper Body (FIM): 5 Lower Body Dressing (FIM): 4 Toileting (FIM): 5 Transfers (B, C, W/C) (FIM): 5 Toilet/Commode Transfer (FIM): 5 Shower Transfer(FIM): 4 OT Short Term Goals Short Term Goals 1=Demonstrate adherence to instructed precautions during ADL tasks. 2=Patient will verbalize/demonstrate understanding of assistive devices/ modifications for ADL. 3=Patient will improve strength/tolerance for activity to enable patient to perform ADL's. OT Quality Assurance Supervisor Final Goals Retirement Goals Time Frame: Oct 25, 2016 Bathing(FIM): 5 Upper Body Dressing(FIM): 5 Lower Body Dressing(FIM): 5 Toileting(FIM): 5 Toilet/Commode Transfer(FIM): 5 Shower Transfer(FIM): 5 Additional Goals: 2-Verbalize Understanding, 3-ImproveStrength/Anurag 1=Demonstrate adherence to instructed precautions during ADL tasks. 2=Patient will verbalize/demonstrate understanding of assistive devices/ modifications for ADL. 3=Patient will improve strength/tolerance for activity to enable patient to perform ADL's. OT Education/Plan Problem List/Assessment Pt would benefit from skileld OT to increase her independence in basic self care to allow her to safely return home to love with her and to decrease caregiver burden. Discharge Recommendations Plan/Recommendations: Continue POC Treatment Plan/Plan of Care Patient would benefit from OT for education, treatment and training to promote independence in ADL's, mobility, safety and/or upper extremity function for ADL' s. Plan of Care: ADL Retraining, UE Funct Exercise/Act Treatment Duration: Oct 25, 2016 Visits Per Week: 3 Agreement: Yes Rehab Potential: Good Time/GCodes Start Time: 08:45 Stop Time: 09:15 Total Time Billed (hr/min): 30 Billed Treatment Time 1 visit-ADL 2 (30 min) RAUL BUCKNER Oct 25, 2016 11:24
--- NOTE | 2016-10-25 12:51 | DISCHARGE SUMMARY ---
DATE OF ADMISSION: 10/22/2016 DATE OF DISCHARGE: 10/25/2016 DIAGNOSES: 1. Right knee osteoarthritis. 2. Kidney disease. 3. Coronary artery disease. 4. Hyperthyroidism. 5. Hypertension. 6. History of breast cancer. PROCEDURE: Right total knee arthroplasty. SUMMARY: The patient is a 70-year-old female who underwent a total knee arthroplasty the day of admission. Postoperatively, she did very well. At time of discharge, her wound was clean and dry. She had no calf tenderness, negative Homans sign. She was tolerating her diet well and tolerating pain with oral pain medication. Her hematocrit was 35. She could perform a straight leg raise. She had active flexion to 90 degrees. CONDITION AT DISCHARGE: Good. DISCHARGE DIET: Regular. FOLLOW-UP: Is in 3 weeks. DISCHARGE MEDICATIONS: 1. Home medications. 2. Percocet. 3. Aspirin. ACTIVITIES: Weight-bearing as tolerated with walker. Job ID: [id number] Dictated Date: 10/25/2016 09:37:55 Kaiako Kura [place] Date: 10/25/2016 12:46:41/siri
[2016-10-25 13:07] VITALS: BP 134/71
== END 2016-10-25 12:15 | disposition home health service (06) | DRG 470 ==
LOC: 4TH 05:57 → SURG 05:58 → 4TH 10:04
PROVIDERS: ADMIT Orthopaedic Surgery; ATTEND Orthopaedic Surgery
PROC: 0SRC0J9 Replacement of Right Knee Joint with Synthetic Substitute, Cemented, Open Approach (ICD-10-PCS; principal; 2016-10-22 07:19)
DX: M17.11 Unilateral primary osteoarthritis, right knee (principal); Z68.42 Body mass index [BMI] 45.0-49.9, adult; E66.01 Morbid (severe) obesity due to excess calories; I12.9 Hypertensive chronic kidney disease with stage 1 through stage 4 chronic kidney disease, or unspecified chronic kidney disease; N18.3 Chronic kidney disease, stage 3 (moderate); I25.10 Atherosclerotic heart disease of native coronary artery without angina pectoris; J44.9 Chronic obstructive pulmonary disease, unspecified; G47.33 Obstructive sleep apnea (adult) (pediatric); E87.70 Fluid overload, unspecified; E78.00 Pure hypercholesterolemia, unspecified; I27.2 Other secondary pulmonary hypertension; E05.90 Thyrotoxicosis, unspecified without thyrotoxic crisis or storm; E11.9 Type 2 diabetes mellitus without complications; F41.9 Anxiety disorder, unspecified; F32.9 Major depressive disorder, single episode, unspecified; R60.0 Localized edema; M10.9 Gout, unspecified; I65.23 Occlusion and stenosis of bilateral carotid arteries; Z95.5 Presence of coronary angioplasty implant and graft; Z96.652 Presence of left artificial knee joint; Z87.891 Personal history of nicotine dependence; Z85.3 Personal history of malignant neoplasm of breast; Z90.11 Acquired absence of right breast and nipple
CPT/HCPCS: 36415; 73560; 80053; 82962; 85007; 85014; 85018; 85025; 85027; 94640; 94664; 94760; 94761

== ENCOUNTER → 2016-11-04 | Outpatient (CLI) | payer MEDICARE ==
[~2016-11-04] MED LIST changes: +HYDR-3816 PO; +OXYC-197 PO; +POTA20TA15 PO
--- NOTE | 2016-11-06 09:22 | Diagnostic Imaging Report ---
Left breast screening mammogram 2D views with tomosynthesis The current study was also evaluated with a Computer Aided Detection (CAD) system. Indication: Screening. No current complaints stated on the questionnaire. The patient has had mastectomy, however, for right breast cancer in November 2015. COMPARISON: 11/01/15 FINDINGS: The breasts are composed of scattered fibroglandular densities. There are scattered benign-appearing calcifications. Allowing for technique and positional differences, no suspicious change is seen. IMPRESSION: No significant change. ACR BI-RADS Category 2: Benign findings. Result letter will be mailed to the patient. Note: At least 10% of breast cancer is not imaged by mammography. Dictated by: Dictated on workstation # [id number]
== END ==
LOC: RAD 12:55
PROVIDERS: ATTEND Internal Medicine Hematology & Oncology
DX: Z12.31 Encounter for screening mammogram for malignant neoplasm of breast (principal); Z85.3 Personal history of malignant neoplasm of breast

== ENCOUNTER 2016-11-29 14:23 | Emergency (ER) | payer MEDICARE ==
[~2016-11-29] VITALS: Ht 149.9 cm; Wt 97.6 kg
--- NOTE | 2016-11-29 15:02 | ED Lower Extremity ---
General Chief Complaint: Lower Extremity Stated Complaint: R KNEE HOT, SWOLLEN. KNEE REPLACMENT [id number] AGO History of Present Illness Time seen by provider: 14:20 Initial Comments Evaluation for not right knee: Warmth and erythema, she noticed this yesterday and no improvement today. She will put ice on it but the warmth comes back immediately after removing the ice pack. She took one hydrocodone today for pain. She denies any new injuries to the knee since surgery. She recently finished prednisone for gout in her right ankle. She is 5 weeks status post right TKR. Onset: yesterday Allergies and Home Medications Allergies Coded Allergies: allopurinol (Verified Allergy, Intermediate, RASH, 10/15/16) Home Medications Albuterol Sulfate 8.5 Gm Hfa.aer.ad, 2 PUFF IH Q4H PRN for SHORTNESS OF BREATH, (Reported) Amlodipine Besylate 10 Mg Tablet, 10 MG PO DAILY, (Reported) LAST FILLED 04-09-16 #90 Anastrozole 1 Mg Tablet, 1 MG PO DAILY, (Reported) Aspirin 81 Mg Tablet.dr, 81 MG PO HS, (Reported) Atorvastatin Calcium 40 Mg Tablet, 40 MG PO HS, (Reported) LAST FILLED #90 04-09-16 Buspirone Hcl 10 Mg Tablet, 10 MG PO BID, (Reported) Carvedilol 12.5 Mg Tablet, 12.5 MG PO BID, (Reported) Cephalexin 500 Mg Capsule, 500 MG PO QID, #28 Ref 0 Prescribed by: YESSENIA WALTERS on 11/29/16 1715 Cholecalciferol (Vitamin D3) 5,000 Unit Capsule, 5,000 UNIT PO HS, (Reported) Citalopram Hydrobromide 20 Mg Tablet, 20 MG PO DAILY, (Reported) Cyclobenzaprine Hcl 10 Mg Tablet, 10 MG PO BID, (Reported) Furosemide 20 Mg Tablet, 20 MG PO DAILY, (Reported) Glimepiride 1 Mg Tablet, 1 MG PO DAILY, (Reported) Levothyroxine Sodium 100 Mcg Tablet, 100 MCG PO DAILY, (Reported) Oxycodone HCl/Acetaminophen 1 Each Tablet, 1 EACH PO q4HR, #60 Prescribed by: COBY NUÑEZ on 10/22/16 0949 Potassium Chloride 20 Meq Tab, 20 MEQ PO HS, (Reported) LAST FILLED #30 07-23-16 TAKES 2 TABS AM AND 1 TAB PM Potassium Chloride 20 Meq Tab.er.prt, 40 MEQ PO DAILY, (Reported) LAST FILLED #30 17 TAKES 2 (20MEQ) TABLETS AM AND TAKES 1 TAB PM Triamterene 1 Ea Tablet, 1 TAB PO DAILY, (Reported) 75-50MG TABLET Constitutional: no symptoms reported, see HPI Musculoskeletal: see HPI, joint pain (right knee) Skin: see HPI, change in color, other (warm right knee) All Other Systems Reviewed Negative Unless Noted: Yes Past Tvgofwn-Sffvue-Quwxin Hx Patient Social History Alcohol Use: Rarely Uses Recreational Drug Use: No Smoking Status: Former Smoker Type Used: Cigarettes Former Smoker/When Quit: Feb 22, 2000 Recent Foreign Travel: No Contact w/Someone Who Travel: No Recent Hopitalizations: No Immunizations Up To Date Tetanus Booster (TDap): Unknown Date of Pneumonia Vaccine: Oct 15, 2012 Date of Influenza Vaccine: Feb 04, 2016 Seasonal Allergies Seasonal Allergies: No Surgeries HX Surgeries: Yes (CARDIAC STENTS, L TKR) Surgeries: Appendectomy, Bladder Surgery, Breast, Cardiac, Eye Surgery, Hysterectomy, Orthopedic Respiratory Hx Respiratory Disorders: Yes (MILD) Respiratory Disorders: Sleep Apnea, COPD Cardiovascular Hx Cardiac Disorders: Yes (STENTS X2) Cardiac Disorders: Chronic Edema/Swelling, Coronary Artery Disease, High Cholesterol, Hypertension Neurological Hx Neurological Disorders: No Reproductive System Hx Reproductive Disorders: No Sexually Transmitted Disease: No HIV/AIDS: No 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 Genitourinary Hx Genitourinary Disorders: Yes (STAGE 3) Genitourinary Disorders: Bladder Infection, Renal Failure Gastrointestinal Hx Gastrointestinal Disorders: Yes Gastrointestinal Disorders: Chronic Constipation Musculoskeletal Hx Musculoskeletal Disorders: Yes Musculoskeletal Disorders: Degenerate Disk Disease, Osteoporosis, Arthritis, Chronic Back Pain, Gout Endocrine Hx Endocrine Disorders: Yes Endocrine Disorders: Hypothyroidsim, Diabetes, Non-Insulin dep HEENT HX ENT Disorders: No (GLASSES) Loss of Vision: Bilateral Hearing Impairment: Denies Cancer Hx Cancer: Yes Cancer: Breast Psychosocial Hx Psychiatric Problems: Yes Behavioral Health Disorders: Anxiety, Depression Integumentary HX Skin/Integumentary Disorder: No Blood Transfusions Hx Blood Disorders: No Adverse Reaction to a Blood Tr: No (N/A) Reviewed Nursing Assessment Reviewed/Agree w Nursing PMH: Yes Family Medical History Significant Family History: No Pertinent Family Hx Physical Exam Vital Signs Vital Sign - Last 12Hours 11/29/16 14:49 Temp 97.8 Pulse 79 Resp 18 B/P (MAP) 165/73 Pulse Ox 95 Capillary Refill : General Appearance: WD/WN, no apparent distress Neck: non-tender, full range of motion, normal inspection Cardiovascular: normal peripheral pulses, regular rate, rhythm, no murmur, other (pedal pulses 2+ and symmetric) Respiratory: chest non-tender, lungs clear, normal breath sounds Gastrointestinal: normal bowel sounds, non tender, soft Legs: bilateral leg non-tender, bilateral leg normal range of motion, bilateral leg no evidence of injury Knees: right knee non-tender, right knee normal range of motion (0-100), right knee pain (lateral joint line.), right knee swelling (pes anserine), right knee other (incision well-healed, trace warmth and erythema. No induration or fluctuance.) Ankles: bilateral ankle non-tender, bilateral ankle normal inspection, bilateral ankle normal range of motion Neurologic/Tendon: normal sensation, normal motor functions, normal tendon functions Neurologic/Psychiatric: no motor/sensory deficits, alert, normal mood/affect, oriented x 3 Skin: normal color, warm/dry Lymphatic: no adenopathy Progress/Results/Core Measures Results/Orders Lab Results Laboratory Tests Test 11/29/16 15:39 11/29/16 16:39 Range/Units White Blood Count 13.1 H 4.3-11.0 10^3/uL Red Blood Count 4.50 4.35-5.85 10^6/uL Hemoglobin 12.1 11.5-16.0 G/DL Hematocrit 38 35-52 % Mean Corpuscular Volume 85 80-99 FL Mean Corpuscular Hemoglobin 27 25-34 PG Mean Corpuscular Hemoglobin Concent 32 32-36 G/DL Red Cell Distribution Width 16.3 H 10.0-14.5 % Platelet Count 350 130-400 10^3/uL Mean Platelet Volume 9.4 7.4-10.4 FL Neutrophils (%) (Auto) 55 42-75 % Lymphocytes (%) (Auto) 34 12-44 % Monocytes (%) (Auto) 8 0-12 % Eosinophils (%) (Auto) 2 0-10 % Basophils (%) (Auto) 0 0-10 % Neutrophils # (Auto) 7.2 1.8-7.8 X 10^3 Lymphocytes # (Auto) 4.5 H 1.0-4.0 X 10^3 Monocytes # (Auto) 1.0 0.0-1.0 X 10^3 Eosinophils # (Auto) 0.3 0.0-0.3 10^3/uL Basophils # (Auto) 0.1 0.0-0.1 10^3/uL Erythrocyte Sedimentation Rate 44 H 0-30 MM/HR Sodium Level 138 135-145 MMOL/L Potassium Level 3.7 3.6-5.0 MMOL/L Chloride Level 96 L 98-107 MMOL/L Carbon Dioxide Level 29 21-32 MMOL/L Anion Gap 13 5-14 MMOL/L Blood Urea Nitrogen 24 H 7-18 MG/DL Creatinine 1.23 0.60-1.30 MG/DL Estimat Glomerular Filtration Rate 43 BUN/Creatinine Ratio 20 Glucose Level 131 H 70-105 MG/DL Uric Acid 9.5 H 2.6-7.2 MG/DL Calcium Level 9.1 8.5-10.1 MG/DL Total Bilirubin 0.3 0.1-1.0 MG/DL Aspartate Amino Transf (AST/SGOT) 15 5-34 U/L Alanine Aminotransferase (ALT/SGPT) 20 0-55 U/L Alkaline Phosphatase 103 40-136 U/L C-Reactive Protein High Sensitivity 2.39 H 0.00-0.50 MG/DL Total Protein 7.0 6.4-8.2 GM/DL Albumin 3.5 3.2-4.5 GM/DL Urine Color YELLOW Urine Clarity CLEAR Urine pH 7 5-9 Urine Specific [place] 1.010 L 1.016-1.022 Urine Protein NEGATIVE NEGATIVE Urine Glucose (UA) NEGATIVE NEGATIVE Urine Ketones NEGATIVE NEGATIVE Urine Nitrite NEGATIVE NEGATIVE Urine Bilirubin NEGATIVE NEGATIVE Urine Urobilinogen NORMAL NORMAL MG/DL Urine Leukocyte Esterase 1+ H NEGATIVE Urine RBC (Auto) NEGATIVE NEGATIVE Urine RBC NONE /HPF Urine WBC NONE /HPF Urine Squamous Epithelial Cells 0-2 /HPF Urine Crystals NONE /LPF Urine Bacteria NEGATIVE /HPF Urine Casts NONE /LPF Urine Mucus NEGATIVE /LPF Urine Culture Indicated NO My Orders Orders - YESSENIA WALTERS Cbc With Automated Diff (11/29/16 14:29) Comprehensive Metabolic Panel (11/29/16 14:29) Hs C Reactive Protein (11/29/16 14:29) Erythrocyte Sedimentation Rate (11/29/16 14:29) Ua Culture If Indicated (11/29/16 14:29) Knee, Right, 3 Views (11/29/16 14:29) Uric Acid (11/29/16 14:47) Cephalexin Capsule (Keflex Capsule) (11/29/16 17:15) Medications Given in ED Current Medications Medications Dose Ordered Sig/Brenda Route Start Time Stop Time Status Last Admin Dose Admin Cephalexin HCl 500 mg ONCE ONCE PO 11/29/16 17:15 11/29/16 17:16 DC 11/29/16 17:27 500 MG Vital Signs/I&O Vital Sign - Last 12Hours 11/29/16 14:49 Temp 97.8 Pulse 79 Resp 18 B/P (MAP) 165/73 Pulse Ox 95 Progress Note : Time: 14:20 Progress Note Initial evaluation completed, will obtain labs and x-ray of the right knee been reevaluate. 1630 all labs essentially normal, with exception of uric acid 9.5, ESR 44, WBC 13.1, CRP 2.39. X-rays of the right knee showing no acute findings. Hardware nicely aligned. 1700 discussed patient's assessment and diagnostic studies with Dr. Nuñez by phone, recommended Keflex 500 mg 4 times a day and follow-up with him in the office Thursday. Diagnostic Imaging Diagonstic Imaging: Xray Plain Films/CT/US/NM/MRI: knee Comments NAME: IV[facility] REC#: [id number] PT STATUS: REG ER : 1945 PHYSICIAN: YESSENIA WALTERS ADMIT DATE: 11/29/16/ER Draft Date of Exam:11/29/16 KNEE, RIGHT, 3 VIEWS INDICATION: Right knee pain, recent arthroplasty. COMPARISON: 10/22/16. EXAMINATION: Three views of the right knee were obtained. FINDINGS: No fracture or dislocation. The right knee arthroplasty is intact. There is no joint effusion. IMPRESSION: Well-seated right knee arthroplasty. Dictated on workstation # [id number] Dict: 11/29/16 1505 Trans: 11/29/16 1508 [facility] [id number] Interpreted by: FARIHA EDDY Electronically signed by: Reviewed: Reviewed by Me Departure Impression Impression: Primary Impression: Cellulitis of knee, right Disposition: 01 HOME, SELF-CARE Condition: Improved Departure-Patient Inst. Decision time for Depature: 17:00 Referrals: [facility] (PCP) Primary Care Physician PATRICIA LIMON (Family) Primary Care Physician Patient Instructions: Cellulitis (Skin Infection), Adult (DC) Add. Discharge Instructions: Ice to right knee 20 minutes every other hour. Return to emergency department if fever greater than 101, increased redness or warmth to the right knee, or any new problems. Take antibiotic as prescribed. Call Dr. Nuñez's office on Thursday for appointment. All discharge instructions reviewed with patient and/or family. Voiced understanding. Scripts Cephalexin (Keflex) 500 Mg Capsule 500 MG PO QID, #28 CAP 0 Refills Prov: YESSENIA WALTERS 11/29/16 Copy Copies To 1: COBY NUÑEZ MD, AMY ARNP Nov 29, 2016 15:02
--- NOTE | 2016-11-29 15:09 | Diagnostic Imaging Report ---
INDICATION: Right knee pain, recent arthroplasty. COMPARISON: 10/22/16. EXAMINATION: Three views of the right knee were obtained. FINDINGS: No fracture or dislocation. The right knee arthroplasty is intact. There is no joint effusion. IMPRESSION: Well-seated right knee arthroplasty. Dictated by: Dictated on workstation # [id number]
[2016-11-29 15:45] LABS: BASOPHILS # (AUTO) 0.1 10^3/uL (0.0-0.1); BASOPHILS % (AUTO) 0 % (0-10); EOSINOPHILS # (AUTO) 0.3 10^3/uL (0.0-0.3); EOSINOPHILS % (AUTO) 2 % (0-10); LYMPHOCYTES # (AUTO) 4.5 X 10^3 (1.0-4.0); LYMPHOCYTES % (AUTO) 34 % (12-44); MEAN CORPUSCULAR HEMOGLOBIN 27 PG (25-34); MEAN CORPUSCULAR HGB CONC 32 G/DL (32-36); MEAN CORPUSCULAR VOLUME 85 FL (80-99); MEAN PLATELET VOLUME 9.4 FL (7.4-10.4); MONOCYTES % (AUTO) 8 % (0-12); NEUTROPHILS # (AUTO) 7.2 X 10^3 (1.8-7.8); NEUTROPHILS % (AUTO) 55 % (42-75); PLATELET COUNT 350 10^3/uL (130-400); RED CELL DISTRIBUTION WIDTH 16.3 % (10.0-14.5); WHITE BLOOD COUNT 13.1 10^3/uL (4.3-11.0)
[2016-11-29 16:03] LABS: ALBUMIN 3.5 GM/DL (3.2-4.5); BILIRUBIN,TOTAL 0.3 MG/DL (0.1-1.0); CALCIUM 9.1 MG/DL (8.5-10.1); CREATININE SERUM 1.23 MG/DL (0.60-1.30); POTASSIUM 3.7 MMOL/L (3.6-5.0); URIC ACID 9.5 MG/DL (2.6-7.2); hs C REACTIVE PROTEIN 2.39 MG/DL (0.00-0.50)
[2016-11-29 16:09] LABS: ERYTHROCYTE SEDIMENTATION RATE 44 MM/HR (0-30)
[2016-11-29 16:46] LABS: BILIRUBIN,URINE NEGATIVE (NEGATIVE); KETONES,URINE NEGATIVE (NEGATIVE); LEUKOCYTE ESTERASE ,URINE 1+ (NEGATIVE); NITRITE,URINE NEGATIVE (NEGATIVE); PH,URINE 7 (5-9); PROTEIN,URINE NEGATIVE (NEGATIVE); UROBILINOGEN,URINE NORMAL (NORMAL)
[2016-11-29 16:59] LABS: SQUAMOUS EPITHELIAL CELL,UR 0-2 /HPF
[2016-11-29] MEDS ORDERED: CEPHALEXIN 250 MG (KEFLEX) CAP PO ONE (17:15)
[2016-11-29] MEDS ORDERED: CEPH-507 PO (17:15)
[2016-11-29 17:29] VITALS: BP 134/98
== END 2016-11-29 17:29 | disposition home or self-care (01) ==
LOC: EDUNIT# 14:23 → ER 14:25
DX: T84.51XA Infection and inflammatory reaction due to internal right hip prosthesis, initial encounter (principal); L03.115 Cellulitis of right lower limb; F41.9 Anxiety disorder, unspecified; F32.9 Major depressive disorder, single episode, unspecified; E03.9 Hypothyroidism, unspecified; E11.9 Type 2 diabetes mellitus without complications; M10.9 Gout, unspecified; M81.0 Age-related osteoporosis without current pathological fracture; K59.09 Other constipation; I12.0 Hypertensive chronic kidney disease with stage 5 chronic kidney disease or end stage renal disease; N18.3 Chronic kidney disease, stage 3 (moderate); R60.9 Edema, unspecified; I25.10 Atherosclerotic heart disease of native coronary artery without angina pectoris; E78.00 Pure hypercholesterolemia, unspecified; Z95.5 Presence of coronary angioplasty implant and graft; J44.9 Chronic obstructive pulmonary disease, unspecified; G47.30 Sleep apnea, unspecified; Z90.49 Acquired absence of other specified parts of digestive tract; Z98.890 Other specified postprocedural states; Z87.891 Personal history of nicotine dependence; Z79.82 Long term (current) use of aspirin; Z96.651 Presence of right artificial knee joint; Z90.710 Acquired absence of both cervix and uterus
CPT/HCPCS: 36415; 73562; 80053; 81000; 84550; 85025; 85652; 86141; 99283

== ENCOUNTER 2016-12-22 10:09 | Outpatient (RCR) | payer MEDICARE ==
[~2016-12-22 10:09] MED LIST changes: +CEPH-507 PO
[2016-12-22 10:18] LABS: BASOPHILS # (AUTO) 0.1 10^3/uL (0.0-0.1); BASOPHILS % (AUTO) 1 % (0-10); EOSINOPHILS # (AUTO) 0.5 10^3/uL (0.0-0.3); EOSINOPHILS % (AUTO) 5 % (0-10); LYMPHOCYTES # (AUTO) 3.3 X 10^3 (1.0-4.0); LYMPHOCYTES % (AUTO) 37 % (12-44); MEAN CORPUSCULAR HEMOGLOBIN 27 PG (25-34); MEAN CORPUSCULAR HGB CONC 33 G/DL (32-36); MEAN CORPUSCULAR VOLUME 81 FL (80-99); MEAN PLATELET VOLUME 10.1 FL (7.4-10.4); MONOCYTES # (AUTO) 0.9 X 10^3 (0.0-1.0); MONOCYTES % (AUTO) 10 % (0-12); NEUTROPHILS # (AUTO) 4.1 X 10^3 (1.8-7.8); NEUTROPHILS % (AUTO) 47 % (42-75); PLATELET COUNT 293 10^3/uL (130-400); RED BLOOD COUNT 5.47 10^6/uL (4.35-5.85); RED CELL DISTRIBUTION WIDTH 15.9 % (10.0-14.5); WHITE BLOOD COUNT 8.8 10^3/uL (4.3-11.0)
[2016-12-22 10:35] LABS: BILIRUBIN,TOTAL 0.7 MG/DL (0.1-1.0); CALCIUM 10.2 MG/DL (8.5-10.1); CREATININE SERUM 1.65 MG/DL (0.60-1.30); TOTAL PROTEIN 7.6 GM/DL (6.4-8.2)
== END 2017-01-24 | disposition home or self-care (01) ==
LOC: ONC 10:09
PROVIDERS: ATTEND Internal Medicine Hematology & Oncology
DX: C50.411 Malignant neoplasm of upper-outer quadrant of right female breast (principal); I25.10 Atherosclerotic heart disease of native coronary artery without angina pectoris; I10 Essential (primary) hypertension; E11.9 Type 2 diabetes mellitus without complications; E78.5 Hyperlipidemia, unspecified; F32.9 Major depressive disorder, single episode, unspecified; M19.90 Unspecified osteoarthritis, unspecified site; E28.39 Other primary ovarian failure; M10.9 Gout, unspecified; R29.890 Loss of height; E66.01 Morbid (severe) obesity due to excess calories; Z68.42 Body mass index [BMI] 45.0-49.9, adult; Z86.39 Personal history of other endocrine, nutritional and metabolic disease; Z79.811 Long term (current) use of aromatase inhibitors; Z79.899 Other long term (current) drug therapy; Z78.0 Asymptomatic menopausal state
CPT/HCPCS: 36415; 80053; 82306; 84550; 85025; 99213

== ENCOUNTER → 2017-02-06 | Outpatient (CLI) | payer MEDICARE ==
[2017-02-06 11:32] LABS: MEAN PLATELET VOLUME 9.5 FL (7.4-10.4); RED BLOOD COUNT 4.82 10^6/uL (4.35-5.85); RED CELL DISTRIBUTION WIDTH 15.2 % (10.0-14.5); WHITE BLOOD COUNT 7.2 10^3/uL (4.3-11.0)
[2017-02-06 11:33] LABS: BILIRUBIN,URINE NEGATIVE (NEGATIVE); KETONES,URINE NEGATIVE (NEGATIVE); LEUKOCYTE ESTERASE ,URINE 3+ (NEGATIVE); NITRITE,URINE NEGATIVE (NEGATIVE); PH,URINE 7 (5-9); PROTEIN,URINE NEGATIVE (NEGATIVE); UROBILINOGEN,URINE NORMAL (NORMAL)
[2017-02-06 11:42] LABS: RENAL EPITHELIAL CELLS,URINE 0-2 /HPF
[2017-02-06 11:49] LABS: PROTEIN/CREATININE RATIO 0.14
[2017-02-06 11:51] LABS: CALCIUM 9.6 MG/DL (8.5-10.1); CREATININE SERUM 1.15 MG/DL (0.60-1.30); PHOSPHORUS 3.6 MG/DL (2.3-4.7); POTASSIUM 3.4 MMOL/L (3.6-5.0)
== END ==
LOC: LAB 10:59
PROVIDERS: ATTEND Nurse Practitioner
DX: N25.81 Secondary hyperparathyroidism of renal origin (principal); E11.9 Type 2 diabetes mellitus without complications; E78.5 Hyperlipidemia, unspecified; E87.6 Hypokalemia; R80.9 Proteinuria, unspecified; E55.9 Vitamin D deficiency, unspecified; I12.9 Hypertensive chronic kidney disease with stage 1 through stage 4 chronic kidney disease, or unspecified chronic kidney disease; N18.3 Chronic kidney disease, stage 3 (moderate); N25.0 Renal osteodystrophy; Z13.1 Encounter for screening for diabetes mellitus
CPT/HCPCS: 36415; 80061; 80069; 81000; 82306; 82570; 83036; 83970; 84156; 85027; 87088

== ENCOUNTER → 2017-03-12 | Outpatient (CLI) | payer MEDICARE, OTHER ==
--- NOTE | 2017-03-12 22:08 | Diagnostic Imaging Report ---
EXAMINATION: DEXA scan. INDICATION: Osteopenia. TECHNIQUE: Bone mineral density estimated based on dual energy radiography over the lumbar spine and femoral necks, was performed. FINDINGS: The lumbar spine T-score is 0.3. This is a 2.4% decreased density measurements compared to 11/02/2014. The left femoral neck T-score is -0.4 and on the right side is -0.6. This is a 1.5% decreased density measurements compared to the previous exam. IMPRESSION: Bone mineral density within normal limits. Dictated by: Dictated on workstation # [id number]
== END ==
LOC: RAD 08:39
PROVIDERS: ATTEND Nurse Practitioner Adult Health
DX: M85.89 Other specified disorders of bone density and structure, multiple sites (principal); Z78.0 Asymptomatic menopausal state; Z79.811 Long term (current) use of aromatase inhibitors
CPT/HCPCS: 77080

== ENCOUNTER 2017-03-26 11:26 | Outpatient (RCR) | payer MEDICARE ==
[~2017-03-26 11:26] MED LIST changes: +HYDR-34 PO; -HYDR-3816 PO
[2017-03-26 11:40] LABS: BASOPHILS % (AUTO) 0 % (0-10); EOSINOPHILS # (AUTO) 0.3 10^3/uL (0.0-0.3); EOSINOPHILS % (AUTO) 2 % (0-10); HEMATOCRIT 43 % (35-52); HEMOGLOBIN 14.3 G/DL (11.5-16.0); LYMPHOCYTES # (AUTO) 3.2 X 10^3 (1.0-4.0); LYMPHOCYTES % (AUTO) 30 % (12-44); MEAN CORPUSCULAR HEMOGLOBIN 29 PG (25-34); MEAN CORPUSCULAR HGB CONC 34 G/DL (32-36); MEAN CORPUSCULAR VOLUME 85 FL (80-99); MEAN PLATELET VOLUME 9.6 FL (7.4-10.4); MONOCYTES % (AUTO) 9 % (0-12); NEUTROPHILS # (AUTO) 6.1 X 10^3 (1.8-7.8); NEUTROPHILS % (AUTO) 58 % (42-75); PLATELET COUNT 286 10^3/uL (130-400); RED CELL DISTRIBUTION WIDTH 14.6 % (10.0-14.5); WHITE BLOOD COUNT 10.5 10^3/uL (4.3-11.0)
[2017-03-26 11:59] LABS: BILIRUBIN,TOTAL 0.6 MG/DL (0.1-1.0); CALCIUM 9.7 MG/DL (8.5-10.1); CREATININE SERUM 1.15 MG/DL (0.60-1.30); TOTAL PROTEIN 7.7 GM/DL (6.4-8.2)
== END 2017-06-18 08:37 | disposition home or self-care (01) ==
LOC: ONC 11:26
PROVIDERS: ATTEND Internal Medicine Hematology & Oncology
DX: C50.411 Malignant neoplasm of upper-outer quadrant of right female breast (principal); M85.80 Other specified disorders of bone density and structure, unspecified site; I25.10 Atherosclerotic heart disease of native coronary artery without angina pectoris; I10 Essential (primary) hypertension; E11.9 Type 2 diabetes mellitus without complications; E78.5 Hyperlipidemia, unspecified; F32.9 Major depressive disorder, single episode, unspecified; M19.91 Primary osteoarthritis, unspecified site; E28.39 Other primary ovarian failure; E79.0 Hyperuricemia without signs of inflammatory arthritis and tophaceous disease; R29.890 Loss of height; E66.01 Morbid (severe) obesity due to excess calories; Z68.42 Body mass index [BMI] 45.0-49.9, adult; Z17.0 Estrogen receptor positive status [ER+]; Z86.39 Personal history of other endocrine, nutritional and metabolic disease; Z79.811 Long term (current) use of aromatase inhibitors; Z79.899 Other long term (current) drug therapy; Z78.0 Asymptomatic menopausal state
CPT/HCPCS: 36415; 80053; 85025; 99213

== ENCOUNTER → 2017-09-16 | Outpatient (RCR) | payer MEDICARE ==
[2017-06-18 09:07] LABS: BASOPHILS % (AUTO) 0 % (0-10); EOSINOPHILS # (AUTO) 0.3 10^3/uL (0.0-0.3); EOSINOPHILS % (AUTO) 4 % (0-10); HEMATOCRIT 41 % (35-52); HEMOGLOBIN 13.3 G/DL (11.5-16.0); LYMPHOCYTES # (AUTO) 3.9 X 10^3 (1.0-4.0); LYMPHOCYTES % (AUTO) 44 % (12-44); MEAN CORPUSCULAR HEMOGLOBIN 28 PG (25-34); MEAN CORPUSCULAR HGB CONC 32 G/DL (32-36); MEAN CORPUSCULAR VOLUME 87 FL (80-99); MEAN PLATELET VOLUME 9.7 FL (7.4-10.4); MONOCYTES # (AUTO) 0.8 X 10^3 (0.0-1.0); MONOCYTES % (AUTO) 9 % (0-12); NEUTROPHILS # (AUTO) 3.9 X 10^3 (1.8-7.8); NEUTROPHILS % (AUTO) 44 % (42-75); PLATELET COUNT 309 10^3/uL (130-400); RED BLOOD COUNT 4.69 10^6/uL (4.35-5.85); RED CELL DISTRIBUTION WIDTH 14.3 % (10.0-14.5)
[2017-06-18 09:29] LABS: BILIRUBIN,TOTAL 0.5 MG/DL (0.1-1.0); CALCIUM 9.4 MG/DL (8.5-10.1); CREATININE SERUM 1.38 MG/DL (0.60-1.30); POTASSIUM 3.6 MMOL/L (3.6-5.0); TOTAL PROTEIN 7.5 GM/DL (6.4-8.2)
[2017-09-16 10:37] LABS: BASOPHILS % (AUTO) 1 % (0-10); EOSINOPHILS # (AUTO) 0.3 10^3/uL (0.0-0.3); EOSINOPHILS % (AUTO) 4 % (0-10); HEMATOCRIT 39 % (35-52); HEMOGLOBIN 12.7 G/DL (11.5-16.0); LYMPHOCYTES # (AUTO) 1.7 X 10^3 (1.0-4.0); LYMPHOCYTES % (AUTO) 24 % (12-44); MEAN CORPUSCULAR HEMOGLOBIN 28 PG (25-34); MEAN CORPUSCULAR HGB CONC 32 G/DL (32-36); MEAN CORPUSCULAR VOLUME 86 FL (80-99); MEAN PLATELET VOLUME 10.1 FL (7.4-10.4); MONOCYTES # (AUTO) 0.8 X 10^3 (0.0-1.0); MONOCYTES % (AUTO) 11 % (0-12); NEUTROPHILS # (AUTO) 4.3 X 10^3 (1.8-7.8); NEUTROPHILS % (AUTO) 61 % (42-75); PLATELET COUNT 279 10^3/uL (130-400); RED BLOOD COUNT 4.58 10^6/uL (4.35-5.85); WHITE BLOOD COUNT 7.1 10^3/uL (4.3-11.0)
[2017-09-16 10:56] LABS: BILIRUBIN,TOTAL 0.7 MG/DL (0.1-1.0); CALCIUM 9.8 MG/DL (8.5-10.1); CREATININE SERUM 1.23 MG/DL (0.60-1.30); POTASSIUM 3.7 MMOL/L (3.6-5.0); TOTAL PROTEIN 7.3 GM/DL (6.4-8.2)
== END | disposition home or self-care (01) ==
LOC: ONC 06-18 08:55
PROVIDERS: ATTEND Internal Medicine Hematology & Oncology
DX: C50.411 Malignant neoplasm of upper-outer quadrant of right female breast (principal); M85.80 Other specified disorders of bone density and structure, unspecified site; I25.10 Atherosclerotic heart disease of native coronary artery without angina pectoris; I10 Essential (primary) hypertension; E11.9 Type 2 diabetes mellitus without complications; E78.5 Hyperlipidemia, unspecified; F32.9 Major depressive disorder, single episode, unspecified; M19.91 Primary osteoarthritis, unspecified site; E28.39 Other primary ovarian failure; E79.0 Hyperuricemia without signs of inflammatory arthritis and tophaceous disease; R29.890 Loss of height; E66.01 Morbid (severe) obesity due to excess calories; Z68.42 Body mass index [BMI] 45.0-49.9, adult; Z17.0 Estrogen receptor positive status [ER+]; Z86.39 Personal history of other endocrine, nutritional and metabolic disease; Z79.811 Long term (current) use of aromatase inhibitors; Z79.899 Other long term (current) drug therapy; Z78.0 Asymptomatic menopausal state
CPT/HCPCS: 36415; 80053; 82306; 85025; 99213

== ENCOUNTER → 2017-10-12 | Outpatient (CLI) | payer MEDICARE | LOC: CARD 09:51 | PROVIDERS: ATTEND Internal Medicine Cardiovascular Disease | DX: I25.10 Atherosclerotic heart disease of native coronary artery without angina pectoris (principal); R06.09 Other forms of dyspnea; E78.5 Hyperlipidemia, unspecified; I10 Essential (primary) hypertension; E11.9 Type 2 diabetes mellitus without complications; I08.1 Rheumatic disorders of both mitral and tricuspid valves | CPT/HCPCS: 93306 ==

== ENCOUNTER → 2017-10-14 | Outpatient (CLI) | payer MEDICARE ==
[~2017-10-14] VITALS: Ht 144.8 cm; Wt 98.9 kg
[~2017-10-14] MED LIST changes: +REGADENOSON 0.4 MG/5 ML SYR (LEXISCAN) IV ONE
[2017-10-14] MEDS: CATHETER FLUSH 10 ML SYR IV PRN ×2 (07:42→08:47)
[2017-10-14 08:47] VITALS: BP 128/61
--- NOTE | 2017-10-14 23:45 | STRESS TEST ---
DATE OF SERVICE: 10/14/2017 LEXISCAN MYOVIEW STRESS TEST REPORT REFERRING PHYSICIAN: Dr. Drew Morrissey. Baseline heart rate is 62. Baseline blood pressure 133/63. Baseline EKG is sinus rhythm with no ischemic changes. In summary, the patient was injected with 10.61 mCi of technetium-99 Myoview and the resting images were obtained. Then, the patient received 0.4 mg of Lexiscan followed by 30.8 mCi of technetium-99 Myoview. Throughout the test, there were no EKG changes. The resting and stress images were reviewed and compared in the short axis, horizontal long axis, and vertical long axis views. Review of the images showed breast attenuation affecting the quality of the images with reversible ischemia involving the whole anterior wall and anterolateral segment. SSS is 6, SDS 4, TID value 1.04. On the gated images, the left ventricle appeared to be normal size with normal contractility. Calculated ejection fraction 68%. CONCLUSION: 1. The patient tolerated Lexiscan well. 2. Breast attenuation affecting the quality of the images with reversible ischemia involving the whole anterior wall and anterolateral wall. 3. Normal left ventricular size with normal contractility. Calculated ejection fraction 68%. Job ID: [id number] DocumentID: [id number] Dictated Date: 10/14/2017 17:37:00 Medical Radiation Tech Date: 10/14/2017 23:44:32 Dictated By: BETHANY BALLARD MD
== END ==
LOC: CARD 07:27
PROVIDERS: ATTEND Internal Medicine Cardiovascular Disease
DX: I25.10 Atherosclerotic heart disease of native coronary artery without angina pectoris (principal); R06.09 Other forms of dyspnea; E78.5 Hyperlipidemia, unspecified; I10 Essential (primary) hypertension; E11.9 Type 2 diabetes mellitus without complications
CPT/HCPCS: 78452; 93017

== ENCOUNTER → 2017-10-29 | Outpatient (CLI) | payer MEDICARE ==
[~2017-10-29] MED LIST changes: +FEBU40TA PO; +MAGN400C PO; -REGADENOSON 0.4 MG/5 ML SYR (LEXISCAN) IV ONE
[2017-10-29 11:20] LABS: ABG BASE EXCESS 3.6 MMOL/L (-2.5-2.5); ABG OXYGEN SATURATION 97 % (94-100); ABG PCO2 42 MMHG (35-45); ABG PH 7.43 (7.37-7.43); ABG PO2 82 MMHG (79-93); ABG TCO2 28.9 MMOL/L (21.0-31.0)
[2017-10-29 11:21] LABS: ALLENS TEST YES-POS; INSPIRED O2 ROOM AIR; PATIENT TEMP 98.7; VENTILATOR NO
== END ==
LOC: RT 10:47
PROVIDERS: ATTEND Nurse Practitioner Family
DX: J44.9 Chronic obstructive pulmonary disease, unspecified (principal)
CPT/HCPCS: 82805

== ENCOUNTER → 2017-11-05 | Outpatient (CLI) | payer MEDICARE ==
--- NOTE | 2017-11-06 08:51 | Diagnostic Imaging Report ---
Indication: Routine screening. Comparison is made with prior mammogram from 11/04/2016 and 09/03/2015. 2-D and 3-D unilateral left screening mammography was performed with CAD. Scattered fibroglandular densities are identified in the left breast. No mass or malignant-appearing microcalcifications are seen. There are benign calcifications present. The left axilla is unremarkable. Impression: BI-RADS category 2 No mammographic features suspicious for malignancy are identified. ACR BI-RADS Category 2: Benign findings. Result letter will be mailed to the patient. Note: At least 10% of breast cancer is not imaged by mammography. Dictated by: Dictated on workstation # [id number]
== END ==
LOC: RAD 15:34
PROVIDERS: ATTEND Nurse Practitioner Adult Health
DX: C50.411 Malignant neoplasm of upper-outer quadrant of right female breast (principal); Z12.31 Encounter for screening mammogram for malignant neoplasm of breast

== ENCOUNTER → 2017-11-06 | Outpatient (CLI) | payer MEDICARE ==
[~2017-11-06] MED LIST changes: +RT-ALBUTEROL SULF 2.5 MG/3 ML PRE-MIX VIAL INH ONE
== END ==
LOC: RT 12:23
PROVIDERS: ATTEND Nurse Practitioner Family
DX: I27.0 Primary pulmonary hypertension (principal); J44.9 Chronic obstructive pulmonary disease, unspecified; R06.00 Dyspnea, unspecified
CPT/HCPCS: 94060; 94726; 94729

== ENCOUNTER 2017-12-17 10:32 | Outpatient (RCR) | payer MEDICARE ==
[~2017-12-17 10:32] MED LIST changes: -OXYC-197 PO; +OXYC1TAB87 PO; -RT-ALBUTEROL SULF 2.5 MG/3 ML PRE-MIX VIAL INH ONE
[2017-12-17 10:41] LABS: BASOPHILS # (AUTO) 0.1 10^3/uL (0.0-0.1); BASOPHILS % (AUTO) 1 % (0-10); EOSINOPHILS # (AUTO) 0.2 10^3/uL (0.0-0.3); EOSINOPHILS % (AUTO) 3 % (0-10); HEMATOCRIT 39 % (35-52); HEMOGLOBIN 12.7 G/DL (11.5-16.0); LYMPHOCYTES # (AUTO) 2.6 X 10^3 (1.0-4.0); LYMPHOCYTES % (AUTO) 28 % (12-44); MEAN CORPUSCULAR HEMOGLOBIN 28 PG (25-34); MEAN CORPUSCULAR HGB CONC 33 G/DL (32-36); MEAN CORPUSCULAR VOLUME 86 FL (80-99); MEAN PLATELET VOLUME 9.6 FL (7.4-10.4); MONOCYTES # (AUTO) 0.8 X 10^3 (0.0-1.0); MONOCYTES % (AUTO) 9 % (0-12); NEUTROPHILS # (AUTO) 5.4 X 10^3 (1.8-7.8); NEUTROPHILS % (AUTO) 60 % (42-75); PLATELET COUNT 263 10^3/uL (130-400); RED BLOOD COUNT 4.54 10^6/uL (4.35-5.85); RED CELL DISTRIBUTION WIDTH 14.6 % (10.0-14.5); WHITE BLOOD COUNT 9.1 10^3/uL (4.3-11.0)
[2017-12-17 11:16] LABS: ALBUMIN 4.1 GM/DL (3.2-4.5); BILIRUBIN,TOTAL 0.6 MG/DL (0.1-1.0); CALCIUM 9.3 MG/DL (8.5-10.1); CREATININE SERUM 1.09 MG/DL (0.60-1.30); POTASSIUM 3.1 MMOL/L (3.6-5.0); TOTAL PROTEIN 7.1 GM/DL (6.4-8.2)
== END 2017-12-25 | disposition home or self-care (01) ==
LOC: ONC 10:32
PROVIDERS: ATTEND Internal Medicine Hematology & Oncology
DX: C50.411 Malignant neoplasm of upper-outer quadrant of right female breast (principal); M85.80 Other specified disorders of bone density and structure, unspecified site; I25.10 Atherosclerotic heart disease of native coronary artery without angina pectoris; I10 Essential (primary) hypertension; E11.9 Type 2 diabetes mellitus without complications; E78.5 Hyperlipidemia, unspecified; F32.9 Major depressive disorder, single episode, unspecified; M19.91 Primary osteoarthritis, unspecified site; E28.39 Other primary ovarian failure; E79.0 Hyperuricemia without signs of inflammatory arthritis and tophaceous disease; R29.890 Loss of height; E66.01 Morbid (severe) obesity due to excess calories; Z68.42 Body mass index [BMI] 45.0-49.9, adult; Z17.0 Estrogen receptor positive status [ER+]; Z86.39 Personal history of other endocrine, nutritional and metabolic disease; Z79.811 Long term (current) use of aromatase inhibitors; Z79.899 Other long term (current) drug therapy; Z78.0 Asymptomatic menopausal state
CPT/HCPCS: 36415; 80053; 82306; 85025; 99213

== ENCOUNTER → 2017-12-29 | Outpatient (CLI) | payer MEDICARE ==
[2017-12-29 13:04] LABS: BASOPHILS % (AUTO) 1 % (0-10); EOSINOPHILS # (AUTO) 0.3 10^3/uL (0.0-0.3); EOSINOPHILS % (AUTO) 3 % (0-10); HEMATOCRIT 38 % (35-52); HEMOGLOBIN 12.5 G/DL (11.5-16.0); LYMPHOCYTES # (AUTO) 2.8 X 10^3 (1.0-4.0); LYMPHOCYTES % (AUTO) 34 % (12-44); MEAN CORPUSCULAR HEMOGLOBIN 28 PG (25-34); MEAN CORPUSCULAR HGB CONC 33 G/DL (32-36); MEAN CORPUSCULAR VOLUME 87 FL (80-99); MEAN PLATELET VOLUME 9.7 FL (7.4-10.4); MONOCYTES # (AUTO) 0.7 X 10^3 (0.0-1.0); MONOCYTES % (AUTO) 9 % (0-12); NEUTROPHILS # (AUTO) 4.4 X 10^3 (1.8-7.8); NEUTROPHILS % (AUTO) 54 % (42-75); PLATELET COUNT 260 10^3/uL (130-400); RED BLOOD COUNT 4.43 10^6/uL (4.35-5.85); RED CELL DISTRIBUTION WIDTH 14.9 % (10.0-14.5); WHITE BLOOD COUNT 8.2 10^3/uL (4.3-11.0)
[2017-12-29 13:30] LABS: URINE CREATININE FOR RATIO 15 MG/DL (30-125); URINE PROTEIN FOR RATIO ONLY < 6 MG/DL (6-12)
[2017-12-29 13:32] LABS: ALBUMIN 4.1 GM/DL (3.2-4.5); CALCIUM 9.7 MG/DL (8.5-10.1); CREATININE SERUM 1.09 MG/DL (0.60-1.30); PHOSPHORUS 3.8 MG/DL (2.3-4.7)
== END ==
LOC: LAB 12:40
PROVIDERS: ATTEND Internal Medicine Nephrology
DX: N25.81 Secondary hyperparathyroidism of renal origin (principal); E78.5 Hyperlipidemia, unspecified; R80.9 Proteinuria, unspecified; E87.6 Hypokalemia; E55.9 Vitamin D deficiency, unspecified; I12.9 Hypertensive chronic kidney disease with stage 1 through stage 4 chronic kidney disease, or unspecified chronic kidney disease; E11.22 Type 2 diabetes mellitus with diabetic chronic kidney disease; N18.3 Chronic kidney disease, stage 3 (moderate); N39.0 Urinary tract infection, site not specified; M10.9 Gout, unspecified; N25.0 Renal osteodystrophy
CPT/HCPCS: 36415; 80061; 80069; 82306; 82570; 83970; 84156; 85025

== ENCOUNTER 2018-06-17 10:26 | Outpatient (RCR) | payer MEDICARE ==
[2018-06-17 10:36] LABS: BASOPHILS # (AUTO) 0.1 10^3/uL (0.0-0.1); BASOPHILS % (AUTO) 1 % (0-10); EOSINOPHILS # (AUTO) 0.4 10^3/uL (0.0-0.3); EOSINOPHILS % (AUTO) 5 % (0-10); HEMATOCRIT 40 % (35-52); HEMOGLOBIN 13.3 G/DL (11.5-16.0); LYMPHOCYTES # (AUTO) 2.7 X 10^3 (1.0-4.0); LYMPHOCYTES % (AUTO) 35 % (12-44); MEAN CORPUSCULAR HEMOGLOBIN 29 PG (25-34); MEAN CORPUSCULAR HGB CONC 33 G/DL (32-36); MEAN CORPUSCULAR VOLUME 88 FL (80-99); MEAN PLATELET VOLUME 9.2 FL (7.4-10.4); MONOCYTES # (AUTO) 0.7 X 10^3 (0.0-1.0); MONOCYTES % (AUTO) 10 % (0-12); NEUTROPHILS # (AUTO) 3.9 X 10^3 (1.8-7.8); NEUTROPHILS % (AUTO) 50 % (42-75); PLATELET COUNT 242 10^3/uL (130-400); RED CELL DISTRIBUTION WIDTH 14.9 % (10.0-14.5); WHITE BLOOD COUNT 7.8 10^3/uL (4.3-11.0)
[2018-06-17 11:01] LABS: ALBUMIN 4.2 GM/DL (3.2-4.5); BILIRUBIN,TOTAL 0.6 MG/DL (0.1-1.0); CALCIUM 9.8 MG/DL (8.5-10.1); CREATININE SERUM 1.23 MG/DL (0.60-1.30); POTASSIUM 3.9 MMOL/L (3.6-5.0); TOTAL PROTEIN 7.3 GM/DL (6.4-8.2)
== END 2018-09-15 | disposition home or self-care (01) ==
LOC: ONC 10:26
PROVIDERS: ATTEND Internal Medicine Hematology & Oncology
DX: C50.411 Malignant neoplasm of upper-outer quadrant of right female breast (principal); M85.80 Other specified disorders of bone density and structure, unspecified site; I25.10 Atherosclerotic heart disease of native coronary artery without angina pectoris; I10 Essential (primary) hypertension; E11.9 Type 2 diabetes mellitus without complications; E78.5 Hyperlipidemia, unspecified; F32.9 Major depressive disorder, single episode, unspecified; M19.91 Primary osteoarthritis, unspecified site; E28.39 Other primary ovarian failure; E79.0 Hyperuricemia without signs of inflammatory arthritis and tophaceous disease; R29.890 Loss of height; E66.01 Morbid (severe) obesity due to excess calories; Z68.42 Body mass index [BMI] 45.0-49.9, adult; Z17.0 Estrogen receptor positive status [ER+]; Z86.39 Personal history of other endocrine, nutritional and metabolic disease; Z79.811 Long term (current) use of aromatase inhibitors; Z79.899 Other long term (current) drug therapy
CPT/HCPCS: 36415; 80053; 82306; 85025; 99213

== ENCOUNTER → 2018-07-01 | Outpatient (CLI) | payer MEDICARE ==
[2018-07-01 09:42] LABS: HEMOGLOBIN 12.5 G/DL (11.5-16.0); MEAN PLATELET VOLUME 9.4 FL (7.4-10.4); RED CELL DISTRIBUTION WIDTH 14.5 % (10.0-14.5); WHITE BLOOD COUNT 6.7 10^3/uL (4.3-11.0)
[2018-07-01 09:49] LABS: BILIRUBIN,URINE NEGATIVE (NEGATIVE); CLARITY,URINE CLEAR; COLOR,URINE YELLOW; GLUCOSE, URINE (UA) NEGATIVE (NEGATIVE); KETONES,URINE NEGATIVE (NEGATIVE); LEUKOCYTE ESTERASE ,URINE 3+ (NEGATIVE); NITRITE,URINE NEGATIVE (NEGATIVE); PH,URINE 7 (5-9); PROTEIN,URINE 1+ (NEGATIVE); UROBILINOGEN,URINE NORMAL (NORMAL)
[2018-07-01 09:58] LABS: BACTERIA,URINE FEW /HPF
[2018-07-01 09:59] LABS: AMORPHOUS SEDIMENT,UR FEW AMOR PHOSPHATE /LPF
[2018-07-01 10:07] LABS: ALBUMIN 3.9 GM/DL (3.2-4.5); CALCIUM 9.4 MG/DL (8.5-10.1); CREATININE SERUM 1.12 MG/DL (0.60-1.30); MAGNESIUM 1.8 MG/DL (1.8-2.4); PHOSPHORUS 3.7 MG/DL (2.3-4.7); POTASSIUM 4.2 MMOL/L (3.6-5.0); URIC ACID 3.9 MG/DL (2.6-7.2)
== END ==
LOC: LAB 09:23
PROVIDERS: ATTEND Nurse Practitioner
DX: E78.5 Hyperlipidemia, unspecified (principal); E11.22 Type 2 diabetes mellitus with diabetic chronic kidney disease; I13.0 Hypertensive heart and chronic kidney disease with heart failure and stage 1 through stage 4 chronic kidney disease, or unspecified chronic kidney disease; N18.3 Chronic kidney disease, stage 3 (moderate); N25.81 Secondary hyperparathyroidism of renal origin; R80.9 Proteinuria, unspecified; E87.6 Hypokalemia; I12.9 Hypertensive chronic kidney disease with stage 1 through stage 4 chronic kidney disease, or unspecified chronic kidney disease; N39.0 Urinary tract infection, site not specified; M10.9 Gout, unspecified; C50.919 Malignant neoplasm of unspecified site of unspecified female breast; E55.9 Vitamin D deficiency, unspecified; I25.10 Atherosclerotic heart disease of native coronary artery without angina pectoris; I50.9 Heart failure, unspecified; N25.0 Renal osteodystrophy
CPT/HCPCS: 36415; 80061; 80069; 81000; 82570; 83036; 83735; 83970; 84156; 84550; 85027; 87088

== ENCOUNTER → 2018-11-09 | Outpatient (CLI) | payer MEDICARE ==
--- NOTE | 2018-11-09 13:26 | Diagnostic Imaging Report ---
INDICATION: Routine screening. COMPARISON: 11/05/2017 and 11/04/2016. TECHNIQUE: Unilateral left 2D and 3D screening mammography was performed with CAD. FINDINGS: Scattered fibroglandular densities are identified in the left breast. Benign calcifications in the left breast are noted. No mass or malignant appearing microcalcifications are seen. The left axilla is unremarkable. IMPRESSION: No mammographic features suspicious for malignancy are identified. ACR BI-RADS Category 2: Benign findings. Result letter will be mailed to the patient. Note: At least 10% of breast cancer is not imaged by mammography. Dictated by: Dictated on workstation # [id number]
== END ==
LOC: RAD 09:53
PROVIDERS: ATTEND Nurse Practitioner Adult Health
DX: Z12.31 Encounter for screening mammogram for malignant neoplasm of breast (principal); Z85.3 Personal history of malignant neoplasm of breast

== ENCOUNTER → 2018-12-10 | Outpatient (CLI) | payer MEDICARE | LOC: CARD 12:52 | PROVIDERS: ATTEND Internal Medicine Cardiovascular Disease | DX: I25.10 Atherosclerotic heart disease of native coronary artery without angina pectoris (principal); I08.2 Rheumatic disorders of both aortic and tricuspid valves; I27.20 Pulmonary hypertension, unspecified; I11.9 Hypertensive heart disease without heart failure; I65.29 Occlusion and stenosis of unspecified carotid artery; E78.5 Hyperlipidemia, unspecified | CPT/HCPCS: 93306 ==

== ENCOUNTER → 2018-12-16 | Outpatient (CLI) | payer MEDICARE ==
[2018-12-16 10:32] LABS: BASOPHILS # (AUTO) 0.1 10^3/uL (0.0-0.1); BASOPHILS % (AUTO) 1 % (0-10); EOSINOPHILS # (AUTO) 0.4 10^3/uL (0.0-0.3); EOSINOPHILS % (AUTO) 4 % (0-10); HEMATOCRIT 39 % (35-52); HEMOGLOBIN 12.3 G/DL (11.5-16.0); LYMPHOCYTES # (AUTO) 1.8 X 10^3 (1.0-4.0); LYMPHOCYTES % (AUTO) 23 % (12-44); MEAN CORPUSCULAR HEMOGLOBIN 29 PG (25-34); MEAN CORPUSCULAR HGB CONC 32 G/DL (32-36); MEAN CORPUSCULAR VOLUME 90 FL (80-99); MEAN PLATELET VOLUME 9.9 FL (7.4-10.4); MONOCYTES # (AUTO) 0.8 X 10^3 (0.0-1.0); MONOCYTES % (AUTO) 10 % (0-12); NEUTROPHILS # (AUTO) 4.9 X 10^3 (1.8-7.8); NEUTROPHILS % (AUTO) 62 % (42-75); PLATELET COUNT 233 10^3/uL (130-400); RED CELL DISTRIBUTION WIDTH 15.1 % (10.0-14.5); WHITE BLOOD COUNT 7.9 10^3/uL (4.3-11.0)
[2018-12-16 11:06] LABS: ALBUMIN 3.9 GM/DL (3.2-4.5); BILIRUBIN,TOTAL 0.5 MG/DL (0.1-1.0); CREATININE SERUM 1.17 MG/DL (0.60-1.30); POTASSIUM 4.2 MMOL/L (3.6-5.0); TOTAL PROTEIN 6.7 GM/DL (6.4-8.2)
== END ==
LOC: EDSTATUS 09-16 15:12 → ONC 10:08
PROVIDERS: ATTEND Internal Medicine Hematology & Oncology
DX: C50.411 Malignant neoplasm of upper-outer quadrant of right female breast (principal); M85.80 Other specified disorders of bone density and structure, unspecified site; I25.10 Atherosclerotic heart disease of native coronary artery without angina pectoris; I10 Essential (primary) hypertension; E11.9 Type 2 diabetes mellitus without complications; E78.5 Hyperlipidemia, unspecified; F32.9 Major depressive disorder, single episode, unspecified; M19.91 Primary osteoarthritis, unspecified site; E28.39 Other primary ovarian failure; E79.0 Hyperuricemia without signs of inflammatory arthritis and tophaceous disease; R29.890 Loss of height; E66.01 Morbid (severe) obesity due to excess calories; Z68.42 Body mass index [BMI] 45.0-49.9, adult; Z17.0 Estrogen receptor positive status [ER+]; Z86.39 Personal history of other endocrine, nutritional and metabolic disease; Z79.811 Long term (current) use of aromatase inhibitors; Z79.899 Other long term (current) drug therapy
CPT/HCPCS: 36415; 80053; 85025; 99213

== ENCOUNTER → 2018-12-24 | Outpatient (CLI) | payer MEDICARE ==
[~2018-12-24] MED LIST changes: +RT-ALBUTEROL SULF 2.5 MG/3 ML PRE-MIX VIAL INH ONE
[2018-12-24 11:46] LABS: CREATININE SERUM 1.33 MG/DL (0.60-1.30)
--- NOTE | 2018-12-24 14:46 | Diagnostic Imaging Report ---
INDICATION: Shortness of breath, history of breast cancer and COPD. TECHNIQUE: CT chest obtained without IV contrast. COMPARISON: Comparison made with 07/31/2012. FINDINGS: Given the limitation of lack of IV contrast, there are no appreciably enlarged nodes in the mediastinum or lilliana. There are coronary artery calcifications compatible with coronary artery disease. There are no enlarged axillary nodes. Patient appears to have had prior right mastectomy. There is no pleural or pericardial fluid. There is a moderate-sized hiatal hernia. Visualized portions of the upper abdomen demonstrate atrophic changes of both kidneys with no focal abnormality. Lung parenchymal windows demonstrate some minimal atelectatic change or scarring in the lower lobes. There is some patchy densities in the right middle lobe anteriorly and medially which may represent small areas of infiltrate versus early nodules. The largest area measured about 6 mm on image 74 of 146. IMPRESSION: 1. No overt adenopathy or pleural fluid. There are coronary calcifications compatible with coronary artery disease. There is a moderate-sized hiatal hernia. 2. There is some parenchymal scarring in both lung bases. There is some minimal infiltrate versus nodule in the right middle lobe anteriorly, would recommend followup study in one to two months to further evaluate this area. Dictated by: Dictated on workstation # [id number]
== END ==
LOC: RT 11:21
PROVIDERS: ATTEND Nurse Practitioner Family
DX: J44.9 Chronic obstructive pulmonary disease, unspecified (principal); G47.33 Obstructive sleep apnea (adult) (pediatric); E66.9 Obesity, unspecified; F32.9 Major depressive disorder, single episode, unspecified; K44.9 Diaphragmatic hernia without obstruction or gangrene; Z85.3 Personal history of malignant neoplasm of breast
CPT/HCPCS: 36415; 71250; 82565; 84520; 94060; 94726; 94729

== ENCOUNTER → 2018-12-28 | Outpatient (CLI) | payer MEDICARE ==
[~2018-12-28] MED LIST changes: -RT-ALBUTEROL SULF 2.5 MG/3 ML PRE-MIX VIAL INH ONE
[2018-12-28 10:21] LABS: BASOPHILS # (AUTO) 0.1 10^3/uL (0.0-0.1); BASOPHILS % (AUTO) 1 % (0-10); EOSINOPHILS # (AUTO) 0.5 10^3/uL (0.0-0.3); EOSINOPHILS % (AUTO) 6 % (0-10); HEMATOCRIT 40 % (35-52); HEMOGLOBIN 12.7 G/DL (11.5-16.0); LYMPHOCYTES % (AUTO) 23 % (12-44); MEAN CORPUSCULAR HEMOGLOBIN 28 PG (25-34); MEAN CORPUSCULAR HGB CONC 32 G/DL (32-36); MEAN CORPUSCULAR VOLUME 89 FL (80-99); MEAN PLATELET VOLUME 10.1 FL (7.4-10.4); MONOCYTES # (AUTO) 0.9 X 10^3 (0.0-1.0); MONOCYTES % (AUTO) 10 % (0-12); NEUTROPHILS % (AUTO) 60 % (42-75); PLATELET COUNT 247 10^3/uL (130-400); RED CELL DISTRIBUTION WIDTH 15.2 % (10.0-14.5); WHITE BLOOD COUNT 8.5 10^3/uL (4.3-11.0)
== END ==
LOC: LAB 10:08
PROVIDERS: ATTEND Nurse Practitioner Family
DX: J44.9 Chronic obstructive pulmonary disease, unspecified (principal); F32.9 Major depressive disorder, single episode, unspecified; E66.9 Obesity, unspecified; G47.33 Obstructive sleep apnea (adult) (pediatric)
CPT/HCPCS: 36415; 85025

== ENCOUNTER → 2018-12-29 | Outpatient (CLI) | payer MEDICARE ==
[2018-12-29 11:25] LABS: CREATININE SERUM 1.2 MG/DL (0.60-1.30)
== END ==
LOC: LAB 10:36
PROVIDERS: ATTEND Nurse Practitioner Family
DX: J44.9 Chronic obstructive pulmonary disease, unspecified (principal); G47.33 Obstructive sleep apnea (adult) (pediatric); F32.9 Major depressive disorder, single episode, unspecified; G47.36 Sleep related hypoventilation in conditions classified elsewhere
CPT/HCPCS: 36415; 82565; 84520

== ENCOUNTER 2019-02-08 10:30 | Outpatient (RCR) | payer MEDICARE, OTHER ==
[2018-11-23 09:30] VITALS: BP 131/70
[2018-11-23 10:31] VITALS: BP 127/60
[2018-11-25 09:30] VITALS: BP 123/60
[2018-11-25 10:45] VITALS: BP 130/60
[2018-11-30 09:23] VITALS: BP 129/62
[2018-11-30 10:25] VITALS: BP 100/65
[2018-12-07 09:30] VITALS: BP 120/60
[2018-12-07 10:45] VITALS: BP 120/60
[2018-12-21 09:40] VITALS: BP 131/60
[2018-12-21 10:30] VITALS: BP 132/60
[2018-12-23 09:25] VITALS: BP 122/60
[2018-12-23 10:35] VITALS: BP 124/60
[2018-12-30 08:00] VITALS: BP 130/60
[2018-12-30 09:09] VITALS: BP 120/70
[2019-01-04 09:30] VITALS: BP 130/60
[2019-01-04 10:30] VITALS: BP 128/61
[2019-01-11 09:30] VITALS: BP 130/60
[2019-01-11 10:35] VITALS: BP 130/50
[2019-01-13 09:30] VITALS: BP 125/60
[2019-01-13 10:45] VITALS: BP 122/60
[2019-01-20 09:30] VITALS: BP 128/60
[2019-01-20 10:45] VITALS: BP 140/60
[2019-01-27 09:30] VITALS: BP 138/66
[2019-02-01 09:30] VITALS: BP 115/60
[2019-02-01 10:34] VITALS: BP 120/60
[2019-02-03 09:30] VITALS: BP 110/60
[2019-02-03 10:43] VITALS: BP 123/69
[2019-02-08 10:30] VITALS: BP 140/60
[2019-02-08 11:29] VITALS: BP 127/62
== END 2019-02-13 | disposition home or self-care (01) ==
LOC: PULM 10:30
PROVIDERS: ATTEND Nurse Practitioner Family
DX: J44.9 Chronic obstructive pulmonary disease, unspecified (principal); R09.02 Hypoxemia; E66.9 Obesity, unspecified
CPT/HCPCS: 99211

== ENCOUNTER → 2019-02-10 | Outpatient (CLI) | payer MEDICARE, OTHER ==
--- NOTE | 2019-02-10 09:25 | Diagnostic Imaging Report ---
PROCEDURE: CT chest without contrast. TECHNIQUE: Multiple contiguous axial images were obtained through the chest without the use of intravenous contrast. Auto Exposure Controls were utilized during the CT exam to meet ALARA standards for radiation dose reduction. INDICATION: Dyspnea and COPD. Comparison is made to examination of 12/24/2018. FINDINGS: Similar to the previous study, there are multiple subcentimeter lymph nodes in the upper mediastinum. No pathologic adenopathy is identified on the noncontrasted study. There is dense coronary artery calcification. There is mild dilatation of the esophagus. Nodular densities in the medial segment of the right middle lobe are again noted. Overall, there has been no adverse change. No significant pleural or pericardial fluid is identified. Upper abdominal sections are stable and unremarkable. IMPRESSION: Essentially unchanged appearance of the chest by CT imaging. Focal nodularity in the right middle lobe has not changed. This may represent chronic infiltrate or scarring. This could be further assessed on follow-up study in 6 months to document ongoing stability. Dictated by: Dictated on workstation # [id number]
== END ==
LOC: RAD 08:41
PROVIDERS: ATTEND Nurse Practitioner Family
DX: J44.9 Chronic obstructive pulmonary disease, unspecified (principal); G47.33 Obstructive sleep apnea (adult) (pediatric); E66.9 Obesity, unspecified; R91.8 Other nonspecific abnormal finding of lung field
CPT/HCPCS: 71250

== ENCOUNTER 2019-02-24 09:30 | Outpatient (RCR) | payer MEDICARE, OTHER ==
[2019-02-22 09:30] VITALS: BP 140/55
[2019-02-22 10:28] VITALS: BP 127/85
[2019-02-24 09:30] VITALS: BP 172/70
[~2019-02-24 09:30] MED LIST changes: -GLIM1TAB PO; +GLIM1TAB2 PO
[2019-02-24 10:30] VITALS: BP 168/70
[2019-03-10] MEDS ORDERED: PRAV40TA PO (12:46)
[2019-03-10] MEDS ORDERED: FLUT1DIS26 IH (12:46)
[2019-03-10] MEDS ORDERED: CETI10TA17 PO (12:46)
[2019-03-10] MEDS ORDERED: BUSP10TA95 PO (12:46)
[2019-03-10] MEDS ORDERED: TRIA1TAB5 PO (12:46)
[2019-03-10] MEDS ORDERED: CHOL5000 PO (12:46)
[2019-03-10] MEDS ORDERED: MONT10TA24 PO (12:46)
[2019-03-10] MEDS ORDERED: POTA20TA15 PO (12:46)
[2019-03-10] MEDS ORDERED: FURO20TA4 PO (12:46)
[2019-03-10] MEDS ORDERED: GLIM1TAB2 PO (12:46)
[2019-03-10] MEDS ORDERED: FEBU40TA PO (12:46)
[2019-03-10] MEDS ORDERED: CITA20TA12 PO (12:46)
[2019-03-10] MEDS ORDERED: LEVO100T7 PO (12:46)
[2019-03-10] MEDS ORDERED: AMLO5TAB4 PO (12:46)
[2019-03-10] MEDS ORDERED: CARV12.53 PO (12:46)
[2019-03-10] MEDS ORDERED: FLUT9.9S NS (12:46)
== END 2019-05-16 | disposition home or self-care (01) ==
LOC: PULM 09:30
PROVIDERS: ATTEND Nurse Practitioner Family
DX: J44.9 Chronic obstructive pulmonary disease, unspecified (principal); E66.9 Obesity, unspecified

== ENCOUNTER 2019-03-10 05:40 | Outpatient (CLI) | payer MEDICARE ==
[~2019-03-10] VITALS: Ht 149 cm; Wt 104.0 kg
[~2019-03-10 05:40] MED LIST changes: +GLIM1TAB PO; -GLIM1TAB2 PO
[2019-03-10] MEDS ORDERED: FURO20TA4 PO (12:46)
[2019-03-10] MEDS ORDERED: POTA20TA15 PO (12:46)
[2019-03-10] MEDS ORDERED: CETI10TA17 PO (12:46)
[2019-03-10] MEDS ORDERED: AMLO5TAB4 PO (12:46)
[2019-03-10] MEDS ORDERED: MONT10TA24 PO (12:46)
[2019-03-10] MEDS ORDERED: CITA20TA12 PO (12:46)
[2019-03-10] MEDS ORDERED: LEVO100T7 PO (12:46)
[2019-03-10] MEDS ORDERED: CARV12.53 PO (12:46)
[2019-03-10] MEDS ORDERED: BUSP10TA95 PO (12:46)
[2019-03-10] MEDS ORDERED: CHOL5000 PO (12:46)
[2019-03-10] MEDS ORDERED: FLUT1DIS26 IH (12:46)
[2019-03-10] MEDS ORDERED: FLUT9.9S NS (12:46)
[2019-03-10] MEDS ORDERED: PRAV40TA PO (12:46)
[2019-03-10] MEDS ORDERED: GLIM1TAB PO (12:46)
[2019-03-10] MEDS ORDERED: TRIA1TAB5 PO (12:46)
[2019-03-10] MEDS ORDERED: FEBU40TA PO (12:46)
== END 2019-03-10 12:48 | disposition home or self-care (01) ==
LOC: PREOP 05:40
PROVIDERS: ATTEND Internal Medicine Critical Care Medicine
DX: Z01.818 Encounter for other preprocedural examination (principal)

== ENCOUNTER 2019-03-16 06:56 | Day surgery (SDC) | payer MEDICARE ==
[~2019-03-16] VITALS: Ht 150 cm; Wt 104.0 kg
[2019-03-16] VITALS (11 sets, daily range): BP systolic 117–143; BP diastolic 50–68
[~2019-03-16 06:56] MED LIST changes: +AMLO5TAB4 PO; +BUSP10TA95 PO; +CETI10TA17 PO; +CITA20TA12 PO; +FLUT1DIS26 IH; +FLUT9.9S NS; +LEVO100T7 PO; +MONT10TA24 PO; +TRIA1TAB5 PO
[2019-03-16] MEDS ORDERED: LIDOCAINE PF 2% 2 ML (XYLOCAINE) VIAL IJ ONE (06:57)
[2019-03-16] MEDS ORDERED: LIDOCAINE PF 1% 2 ML VIAL IJ ONE (06:57)
[2019-03-16] MEDS ORDERED: LACTATED RINGERS 1,000 ML IV STA (07:00)
[2019-03-16] MEDS ORDERED: LACTATED RINGERS 1,000 ML IV ONE (07:03)
[2019-03-16] MEDS ORDERED: ONDANSETRON 4 MG/2 ML (SDV) Z0FRAN ONE (07:29)
[2019-03-16] MEDS ORDERED: SEVOFLURANE (ULTANE) 15 ML INHAL SOLN ONE (07:29)
[2019-03-16] MEDS ORDERED: fentaNYL INJECTION 100 MCG/2 ML AMP ONE (07:29)
[2019-03-16] MEDS ORDERED: MIDAZOLAM 2 MG/2 ML (VERSED) VIAL ONE (07:29)
[2019-03-16] MEDS ORDERED: ROCURONIUM 10 MG/ML 5 ML SYRINGE IV ONE (07:29)
[2019-03-16] MEDS ORDERED: proPOfol 200 MG/20 ML (DIPRIVAN) VIAL IV ONE (07:29)
[2019-03-16] MEDS ORDERED: NEOSTIGMINE 3 MG/3 ML VIAL ONE (07:30)
[2019-03-16] MEDS ORDERED: GLYCOPYRROLATE 0.2 MG/ML (ROBINUL) 2 ML VIAL ONE (07:30)
--- NOTE | 2019-03-16 07:47 | Pulmonary Procedures ---
Pulmonary Procedures Date of Procedure Date of Service: Mar 16, 2019 Bronch Bronchoscopy with RML transbronchial brush using fluoroscopy, RML BAL, and bilateral wash. EBUS was used to US mediastinum there were no lymph nodes large enough to bx. Preop DX: RML persistent infiltrate with nodulation. Pt has hx of breast cancer. No percepta brush done PostOP DX: same - No endobronchial mass, no mucous plugging. Complications: None Pt was sedated per anesthesia. Bronchoscope was advanced through the ET tube and an anatomical undertaken down to the segmental bronchi bilaterally. No endobronchial lesions noted. Bronchoscopy was used to obtain RML transbronchial brush using fluoroscopy, RML BAL, and bilateral wash. EBUS was used to US mediastinum there were no lymph nodes large enough to bx. . Pt tolerated procedure well. No complications noted. MARI WALTER DO Mar 16, 2019 07:47 POS
--- NOTE | 2019-03-16 07:48 | Progress Note-Pre Operative ---
Pre-Operative Progress Note H&P Reviewed The H&P was reviewed, patient examined and no changes noted. Time Seen by Provider: 08:00 Date H&P Reviewed: Mar 16, 2019 Time H&P Reviewed: 07:48 Pre-Operative Diagnosis: persistent RML infiltration MARI WALTER DO Mar 16, 2019 07:48 POS
--- NOTE | 2019-03-16 08:50 | Diagnostic Imaging Report ---
EXAMINATION: Chest 1 view. HISTORY: POST BRONCHOSCOPY. COMPARISON: 10/21/2017. FINDINGS: Right base airspace opacity is likely from recent bronchoscopy. No pleural effusion or pneumothorax. No edema. Heart size is normal. IMPRESSION: 1. Right base airspace opacity likely from recent bronchoscopy. No pneumothorax. Dictated by: Dictated on workstation # [id number]
--- NOTE | 2019-03-16 08:54 | Diagnostic Imaging Report ---
INDICATION: Bronchoscopy COMPARISON: 02/10/2019 FINDINGS: Single intraprocedural image of the lower right chest is submitted demonstrating bronchoscopy. IMPRESSION: Intraoperative images from bronchoscopy. Bronchoscopy scope is seen overlying the right lung base. See surgical notes for full details. Fluoroscopy time: 13.9 seconds. Dictated by: Dictated on workstation # [id number]
--- NOTE | 2019-03-16 14:42 | Anesthesia-General Post-Op ---
General Patient Condition Mental Status/LOC: Same as Preop Cardiovascular: Satisfactory Nausea/Vomiting: Absent Respiratory: Satisfactory Pain: Controlled Complications: Absent Post Op Complications Complications None Follow Up Care/Instructions Patient Instructions None needed. Anesthesia/Patient Condition Patient Condition Patient was seen this morning after the procedure and she was doing well, no complaints, stable vital signs, no apparent adverse anesthesia problems. CARO REED DO Mar 16, 2019 14:42 POS
== END 2019-03-16 09:30 | disposition home or self-care (01) ==
LOC: ENDO 06:56
PROVIDERS: ATTEND Internal Medicine Critical Care Medicine
DX: R91.8 Other nonspecific abnormal finding of lung field (principal); I25.10 Atherosclerotic heart disease of native coronary artery without angina pectoris; G47.33 Obstructive sleep apnea (adult) (pediatric); E78.5 Hyperlipidemia, unspecified; E11.22 Type 2 diabetes mellitus with diabetic chronic kidney disease; I12.9 Hypertensive chronic kidney disease with stage 1 through stage 4 chronic kidney disease, or unspecified chronic kidney disease; I65.29 Occlusion and stenosis of unspecified carotid artery; N18.3 Chronic kidney disease, stage 3 (moderate); M10.9 Gout, unspecified; M19.90 Unspecified osteoarthritis, unspecified site; E66.01 Morbid (severe) obesity due to excess calories; F32.9 Major depressive disorder, single episode, unspecified; Z85.3 Personal history of malignant neoplasm of breast; Z87.891 Personal history of nicotine dependence; Z68.42 Body mass index [BMI] 45.0-49.9, adult; Z79.899 Other long term (current) drug therapy; Z79.84 Long term (current) use of oral hypoglycemic drugs; Z90.89 Acquired absence of other organs; Z90.710 Acquired absence of both cervix and uterus; Z79.82 Long term (current) use of aspirin; Z82.49 Family history of ischemic heart disease and other diseases of the circulatory system; Z83.3 Family history of diabetes mellitus
CPT/HCPCS: 71045; 87015; 87070; 87101; 87116; 87205; 87206; 88112; 88305; 88312; 94640

== ENCOUNTER → 2019-05-31 | Outpatient (CLI) | payer MEDICARE ==
[~2019-05-31] MED LIST changes: -GLIM1TAB PO; +GLIM1TAB2 PO
--- NOTE | 2019-05-31 08:59 | Diagnostic Imaging Report ---
INDICATION: 73-year-old female, postmenopausal. Screening for osteoporosis. COMPARISON: March 12, 2017. FINDINGS: AP Spine L1-L4: [BMD (g/cm2): 1.258] [T-Score: 0.5] [Z-Score: 1.0] [BMD Previous: 1.237] [BMD % Change: 1.7] LT Hip Neck: [BMD (g/cm2): 0.736] [T-Score: -2.2] [Z-Score: -1.1] LT Hip Total: [BMD (g/cm2):0.934] [T-Score:-0.6] [Z-Score: 0.2] [BMD Previous: 0.953] [BMD % Change: -2.0] RT Hip Neck: [BMD (g/cm2):0.796] [T-Score:-1.7] [Z-Score:-0.7] RT Hip Total: [BMD (g/cm2):0.889] [T-score:-0.9] [Z-Score:-0.2] [BMD Previous:0.935] [BMD % Change:-4.9] *Indicates significant change from prior examination based on 95% confidence level. World Health Organization criteria for BMD interpretation classify patients as Normal (T-score at or above -1.0), Osteopenic (T-score between -1.0 and -2.5) or Osteoporotic (T-score at or below -2.5). LIMITATIONS AND MODIFICATION: None. IMPRESSION: 1. Normal bone mineral density. 2. No significant change in bone mineral density since prior examination. 3. See below National Osteoporosis Foundation guidelines on when to potentially initiate pharmacologic therapy. Based on the National Osteoporosis Foundation Guidelines, pharmacologic treatment should be initiated in any of the following, unless clinical conditions suggest otherwise: * Any patient with prior fragility fracture of the hip or vertebrae. A spine fracture indicates 5X risk for subsequent spine fracture and 2X risk for subsequent hip fracture. * Osteoporosis (T-score <-2.5). * Postmenopausal women and men age 50 and older with low bone mass/osteopenia (T-score between -1.0 and -2.5) by DXA and 10-year major osteoporotic fracture greater than 20% or a 10-year probability of hip fracture greater than 3%. These fracture risks are supplied above in the FRAX score, if applicable. * Clinician judgement and/or patient preferences may indicate treatment for people with 10-year fracture probabilities above or below these levels. Dictated by: Dictated on workstation # [id number]
== END ==
LOC: RAD 08:07
PROVIDERS: ATTEND Nurse Practitioner Adult Health
DX: Z13.820 Encounter for screening for osteoporosis (principal); Z78.0 Asymptomatic menopausal state; Z79.811 Long term (current) use of aromatase inhibitors
CPT/HCPCS: 77080

== ENCOUNTER → 2019-06-16 | Outpatient (CLI) | payer MEDICARE ==
[~2019-06-16] MED LIST changes: -GLIM1TAB2 PO; +GLIM1TAB4 PO; -MONT10TA24 PO; +MONT10TA26 PO
[2019-06-16 11:18] LABS: BASOPHILS % (AUTO) 1 % (0-10); EOSINOPHILS # (AUTO) 0.3 10^3/uL (0.0-0.3); EOSINOPHILS % (AUTO) 4 % (0-10); HEMATOCRIT 40 % (35-52); HEMOGLOBIN 12.8 G/DL (11.5-16.0); LYMPHOCYTES # (AUTO) 2.1 X 10^3 (1.0-4.0); LYMPHOCYTES % (AUTO) 30 % (12-44); MEAN CORPUSCULAR HEMOGLOBIN 28 PG (25-34); MEAN CORPUSCULAR HGB CONC 32 G/DL (32-36); MEAN CORPUSCULAR VOLUME 88 FL (80-99); MEAN PLATELET VOLUME 9.9 FL (7.4-10.4); MONOCYTES # (AUTO) 0.7 X 10^3 (0.0-1.0); MONOCYTES % (AUTO) 10 % (0-12); NEUTROPHILS # (AUTO) 3.8 X 10^3 (1.8-7.8); NEUTROPHILS % (AUTO) 55 % (42-75); PLATELET COUNT 255 10^3/uL (130-400); RED CELL DISTRIBUTION WIDTH 14.5 % (10.0-14.5)
[2019-06-16 11:38] LABS: ALBUMIN 4.1 GM/DL (3.2-4.5); BILIRUBIN,TOTAL 0.5 MG/DL (0.1-1.0); CALCIUM 9.3 MG/DL (8.5-10.1); CREATININE SERUM 1.18 MG/DL (0.60-1.30); POTASSIUM 4.2 MMOL/L (3.6-5.0); TOTAL PROTEIN 7.2 GM/DL (6.4-8.2)
== END | disposition still patient (30) ==
LOC: ONC 10:27
PROVIDERS: ATTEND Internal Medicine Hematology & Oncology
DX: C50.911 Malignant neoplasm of unspecified site of right female breast (principal); I25.10 Atherosclerotic heart disease of native coronary artery without angina pectoris; E66.01 Morbid (severe) obesity due to excess calories; J98.4 Other disorders of lung; E11.22 Type 2 diabetes mellitus with diabetic chronic kidney disease; G47.33 Obstructive sleep apnea (adult) (pediatric); I12.9 Hypertensive chronic kidney disease with stage 1 through stage 4 chronic kidney disease, or unspecified chronic kidney disease; F32.9 Major depressive disorder, single episode, unspecified; N18.3 Chronic kidney disease, stage 3 (moderate); M19.90 Unspecified osteoarthritis, unspecified site; E79.0 Hyperuricemia without signs of inflammatory arthritis and tophaceous disease; Z98.890 Other specified postprocedural states; Z79.899 Other long term (current) drug therapy; Z17.0 Estrogen receptor positive status [ER+]; Z90.11 Acquired absence of right breast and nipple
CPT/HCPCS: 80053; 82306; 85025; 99213

== ENCOUNTER → 2019-06-28 | Outpatient (CLI) | payer MEDICARE ==
[~2019-06-28] MED LIST changes: +CATHETER FLUSH 10 ML SYR IV PRN; +HOLD METFORMIN - RECEIVED CONTRAST 20 ML VIAL IV SCH; +IOHEXOL 350 MG/ML 100 ML (OMNIPAQUE 350) VIAL IV ONE; +NS 100 ML (IVPB) BAG IV ONE
--- NOTE | 2019-06-28 10:06 | Diagnostic Imaging Report ---
PROCEDURE: CT chest with contrast only. TECHNIQUE: Multiple contiguous axial images were obtained through the chest after administration of intravenous contrast. Auto Exposure Controls were utilized during the CT exam to meet ALARA standards for radiation dose reduction. INDICATION: Shortness of air, asthma, COPD. COMPARISON: 02/10/2019. FINDINGS: No consolidation. No evidence for edema, pneumonia, or hemorrhage. No mass or adenopathy. No effusion or pneumothorax. No acute chest wall pathology. There is a small hiatal hernia, chronic. The visualized upper abdomen is nonacute. The aorta is patent and nonaneurysmal. There is no pleural or pericardial effusion. There is substantial coronary arterial atherosclerotic disease, most notably along the left sided vessels. IMPRESSION: No acute appearing abnormality. Dictated by: Dictated on workstation # [id number]
--- NOTE | 2019-06-30 11:34 | NUR ---
RECEIVED ORDER FROM DR WALTER'S OFFICE FOR PT TO GO THROUGH PULMONARY REHABILITATION. CONTACTED PT TO SET UP EVALUATION; PT DECLINED SERVICE AT THIS TIME. SHE STATED THAT SHE AND HER SPOUSE MAY JOIN THE [facility] FOR EXERCISE.
== END ==
LOC: RAD 09:24
PROVIDERS: ATTEND Nurse Practitioner Family
DX: J44.9 Chronic obstructive pulmonary disease, unspecified (principal); G47.33 Obstructive sleep apnea (adult) (pediatric); E66.9 Obesity, unspecified; F32.9 Major depressive disorder, single episode, unspecified; R91.8 Other nonspecific abnormal finding of lung field
CPT/HCPCS: 71260

== ENCOUNTER → 2019-07-08 | Outpatient (CLI) | payer MEDICARE ==
[~2019-07-08] MED LIST changes: -CATHETER FLUSH 10 ML SYR IV PRN; -HOLD METFORMIN - RECEIVED CONTRAST 20 ML VIAL IV SCH; -IOHEXOL 350 MG/ML 100 ML (OMNIPAQUE 350) VIAL IV ONE; -NS 100 ML (IVPB) BAG IV ONE
[2019-07-08 11:58] LABS: HEMOGLOBIN 13.3 G/DL (11.5-16.0); RED CELL DISTRIBUTION WIDTH 14.4 % (10.0-14.5)
[2019-07-08 12:11] LABS: BILIRUBIN,URINE NEGATIVE (NEGATIVE); CLARITY,URINE CLEAR; COLOR,URINE YELLOW; GLUCOSE, URINE (UA) NEGATIVE (NEGATIVE); KETONES,URINE NEGATIVE (NEGATIVE); LEUKOCYTE ESTERASE ,URINE TRACE (NEGATIVE); NITRITE,URINE NEGATIVE (NEGATIVE); PH,URINE 6.5 (5-9); PROTEIN,URINE NEGATIVE (NEGATIVE)
[2019-07-08 12:38] LABS: ALBUMIN 4.1 GM/DL (3.2-4.5); CALCIUM 9.2 MG/DL (8.5-10.1); CREATININE SERUM 1.26 MG/DL (0.60-1.30); PHOSPHORUS 4.2 MG/DL (2.3-4.7); URIC ACID 3.9 MG/DL (2.6-7.2)
[2019-07-08 12:46] LABS: BACTERIA,URINE TRACE /HPF; SQUAMOUS EPITHELIAL CELL,UR 0-2 /HPF; WBC,URINE 0-2 /HPF
== END ==
LOC: LAB 11:44
PROVIDERS: ATTEND Nurse Practitioner
DX: I13.10 Hypertensive heart and chronic kidney disease without heart failure, with stage 1 through stage 4 chronic kidney disease, or unspecified chronic kidney disease (principal); I50.9 Heart failure, unspecified; N25.0 Renal osteodystrophy; I25.10 Atherosclerotic heart disease of native coronary artery without angina pectoris; E55.9 Vitamin D deficiency, unspecified; C50.919 Malignant neoplasm of unspecified site of unspecified female breast; M10.9 Gout, unspecified; E11.22 Type 2 diabetes mellitus with diabetic chronic kidney disease; N18.3 Chronic kidney disease, stage 3 (moderate); E87.6 Hypokalemia; E78.5 Hyperlipidemia, unspecified; N25.81 Secondary hyperparathyroidism of renal origin
CPT/HCPCS: 36415; 80069; 81000; 82306; 82570; 83970; 84156; 84550; 85027

== ENCOUNTER → 2019-11-22 | Outpatient (CLI) | payer MEDICARE ==
[2019-11-22 15:02] LABS: BASOPHILS # (AUTO) 0.1 10^3/uL (0.0-0.1); BASOPHILS % (AUTO) 1 % (0-10); EOSINOPHILS # (AUTO) 0.9 10^3/uL (0.0-0.3); EOSINOPHILS % (AUTO) 11 % (0-10); HEMATOCRIT 41 % (35-52); HEMOGLOBIN 13.2 G/DL (11.5-16.0); LYMPHOCYTES # (AUTO) 1.9 X 10^3 (1.0-4.0); LYMPHOCYTES % (AUTO) 24 % (12-44); MEAN CORPUSCULAR HEMOGLOBIN 29 PG (25-34); MEAN CORPUSCULAR HGB CONC 32 G/DL (32-36); MEAN CORPUSCULAR VOLUME 89 FL (80-99); MEAN PLATELET VOLUME 10.2 FL (7.4-10.4); MONOCYTES # (AUTO) 0.7 X 10^3 (0.0-1.0); MONOCYTES % (AUTO) 9 % (0-12); NEUTROPHILS # (AUTO) 4.2 X 10^3 (1.8-7.8); NEUTROPHILS % (AUTO) 55 % (42-75); PLATELET COUNT 251 10^3/uL (130-400); RED CELL DISTRIBUTION WIDTH 14.1 % (10.0-14.5); WHITE BLOOD COUNT 7.6 10^3/uL (4.3-11.0)
[2019-11-22 15:24] LABS: BILIRUBIN,TOTAL 0.5 MG/DL (0.1-1.0); CALCIUM 9.3 MG/DL (8.5-10.1); CREATININE SERUM 1.42 MG/DL (0.60-1.30); POTASSIUM 4.1 MMOL/L (3.6-5.0); TOTAL PROTEIN 7.4 GM/DL (6.4-8.2)
== END ==
LOC: ONC 14:19
PROVIDERS: ATTEND Internal Medicine Hematology & Oncology
DX: C50.411 Malignant neoplasm of upper-outer quadrant of right female breast (principal); M85.88 Other specified disorders of bone density and structure, other site; Z96.653 Presence of artificial knee joint, bilateral
CPT/HCPCS: 80053; 85025; G0463; 99213

== ENCOUNTER → 2019-11-25 | Outpatient (CLI) | payer MEDICARE ==
--- NOTE | 2019-11-25 12:27 | Diagnostic Imaging Report ---
Unilateral screening left mammogram. This study was compared to the prior exams of 11/09/2018, 11/05/2017 and 11/04/2016. 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 At this time there were no current complaints. FINDINGS: Fibroglandular tissue in the left breast is heterogeneously dense. This does limit the sensitivity of this exam. Overall, there has been no significant change since the prior study. A few benign-appearing calcifications are again evident. There is no primary or secondary sign of malignancy identified however. IMPRESSION: There is no evidence of malignancy. ACR BI-RADS Category 1: Negative. Result letter will be mailed to the patient. Note: At least 10% of breast cancer is not imaged by mammography. Dictated by: Dictated on workstation # [id number]
== END ==
LOC: RAD 10:36
PROVIDERS: ATTEND Internal Medicine Hematology & Oncology
DX: Z12.31 Encounter for screening mammogram for malignant neoplasm of breast (principal); Z85.3 Personal history of malignant neoplasm of breast
CPT/HCPCS: 77063

== ENCOUNTER → 2020-05-22 | Outpatient (CLI) | payer MEDICARE ==
[~2020-05-22] MED LIST changes: +ASPI-1238 PO; -ASPI-983 PO; -MONT10TA26 PO; +MONT10TA32 PO
[2020-05-22 14:04] LABS: BASOPHILS # (AUTO) 0.1 10^3/uL (0.0-0.1); BASOPHILS % (AUTO) 1 % (0-10); EOSINOPHILS # (AUTO) 0.5 10^3/uL (0.0-0.3); EOSINOPHILS % (AUTO) 5 % (0-10); HEMATOCRIT 42 % (35-52); HEMOGLOBIN 13.4 g/dL (11.5-16.0); LYMPHOCYTES # (AUTO) 2.5 10^3/uL (1.0-4.0); LYMPHOCYTES % (AUTO) 27 % (12-44); MEAN CORPUSCULAR HEMOGLOBIN 29 pg (25-34); MEAN CORPUSCULAR HGB CONC 32 g/dL (32-36); MEAN CORPUSCULAR VOLUME 91 fL (80-99); MONOCYTES # (AUTO) 0.8 10^3/uL (0.0-1.0); MONOCYTES % (AUTO) 9 % (0-12); NEUTROPHILS # (AUTO) 5.4 10^3/uL (1.8-7.8); NEUTROPHILS % (AUTO) 58 % (42-75); PLATELET COUNT 255 10^3/uL (130-400); WHITE BLOOD COUNT 9.3 10^3/uL (4.3-11.0)
[2020-05-22 14:28] LABS: ALBUMIN 4.2 GM/DL (3.2-4.5); BILIRUBIN,TOTAL 0.5 MG/DL (0.1-1.0); CALCIUM 9.2 MG/DL (8.5-10.1); CREATININE SERUM 2.41 MG/DL (0.60-1.30); POTASSIUM 4.1 MMOL/L (3.6-5.0); TOTAL PROTEIN 7.7 GM/DL (6.4-8.2)
== END ==
LOC: ONC 13:56
PROVIDERS: ATTEND Internal Medicine Hematology & Oncology
DX: C50.411 Malignant neoplasm of upper-outer quadrant of right female breast (principal); E55.9 Vitamin D deficiency, unspecified; M85.89 Other specified disorders of bone density and structure, multiple sites; J44.9 Chronic obstructive pulmonary disease, unspecified; I12.9 Hypertensive chronic kidney disease with stage 1 through stage 4 chronic kidney disease, or unspecified chronic kidney disease; N18.30 Chronic kidney disease, stage 3 unspecified; I25.10 Atherosclerotic heart disease of native coronary artery without angina pectoris
CPT/HCPCS: 80053; 82306; 85025; G0463; 99213

== ENCOUNTER → 2020-06-21 | Outpatient (CLI) | payer MEDICARE ==
[2020-06-21 14:51] LABS: CALCIUM 9.2 MG/DL (8.5-10.1); CREATININE SERUM 1.49 MG/DL (0.60-1.30); POTASSIUM 4.2 MMOL/L (3.6-5.0)
== END ==
LOC: ONC 14:29
PROVIDERS: ATTEND Internal Medicine Hematology & Oncology
DX: D05.11 Intraductal carcinoma in situ of right breast (principal); I12.9 Hypertensive chronic kidney disease with stage 1 through stage 4 chronic kidney disease, or unspecified chronic kidney disease; E11.22 Type 2 diabetes mellitus with diabetic chronic kidney disease; N18.30 Chronic kidney disease, stage 3 unspecified; E55.9 Vitamin D deficiency, unspecified; M85.88 Other specified disorders of bone density and structure, other site; J44.9 Chronic obstructive pulmonary disease, unspecified; I25.10 Atherosclerotic heart disease of native coronary artery without angina pectoris; E78.2 Mixed hyperlipidemia; G47.33 Obstructive sleep apnea (adult) (pediatric); R94.4 Abnormal results of kidney function studies; Z90.11 Acquired absence of right breast and nipple; Z98.890 Other specified postprocedural states
CPT/HCPCS: 80048

== ENCOUNTER → 2020-10-05 | Outpatient (CLI) | payer MEDICARE | LOC: CARD 09:12 | PROVIDERS: ATTEND Physician Assistant | DX: I34.0 Nonrheumatic mitral (valve) insufficiency (principal); I25.10 Atherosclerotic heart disease of native coronary artery without angina pectoris; I11.9 Hypertensive heart disease without heart failure | CPT/HCPCS: 93306 ==

== ENCOUNTER → 2020-10-08 | Outpatient (CLI) | payer MEDICARE | LOC: ONC 09:02 | PROVIDERS: ATTEND Internal Medicine Hematology & Oncology | DX: D05.11 Intraductal carcinoma in situ of right breast (principal); M85.88 Other specified disorders of bone density and structure, other site; I25.10 Atherosclerotic heart disease of native coronary artery without angina pectoris; J44.9 Chronic obstructive pulmonary disease, unspecified; E11.22 Type 2 diabetes mellitus with diabetic chronic kidney disease; I12.9 Hypertensive chronic kidney disease with stage 1 through stage 4 chronic kidney disease, or unspecified chronic kidney disease; N18.30 Chronic kidney disease, stage 3 unspecified; I89.0 Lymphedema, not elsewhere classified; E78.2 Mixed hyperlipidemia; G47.33 Obstructive sleep apnea (adult) (pediatric); Z90.11 Acquired absence of right breast and nipple; Z98.890 Other specified postprocedural states | CPT/HCPCS: 99213 ==

== ENCOUNTER 2020-10-25 14:00 | Outpatient (RCR) | payer MEDICARE | END 2020-12-21 08:25 | disposition home or self-care (01) | PROVIDERS: ATTEND Nurse Practitioner Adult Health | DX: I89.0 Lymphedema, not elsewhere classified (principal); C50.411 Malignant neoplasm of upper-outer quadrant of right female breast; E11.22 Type 2 diabetes mellitus with diabetic chronic kidney disease; N13.0 Hydronephrosis with ureteropelvic junction obstruction; J44.9 Chronic obstructive pulmonary disease, unspecified; Z95.5 Presence of coronary angioplasty implant and graft ==

== ENCOUNTER → 2020-11-20 | Outpatient (CLI) | payer MEDICARE ==
[2020-11-20 13:38] LABS: BASOPHILS # (AUTO) 0.1 10^3/uL (0.0-0.1); BASOPHILS % (AUTO) 1 % (0-10); EOSINOPHILS # (AUTO) 0.4 10^3/uL (0.0-0.3); EOSINOPHILS % (AUTO) 5 % (0-10); HEMATOCRIT 41 % (35-52); HEMOGLOBIN 13.1 g/dL (11.5-16.0); LYMPHOCYTES # (AUTO) 2.3 10^3/uL (1.0-4.0); LYMPHOCYTES % (AUTO) 30 % (12-44); MEAN CORPUSCULAR HEMOGLOBIN 29 pg (25-34); MEAN CORPUSCULAR HGB CONC 32 g/dL (32-36); MEAN CORPUSCULAR VOLUME 92 fL (80-99); MONOCYTES # (AUTO) 0.7 10^3/uL (0.0-1.0); MONOCYTES % (AUTO) 9 % (0-12); NEUTROPHILS # (AUTO) 4.1 10^3/uL (1.8-7.8); NEUTROPHILS % (AUTO) 54 % (42-75); PLATELET COUNT 247 10^3/uL (130-400); WHITE BLOOD COUNT 7.6 10^3/uL (4.3-11.0)
[2020-11-20 14:24] LABS: BILIRUBIN,TOTAL 0.5 MG/DL (0.1-1.0); CALCIUM 9.5 MG/DL (8.5-10.1); CREATININE SERUM 1.44 MG/DL (0.60-1.30); POTASSIUM 4.5 MMOL/L (3.6-5.0); TOTAL PROTEIN 7.7 GM/DL (6.4-8.2)
== END ==
LOC: ONC 13:24
PROVIDERS: ATTEND Internal Medicine Hematology & Oncology
DX: C50.411 Malignant neoplasm of upper-outer quadrant of right female breast (principal); E55.9 Vitamin D deficiency, unspecified; E66.01 Morbid (severe) obesity due to excess calories; I89.0 Lymphedema, not elsewhere classified; I25.10 Atherosclerotic heart disease of native coronary artery without angina pectoris; J44.9 Chronic obstructive pulmonary disease, unspecified; I12.9 Hypertensive chronic kidney disease with stage 1 through stage 4 chronic kidney disease, or unspecified chronic kidney disease; N18.30 Chronic kidney disease, stage 3 unspecified; E78.5 Hyperlipidemia, unspecified; G47.33 Obstructive sleep apnea (adult) (pediatric); M85.80 Other specified disorders of bone density and structure, unspecified site; Z90.11 Acquired absence of right breast and nipple; Z79.811 Long term (current) use of aromatase inhibitors
CPT/HCPCS: 80053; 82306; 85025; G0463; 99213

== ENCOUNTER → 2020-11-27 | Outpatient (CLI) | payer MEDICARE ==
--- NOTE | 2020-11-27 18:46 | Diagnostic Imaging Report ---
INDICATION: Routine screening. COMPARISON is made with prior mammograms from 11/25/2019 and 11/09/2018. 2-D and 3-D unilateral left screening mammography was performed with CAD. Left breast is heterogeneously dense, limiting the sensitivity of mammography. The parenchymal pattern is stable. No mass or malignant-appearing microcalcifications are seen. There are benign calcifications present. The left axilla is unremarkable. IMPRESSION: BI-RADS Category 2 No mammographic features suspicious for malignancy are identified. ACR BI-RADS Category 2: Benign findings. Result letter will be mailed to the patient. Note: At least 10% of breast cancer is not imaged by mammography. Dictated by: Dictated on workstation # [id number]
== END ==
LOC: RAD 13:11
PROVIDERS: ATTEND Internal Medicine Hematology & Oncology
DX: Z12.31 Encounter for screening mammogram for malignant neoplasm of breast (principal); Z85.3 Personal history of malignant neoplasm of breast
CPT/HCPCS: 77063

== ENCOUNTER → 2020-12-10 | Outpatient (CLI) | payer MEDICARE ==
[~2020-12-10] MED LIST changes: +CATHETER FLUSH 10 ML SYR IV PRN; +REGADENOSON 0.4 MG/5 ML SYR (LEXISCAN) IV ONE
[2020-12-10 09:11] VITALS: BP 158/72
--- NOTE | 2020-12-10 11:17 | Cardiology Stress Test Report ---
Stress Test Report Date of Procedure/Referring: Date of Procedure: Dec 10, 2020 Kristen العراقي Admitting Physician Martha Anaya MD Indications: CAD Baseline Heart Rate: 69 Baseline Blood Pressure: Blood Pressure Systolic: 158 Blood Pressure Diastolic: 72 Baseline Vitals Vital Signs Date Time Temp Pulse Resp B/P (MAP) Pulse Ox O2 Delivery O2 Flow Rate FiO2 12/10/20 09:11 80 19 158/72 (100) 97 Room Air Baseline EKG: Baseline EKG: NSR Summary After explaining the procedure to the patient, she signed a consent and then brought to the stress nuclear laboratory. Patient received 0.4 mg Lexiscan for stress test, ECG, heart rate and blood pressure were monitored continuously. Resting and stress dose of radio tracer were injected, imaging was acquired and reviewed in short axis, horizontal long axis and vertical long axis views. TID: 1.06 SSS: 3 SDS: 2 EF: 74 1. Patient tolerated Lexiscan well 2. Breast attenuation affecting the quality of the study, mild decrease uptake involving the mid to apical anterior wall with mild reversibility, most probably secondary to the breast attenuation 3. Normal left ventricular size, EF 74% BTEHANY BALLARD MD Dec 10, 2020 11:17
== END ==
LOC: CARD 07:12
PROVIDERS: ATTEND Physician Assistant
DX: I25.10 Atherosclerotic heart disease of native coronary artery without angina pectoris (principal); I10 Essential (primary) hypertension
CPT/HCPCS: 78452; 93017; A9502

== ENCOUNTER → 2021-12-04 | Outpatient (CLI) | payer MEDICARE ==
[~2021-12-04] MED LIST changes: -CATHETER FLUSH 10 ML SYR IV PRN; +MONT-40 PO; -MONT10TA32 PO; +POTA-179 PO; -POTA20TA15 PO; -REGADENOSON 0.4 MG/5 ML SYR (LEXISCAN) IV ONE
[2021-12-04 10:10] LABS: BASOPHILS # (AUTO) 0.1 10^3/uL (0.0-0.1); BASOPHILS % (AUTO) 1 % (0-10); EOSINOPHILS # (AUTO) 0.6 10^3/uL (0.0-0.3); EOSINOPHILS % (AUTO) 6 % (0-10); HEMATOCRIT 40 % (35-52); HEMOGLOBIN 13.2 g/dL (11.5-16.0); LYMPHOCYTES # (AUTO) 2.6 10^3/uL (1.0-4.0); LYMPHOCYTES % (AUTO) 30 % (12-44); MEAN CORPUSCULAR HEMOGLOBIN 28 pg (25-34); MEAN CORPUSCULAR HGB CONC 33 g/dL (32-36); MEAN CORPUSCULAR VOLUME 87 fL (80-99); MEAN PLATELET VOLUME 9.8 fL (9.0-12.2); MONOCYTES # (AUTO) 0.8 10^3/uL (0.0-1.0); MONOCYTES % (AUTO) 10 % (0-12); NEUTROPHILS # (AUTO) 4.7 10^3/uL (1.8-7.8); NEUTROPHILS % (AUTO) 53 % (42-75); PLATELET COUNT 260 10^3/uL (130-400); WHITE BLOOD COUNT 8.9 10^3/uL (4.3-11.0)
[2021-12-04 10:42] LABS: ALBUMIN 4.1 GM/DL (3.2-4.5); BILIRUBIN,TOTAL 0.5 MG/DL (0.1-1.0); CALCIUM 9.5 MG/DL (8.5-10.1); CREATININE SERUM 1.33 MG/DL (0.60-1.30); TOTAL PROTEIN 7.3 GM/DL (6.4-8.2)
== END ==
LOC: ONC 09:55
PROVIDERS: ATTEND Internal Medicine Hematology & Oncology
DX: C50.411 Malignant neoplasm of upper-outer quadrant of right female breast (principal)
CPT/HCPCS: 80053; 85025; G0463; 36415; 99203

== ENCOUNTER → 2021-12-06 | Outpatient (CLI) | payer MEDICARE ==
--- NOTE | 2021-12-06 11:58 | Diagnostic Imaging Report ---
INDICATION: Routine screening Comparison is made prior mammograms of 11/27/2020 and 11/25/2019. Unilateral left 2-D and 3-D screening mammography was performed with CAD. Left breast is heterogeneously dense, limiting the sensitivity of mammography. The parenchymal pattern is stable. No mass or malignant-appearing microcalcifications are seen. Left axilla is unremarkable. IMPRESSION: No mammographic features suspicious for malignancy are identified. ACR BI-RADS Category 1: Negative. Result letter will be mailed to the patient. Note: At least 10% of breast cancer is not imaged by mammography. BI-RADS Category 1 Dictated by: Dictated on workstation # [id number]
== END ==
LOC: RAD 10:51
PROVIDERS: ATTEND Internal Medicine Hematology & Oncology
DX: Z12.31 Encounter for screening mammogram for malignant neoplasm of breast (principal)
CPT/HCPCS: 77063

== ENCOUNTER 2022-09-21 15:56 | Emergency (ER) | payer MEDICARE ==
[~2022-09-21 15:56] MED LIST changes: +ALBU8.5H6 IH; -RT-ALBUINH IH
--- NOTE | 2022-09-21 16:23 | ED Respiratory ---
General Chief Complaint: Respiratory Problems Stated Complaint: SOA Nursing Triage Note: PT AMB TO RM 9 WITH CC OF SOA X 1 WEEK. PT STATES SOA HAS INCREASED TODAY. PT REPORTS COUGHING UP GREEN SPUTUM. PT STATES IS ON HOME O2 BUT HAS BEEN WITHOUT FOR 2 DAYS. PT A&OX4 Source: patient Exam Limitations: no limitations History of Present Illness Date Seen by Provider: September 21, 2022 Time Seen by Provider: 16:10 Initial Comments Patient is a 76-year-old female who presents to the emergency room with chief complaint of feeling short of breath and labored in her breathing over the course of the last week. She states she traveled out of town to [place] last week and cough of green sputum. She states the sputum is now light yellow and she is not producing as much but she laid down today to rest and became so short of breath she thought she should come to the emergency room. She does have a history of diabetes and heart failure. She denies any increased weight gain, she does weigh herself daily. She denies known fever. She denies chest pain, pressure, tightness. She does use breathing inhalers. She does not have a nebulizer. She does wear home O2 at 2 L but did not wear it much over the course of the last week. She denies any sick contacts. She does not smoke she quit in 2002. Timing/Duration: week (last week) Severity: moderate Prior Episodes/Possible Cause: occasional episodes Modifying Factors: Improves With Albuterol Inhaler Associated Symptoms: muscle aches (bilateral leg cramps) Allergies and Home Medications Allergies Coded Allergies: allopurinol (Verified Allergy, Intermediate, RASH, 10/15/16) Patient Home Medication List Home Medication List Reviewed: Yes Albuterol Sulfate (Ventolin Hfa) 8.5 Gm Hfa.aer.ad, 2 PUFF IH Q4H PRN for SHORTNESS OF BREATH, (Reported) Entered as Reported by: DEANN ARANGO on 02/21/15 0816 Amlodipine Besylate (Norvasc) 5 Mg Tablet, 5 MG PO DAILY, (Reported) Entered as Reported by: ROVERTO PATTERSON on 03/10/19 1246 Anastrozole (Anastrozole) 1 Mg Tablet, 1 MG PO DAILY, (Reported) Entered as Reported by: ROVERTO PATTERSON on 02/07/16 1354 Aspirin (Aspirin EC) 81 Mg Tablet.dr, 81 MG PO HS, (Reported) Entered as Reported by: DEANN ARANGO on 02/21/15 0816 Azithromycin (Azithromycin) 250 Mg Tablet, 250 MG PO DAILY Prescribed by: JUANCARLOS ROSE on 09/21/22 174 Buspirone HCl (Buspirone HCl) 10 Mg Tablet, 10 MG PO BID, (Reported) Entered as Reported by: ROVERTO PATTERSON on 03/10/19 124 Carvedilol (Carvedilol) 12.5 Mg Tablet, 12.5 MG PO BID, (Reported) Entered as Reported by: ROVERTO PATTERSON on 03/10/19 124 Cefdinir (Cefdinir) 300 Mg Capsule, 300 MG PO BID Prescribed by: JUANCARLOS ROSE on 09/21/221745 Cetirizine HCl (Cetirizine HCl) 10 Mg Tablet, 10 MG PO DAILY, (Reported) Entered as Reported by: ROVERTO PATTERSON on 03/10/19 124 Cholecalciferol (Vitamin D3) (Vitamin D3) 5,000 Unit Capsule, 5,000 UNIT PO DAILY, (Reported) Entered as Reported by: ROVERTO PATTERSON on 03/10/19 124 Citalopram Hydrobromide (Celexa) 20 Mg Tablet, 20 MG PO DAILY, (Reported) Entered as Reported by: ROVERTO PATTERSON on 03/10/19 124 Febuxostat (Uloric) 40 Mg Tablet, 40 MG PO DAILY, (Reported) Entered as Reported by: ROVERTO PATTERSON on 03/10/19 124 Fluticasone Propionate (Flonase Allergy Relief) 9.9 Ml [place].susp, 1 SPRAY NS DAILY, (Reported) Entered as Reported by: ROVERTO PATTESRON on 03/10/19 124 Fluticasone/Salmeterol (Advair 250-50 Diskus) 1 Each Blst.w.dev, 1 EACH IH BID, (Reported) Entered as Reported by: ROVERTO PATTERSON on 03/10/19 124 Furosemide (Furosemide) 20 Mg Tablet, 20 MG PO DAILY, (Reported) Entered as Reported by: ROVERTO PATTERSON on 03/10/19 1246 Glimepiride (Glimepiride) 1 Mg Tablet, 1 MG PO DAILY, (Reported) Entered as Reported by: ROVERTO PATTERSON on 03/10/19 1246 Levothyroxine Sodium (Levothyroxine Sodium) 100 Mcg Tablet, 100 MCG PO DAILY, (Reported) Entered as Reported by: ROVERTO PATTERSON on 03/10/19 1246 Magnesium Oxide (Magnesium) 400 Mg Capsule, 400 MG PO BID, (Reported) Entered as Reported by: VALERIE FARAH on 10/21/17 0741 Montelukast Sodium (Montelukast Sodium) 10 Mg Tablet, 10 MG PO DAILY, (Reported) Entered as Reported by: ROVERTO PATTERSON on 03/10/19 1246 Potassium Chloride (Potassium Chloride) 20 Meq Tab.er.prt, 20 MEQ PO DAILY, (Reported) Entered as Reported by: ROVERTO PATTERSON on 03/10/19 1246 Pravastatin Sodium (Pravachol) 40 Mg Tablet, 40 MG PO DAILY, (Reported) Entered as Reported by: ROVERTO PATTERSON on 03/10/19 1246 Triamterene/Hydrochlorothiazid (Triamterene-Hctz 75-50 mg Tab) 1 Each Tablet, 1 EACH PO DAILY, (Reported) Entered as Reported by: ROVERTO PATTERSON on 03/10/19 1246 Review of Systems Review of Systems Constitutional: see HPI, malaise EENTM: no symptoms reported Respiratory: cough, phlegm (green last week), short of breath Cardiovascular: no symptoms reported Gastrointestinal: no symptoms reported Genitourinary: no symptoms reported Musculoskeletal: muscle cramps (bilateral LE) Past Ijscvgp-Cmxbku-Hkjwry Hx Patient Social History Tobacco Use?: No Smoking Status: Former Smoker Substance use?: No Alcohol Use?: No Pt feels they are or have been: No Immunizations Up To Date Tetanus Booster (TDap): Unknown Seasonal Allergies Seasonal Allergies: Yes Past Medical History Surgery/Hospitalization HX: COPD Surgeries: Yes (CARDIAC STENTS,CASH TKR, HYSTERECTOMY W BLADDER TIE, R MASTECTOMY) Appendectomy, Bladder Surgery, Breast, Cardiac, Eye Surgery, Hysterectomy, Orthopedic Respiratory: Yes (MILD) Sleep Apnea, COPD Currently Using CPAP: Yes Currently Using BIPAP: Yes Cardiac: Yes (STENTS X2) Chronic Edema/Swelling, Coronary Artery Disease, High Cholesterol, Hypertension Neurological: No 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 Sexually Transmitted Disease: No HIV/AIDS: No Genitourinary: Yes (STAGE 3 RENAL FAILURE) Bladder Infection, Renal Failure Gastrointestinal: No Chronic Constipation Musculoskeletal: Yes (OSTEOARTHRITIS) Degenerate Disk Disease, Osteoporosis, Arthritis, Chronic Back Pain, Gout Endocrine: Yes Hypothyroidsim, Diabetes, Non-Insulin dep HEENT: Yes (GLASSES) Loss of Vision: Bilateral Hearing Impairment: Denies Cancer: Yes Breast Did You Recieve Any Treatments: Yes What Type of Treatment Did You: Surgical Intervention Psychosocial: Yes Anxiety, Depression Integumentary: No Blood Disorders: No Adverse Reaction/Blood Tranf: No (N/A) Family Medical History No Pertinent Family Hx Physical Exam Vital Signs - First Documented Capillary Refill : Less Than 3 Seconds Height: 4'9.00" Weight: 237lbs. 4.0oz. 98.875004if; 46.22 BMI Method:Stated General Appearance: WD/WN, no apparent distress Eyes: Bilateral Eye Normal Inspection, Bilateral Eye PERRL, Bilateral Eye EOMI HEENT: PERRL/EOMI Neck: normal inspection Respiratory: lungs clear, normal breath sounds, other (slightly labored breathing with sats 97% on 1.5L O2 per NC) Cardiovascular: regular rate, rhythm Gastrointestinal: non tender, soft, other (obese) Extremities: normal range of motion, swelling (left greater than right LE) Skin: normal color, warm/dry Progress/Results/Core Measures Suspected Sepsis SIRS Temperature: Pulse: 79 Respiratory Rate: 30 Laboratory Tests 09/21/22 16:04: White Blood Count 19.7H Blood Pressure 187 /79 Mean: 115 Laboratory Tests 09/21/22 16:04: Creatinine 1.40H, Platelet Count 281 Results/Orders Lab Results Laboratory Tests Test 09/21/22 16:04 Range/Units White Blood Count 19.7 H 4.3-11.0 10^3/uL Red Blood Count 4.23 3.80-5.11 10^6/uL Hemoglobin 12.4 11.5-16.0 g/dL Hematocrit 38 35-52 % Mean Corpuscular Volume 89 80-99 fL Mean Corpuscular Hemoglobin 29 25-34 pg Mean Corpuscular Hemoglobin Concent 33 32-36 g/dL Red Cell Distribution Width 13.2 10.0-14.5 % Platelet Count 281 130-400 10^3/uL Mean Platelet Volume 10.7 9.0-12.2 fL Immature Granulocyte % (Auto) 1 % Neutrophils (%) (Auto) 78 H 42-75 % Lymphocytes (%) (Auto) 12 12-44 % Monocytes (%) (Auto) 8 0-12 % Eosinophils (%) (Auto) 0 0-10 % Basophils (%) (Auto) 0 0-10 % Neutrophils # (Auto) 15.4 H 1.8-7.8 10^3/uL Lymphocytes # (Auto) 2.4 1.0-4.0 10^3/uL Monocytes # (Auto) 1.6 H 0.0-1.0 10^3/uL Eosinophils # (Auto) 0.1 0.0-0.3 10^3/uL Basophils # (Auto) 0.1 0.0-0.1 10^3/uL Immature Granulocyte # (Auto) 0.2 H 0.0-0.1 10^3/uL Neutrophils % (Manual) 80 % Lymphocytes % (Manual) 11 % Monocytes % (Manual) 5 % Eosinophils % (Manual) 0 % Basophils % (Manual) 1 % Band Neutrophils 3 % Blood Morphology Comment NORMAL Sodium Level 137 135-145 MMOL/L Potassium Level 4.6 3.6-5.0 MMOL/L Chloride Level 100 98-107 MMOL/L Carbon Dioxide Level 22 21-32 MMOL/L Anion Gap 15 H 5-14 MMOL/L Blood Urea Nitrogen 19 H 7-18 MG/DL Creatinine 1.40 H 0.60-1.30 MG/DL Estimat Glomerular Filtration Rate 39 BUN/Creatinine Ratio 14 Glucose Level 219 H 70-105 MG/DL Calcium Level 9.6 8.5-10.1 MG/DL B-Type Natriuretic Peptide 286.8 H <100.0 PG/ML My Orders Orders - JUANCARLOS ROSE MD Ed Iv/Invasive Line Start (09/21/22 16:19) Cbc With Automated Diff (09/21/22 16:19) Basic Metabolic Panel (09/21/22 16:19) Bnp [place] (09/21/22 16:19) Chest 1 View, Ap/Pa Only (09/21/22 16:19) Manual Differential (09/21/22 16:04) Acetaminophen Tablet (Tylenol Tablet) (09/21/22 17:45) Albuterol Pre-Mix Nebs (Rt) (Proventil (09/21/22 17:45) Ceftriaxone Iv/Im (Rocephin Iv/Im) (09/21/22 17:45) Azithromycin Injection (Zithromax Inject (09/21/22 17:45) Svn Small Volume Nebulizer (09/21/22 17:40) Vital Signs/I&O 09/21/22 09/21/22 09/21/22 09/21/22 15:59 15:59 17:51 18:16 Temp 37.3 36.9 Pulse 79 Resp 30 B/P (MAP) 187/79 (115) Pulse Ox 96 97 O2 Delivery Nasal Cannula Nasal Cannula Nasal Cannula O2 Flow Rate 2.00 2.00 2.00 09/21/22 19:28 Pulse 68 Resp 20 B/P (MAP) 126/70 Pulse Ox 95 O2 Delivery Nasal Cannula O2 Flow Rate 2.00 2.00 Capillary Refill : Less Than 3 Seconds Blood Pressure Mean: 115 Progress Note : Time: 17:39 Progress Note Patient reevaluated at this time. She complains of feeling a little more aching and that she might have a fever. She continues to have oxygen saturations 96 to 97% on her 2 L. Her blood pressure is 170s systolic. She is not tachycardic. Clinically not meeting any sepsis criteria at this time. Discussed admission versus discharged home on oral antibiotics. Patient feels like she would like to go home. She does have evidence of multifocal pneumonia. We will start her on IV antibiotics here in the emergency room and switch to oral tomorrow. I have reviewed extensively return precautions with the patient. She is comfortable with the plan of care. Evaluation today includes physical exam, Chest xray, CBC, BMP. Physical exam pertinent for WDWN female in mild distress due to cough. No respiratory distress. Coarse crackly BS bilaterally. O2 sats 96/97% on 1.5L O2 per NC. No LE edema. Abdomern is soft. DDX based on h/p - brinchitis/pneumonia/COPD exacerbation. Labs and imaging reviewed by me - CBC shows WBC of 19.7 with 78% neutrophils. normal H/H and platelets. Bun and creat 19 and 1.4. 219 glucose. BNP slightly elevated at 286.8. Patient has history of DM and CHF. CXR shows multifocal pna. No concern for significant CHF exacerbation. (discussion as above). Diagnostic Imaging Diagonstic Imaging: Xray Plain Films/CT/US/NM/MRI: chest Comments [facility], [place] NAME: IVORY JACOB [facility] REC#: [id number] PT STATUS: REG ER : 1945 PHYSICIAN: JUANCARLOS ROSE MD ADMIT DATE: 09/21/22/ER Signed Date of Exam:09/21/22 CHEST 1 VIEW, AP/PA ONLY INDICATION: Shortness of breath. COMPARISON: 03/16/2019. FINDINGS: There are abnormal airspace opacities present within the right lung which appear to be within the upper and lower lobes and also possibly within the right middle lobe. There is a smaller similar region of opacity within the left upper lobe. Given asymmetry, this is suspect for pneumonia rather than edema. There is flattening of the diaphragms. There is stable enlargement of the cardiac silhouette. There is no large effusion or pneumothorax. IMPRESSION: 1. Right greater than left asymmetric airspace opacities within the lungs suggesting a multifocal pneumonia. 2. Stable enlargement of the cardiac silhouette. Dictated by: Dictated on workstation # [id number] Dict: 09/21/22 1636 Trans: 09/21/22 1653 [facility] [id number] Interpreted by: VIELKA CALVERT MD Electronically signed by: VIELKA CALVERT MD 09/21/22 1653 Departure Impression Primary Impression: Pneumonia Qualified Codes: J18.9 - Pneumonia, unspecified organism Disposition: 01 HOME, SELF-CARE Condition: Stable Departure-Patient Inst. Decision time for Depature: 17:44 Referrals: ALTON ELIZONDO MD (PCP/Family) Primary Care Physician Patient Instructions: Pneumonia, Adult (DC) Add. Discharge Instructions: Take the antibiotics as directed over the course of the next week. Cefdinir 300 mg twice daily for 7 days and azithromycin 250 mg once a day for the next 4 days. These medications will start tomorrow. Use your inhaler every 4-6 hours as needed for shortness of breath. Drink fluids to stay well-hydrated. If you start developing worsening shortness of breath, high fever or any other emergent, concerning symptoms please return to the emergency department for reevaluation. Please follow-up with your primary care provider next week. Scripts Azithromycin (Azithromycin) 250 Mg Tablet 250 MG PO DAILY, #4 TAB 0 Refills Prov: JUANCARLOS ROSE MD 09/21/22 Cefdinir (Cefdinir) 300 Mg Capsule 300 MG PO BID for 7 Days, #14 CAP Prov: JUANCARLOS ROSE MD 09/21/22 Copy Copies To 1: ALTON ELIZONDO MD, KATHRYN M MD September 21, 2022 16:23
[2022-09-21 16:25] LABS: WHITE BLOOD COUNT 19.7 10^3/uL (4.3-11.0)
[2022-09-21 16:26] LABS: BASOPHILS # (AUTO) 0.1 10^3/uL (0.0-0.1); BASOPHILS % (AUTO) 0 % (0-10); EOSINOPHILS # (AUTO) 0.1 10^3/uL (0.0-0.3); EOSINOPHILS % (AUTO) 0 % (0-10); HEMATOCRIT 38 % (35-52); HEMOGLOBIN 12.4 g/dL (11.5-16.0); LYMPHOCYTES # (AUTO) 2.4 10^3/uL (1.0-4.0); LYMPHOCYTES % (AUTO) 12 % (12-44); MEAN CORPUSCULAR HEMOGLOBIN 29 pg (25-34); MEAN CORPUSCULAR HGB CONC 33 g/dL (32-36); MEAN CORPUSCULAR VOLUME 89 fL (80-99); MEAN PLATELET VOLUME 10.7 fL (9.0-12.2); MONOCYTES # (AUTO) 1.6 10^3/uL (0.0-1.0); MONOCYTES % (AUTO) 8 % (0-12); NEUTROPHILS # (AUTO) 15.4 10^3/uL (1.8-7.8); NEUTROPHILS % (AUTO) 78 % (42-75); PLATELET COUNT 281 10^3/uL (130-400)
[2022-09-21 16:29] LABS: POTASSIUM 4.6 MMOL/L (3.6-5.0)
[2022-09-21 16:30] LABS: CALCIUM 9.6 MG/DL (8.5-10.1)
[2022-09-21 16:35] LABS: CREATININE SERUM 1.4 MG/DL (0.60-1.30)
--- NOTE | 2022-09-21 16:49 | Diagnostic Imaging Report ---
INDICATION: Shortness of breath. COMPARISON: 03/16/2019. FINDINGS: There are abnormal airspace opacities present within the right lung which appear to be within the upper and lower lobes and also possibly within the right middle lobe. There is a smaller similar region of opacity within the left upper lobe. Given asymmetry, this is suspect for pneumonia rather than edema. There is flattening of the diaphragms. There is stable enlargement of the cardiac silhouette. There is no large effusion or pneumothorax. IMPRESSION: 1. Right greater than left asymmetric airspace opacities within the lungs suggesting a multifocal pneumonia. 2. Stable enlargement of the cardiac silhouette. Dictated by: Dictated on workstation # [id number]
[2022-09-21 17:16] LABS: BAND NEUTROPHILS 3 %; BASOPHILS % (MANUAL) 1 %; EOSINOPHILS % (MANUAL) 0 %; LYMPHOCYTES % (MANUAL) 11 %; MONOCYTES % (MANUAL) 5 %; NEUTROPHILS % (MANUAL) 80 %; RBC MORPH NORMAL
[2022-09-21] MEDS ORDERED: cefTRIAXone IV/IM 1,000 MG in NS (IVPB) 50 ML IV ONE (17:45)
[2022-09-21] MEDS ORDERED: RT-ALBUTEROL SULF 2.5 MG/3 ML PRE-MIX VIAL INH ONE (17:45)
[2022-09-21] MEDS ORDERED: ACETAMINOPHEN 500 MG TAB (TYLENOL) PO ONE (17:45)
[2022-09-21] MEDS ORDERED: AZITHROMYCIN INJECTION 500 MG in NS (IVPB) 250 ML IV ONE (17:45)
[2022-09-21] MEDS ORDERED: AZIT250T12 PO (17:46)
[2022-09-21] MEDS ORDERED: CEFD300C3 PO (17:46)
[2022-09-21 19:28] VITALS: BP 126/70
== END 2022-09-21 19:28 | disposition home or self-care (01) ==
LOC: EDUNIT# 15:56 → ER 15:59
DX: J18.9 Pneumonia, unspecified organism (principal); G47.30 Sleep apnea, unspecified; M79.89 Other specified soft tissue disorders; Z87.891 Personal history of nicotine dependence; Z99.89 Dependence on other enabling machines and devices
CPT/HCPCS: 36415; 71045; 80048; 83880; 85007; 85027; 94640

== ENCOUNTER → 2022-09-26 | Outpatient (CLI) | payer MEDICARE ==
[~2022-09-26] MED LIST changes: +AZIT250T12 PO; +CEFD300C3 PO
== END ==
LOC: CARD 10:43
PROVIDERS: ATTEND Physician Assistant
DX: I34.0 Nonrheumatic mitral (valve) insufficiency (principal); I25.10 Atherosclerotic heart disease of native coronary artery without angina pectoris; I10 Essential (primary) hypertension
CPT/HCPCS: 93306

== ENCOUNTER → 2022-12-01 | Outpatient (CLI) | payer MEDICARE ==
[~2022-12-01] VITALS: Ht 149 cm; Wt 95.0 kg
[~2022-12-01] MED LIST changes: +CATHETER FLUSH 10 ML SYR IVP PRN; +POTA-330 PO; -POTA-51 PO; +REGADENOSON 0.4 MG/5 ML SYR (LEXISCAN) IV ONE
[2022-12-01 09:21] VITALS: BP 161/76
== END ==
LOC: CARD 07:51
PROVIDERS: ATTEND Physician Assistant
DX: I10 Essential (primary) hypertension (principal); I25.10 Atherosclerotic heart disease of native coronary artery without angina pectoris
CPT/HCPCS: 78452; 93017; A9502

== ENCOUNTER 2022-12-10 12:13 | Day surgery (SDC) | payer MEDICARE ==
[2022-12-10] VITALS (15 sets, daily range): BP systolic 123–145; BP diastolic 60–76
[~2022-12-10] VITALS: Ht 149 cm; Wt 95.3 kg
[~2022-12-10 12:13] MED LIST changes: -CATHETER FLUSH 10 ML SYR IVP PRN; -REGADENOSON 0.4 MG/5 ML SYR (LEXISCAN) IV ONE
[2022-12-10] MEDS ORDERED: NS IV 1000 ML 1,000 ML ONE (12:25)
[2022-12-10] MEDS ORDERED: HEParin (CATH LAB) 2,000 ML IV ONE (12:25)
[2022-12-10] MEDS ORDERED: LIDOCAINE 1% INJ 20 ML VIAL ONE (12:25)
[2022-12-10] MEDS ORDERED: NS IV 1000 ML 1,000 ML IV SCH ×2 (12:45→16:15)
[2022-12-10 12:54] LABS: POTASSIUM 4.3 MMOL/L (3.6-5.0)
[2022-12-10 12:56] LABS: CALCIUM 9.6 MG/DL (8.5-10.1)
[2022-12-10 13:00] LABS: HEMATOCRIT 43 % (35-52); HEMOGLOBIN 13.7 g/dL (11.5-16.0); MEAN CORPUSCULAR HEMOGLOBIN 29 pg (25-34); MEAN CORPUSCULAR HGB CONC 32 g/dL (32-36); MEAN CORPUSCULAR VOLUME 91 fL (80-99); MEAN PLATELET VOLUME 9.9 fL (9.0-12.2); PLATELET COUNT 264 10^3/uL (130-400); WHITE BLOOD COUNT 9.2 10^3/uL (4.3-11.0)
[2022-12-10 13:05] LABS: INR 1.1 (0.8-1.4); PROTHROMBIN TIME PATIENT 14.1 SEC (12.2-14.7)
[2022-12-10 13:09] LABS: ALBUMIN 4.1 GM/DL (3.2-4.5); BILIRUBIN,TOTAL 0.5 MG/DL (0.1-1.0); CREATININE SERUM 1.25 MG/DL (0.60-1.30); TOTAL PROTEIN 7.4 GM/DL (6.4-8.2)
[2022-12-10 13:14] LABS: BACTERIA,URINE NEGATIVE /HPF; BILIRUBIN,URINE NEGATIVE (NEGATIVE); CLARITY,URINE CLEAR; COLOR,URINE YELLOW; GLUCOSE, URINE (UA) NEGATIVE (NEGATIVE); KETONES,URINE NEGATIVE (NEGATIVE); LEUKOCYTE ESTERASE ,URINE TRACE (NEGATIVE); NITRITE,URINE NEGATIVE (NEGATIVE); PROTEIN,URINE NEGATIVE (NEGATIVE)
[2022-12-10] MEDS ORDERED: AMLO-251 PO (13:15)
[2022-12-10] MEDS ORDERED: LEVO112T55 PO (13:15)
[2022-12-10] MEDS ORDERED: ATOR40TA70 PO (13:15)
[2022-12-10] MEDS ORDERED: CHOL500044 PO (13:15)
[2022-12-10] MEDS ORDERED: PROP1DRO7 OP (13:15)
[2022-12-10] MEDS ORDERED: LEVO5TAB12 PO (13:15)
[2022-12-10] MEDS ORDERED: CLON0.5T4 PO (13:15)
[2022-12-10] MEDS ORDERED: DONE10TA41 PO (13:15)
[2022-12-10] MEDS ORDERED: POTA-330 PO (13:15)
[2022-12-10] MEDS ORDERED: LIRA0.6P3 SQ (13:15)
[2022-12-10] MEDS ORDERED: VILA40TA2 PO (13:15)
[2022-12-10] MEDS ORDERED: HYDR-3817 PO (13:15)
--- NOTE | 2022-12-10 13:17 | Diagnostic Imaging Report ---
PATIENT HISTORY: ABN STRESS TEST. TECHNIQUE: Single frontal view of the chest. COMPARISON: 09/21/2022. FINDINGS: The lung volumes are normal. No focal consolidation is seen. No large pleural effusion or pneumothorax is seen. The cardiomediastinal silhouette is normal in size and contour. There is aortic atherosclerosis. No acute osseous abnormality is seen. IMPRESSION: No acute pulmonary abnormality seen. Dictated by: Dictated on workstation # [id number]
[2022-12-10] MEDS ORDERED: diphenhydrAMINE INJ 50 MG/ML VIAL ONE (15:03)
[2022-12-10] MEDS ORDERED: fentaNYL INJECTION 100 MCG/2 ML VIAL ONE (15:03)
[2022-12-10] MEDS ORDERED: methylPREDNISolone INJ 125 MG VIAL ONE (15:04)
[2022-12-10] MEDS ORDERED: MIDAZOLAM INJ 5 MG/5 ML VIAL ONE (15:04)
--- NOTE | 2022-12-10 15:15 | Cardiac Procedure Note-CS/ASA ---
Pre-Procedure Note Pre-Op Procedure Note Date of Available H&P: Dec 08, 2022 Date H&P Reviewed: Dec 10, 2022 Time H&P Reviewed: 15:14 History & Physical: H&P Reviewed, Patient Examed, No changes noted Pre-Operative Diagnosis: CAD Moderate Sedation PreProcedure Time 15:15 ASA Score 3 Airway Lungs Heart ASA score ASA 1: a normal healthy patient ASA 2: a patient with a mild systemic disease (mid diabetes, controlled hypertension, obesity ASA 3: a patient with a severe systemic disease that limits activity (angina, COPD, prior Myocardial infarction) ASA 4: a patient with an incapacitating disease that is a constant threat to life (CHF, renal failure) ASA 5: a moribund patient not expected to survive 24 hrs. (ruptured aneurysm) ASA 6: a declared brain- patient whose organs are being harvested. For emergent operations, add the letter E after the classification Mallampati Classification Grade 3 Sedation Plan Analgesia, Amnesia, Plan communicated to team members, Discussed options with patient/fam, Discussed risks with patient/fam The patient is an appropriate candidate to undergo the planned procedure, sedation, and anesthesia. The patient immediately re-assessed prior to indication. BETHANY BALLARD MD Dec 10, 2022 15:15
--- NOTE | 2022-12-10 16:03 | Discharge Inst-Post CATH ---
Discharge Inst-CATH/EP Problems Reviewed?: Yes Post Cardiac Cath/EP D/C Inst Follow Up/Plan Appointment with Dr. Lao's office in 2 to 4 weeks <b>CARDIAC CATH/EP PROCEDURE DISCHARGE INSTRUCTIONS</b> ACTIVITY * Go Home directly and rest. * Limit activity of the leg (or wrist if it was used) for 7 days including aer obics, swimming, jogging, bicycling, etc. * Restrict stair-climbing for 7 days if possible, if not, climb up with your non-cath leg, then bring together on the same step. * Avoid lifting, pushing, pulling or excessive movement of the affected extremi ty for 7 days. * Customary sexual activity may be resumed after 2 days-use caution not to use a position that strains or causes pain to the affected extremity. * No driving for 24 hours. * NO SMOKING. * Avoid straining for bowel movements for 7 days. * Gentle walking on level ground is allowed. * Returning to work will depend on the type of procedure and the results. Your doctor will discuss this with you. CALL YOUR DOCTOR FOR ANY OF THE FOLLOWING: *If bleeding from the puncture site occurs- Apply gentle pressure to site with clean cloth and call your doctor or EMS. * If a knot or lump forms under the skin, increases in size, or causes pain. * If bruising appears to be worsening or moving further down your leg instead of disappearing. * Temperature above 101 F. CARE OF YOUR GROIN INCISION; * Bruising or purple discoloration of the skin near the puncture site is common. * You may shower only, no bathtub bathing for 5 days. Be careful to avoid slipping as your leg may feel stiff. * If a closure device was used on your femoral artery, please see the attached guide regarding care of the device and your leg. * Leave dressing on FOR 24 hours. CARE OF YOUR WRIST INCISION; * Bruising or purple discoloration of the skin near the puncture site is common. * You may shower. * DO NOT submerge wrist. * Leave dressing on FOR 24 hours. BETHANY LAO MD Dec 10, 2022 16:03
--- NOTE | 2022-12-10 16:06 | Cardiac Cath Report ---
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 After explaining the procedure to the patient, all pros and cons were explained, all questions were answered. The patient signed the consent and then she was placed in the cardiac catheterization laboratory. Groin was prepped in SL fashion local anesthesia was used. Sheath placed in the right femoral artery. Ricardo' right and left catheter were used to access the coronary system. Ricardo right prolapsed to the left ventricular cavity, pressure was measured, pullback LV to aorta was done, did not do ventriculogram At the end of the procedure the sheath was removed. Closure device was deployed FINDINGS: Hemodynamics LV 118/17, end-diastolic pressure of 17 Aorta 127/55 mean of 84 ANATOMY: Left Main is free of obstructive disease Left Anterior Descending has patent stent at the proximal and mid LAD nonobstructive disease, diagonal artery has about 40% stenosis nonobstructive disease Left Circumflex is moderate in size with no obstructive disease Right Coronary Artery is dominant artery with no obstructive disease LV Gram was not done, pressure was measured CONCLUSION: Patent stents in the LAD with mild to moderate disease, 40% stenosis in a diagonal branch, nonobstructive disease Normal left ventricular end-diastolic pressure DISCUSSION AND RECOMMENDATION: Chest pain and abnormal stress test is probably due to small vessel disease. Medical therapy is recommended Anesthesia Type: Conscious Sedation Estimated blood loss (mL): 10 ml Contrast Amount: 15 ml Total Radiation Dose: 387 mGy Post-Procedure Diagnosis Post-operative diagnosis: Chest pain Coronary artery disease Hypertension Hyperlipidemia BETHANY BALLARD MD Dec 10, 2022 16:06
[2022-12-10] MEDS ORDERED: PATIENT MAY USE OWN MEDS, ALL PO SCH (16:15)
== END 2022-12-10 21:00 | disposition home or self-care (01) ==
LOC: CATH 12:13 → ICU 16:23 → CATH 21:00
PROVIDERS: ATTEND Internal Medicine Cardiovascular Disease
DX: I25.10 Atherosclerotic heart disease of native coronary artery without angina pectoris (principal); E78.2 Mixed hyperlipidemia; I12.9 Hypertensive chronic kidney disease with stage 1 through stage 4 chronic kidney disease, or unspecified chronic kidney disease; N18.9 Chronic kidney disease, unspecified; E66.01 Morbid (severe) obesity due to excess calories; I65.29 Occlusion and stenosis of unspecified carotid artery; E11.9 Type 2 diabetes mellitus without complications; R06.09 Other forms of dyspnea; I34.0 Nonrheumatic mitral (valve) insufficiency; R60.0 Localized edema; Z68.41 Body mass index [BMI] 40.0-44.9, adult; Z87.891 Personal history of nicotine dependence; Z95.5 Presence of coronary angioplasty implant and graft; Z85.3 Personal history of malignant neoplasm of breast; Z90.11 Acquired absence of right breast and nipple; Z96.652 Presence of left artificial knee joint; Z99.81 Dependence on supplemental oxygen; Z79.84 Long term (current) use of oral hypoglycemic drugs; Z79.82 Long term (current) use of aspirin
CPT/HCPCS: 71045; 80053; 80061; 81000; 85027; 85610; 85730; 87081; 93458; C1760; C1894; 36415

== ENCOUNTER → 2022-12-30 | Outpatient (CLI) | payer MEDICARE ==
[~2022-12-30] MED LIST changes: +AMLO-251 PO; +CHOL500044 PO; +CLON0.5T4 PO; +DONE10TA41 PO; +HYDR-3817 PO; +LEVO112T55 PO; +LEVO5TAB12 PO; +LIRA0.6P3 SQ; +PROP1DRO7 OP; +VILA40TA2 PO
--- NOTE | 2022-12-30 13:31 | Diagnostic Imaging Report ---
INDICATION: Postmenopausal state COMPARISON: 05/31/2019 FINDINGS: AP Spine L1-L4: [BMD (g/cm2): 1.346] [T-Score: 1.2] [Z-Score: 2.0] [BMD Previous: 1.258] [BMD % Change: 7.0*] LT Hip Neck: [BMD (g/cm2): 0.753] [T-Score: -2.0] [Z-Score: -0.7] LT Hip Total: [BMD (g/cm2):0.915] [T-Score:-0.7] [Z-Score: 0.4] [BMD Previous: 0.934] [BMD % Change: -2.0] RT Hip Neck: [BMD (g/cm2):0.756] [T-Score:-2.0] [Z-Score:-0.7] RT Hip Total: [BMD (g/cm2):0.893] [T-score:-0.9] [Z-Score:0.2] [BMD Previous:0.889] [BMD % Change:0.4] *Indicates significant change from prior examination based on 95% confidence level. World Health Organization criteria for BMD interpretation classify patients as Normal (T-score at or above -1.0), Osteopenic (T-score between -1.0 and -2.5) or Osteoporotic (T-score at or below -2.5). LIMITATIONS AND MODIFICATION: None. FRACTURE RISK (FRAX SCORE): The ten year probability of (%): Major Osteoporotic Fracture: [21.9] Hip Fracture: [12.7] IMPRESSION: 1. Osteopenia (Low bone mass). 2. Bone mineral density within the lumbar spine has significantly increased since the prior examination. However, some of this apparent increase could be artifactual related to degenerative hypertrophic changes. Bone mineral density within the bilateral hips has not significantly changed from the prior exam. 3. See below National Osteoporosis Foundation guidelines on when to potentially initiate pharmacologic therapy. Based on the National Osteoporosis Foundation Guidelines, pharmacologic treatment should be initiated in any of the following, unless clinical conditions suggest otherwise: * Any patient with prior fragility fracture of the hip or vertebrae. A spine fracture indicates 5X risk for subsequent spine fracture and 2X risk for subsequent hip fracture. * Osteoporosis (T-score <-2.5). * Postmenopausal women and men age 50 and older with low bone mass/osteopenia (T-score between -1.0 and -2.5) by DXA and 10-year major osteoporotic fracture greater than 20% or a 10-year probability of hip fracture greater than 3%. These fracture risks are supplied above in the FRAX score, if applicable. * Clinician judgement and/or patient preferences may indicate treatment for people with 10-year fracture probabilities above or below these levels. Dictated by: Dictated on workstation # [id number]
== END ==
LOC: RAD 10:47
PROVIDERS: ATTEND Family Medicine
DX: M85.852 Other specified disorders of bone density and structure, left thigh (principal); M85.851 Other specified disorders of bone density and structure, right thigh; N95.8 Other specified menopausal and perimenopausal disorders
CPT/HCPCS: 77080